=== PATIENT | female | born 1970 | race Caucasian/White ===

== ENCOUNTER → 2016-07-27 | Outpatient (CLI) | payer OTHER ==
[2016-07-27 10:32] LABS: BASOPHILS % (AUTO) 0 % (0-10); EOSINOPHILS # (AUTO) 0.3 10^3/uL (0.0-0.3); EOSINOPHILS % (AUTO) 2 % (0-10); LYMPHOCYTES # (AUTO) 2.7 X 10^3 (1.0-4.0); LYMPHOCYTES % (AUTO) 25 % (12-44); MEAN CORPUSCULAR HEMOGLOBIN 24 PG (25-34); MEAN CORPUSCULAR HGB CONC 31 G/DL (32-36); MEAN CORPUSCULAR VOLUME 78 FL (80-99); MEAN PLATELET VOLUME 9.3 FL (7.4-10.4); MONOCYTES # (AUTO) 0.9 X 10^3 (0.0-1.0); MONOCYTES % (AUTO) 8 % (0-12); NEUTROPHILS # (AUTO) 7.2 X 10^3 (1.8-7.8); NEUTROPHILS % (AUTO) 65 % (42-75); PLATELET COUNT 365 10^3/uL (130-400); RED BLOOD COUNT 4.77 10^6/uL (4.35-5.85); RED CELL DISTRIBUTION WIDTH 18.7 % (10.0-14.5); WHITE BLOOD COUNT 11.1 10^3/uL (4.3-11.0)
[2016-07-27 10:49] LABS: ALANINE AMINOTRANSFERASE 13 U/L (0-55); ALBUMIN 3.9 G/DL (3.2-4.5); ANION GAP 9 MMOL/L (5-14); ASPARTATE AMINO TRANSFERASE 12 U/L (5-34); BILIRUBIN,TOTAL 0.2 MG/DL (0.1-1.0); BLOOD UREA NITROGEN 13 MG/DL (7-18); BUN/CREATININE RATIO 16; CALCIUM 9.1 MG/DL (8.5-10.1); CARBON DIOXIDE 24 MMOL/L (21-32); CHLORIDE 102 MMOL/L (98-107); CREATININE SERUM 0.79 MG/DL (0.60-1.30); GFR ESTIMATED > 60; GLUCOSE 70 MG/DL (70-105); POTASSIUM 4.4 MMOL/L (3.6-5.0); SODIUM 135 MMOL/L (135-145); TOTAL PROTEIN 7.6 G/DL (6.4-8.2)
[2016-07-27 10:53] LABS: ERYTHROCYTE SEDIMENTATION RATE 55 MM/HR (0-20)
--- NOTE | 2016-07-27 11:05 | Diagnostic Imaging Report ---
PA and lateral views of the chest Indication: Solitary pulmonary nodule Findings: The lungs are clear. The heart size is borderline enlarged. There is no effusion or pneumothorax The mediastinum and shemar appear unremarkable. Impression: Borderline cardiomegaly. No definite pulmonary nodule is seen. CT however is the modality of choice for pulmonary nodule evaluation and could be performed with a low dose unenhanced protocol if needed. Dictated by: Dictated on workstation # [id number]
--- NOTE | 2016-07-27 18:05 | Diagnostic Imaging Report ---
Three views of the right foot. INDICATION: Ulcer at the plantar aspect of the right great toe. FINDINGS: There is a well-corticated ossification fragment measuring 8 mm seen projecting at the site of the soft tissue ulcer. This is perhaps related to heterotopic ossification. The medial cortex along the base of the distal phalanx in the great toe demonstrates subtle erosions suggestive of osteomyelitis. The head of the proximal phalanx appears unremarkable. The IP joint appears unremarkable. There is no fracture, dislocation or radiopaque foreign body seen. IMPRESSION: There is a subtle erosion along the medial aspect of the base of the distal phalanx in the great toe suggestive of osteomyelitis. The findings were called to Dr. Gonzalez by Dr. Smith at time of dictation. Dictated by: Dictated on workstation # [id number]
== END ==
LOC: RAD 10:09
PROVIDERS: ATTEND Surgery
DX: E11.621 Type 2 diabetes mellitus with foot ulcer (principal); E11.42 Type 2 diabetes mellitus with diabetic polyneuropathy; L97.514 Non-pressure chronic ulcer of other part of right foot with necrosis of bone; T65.222A Toxic effect of tobacco cigarettes, intentional self-harm, initial encounter; E66.01 Morbid (severe) obesity due to excess calories; R91.1 Solitary pulmonary nodule; M86.271 Subacute osteomyelitis, right ankle and foot
CPT/HCPCS: 36415; 71020; 73630; 80053; 83036; 85025; 85652

== ENCOUNTER → 2016-09-03 | Outpatient (CLI) | payer OTHER | LOC: CARD 09:29 | PROVIDERS: ATTEND Surgery | DX: L97.512 Non-pressure chronic ulcer of other part of right foot with fat layer exposed (principal) | CPT/HCPCS: 93005 ==

== ENCOUNTER 2016-10-09 09:47 | Outpatient (RCR) | payer OTHER ==
--- OUTSIDE RECORDS SUMMARY | 2016-07-27 08:11 | XMS REPORT ---
Author Author SOSA WALLS Organization [employer] Address Unknown Phone Unavailable Care Team Providers Care Greige Goods Examiner Name Role Phone SOSA WALLS CP Unavailable Allergies No Known Allergies Problems Problem Type Condition Code Onset Dates Condition Status Problem Unspecified gastritis and gastroduodenitis without mention of hemorrhage 535.50 Active Problem Nondependent amphetamine or related acting sympathomimetic abuse, unspecified 305.70 Active Problem Cough 786.2 Active Problem Pain in joint, ankle and foot 719.47 Active Problem Leukocytosis, unspecified 288.60 Active Problem Sprain and strain of unspecified site of foot 845.10 Active Problem Urinary tract infection, site not specified 599.0 Active Problem Rash and other nonspecific skin eruption 782.1 Active Problem Hypertension 401.9 Active Problem Unspecified acute renal failure 584.9 Active Problem Dehydration 276.51 Active Problem Chronic airway obstruction, not elsewhere classified 496 Active Problem 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 Problem Dizziness and giddiness 780.4 Active Problem Routine general medical examination at health care facility V70.0 Active Problem Other nonspecific findings on examination of blood, elevated C- reactive protein (CRP) 790.95 Active Problem Unspecified disorder of skin and subcutaneous tissue 709.9 Active Problem Generalized hyperhidrosis 780.8 Active Problem Unspecified hereditary and idiopathic peripheral neuropathy 356.9 Active Problem Polyneuropathy in diabetes 357.2 Active Problem Costochondritis 733.6 Active Problem Need for prophylactic vaccination and inoculation, Influenza V04.81 Active Problem Chest pain, unspecified 786.50 Active Problem Acute upper respiratory infections of unspecified site 465.9 Active Medications No Known Medications Results No Known Results Summary Purpose [employer] Submission
== END 2016-10-25 | disposition still patient (30) ==
LOC: WOUNDCARE 09:47
PROVIDERS: ATTEND Surgery
DX: E11.621 Type 2 diabetes mellitus with foot ulcer (principal); E11.42 Type 2 diabetes mellitus with diabetic polyneuropathy; L97.511 Non-pressure chronic ulcer of other part of right foot limited to breakdown of skin; L97.512 Non-pressure chronic ulcer of other part of right foot with fat layer exposed; T65.222A Toxic effect of tobacco cigarettes, intentional self-harm, initial encounter; M86.171 Other acute osteomyelitis, right ankle and foot; E66.01 Morbid (severe) obesity due to excess calories; Z68.39 Body mass index [BMI] 39.0-39.9, adult
CPT/HCPCS: 11042; 11043; 11044; 15275; 29445; 87070; 87075; 87205; 97597

== ENCOUNTER → 2019-11-11 | Outpatient (CLI) | payer SELFPAY | LOC: WOUNDCARE 12:32 | PROVIDERS: ATTEND Surgery | DX: E11.621 Type 2 diabetes mellitus with foot ulcer (principal); E11.42 Type 2 diabetes mellitus with diabetic polyneuropathy; L97.512 Non-pressure chronic ulcer of other part of right foot with fat layer exposed; I70.235 Atherosclerosis of native arteries of right leg with ulceration of other part of foot; L03.115 Cellulitis of right lower limb; E11.65 Type 2 diabetes mellitus with hyperglycemia; T65.222A Toxic effect of tobacco cigarettes, intentional self-harm, initial encounter; F17.218 Nicotine dependence, cigarettes, with other nicotine-induced disorders | CPT/HCPCS: 11042 ==

== ENCOUNTER → 2019-11-18 | Outpatient (CLI) | payer SELFPAY | LOC: WOUNDCARE 15:15 | PROVIDERS: ATTEND Surgery | DX: E11.621 Type 2 diabetes mellitus with foot ulcer (principal); L97.512 Non-pressure chronic ulcer of other part of right foot with fat layer exposed; I70.235 Atherosclerosis of native arteries of right leg with ulceration of other part of foot | CPT/HCPCS: 11042 ==

== ENCOUNTER → 2019-11-18 | Outpatient (CLI) | payer SELFPAY ==
[2019-11-18 16:48] LABS: BASOPHILS % (AUTO) 0 % (0-10); EOSINOPHILS # (AUTO) 0.1 10^3/uL (0.0-0.3); EOSINOPHILS % (AUTO) 2 % (0-10); HEMATOCRIT 41 % (35-52); HEMOGLOBIN 13.4 G/DL (11.5-16.0); LYMPHOCYTES # (AUTO) 2.8 X 10^3 (1.0-4.0); LYMPHOCYTES % (AUTO) 29 % (12-44); MEAN CORPUSCULAR HEMOGLOBIN 27 PG (25-34); MEAN CORPUSCULAR HGB CONC 33 G/DL (32-36); MEAN CORPUSCULAR VOLUME 83 FL (80-99); MEAN PLATELET VOLUME 9.1 FL (7.4-10.4); MONOCYTES # (AUTO) 0.7 X 10^3 (0.0-1.0); MONOCYTES % (AUTO) 7 % (0-12); NEUTROPHILS # (AUTO) 5.9 X 10^3 (1.8-7.8); NEUTROPHILS % (AUTO) 62 % (42-75); PLATELET COUNT 422 10^3/uL (130-400); WHITE BLOOD COUNT 9.5 10^3/uL (4.3-11.0)
[2019-11-18 16:55] LABS: ALBUMIN 3.5 GM/DL (3.2-4.5); CHLORIDE 97 MMOL/L (98-107); POTASSIUM 4.4 MMOL/L (3.6-5.0); SODIUM 129 MMOL/L (135-145)
[2019-11-18 16:57] LABS: CALCIUM 9.2 MG/DL (8.5-10.1)
[2019-11-18 16:59] LABS: CARBON DIOXIDE 23 MMOL/L (21-32)
[2019-11-18 17:00] LABS: BILIRUBIN,TOTAL 0.2 MG/DL (0.1-1.0)
[2019-11-18 17:01] LABS: ALKALINE PHOSPHATASE 142 U/L (40-136); CREATININE SERUM 0.91 MG/DL (0.60-1.30); GFR ESTIMATED > 60
[2019-11-18 17:02] LABS: BUN/CREATININE RATIO 19
[2019-11-18 17:04] LABS: ALANINE AMINOTRANSFERASE 8 U/L (0-55)
--- NOTE | 2019-11-18 17:09 | Diagnostic Imaging Report ---
EXAMINATION: Right foot at 5:16 p.m. INDICATION: Foot pain. TECHNIQUE: Three views were obtained. FINDINGS: The prior right foot exam of 07/27/2016 noted a subtle erosion along the medial aspect of the base of the distal phalanx of the great toe. This finding was suspicious for osteomyelitis. In the interval since the prior exam, marked distraction of the head and neck of the first metatarsal has developed. There is also bony destruction but to a lesser degree of the medial aspect of the base of the proximal phalanx of the great toe. There is also erosion of the lateral cortex of the mid body of the proximal phalanx of the great toe. There is also generalized soft tissue edema in this area. These findings are most likely related to osteomyelitis with an associated pathologic fracture of the first metatarsal and proximal phalanx. If further imaging is desired, then MRI would be recommended. There is no acute or subacute bony abnormality noted, otherwise. The Lisfranc joint seems well maintained. The large calcaneal spur seen previously is again evident. IMPRESSION: 1. There is destruction of the first metatarsal and proximal phalanx of the great toe, as described above. Most likely, this is due to osteomyelitis. Additional considerations, as above. 2. There is no acute bony abnormality identified, otherwise. 3. These results were called to Dr. Joe Gonzalez. Dictated by: Dictated on workstation # [id number]
[2019-11-18 17:18] LABS: GLUCOSE 536 MG/DL (70-105)
== END ==
LOC: RAD 14:50
PROVIDERS: ATTEND Surgery
DX: E11.621 Type 2 diabetes mellitus with foot ulcer (principal); E11.42 Type 2 diabetes mellitus with diabetic polyneuropathy; L97.512 Non-pressure chronic ulcer of other part of right foot with fat layer exposed; I70.235 Atherosclerosis of native arteries of right leg with ulceration of other part of foot; L03.115 Cellulitis of right lower limb; E11.65 Type 2 diabetes mellitus with hyperglycemia; T65.222A Toxic effect of tobacco cigarettes, intentional self-harm, initial encounter; F17.218 Nicotine dependence, cigarettes, with other nicotine-induced disorders
CPT/HCPCS: 36415; 73630; 80053; 84134; 85025

== ENCOUNTER → 2019-11-24 | Outpatient (CLI) | payer SELFPAY | LOC: WOUNDCARE 12:35 | PROVIDERS: ATTEND Surgery | DX: E11.621 Type 2 diabetes mellitus with foot ulcer (principal); E11.42 Type 2 diabetes mellitus with diabetic polyneuropathy; E11.65 Type 2 diabetes mellitus with hyperglycemia; L97.512 Non-pressure chronic ulcer of other part of right foot with fat layer exposed; L97.412 Non-pressure chronic ulcer of right heel and midfoot with fat layer exposed; L03.115 Cellulitis of right lower limb; I70.235 Atherosclerosis of native arteries of right leg with ulceration of other part of foot; M86.471 Chronic osteomyelitis with draining sinus, right ankle and foot; T65.222A Toxic effect of tobacco cigarettes, intentional self-harm, initial encounter; F17.218 Nicotine dependence, cigarettes, with other nicotine-induced disorders | CPT/HCPCS: 11042 ==

== ENCOUNTER 2021-02-02 22:01 | Inpatient (IN) | payer OTHER ==
[~2021-02-02] VITALS: Ht 172.7 cm; Wt 77.3 kg
[2021-02-02 22:26] LABS: BILIRUBIN,URINE NEGATIVE (NEGATIVE); CLARITY,URINE CLEAR; COLOR,URINE YELLOW; GLUCOSE, URINE (UA) 3+ (NEGATIVE); KETONES,URINE NEGATIVE (NEGATIVE); LEUKOCYTE ESTERASE ,URINE NEGATIVE (NEGATIVE); NITRITE,URINE NEGATIVE (NEGATIVE); PH,URINE 5.5 (5-9); PROTEIN,URINE 1+ (NEGATIVE)
[2021-02-02 22:30] LABS: BASOPHILS # (AUTO) 0.1 10^3/uL (0.0-0.1); BASOPHILS % (AUTO) 0 % (0-10); EOSINOPHILS % (AUTO) 0 % (0-10); HEMATOCRIT 38 % (35-52); HEMOGLOBIN 11.8 g/dL (11.5-16.0); LYMPHOCYTES # (AUTO) 1.5 10^3/uL (1.0-4.0); LYMPHOCYTES % (AUTO) 10 % (12-44); MEAN CORPUSCULAR HEMOGLOBIN 26 pg (25-34); MEAN CORPUSCULAR HGB CONC 31 g/dL (32-36); MEAN CORPUSCULAR VOLUME 84 fL (80-99); MEAN PLATELET VOLUME 9.3 fL (9.0-12.2); MONOCYTES # (AUTO) 1.4 10^3/uL (0.0-1.0); MONOCYTES % (AUTO) 9 % (0-12); NEUTROPHILS # (AUTO) 12.7 10^3/uL (1.8-7.8); NEUTROPHILS % (AUTO) 79 % (42-75); PLATELET COUNT 494 10^3/uL (130-400)
[2021-02-02 22:35] LABS: BACTERIA,URINE TRACE /HPF; RBC,URINE RARE /HPF; WBC,URINE 0-2 /HPF; YEAST,URINE FEW /HPF
[2021-02-02 22:46] LABS: ALBUMIN 2.8 GM/DL (3.2-4.5); INR 1.2 (0.8-1.4); POTASSIUM 3.6 MMOL/L (3.6-5.0); PROTHROMBIN TIME PATIENT 15.1 SEC (12.2-14.7)
[2021-02-02 22:48] LABS: CALCIUM 8.7 MG/DL (8.5-10.1)
[2021-02-02 22:49] LABS: TOTAL PROTEIN 7.6 GM/DL (6.4-8.2)
[2021-02-02 22:51] LABS: BILIRUBIN,TOTAL 0.3 MG/DL (0.1-1.0)
[2021-02-02 22:53] LABS: CREATININE SERUM 0.97 MG/DL (0.60-1.30)
[2021-02-02] MEDS ORDERED: NS IV 1000 ML 1,000 ML IV SCH ×2 (23:00→23:30)
[2021-02-02 23:01] LABS: ANISOCYTOSIS SLIGHT; BAND NEUTROPHILS 0 %; BASOPHILS % (MANUAL) 0 %; EOSINOPHILS % (MANUAL) 0 %; LYMPHOCYTES % (MANUAL) 10 %; MONOCYTES % (MANUAL) 8 %; NEUTROPHILS % (MANUAL) 82 %; POLYCHROMASIA SLIGHT; TOXIC GRANULATION/VACUOLAZATIO 1+
[2021-02-02] MEDS ORDERED: morphine INJ 10 MG/ML 1ML (SYR OR VIAL) IVP STA (23:15)
[2021-02-02] MEDS ORDERED: NS IV 500 ML 500 ML IV ONE (23:30)
[2021-02-02] MEDS ORDERED: inSUlin (REGULAR) HUMAN 1 UNIT/0.01 ML (CHARGE PER UNIT) IV ONE (23:30)
[2021-02-02] MEDS ORDERED: LORazepam INJ 2 MG/ML (ATIVAN) VIAL IVP ONE (23:30)
[2021-02-02] MEDS ORDERED: PIPERACILLIN SODIUM/TAZOBACTAM 4.5 GM in NS (IVPB) 100 ML IV ONE (23:30)
[2021-02-02 23:37] LABS: AMPHETAMINE SCREEN, URINE NEGATIVE (NEGATIVE); BARBITURATE SCREEN URINE NEGATIVE (NEGATIVE); BENZODIAZEPINES SCREEN URINE NEGATIVE (NEGATIVE); CANNABINOID SCREEN, URINE NEGATIVE (NEGATIVE); COCAINE SCREEN URINE NEGATIVE (NEGATIVE); METHADONE STAT NEGATIVE (NEGATIVE); METHAMPHETAMINE SCREEN URINE S NEGATIVE (NEGATIVE); OPIATE SCREEN URINE NEGATIVE (NEGATIVE); OXYCODONE STAT NEGATIVE (NEGATIVE); PROPOXYPHENE STAT NEGATIVE (NEGATIVE); TRICYCLIC ANTIDEPRESSANTS SCRE NEGATIVE (NEGATIVE)
[2021-02-03] MEDS: VANCOMYCIN INJECTION 750 MG in NS (IVPB) 250 ML IV SCH ×2 (00:34→02:56)
--- NOTE | 2021-02-03 01:27 | ED General ---
General Chief Complaint: Skin/Wound Problems Stated Complaint: SEVERE SEPSIS,CELLULITIS & ABSCESS OF RIGHT FOOT Nursing Triage Note: TO ED [facility] TO ROOM 5 WITH C/O RIGHT FOOT ULCER. PT STATES SHE THINKS SHE MAY HAVE GOTTEN GLASS IN IT 4-5 DAYS AGO. Source of Information: Patient, Old Records Exam Limitations: No Limitations History of Present Illness Date Seen by Provider: Feb 02, 2021 Time Seen by Provider: 22:14 Initial Comments This 50-year-old woman presents to the emergency room with complaints of severe infection and pain in the right foot. She has longstanding diabetic ulcer on that foot and had received wound care services at [facility] in the past. She has not been treating her foot or her diabetes in many months. She reports fever up to 104 a day or 2 ago. She is afebrile at present. She states she has "given up" since witnessing her kill himself in 2019. She implies she has had no motivation to care for herself since then. Allergies and Home Medications Allergies Coded Allergies: meperidine (Verified Allergy, Unknown, 02/02/21) varenicline (Verified Allergy, Unknown, 02/02/21) Patient Home Medication List Home Medication List Reviewed: Yes Review of Systems Review of Systems Constitutional: see HPI EENTM: no symptoms reported Respiratory: no symptoms reported Cardiovascular: no symptoms reported Gastrointestinal: no symptoms reported Genitourinary: no symptoms reported Musculoskeletal: see HPI Skin: see HPI Psychiatric/Neurological: See HPI Hematologic/Lymphatic: No Symptoms Reported Immunological/Allergic: no symptoms reported Past Ipltukr-Sqizha-Bgfftj Hx Patient Social History Tobacco Use?: Yes Tobacco type used: Cigarettes Smoking Status: Current Everyday Smoker Substance use?: No Additional substance use comme: DENIES Alcohol Use?: No Pt feels they are or have been: No Immunizations Up To Date COVID19 Vaccine Safety And Health Manager: NO VAX Past Medical History Surgeries: No (None reported) Respiratory: No Cardiac: Yes Hypertension : No Reproductive Disorders: No Genitourinary: No Gastrointestinal: No Musculoskeletal: No Endocrine: Yes Diabetes, Non-Insulin dep (uncontrolled, untreated) HEENT: No Cancer: No Psychosocial: Yes Depression Integumentary: Yes (diabetic foot ulcers) Physical Exam-Suspected Sepsis Physical Exam Vital Signs Vital Signs - First Documented 02/02/21 02/03/21 22:04 01:11 Temp 37.5 Pulse 108 Resp 16 B/P (MAP) 143/84 (103) Pulse Ox 98 O2 Delivery Room Air Capillary Refill : Less Than 3 Seconds Blood Pressure Mean: 103 Height, Weight, BMI Height: '" Weight: lbs. oz. kg; 25.00 BMI Method: General Appearance: WD/WN, Moderate Distress HEENT: PERRL/EOMI, Normal ENT Inspection Neck: Normal Inspection Respiratory: Lungs Clear, Normal Breath Sounds, No Accessory Muscle Use Cardiovascular: No Edema, No Murmur, Tachycardia Gastrointestinal: Normal Bowel Sounds, Non Tender Extremity: Other (Grossly infected right foot with multiple areas of purulent drainage and ulceration. Bolus lesion on the lateral aspect of the foot. Patchy erythema of the skin. Tenderness noted. Capillary refill in the toes less than 5 seconds.) Neurologic/Psychiatric: Alert, Oriented x3, No Motor/Sensory Deficits, hog raiser II- XII Norm as Tested, Other (Anxious, tearful, depressed) Skin: other (See above) Focused Exam Lactate Level 02/02/21 22:25: Lactic Acid Level 3.45*H 02/03/21 00:38: Lactic Acid Level 3.04*H 02/03/21 03:47: Lactic Acid Level 2.79*H Lactic Acid Level Laboratory Tests Test 02/03/21 03:47 Lactic Acid Level 2.79 MMOL/L (0.50-2.00) *H Progress/Results/Core Measures Suspected Sepsis SIRS Temperature: Pulse: 105 Respiratory Rate: 16 Laboratory Tests 02/02/21 22:25: White Blood Count 16.0H 02/03/21 03:47: White Blood Count 18.7H Blood Pressure 125 /81 Mean: 103 02/02/21 22:25: Lactic Acid Level 3.45*H 02/03/21 00:38: Lactic Acid Level 3.04*H 02/03/21 03:47: Lactic Acid Level 2.79*H Laboratory Tests 02/02/21 22:25: Creatinine 0.97, INR Comment 1.2, Platelet Count 494H, Total Bilirubin 0.3 02/03/21 03:47: Creatinine 0.65, Platelet Count 444H Results/Orders Lab Results Laboratory Tests Test 02/02/21 22:20 02/02/21 22:25 02/03/21 00:38 02/03/21 02:10 Range/Units Urine Color YELLOW Urine Clarity CLEAR Urine pH 5.5 5-9 Urine Specific [place] <=1.005 1.016-1.022 Urine Protein 1+ H NEGATIVE Urine Glucose (UA) 3+ H NEGATIVE Urine Ketones NEGATIVE NEGATIVE Urine Nitrite NEGATIVE NEGATIVE Urine Bilirubin NEGATIVE NEGATIVE Urine Urobilinogen 0.2 < = 1.0 MG/DL Urine Leukocyte Esterase NEGATIVE NEGATIVE Urine RBC (Auto) 1+ H NEGATIVE Urine RBC RARE /HPF Urine WBC 0-2 /HPF Urine Squamous Epithelial Cells 2-5 /HPF Urine Crystals NONE /LPF Urine Bacteria TRACE /HPF Urine Casts NONE /LPF Urine Mucus NEGATIVE /LPF Urine Yeast FEW H /HPF Urine Culture Indicated CULTURE PENDING Urine Opiates Screen NEGATIVE NEGATIVE Urine Oxycodone Screen NEGATIVE NEGATIVE Urine Methadone Screen NEGATIVE NEGATIVE Urine Propoxyphene Screen NEGATIVE NEGATIVE Urine Barbiturates Screen NEGATIVE NEGATIVE Ur Tricyclic Antidepressants Screen NEGATIVE NEGATIVE Urine Phencyclidine Screen NEGATIVE NEGATIVE Urine Amphetamines Screen NEGATIVE NEGATIVE Urine Methamphetamines Screen NEGATIVE NEGATIVE Urine Benzodiazepines Screen NEGATIVE NEGATIVE Urine Cocaine Screen NEGATIVE NEGATIVE Urine Cannabinoids Screen NEGATIVE NEGATIVE White Blood Count 16.0 H 4.3-11.0 10^3/uL Red Blood Count 4.53 3.80-5.11 10^6/uL Hemoglobin 11.8 11.5-16.0 g/dL Hematocrit 38 35-52 % Mean Corpuscular Volume 84 80-99 fL Mean Corpuscular Hemoglobin 26 25-34 pg Mean Corpuscular Hemoglobin Concent 31 L 32-36 g/dL Red Cell Distribution Width 15.5 H 10.0-14.5 % Platelet Count 494 H 130-400 10^3/uL Mean Platelet Volume 9.3 9.0-12.2 fL Immature Granulocyte % (Auto) 2 % Neutrophils (%) (Auto) 79 H 42-75 % Lymphocytes (%) (Auto) 10 L 12-44 % Monocytes (%) (Auto) 9 0-12 % Eosinophils (%) (Auto) 0 0-10 % Basophils (%) (Auto) 0 0-10 % Neutrophils # (Auto) 12.7 H 1.8-7.8 10^3/uL Lymphocytes # (Auto) 1.5 1.0-4.0 10^3/uL Monocytes # (Auto) 1.4 H 0.0-1.0 10^3/uL Eosinophils # (Auto) 0.0 0.0-0.3 10^3/uL Basophils # (Auto) 0.1 0.0-0.1 10^3/uL Immature Granulocyte # (Auto) 0.3 H 0.0-0.1 10^3/uL Neutrophils % (Manual) 82 % Lymphocytes % (Manual) 10 % Monocytes % (Manual) 8 % Eosinophils % (Manual) 0 % Basophils % (Manual) 0 % Band Neutrophils 0 % Toxic Granulation 1+ Polychromasia SLIGHT Anisocytosis SLIGHT Prothrombin Time 15.1 H 12.2-14.7 SEC INR Comment 1.2 0.8-1.4 Activated Partial Thromboplast Time 29 24-35 SEC Sodium Level 126 L 135-145 MMOL/L Potassium Level 3.6 3.6-5.0 MMOL/L Chloride Level 87 L 98-107 MMOL/L Carbon Dioxide Level 23 21-32 MMOL/L Anion Gap 16 H 5-14 MMOL/L Blood Urea Nitrogen 7 7-18 MG/DL Creatinine 0.97 0.60-1.30 MG/DL Estimat Glomerular Filtration Rate 61 BUN/Creatinine Ratio 7 Glucose Level 815 *H 70-105 MG/DL Lactic Acid Level 3.45 *H 3.04 *H 0.50-2.00 MMOL/L Calcium Level 8.7 8.5-10.1 MG/DL Corrected Calcium 9.7 8.5-10.1 MG/DL Total Bilirubin 0.3 0.1-1.0 MG/DL Aspartate Amino Transf (AST/SGOT) 11 5-34 U/L Alanine Aminotransferase (ALT/SGPT) 8 0-55 U/L Alkaline Phosphatase 232 H 40-136 U/L Total Protein 7.6 6.4-8.2 GM/DL Albumin 2.8 L 3.2-4.5 GM/DL Glucometer 518 *H 70-110 MG/DL Test 02/03/21 03:47 02/03/21 04:30 Range/Units White Blood Count 18.7 H 4.3-11.0 10^3/uL Red Blood Count 4.05 3.80-5.11 10^6/uL Hemoglobin 10.8 L 11.5-16.0 g/dL Hematocrit 33 L 35-52 % Mean Corpuscular Volume 83 80-99 fL Mean Corpuscular Hemoglobin 27 25-34 pg Mean Corpuscular Hemoglobin Concent 32 32-36 g/dL Red Cell Distribution Width 15.1 H 10.0-14.5 % Platelet Count 444 H 130-400 10^3/uL Mean Platelet Volume 9.1 9.0-12.2 fL Immature Granulocyte % (Auto) 2 % Neutrophils (%) (Auto) 75 42-75 % Lymphocytes (%) (Auto) 14 12-44 % Monocytes (%) (Auto) 7 0-12 % Eosinophils (%) (Auto) 1 0-10 % Basophils (%) (Auto) 0 0-10 % Neutrophils # (Auto) 14.1 H 1.8-7.8 10^3/uL Lymphocytes # (Auto) 2.7 1.0-4.0 10^3/uL Monocytes # (Auto) 1.3 H 0.0-1.0 10^3/uL Eosinophils # (Auto) 0.1 0.0-0.3 10^3/uL Basophils # (Auto) 0.1 0.0-0.1 10^3/uL Immature Granulocyte # (Auto) 0.4 H 0.0-0.1 10^3/uL Sodium Level 132 L 135-145 MMOL/L Potassium Level 3.3 L 3.6-5.0 MMOL/L Chloride Level 98 98-107 MMOL/L Carbon Dioxide Level 22 21-32 MMOL/L Anion Gap 12 5-14 MMOL/L Blood Urea Nitrogen 6 L 7-18 MG/DL Creatinine 0.65 0.60-1.30 MG/DL Estimat Glomerular Filtration Rate 97 BUN/Creatinine Ratio 9 Glucose Level 298 H 70-105 MG/DL Lactic Acid Level 2.79 *H 0.50-2.00 MMOL/L Calcium Level 8.2 L 8.5-10.1 MG/DL C-Reactive Protein High Sensitivity 21.23 H 0.00-0.50 MG/DL Glucometer 220 H 70-110 MG/DL My Orders Orders - LOUIE HERNANDEZ MD Cbc With Automated Diff (02/02/21 22:14) Comprehensive Metabolic Panel (02/02/21 22:14) Blood Culture (02/02/21 22:14) Sputum Culture (02/02/21 22:14) Urinalysis (02/02/21 22:14) Urine Culture (02/02/21 22:14) Protime With Inr (02/02/21 22:14) Partial Thromboplastin Time (02/02/21 22:14) Chest 1 View, Ap/Pa Only (02/02/21 22:14) Ed Iv/Invasive Line Start (02/02/21 22:14) Ed Iv/Invasive Line Start (02/02/21 22:14) Vital Signs Adult Sepsis Patie Q15M (02/02/21 22:14) O2 (02/02/21 22:14) Remove Rings In Anticipation O (02/02/21 22:14) Lactic Acid Analyzer (02/02/21 22:14) Manual Differential (02/02/21 22:25) Ns Iv 1000 Ml (Sodium Chloride 0.9%) (02/02/21 23:00) Morphine Injection (Morphine Injection (02/02/21 23:15) Piperacillin Sodium/Tazobactam (Zosyn Vi (02/02/21 23:30) Foot, Right, 3 View (02/02/21 23:19) Insulin (Regular) Human (Novolin R (Per (02/02/21 23:30) Drug Screen Stat (Urine) (02/02/21 23:20) Lorazepam Injection (Ativan Injection) (02/02/21 23:30) Vancomycin Injection (Vancomycin Injecti (02/02/21 23:30) Ns Iv 500 Ml (Sodium Chloride 0.9%) (02/02/21 23:30) Ns Iv 1000 Ml (Sodium Chloride 0.9%) (02/02/21 23:30) Medications Given in ED Current Medications Medications Dose Ordered Sig/Jil Route Start Time Stop Time Status Last Admin Dose Admin Insulin Human Regular 5 unit ONCE ONCE IV 02/02/21 23:30 02/02/21 23:31 DC 02/02/21 23:35 5 UNIT Piperacillin Sod/ Tazobactam Sod 4.5 gm/Sodium Chloride 100 ml @ 200 mls/hr ONCE ONCE IV 02/02/21 23:30 02/02/21 23:59 DC 02/03/21 00:12 200 MLS/HR Sodium Chloride 500 ml @ 0 mls/hr Q0M ONCE IV 02/02/21 23:30 02/02/21 23:31 DC 02/03/21 02:55 999 MLS/HR Vital Signs/I&O 02/02/21 02/03/21 02/03/21 02/03/21 22:04 01:11 01:36 01:41 Temp 37.5 37.5 38.5 Pulse 108 105 101 107 Resp 16 16 20 B/P (MAP) 143/84 (103) 125/81 (103) 121/93 (102) Pulse Ox 98 97 O2 Delivery Room Air Room Air Room Air 02/03/21 02/03/21 02/03/21 02/03/21 02:00 03:00 04:00 04:27 Temp 36.9 Pulse 102 101 101 Resp 22 9 22 B/P (MAP) 125/76 (92) 122/70 (87) 130/75 (93) Pulse Ox 98 94 97 O2 Delivery Room Air Room Air Room Air 02/03/21 04:59 B/P (MAP) Capillary Refill : Less Than 3 Seconds Blood Pressure Mean: 103 Progress Note : Time: 01:33 Progress Note Septic work-up was pursued. 30 mL/kg IV fluid bolus was initiated in the ER as lactic acid was elevated at 3.5. Patient's blood sugar on blood draw was greater than 800. She was treated with IV fluids and 5 units of insulin IV. Insulin drip is being ordered to continue treatment in ICU. Associated Advate via said were started in the ER. Morphine was given for pain. Patient had some belligerent emotional outburst, lashing out at staff, until pain was treated. I discussed CODE STATUS with the patient and she elects DO NOT RESUSCITATE. Diagnostic Imaging Diagonstic Imaging: Xray Plain Films/CT/US/NM/MRI: chest Comments Chest x-ray viewed by me. Report not yet available. No acute abnormalities were appreciated. Diagonstic Imaging: Xray Plain Films/CT/US/NM/MRI: other (Right foot) Comments Right foot x-ray was reviewed by me and compared with prior. There has been interval improvement in healing of the first metatarsal. There is still bony disfigurement. There is possible bony degradation in the midfoot noted. Report not yet available. Departure Communication (Admissions) Time/Spoke to Admitting Phy: 23:30 Dr. Hood Time/Spoke to Consulting Phy: 23:30 Dr. Reid Impression Primary Impression: Severe sepsis Additional Impressions: Cellulitis and abscess of toe of right foot Hyperglycemia Uncontrolled diabetes mellitus Qualified Codes: E11.65 - Type 2 diabetes mellitus with hyperglycemia Disposition: ADMITTED INPATIENT Condition: Improved Admissions Decision to Admit Reason: Admit from ER (General) Decision to Admit/Date: Feb 03, 2021 Time/Decision to Admit Time: 23:10 Departure-Patient Inst. Referrals: SOSA WALLS (PCP/Family) Primary Care Physician LOUIE HERNANDEZ MD Feb 03, 2021 01:27
[2021-02-03] MEDS ORDERED: EPINEPHrine 1 MG INJECTION 4 MG in NS (IVPB) 248 ML IV SCH (02:00)
[2021-02-03] MEDS: NOREPINEPHRINE 8 MG/250 ML 250 ML IV SCH ×2 (02:29→19:40)
[2021-02-03] MEDS: VASOPRESSIN INJECTION 20 UNIT in NS (IVPB) 100 ML IV SCH ×3 (02:29→19:40)
[2021-02-03] MEDS ORDERED: DEXTROSE 50% 50 ML (IMS) SYR IV PRN ×2 (02:30)
[2021-02-03] MEDS ORDERED: inSUlin (REGULAR) HUMAN 1 UNIT/0.01 ML (CHARGE PER UNIT) IV ONE (02:45)
[2021-02-03] MEDS ORDERED: NS IV 500 ML 500 ML ONE (02:49)
[2021-02-03] MEDS: morphine INJ 10 MG/ML 1ML (SYR OR VIAL) IV PRN ×4 (03:37→19:47)
[2021-02-03 04:02] LABS: BASOPHILS # (AUTO) 0.1 10^3/uL (0.0-0.1); BASOPHILS % (AUTO) 0 % (0-10); EOSINOPHILS # (AUTO) 0.1 10^3/uL (0.0-0.3); EOSINOPHILS % (AUTO) 1 % (0-10); HEMATOCRIT 33 % (35-52); HEMOGLOBIN 10.8 g/dL (11.5-16.0); LYMPHOCYTES # (AUTO) 2.7 10^3/uL (1.0-4.0); LYMPHOCYTES % (AUTO) 14 % (12-44); MEAN CORPUSCULAR HEMOGLOBIN 27 pg (25-34); MEAN CORPUSCULAR HGB CONC 32 g/dL (32-36); MEAN CORPUSCULAR VOLUME 83 fL (80-99); MEAN PLATELET VOLUME 9.1 fL (9.0-12.2); MONOCYTES # (AUTO) 1.3 10^3/uL (0.0-1.0); MONOCYTES % (AUTO) 7 % (0-12); NEUTROPHILS # (AUTO) 14.1 10^3/uL (1.8-7.8); NEUTROPHILS % (AUTO) 75 % (42-75); PLATELET COUNT 444 10^3/uL (130-400); WHITE BLOOD COUNT 18.7 10^3/uL (4.3-11.0)
[2021-02-03 04:08] LABS: POTASSIUM 3.3 MMOL/L (3.6-5.0)
[2021-02-03 04:09] LABS: CALCIUM 8.2 MG/DL (8.5-10.1)
[2021-02-03 04:14] LABS: CREATININE SERUM 0.65 MG/DL (0.60-1.30)
[2021-02-03] MEDS: KCL 20 MEQ TAB (K-DUR) PO SCH (05:35)
[2021-02-03] MEDS: POTASSIUM CL 10MEQ/50ML IVPB 50 ML IV SCH ×5 (05:35→08:25)
[2021-02-03] MEDS: LACTATED RINGERS 1,000 ML IV SCH ×4 (05:44→22:47)
--- NOTE | 2021-02-03 05:44 | Diagnostic Imaging Report ---
INDICATION: Diabetic foot ulcer, pain, sepsis Portable chest 10:31 PM Heart size and pulmonary vascularity are normal. Lungs are clear. There are no effusions or pneumothoraces. IMPRESSION: Negative chest Dictated by: Dictated on workstation # [id number]
[2021-02-03] MEDS: MAGNESIUM 1 GM/100 ML IVPB 100 ML IV SCH ×3 (06:08→08:25)
--- NOTE | 2021-02-03 06:19 | Diagnostic Imaging Report ---
INDICATION: Diabetic foot ulcer. 3 views of the right foot show gas in the soft tissues of the metatarsal pad. There is chronic appearing destructive change of the 1st MTP joint with minimal loss and some hypertrophic bony change. There is no acute fracture, dislocation or osteolysis. IMPRESSION: Gas in the soft tissues of the metatarsal pad consistent with diabetic foot ulcer. No evidence of acute osseous abnormalities. There are changes of old osteomyelitis of the 1st MTP joint. Dictated by: Dictated on workstation # [id number]
[2021-02-03] MEDS: PIPERACILLIN/TAZOBACTAM (BULK) 4.5 GM in NS (IVPB) 100 ML IV SCH ×3 (06:34→21:32)
[2021-02-03] MEDS ORDERED: VANCOMYCIN 1 GM/NS 250 ML IVPB IV SCH ×2 (08:00)
[2021-02-03] MEDS: ONDANSETRON 4 MG/2 ML (SDV) Z0FRAN IV PRN (08:25)
[2021-02-03] MEDS ORDERED: IBUP-2473 PO (10:21)
[2021-02-03] MEDS: NYSTATIN OINTMENT 30 GM TUBE TOP SCH ×2 (10:30→20:38)
[2021-02-03] MEDS: ALPRAZolam 0.5 MG (XANAX) TAB PO SCH ×3 (10:46→23:42)
--- NOTE | 2021-02-03 12:06 | CONSULTATION REPORT ---
DATE OF SERVICE: 02/03/2021 ATTENDING MONITOR CAR OPERATOR: [facility]. ADMITTING PHYSICIAN: Dr. Hood. HISTORY OF PRESENT ILLNESS: The patient is a 50-year-old female who was brought to the Emergency Department with severe infection and pain of the right foot. This has been a longstanding issue and she has a longstanding history of diabetic ulceration of the left foot and has been receiving wound care; however, has been extremely noncompliant. She has a history of hypertension as well as diabetes and does not take any medications. She does have a significant depression after witnessing her committed suicide in 2019 and reports that she has lost hope. She also did have a fever a few days ago. Upon examination, there is necrotic foot wound overlying the first metatarsophalangeal joint and is malodorous. There is also surrounding redness and erythema as well as edema. X-ray was performed, which was consistent with osteomyelitis of the metacarpophalangeal joint. The recommendation was made to proceed with potentially a transmetatarsal amputation versus a [id number]-ejb-[id number] amputation. At this time, she does not want any procedures done and we will talk to family members. PAST MEDICAL HISTORY: Hypertension, diabetes and depression. PAST SURGICAL HISTORY: None known. ALLERGIES: MEPERIDINE, VOVERAN CREAM. MEDICATIONS: None. SOCIAL HISTORY: Positive smoke 40 pack years. Negative alcohol. FAMILY HISTORY: Noncontributory. VITAL SIGNS: Temperature 37.5, blood pressure 95/61, pulse 93, respirations 36, pulse ox 98% on 2 liters nasal cannula. REVIEW OF SYSTEMS: A well-nourished female, currently in no acute distress. She is not experiencing any shortness of breath or difficulty breathing. No chest pain, palpitations, diaphoresis. No nausea, vomiting, no diarrhea or constipation. She does report having fevers a few days ago. She does not report any recent inadvertent weight loss. Large malodorous right foot wound. No recent inadvertent weight loss. PHYSICAL EXAMINATION: CHEST: Distant breath sounds and scattered wheezes bilaterally. HEART: Regular, no murmurs. EXTREMITIES: No lower extremity edema, negative Homans sign. HEENT: No scleral icterus. NECK: No cervical lymphadenopathy. ABDOMEN: Soft, nontender, nondistended. SKIN: Along the plantar and lateral aspect of the right metacarpophalangeal region there is a large open wound with necrotic debris and is also malodorous. She does have palpable posterior tibial pulse. LABORATORY DATA: WBC 18.7, hemoglobin 10.8, hematocrit 33, platelets 444. Blood sugar on admission was 518, BUN 6, creatinine 0.65. ASSESSMENT AND PLAN: A 50-year-old female with a necrotic foot wound as well as osteomyelitis of the right first metatarsophalangeal joint. The recommendation was to proceed with a transmetatarsal amputation versus a [id number] amputation. At this time, she is resistant to proceeding with any type of surgical procedure due to her home status and depression and states that she wants to proceed with medical therapy for now and talk with family members. Job ID: [id number] DocumentID: [id number] Dictated Date: 02/03/2021 11:43:26 Elementary Art Teacher Date: 02/03/2021 12:05:52 Dictated By: [address] MD
[2021-02-03] MEDS: VANCOMYCIN 1 GM/NS 250 ML IVPB IV SCH ×2 (12:21)
--- NOTE | 2021-02-03 13:08 | History & Physical-Hospitalist ---
ROBIN DIANE MED STUDENT 02/03/21 1307: History of Present Illness HPI/Chief Complaint This is a 50 YO female with history of poorly controlled DM and diabetic foot ulcers who came to the ER yesterday for complaints of right foot pain and fever at home. Pt's committed suicide in 2019 and pt has not been caring for herself since. In the ER, lactate was 3.45, blood sugar was 815, and WBC's elevated at 16.0. Pt started on insulin drip, initiated Zosyn and Vanc, and admitted to ICU. When interviewing pt, she is terse and not wanting to answer q uestions. States she is still having pain and wants something to eat/drink. After this interview, pt yelled at nursing staff about NPO status. Source: patient, RN/MD Exam Limitations: other (pt cooperation) Date Seen 02/03/21 Attending Physician Benita Solorzano DO [facility] [place],[facility] Referring Physician Date of Admission Feb 02, 2021 at 23:45 Home Medications & Allergies Home Medications Reviewed patient Home Medication Reconciliation performed by pharmacy medication reconciliations drafting technician and/or nursing. Patients Allergies have been reviewed. Allergies Allergies Coded Allergies meperidine (Verified Allergy, Unknown, 02/02/21) varenicline (Verified Allergy, Unknown, 02/02/21) Past Tsoyhhu-Mgjvcu-Wdmrol Hx Patient Social History Marrital Status: Tobacco Use?: Yes Tobacco type used: Cigarettes Smoking Status: Current Everyday Smoker Substance use?: Yes Substance type: Methamphetamine Additional substance use comme: history Alcohol Use?: No Additional Alcohol Comments: DENIES Pt feels they are or have been: No Immunizations Up To Date Tetanus Booster (TDap): Unknown Current Status status: No Advance Directives: No Communicates: Verbally Primary Language: Zambian Preferred Spoken Language: Zambian Is interpretation needed?: No Past Medical History Hypertension Diabetes, Non-Insulin dep (uncontrolled, untreated) Depression Review of Systems Constitutional: fever EENTM: no symptoms reported Respiratory: no symptoms reported Cardiovascular: no symptoms reported Gastrointestinal: no symptoms reported Genitourinary: no symptoms reported Musculoskeletal: see HPI Skin: see HPI Psychiatric/Neurological: Depressed, Emotional Problems All Other Systems Reviewed Negative Unless Noted: Yes (Negative excepted noted.) Physical Exam Physical Exam Vital Signs Vital Signs - First Documented 02/02/21 02/03/21 02/03/21 22:04 01:11 08:00 Temp 37.5 Pulse 108 Resp 16 B/P (MAP) 143/84 (103) Pulse Ox 98 O2 Delivery Room Air O2 Flow Rate 2.00 Capillary Refill : Less Than 3 Seconds Height, Weight, BMI Height: '" Weight: lbs. oz. kg; 25.91 BMI Method: General Appearance: No Apparent Distress, Other (sleeping in bed, reluctant to answer questions) Eyes: Bilateral Eye Normal Inspection Respiratory: No Accessory Muscle Use, No Respiratory Distress Cardiovascular: Regular Rate, Rhythm, No Edema Gastrointestinal: No Distended Extremity: Other (foul-smelling ulcerations on the bottom of the right foot as well as on the lateral aspect) Neurologic/Psychiatric: Alert, Oriented x3, Other (intermittently agitated) Skin: Normal Color, Warm/Dry Results Results/Procedures Labs Laboratory Tests 02/02/21 22:25 02/03/21 03:47 Patient resulted labs reviewed. Imaging: Reviewed Imaging Report Assessment/Plan Admission Diagnosis DKA, diabetic foot ulcer Assessment and Plan DKA insulin drip monitor sugars diabetic foot ulcer Dr. Reid consulted Pain control sepsis Vanc and Zosyn lactate improved leukocytosis worsening poorly controlled DM depression agitation Xanax BENITA HERNANDEZ DO 02/03/212144: History of Present Illness HPI/Chief Complaint CC: Right foot pain HPI: This is a 50yoWF type 1 diabetic who presented to the ER with complaints of right foot pain. She was found to have significant diabetic ulcers on multiple areas of her foot. It appears that it wont be salvageable but Dr. Reid was consulted and will be monitoring pt closely. She is still on insulin drip and will be monitoring and providing supportince care. Source: patient, RN/MD Exam Limitations: clinical condition Time Seen by a Provider: 11:00 Past Nzhrqjs-Hhpfmt-Qwxvrz Hx Patient Social History Marrital Status: Employed/Student: unemployed Smoking Status: Current Everyday Smoker Review of Systems Constitutional: see HPI Physical Exam Physical Exam General Appearance: No Apparent Distress, Chronically ill Extremity: Other (foul-smelling ulcerations on the bottom of the right foot as well as on the lateral aspect) Assessment/Plan Admission Diagnosis Assessment: Hyperosmolar hyperglycemia nonketotic state Right diabetic ulcers encompassing most of foot Plan: General surgery consultation Insulin drip IV fluids Dr. Reid consult Admission Status: Inpatient Order (span 2 midnights) Reason for Inpatient Admission: Hyperosmolar hyperglycemia nonketotic state Diagnosis/Problems Diagnosis/Problems (1) Cellulitis and abscess of toe of right foot Status: Acute (2) Uncontrolled diabetes mellitus Status: Acute Qualifiers: Diabetes mellitus type: type 2 Glycemic state: with hyperglycemia Qualified Codes: E11.65 - Type 2 diabetes mellitus with hyperglycemia (3) Hyperglycemia Status: Acute Supervisory-Addendum Brief Verification & Attestation Participated in pt care: history, MDM, physical Personally performed: exam, history, MDM, supervision of care Care discussed with: Medical Student Procedures: n/a Results interpretation: Verified all documentation Verification and Attestation of Medical Student E/M Service A medical student performed and documented this service in my presence. I reviewed and verified all information documented by the medical student and made modifications to such information, when appropriate. I personally performed the physical exam and medical decision making. Benita Solorzano, Feb 03, 2021,21:45 ROBIN DIANE MED STUDENT Feb 03, 2021 13:07 BENITA SOLORZANO DO Feb 03, 2021 21:45
[2021-02-03] MEDS ORDERED: QUEtiapine 25 MG (SEROquel) TAB IMMEDIATE RELEASE PO NR (19:00)
[2021-02-04] MEDS: VANCOMYCIN 1 GM/NS 250 ML IVPB IV SCH ×2 (00:27)
[2021-02-04] MEDS: VASOPRESSIN INJECTION 20 UNIT in NS (IVPB) 100 ML IV SCH ×3 (03:44→18:33)
[2021-02-04] MEDS: LACTATED RINGERS 1,000 ML IV SCH ×3 (04:53→18:32)
[2021-02-04] MEDS: KCL 20 MEQ TAB (K-DUR) PO SCH (05:39)
[2021-02-04] MEDS: ALPRAZolam 0.5 MG (XANAX) TAB PO SCH ×4 (05:39→23:34)
[2021-02-04] MEDS: PIPERACILLIN/TAZOBACTAM (BULK) 4.5 GM in NS (IVPB) 100 ML IV SCH ×3 (05:39→21:24)
[2021-02-04] MEDS: POTASSIUM CL 10MEQ/50ML IVPB 50 ML IV SCH (05:39)
[2021-02-04] MEDS: MAGNESIUM 1 GM/100 ML IVPB 100 ML IV SCH (05:39)
--- NOTE | 2021-02-04 06:29 | Progress Note - Hospitalist ---
Subjective HPI/CC On Admission Date Seen by Provider: Feb 04, 2021 Time Seen by Provider: 06:30 CC: Right foot pain HPI: This is a 50yoWF type 1 diabetic who presented to the ER with complaints of right foot pain. She was found to have significant diabetic ulcers on multiple areas of her foot. It appears that it wont be salvageable but Dr. Reid was consulted and will be monitoring pt closely. She is still on insulin drip and will be monitoring and providing supportince care. Subjective/Events-last exam Pt doing pretty well Not as cranky today Eating and drinking IV antibiotics maintained Still considered a suicide risk, she talks about it constantly Pt doesnt want her leg taken off Review of Systems General: Fatigue, Malaise Neurological: Weakness Focused Exam Lactate Level 02/03/21 00:38: Lactic Acid Level 3.04*H 02/03/21 03:47: Lactic Acid Level 2.79*H 02/03/21 05:55: Lactic Acid Level 1.10 Objective Exam Vital Signs Vital Signs Date Time Temp Pulse Resp B/P (MAP) Pulse Ox O2 Delivery O2 Flow Rate FiO2 02/05/21 06:00 87 21 130/84 (99) 95 Room Air 02/05/21 00:00 3.00 02/04/21 23:36 36.5 Capillary Refill : Less Than 3 Seconds General Appearance: No Apparent Distress, WD/WN, Chronically ill Respiratory: Lungs Clear, Normal Breath Sounds Cardiovascular: Regular Rate, Rhythm Neurologic/Psychiatric: Alert, Oriented x3 Results/Procedures Lab Laboratory Tests 02/04/21 10:15 Patient resulted labs reviewed. Imaging: Reviewed Imaging Report Assessment/Plan Assessment and Plan Assess & Plan/Chief Complaint DKA insulin drip monitor sugars diabetic foot ulcer Dr. Reid consulted Pain control sepsis Vanc and Zosyn lactate improved leukocytosis worsening poorly controlled DM depression agitation Xanax PRN 02/04/2021: Still refusing surgery Diagnosis/Problems Diagnosis/Problems (1) Cellulitis and abscess of toe of right foot Status: Acute (2) Uncontrolled diabetes mellitus Status: Acute Qualifiers: Diabetes mellitus type: type 2 Glycemic state: with hyperglycemia Qualified Codes: E11.65 - Type 2 diabetes mellitus with hyperglycemia (3) Hyperglycemia Status: Acute FATIMAH SOLORZANO DO Feb 04, 2021 06:29
[2021-02-04] MEDS: NYSTATIN OINTMENT 30 GM TUBE TOP SCH ×2 (08:14→20:56)
[2021-02-04] MEDS: ACETAMINOPHEN 325 MG TABLET PO PRN (08:42)
[2021-02-04 10:26] LABS: BASOPHILS # (AUTO) 0.1 10^3/uL (0.0-0.1); BASOPHILS % (AUTO) 0 % (0-10); EOSINOPHILS # (AUTO) 0.2 10^3/uL (0.0-0.3); EOSINOPHILS % (AUTO) 1 % (0-10); HEMATOCRIT 30 % (35-52); HEMOGLOBIN 9.5 g/dL (11.5-16.0); LYMPHOCYTES % (AUTO) 13 % (12-44); MEAN CORPUSCULAR HEMOGLOBIN 26 pg (25-34); MEAN CORPUSCULAR HGB CONC 31 g/dL (32-36); MEAN CORPUSCULAR VOLUME 84 fL (80-99); MEAN PLATELET VOLUME 9.1 fL (9.0-12.2); MONOCYTES % (AUTO) 7 % (0-12); NEUTROPHILS # (AUTO) 11.6 10^3/uL (1.8-7.8); NEUTROPHILS % (AUTO) 77 % (42-75); PLATELET COUNT 402 10^3/uL (130-400); WHITE BLOOD COUNT 15.1 10^3/uL (4.3-11.0)
--- NOTE | 2021-02-04 10:38 | Tele-ICU Progress Note ---
Subjective Date Seen by a Provider: Feb 04, 2021 Time Seen by a Provider: 09:30 Subjective/Events-last exam This is a virtual visit which was conducted using real time audio/video. Thank you for asking us to see this patient for ccritical illness. HPC: Recent events: insulin drip to be stopped. PMH: DM with non-compliance.multiple foot ulcers. SH: smoking history neg FH: Non-contributory ROS: limited by patient's clinical condition, but no new complaints PE: resting comfortably. VSS HR 80 nsr BP 96/47 RR 18 97% O2 sat on RA. HEENT: No obvious masses, adenopathy or JVD. Chest: clear to auscultation. CV: RRR S1 S2 No murmur or added sounds. Abd: Non-tender. Bowel sounds . : Unremarkable. LANDSCAPE FOREMAN/psychiatric: Alert and oriented, grossly intact. No obvious focal findings. Extremities: No edema. Capillary refill < 3 seconds. Skin: unremarkable. Results: Elevated glucose and WCC. A/P: DM, cellulitis. Available chart/ vitals / labs / Images reviewed. Video assessment done using teleICU camera, rest of exam as per RN. Monitor glucose off drip and for possible floor transfer. Discussed with Constantine VASQUEZ. Asked RN to reach out to eICU if any questions or concerns later. Time spent with patient/coordination of care with other health professionals (mins): 15 Sepsis Event Evaluation Sepsis Stage: Ruled Out Height, Weight, BMI Height: '" Weight: lbs. oz. kg; 25.91 BMI Method: Focused Exam Sepsis Stage: Ruled Out Lactate Level 02/03/21 00:38: Lactic Acid Level 3.04*H 02/03/21 03:47: Lactic Acid Level 2.79*H 02/03/21 05:55: Lactic Acid Level 1.10 Exam Exam Patient acknowledged, consented, and participated in this virtual visit which was conducted using real time audio/video Vital Signs Date Time Temp Pulse Resp B/P (MAP) Pulse Ox O2 Delivery O2 Flow Rate FiO2 02/04/21 09:12 37.6 02/04/21 09:00 89 26 90/57 (68) 96 Room Air 02/04/21 08:42 38.0 02/04/21 08:00 Room Air 02/04/21 08:00 88 115/68 (84) 93 Room Air 02/04/21 07:58 38.0 02/04/21 07:00 94 02/04/21 07:00 90 18 108/64 (79) 96 Room Air 02/04/21 06:00 90 17 109/71 (84) 93 Room Air 02/04/21 05:00 92 29 114/72 (86) 92 Room Air 02/04/21 04:00 89 23 91/78 (82) 92 Room Air 02/04/21 04:00 Room Air 02/04/21 03:44 36.5 02/04/21 03:00 92 23 103/61 (75) 90 Room Air 02/04/21 02:00 90 17 119/72 (88) 100 Room Air 02/04/21 01:00 86 24 114/69 (84) 98 Room Air 02/04/21 01:00 84 02/04/21 00:00 85 17 113/81 (92) 98 Room Air 02/04/21 00:00 Room Air 02/03/21 23:32 37.0 02/03/21 23:00 78 18 102/65 (77) 90 Room Air 02/03/21 22:00 80 18 103/64 (77) 95 Room Air 02/03/21 21:00 85 20 102/65 (77) 93 Room Air 02/03/21 20:00 95 16 97/58 (71) 97 Room Air 02/03/21 20:00 Room Air 02/03/21 19:39 37.4 02/03/21 19:00 88 22 112/68 (83) 91 Room Air 02/03/21 19:00 Room Air 02/03/21 19:00 87 02/03/21 18:00 88 23 117/56 (76) 96 Nasal Cannula 2.00 02/03/21 17:00 93 21 114/77 (89) 95 Nasal Cannula 2.00 02/03/21 16:00 90 02/03/21 16:00 94 29 115/50 (71) 92 Nasal Cannula 2.00 02/03/21 15:53 36.8 02/03/21 15:00 82 17 99/51 (67) 99 Nasal Cannula 2.00 02/03/21 14:00 84 28 106/71 (86) 97 Nasal Cannula 2.00 02/03/21 13:00 86 23 104/82 (90) 99 Nasal Cannula 2.00 02/03/21 13:00 97 02/03/21 12:56 36.6 02/03/21 12:00 95 Nasal Cannula 2.00 02/03/21 12:00 96 17 94/70 (78) 99 Nasal Cannula 2.00 02/03/21 11:00 93 36 95/61 (72) 98 Nasal Cannula 2.00 I & O 02/04/21 07:00 Intake Total 5430 ml Output Total 1200 ml Balance 4230 ml Height & Weight Height: '" Weight: lbs. oz. kg; 25.91 BMI Method: General Appearance: No Apparent Distress, Chronically ill HEENT: PERRL/EOMI, Normal ENT Inspection Neck: Normal Inspection Respiratory: No Accessory Muscle Use, No Respiratory Distress Cardiovascular: Regular Rate, Rhythm, No Edema Capillary Refill: Less Than 3 Seconds Extremity: Other (foul-smelling ulcerations on the bottom of the right foot as well as on the lateral aspect) Neurologic/Psychiatric: Alert, Oriented x3, Other (intermittently agitated) Skin: Normal Color, Warm/Dry Results Lab Laboratory Tests 02/02/21 22:25 02/03/21 03:47 02/04/21 10:15 Assessment/Plan Assessment/Plan See free text. Critical Care: Critically Ill Patient Time spent on discussion(mins): 0 Diagnosis/Problems Diagnosis/Problems (1) Cellulitis and abscess of foot (2) Severe sepsis (3) Hyperglycemia Status: Acute (4) Uncontrolled diabetes mellitus Status: Acute Qualifiers: Qualified Codes: E11.65 - Type 2 diabetes mellitus with hyperglycemia KILLIAN SORIA MD Feb 04, 2021 10:38
[2021-02-04 10:42] LABS: POTASSIUM 3.8 MMOL/L (3.6-5.0)
[2021-02-04 10:43] LABS: CALCIUM 8.1 MG/DL (8.5-10.1)
[2021-02-04 10:47] LABS: CREATININE SERUM 1.51 MG/DL (0.60-1.30); PHOSPHORUS 3.8 MG/DL (2.3-4.7)
[2021-02-04 10:50] LABS: MAGNESIUM 1.9 MG/DL (1.6-2.4)
[2021-02-04] MEDS ORDERED: TROUGH ORDER-PHARMACY XX NR (11:00)
[2021-02-04] MEDS: NOREPINEPHRINE 8 MG/250 ML 250 ML IV SCH (13:59)
[2021-02-04] MEDS: morphine INJ 10 MG/ML 1ML (SYR OR VIAL) IV PRN ×3 (14:18→23:35)
--- NOTE | 2021-02-04 16:37 | Progress Note - Surgery ---
Subjective Date Seen by a Provider: Feb 04, 2021 Time Seen by a Provider: 16:31 Subjective/Events-last exam Patient states she still having pain in her right foot. Patient states that it is not under control. She does not want any thing done to it. Patient does not want to discuss any further. Patient getting upset and angry with me. She does allow me to do dressing change. Her Sister Vane is at bedside. Patient not discussing any further with myself. She did allow me to change dressing and evaluate the foot. Focused Exam Lactate Level 02/03/21 00:38: Lactic Acid Level 3.04*H 02/03/21 03:47: Lactic Acid Level 2.79*H 02/03/21 05:55: Lactic Acid Level 1.10 Objective Exam Vital Signs Date Time Temp Pulse Resp B/P (MAP) Pulse Ox O2 Delivery O2 Flow Rate FiO2 02/04/21 16:00 77 20 100/55 (70) 95 Room Air 02/04/21 15:00 75 20 112/75 (87) 98 Room Air 02/04/21 14:00 73 34 107/69 (82) 99 Room Air 02/04/21 13:00 69 18 104/62 (76) 97 Room Air 02/04/21 12:37 72 02/04/21 12:00 Room Air 02/04/21 12:00 73 21 94/53 (67) 94 Room Air 02/04/21 11:55 36.3 02/04/21 11:00 75 17 94/58 (70) 97 Room Air 02/04/21 10:00 83 22 90/49 (63) 93 Room Air 02/04/21 09:12 37.6 02/04/21 09:00 89 26 90/57 (68) 96 Room Air 02/04/21 08:42 38.0 02/04/21 08:00 Room Air 02/04/21 08:00 88 115/68 (84) 93 Room Air 02/04/21 07:58 38.0 02/04/21 07:00 94 02/04/21 07:00 90 18 108/64 (79) 96 Room Air 02/04/21 06:00 90 17 109/71 (84) 93 Room Air 02/04/21 05:00 92 29 114/72 (86) 92 Room Air 02/04/21 04:00 89 23 91/78 (82) 92 Room Air 02/04/21 04:00 Room Air 02/04/21 03:44 36.5 02/04/21 03:00 92 23 103/61 (75) 90 Room Air 02/04/21 02:00 90 17 119/72 (88) 100 Room Air 02/04/21 01:00 86 24 114/69 (84) 98 Room Air 02/04/21 01:00 84 02/04/21 00:00 85 17 113/81 (92) 98 Room Air 02/04/21 00:00 Room Air 02/03/21 23:32 37.0 02/03/21 23:00 78 18 102/65 (77) 90 Room Air 02/03/21 22:00 80 18 103/64 (77) 95 Room Air 02/03/21 21:00 85 20 102/65 (77) 93 Room Air 02/03/21 20:00 95 16 97/58 (71) 97 Room Air 02/03/21 20:00 Room Air 02/03/21 19:39 37.4 02/03/21 19:00 88 22 112/68 (83) 91 Room Air 02/03/21 19:00 Room Air 02/03/21 19:00 87 02/03/21 18:00 88 23 117/56 (76) 96 Nasal Cannula 2.00 02/03/21 17:00 93 21 114/77 (89) 95 Nasal Cannula 2.00 I & O 02/04/21 07:00 Intake Total 5430 ml Output Total 1200 ml Balance 4230 ml Capillary Refill : Less Than 3 Seconds General Appearance: No Apparent Distress, WD/WN, Chronically ill HEENT: PERRL/EOMI, Normal ENT Inspection Neck: Normal Inspection, Non Tender Respiratory: Chest Non Tender, No Accessory Muscle Use, No Respiratory Distress Cardiovascular: Regular Rate, Rhythm, No JVD Gastrointestinal: non tender, soft Extremity: Other (foul-smelling ulcerations on the bottom of the right foot as well as on the lateral aspect with erythema extending up to the ankle along with purulent drainage) Neurologic/Psychiatric: Alert, Oriented x3 Skin: Warm/Dry, Erythema (right foot from up to ankle) Lymphatic: No Adenopathy Results Lab Laboratory Tests 02/03/21 18:52: Glucometer 94 02/03/21 20:12: Glucometer 139H 02/03/21 22:30: Glucometer 173H 02/04/21 00:30: Glucometer 113H 02/04/21 02:26: Glucometer 142H 02/04/21 05:43: Glucometer 144H 02/04/21 08:08: Glucometer 138H 02/04/21 10:01: Glucometer 287H 02/04/21 10:15: White Blood Count 15.1H, Red Blood Count 3.61L, Hemoglobin 9.5L, Hematocrit 30L, Mean Corpuscular Volume 84, Mean Corpuscular Hemoglobin 26, Mean Corpuscular Hemoglobin Concent 31L, Red Cell Distribution Width 15.5H, Platelet Count 402H, Mean Platelet Volume 9.1, Immature Granulocyte % (Auto) 2, Neutrophils (%) (Auto) 77H, Lymphocytes (%) (Auto) 13, Monocytes (%) (Auto) 7, Eosinophils (%) (Auto) 1, Basophils (%) (Auto) 0, Neutrophils # (Auto) 11.6H, Lymphocytes # (Auto) 2.0, Monocytes # (Auto) 1.0, Eosinophils # (Auto) 0.2, Basophils # (Auto) 0.1, Immature Granulocyte # (Auto) 0.2H, Sodium Level 133L, Potassium Level 3.8, Chloride Level 102, Carbon Dioxide Level 23, Anion Gap 8, Blood Urea Nitrogen 13, Creatinine 1.51H, Estimat Glomerular Filtration Rate 37, BUN/Creatinine Ratio 9, Glucose Level 174H, Calcium Level 8.1L, Phosphorus Level 3.8, Magnesium Level 1.9, Vancomycin Level Trough 21.8H 02/04/21 12:03: Glucometer 147H Microbiology 02/03/21 MRSA Screen - Final, Complete MRSA not isolated 02/02/21 Blood Culture - Preliminary, Resulted No growth 02/02/21 Urine Culture - Final, Complete Gram Pos Mixed Bacterial Kellen Assessment/Plan Assessment/Plan Assessment/Plan 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 Uncontrolled diabetic I discussed with patient that I would recommend a below-knee amputation due to the severity of her infection as Dr. Reid as well recommended. She is still resistant in doing so. Patient is upset about overall recommendation. Concern is that patient is going to continue to get sicker if continues without surgical intervention. Patient is not willing to do any type of surgical intervention at this time. I did discuss with her sister as well with her at bedside who feels she needs to proceed with surgical intervention as well. She is going to discuss with her further. ELOY SCHULZ DO Feb 04, 2021 16:37
[2021-02-05] MEDS: LACTATED RINGERS 1,000 ML IV SCH ×2 (00:44→07:40)
[2021-02-05] MEDS ORDERED: TROUGH ORDER-PHARMACY XX NR (06:00)
[2021-02-05] MEDS: VASOPRESSIN INJECTION 20 UNIT in NS (IVPB) 100 ML IV SCH (06:01)
[2021-02-05] MEDS: ALPRAZolam 0.5 MG (XANAX) TAB PO SCH ×4 (06:02→23:42)
[2021-02-05] MEDS: NOREPINEPHRINE 8 MG/250 ML 250 ML IV SCH (06:02)
[2021-02-05] MEDS: PIPERACILLIN/TAZOBACTAM (BULK) 4.5 GM in NS (IVPB) 100 ML IV SCH ×3 (06:02→21:52)
--- NOTE | 2021-02-05 06:28 | Progress Note - Surgery ---
Subjective Date Seen by a Provider: Feb 05, 2021 Time Seen by a Provider: 05:30 Subjective/Events-last exam Patient foot still with purulent drainage. cutter tender. Not wanting to go anything. She wants support from her family which she states she doesn't get. She understands that the longer it waits, the prognosis could worsen. She denies any new complaints. Denies n/v fever sweats chills shortness of breath or chest pain. Focused Exam Lactate Level 02/03/21 00:38: Lactic Acid Level 3.04*H 02/03/21 03:47: Lactic Acid Level 2.79*H 02/03/21 05:55: Lactic Acid Level 1.10 Objective Exam Vital Signs Date Time Temp Pulse Resp B/P (MAP) Pulse Ox O2 Delivery O2 Flow Rate FiO2 02/05/21 06:00 87 21 130/84 (99) 95 Room Air 02/05/21 05:00 80 14 144/87 (106) 82 Room Air 02/05/21 04:00 84 30 110/74 (86) 97 Room Air 02/05/21 03:00 81 24 98/56 (70) 94 Room Air 02/05/21 02:00 71 17 98/55 (69) 94 Room Air 02/05/21 01:00 79 19 117/76 (90) 96 Room Air 02/05/21 01:00 83 02/05/21 00:00 Room Air 02/05/21 00:00 81 21 129/80 (96) 96 Room Air 02/05/21 00:00 90 Nasal Cannula 3.00 02/04/21 23:36 36.5 02/04/21 23:00 82 21 114/65 (81) 93 Room Air 02/04/21 22:00 83 33 111/70 (84) 92 Room Air 02/04/21 21:00 85 29 132/75 (94) 98 Room Air 02/04/21 20:56 36.0 02/04/21 20:00 Room Air 02/04/21 20:00 84 36 141/131 (134) 98 Room Air 02/04/21 19:00 87 02/04/21 19:00 87 12 132/84 (100) 96 Room Air 02/04/21 18:00 77 21 110/65 (80) 96 Room Air 02/04/21 17:00 78 19 107/72 (84) 100 Room Air 02/04/21 16:00 36.4 02/04/21 16:00 77 20 100/55 (70) 95 Room Air 02/04/21 16:00 Room Air 02/04/21 15:00 75 20 112/75 (87) 98 Room Air 02/04/21 14:00 73 34 107/69 (82) 99 Room Air 02/04/21 13:00 69 18 104/62 (76) 97 Room Air 02/04/21 12:37 72 02/04/21 12:00 Room Air 02/04/21 12:00 73 21 94/53 (67) 94 Room Air 02/04/21 11:55 36.3 02/04/21 11:00 75 17 94/58 (70) 97 Room Air 02/04/21 10:00 83 22 90/49 (63) 93 Room Air 02/04/21 09:12 37.6 02/04/21 09:00 89 26 90/57 (68) 96 Room Air 02/04/21 08:42 38.0 02/04/21 08:00 Room Air 02/04/21 08:00 88 115/68 (84) 93 Room Air 02/04/21 07:58 38.0 02/04/21 07:00 94 02/04/21 07:00 90 18 108/64 (79) 96 Room Air I & O 02/05/21 07:00 Intake Total 1210 ml Output Total 2200 ml Balance -990 ml Capillary Refill : Less Than 3 Seconds General Appearance: No Apparent Distress, WD/WN, Chronically ill HEENT: PERRL/EOMI, Normal ENT Inspection Neck: Normal Inspection, Non Tender Respiratory: Chest Non Tender, No Accessory Muscle Use, No Respiratory Distress Cardiovascular: Regular Rate, Rhythm, No JVD Gastrointestinal: non tender, soft Extremity: Other (foul-smelling ulcerations on the bottom of the right foot as well as on the lateral aspect with erythema extending up to the ankle along with purulent drainage) Neurologic/Psychiatric: Alert, Oriented x3 Skin: Warm/Dry, Erythema (right foot from up to ankle) Lymphatic: No Adenopathy Results Lab Laboratory Tests 02/04/21 08:08: Glucometer 138H 02/04/21 10:01: Glucometer 287H 02/04/21 10:15: White Blood Count 15.1H, Red Blood Count 3.61L, Hemoglobin 9.5L, Hematocrit 30L, Mean Corpuscular Volume 84, Mean Corpuscular Hemoglobin 26, Mean Corpuscular Hemoglobin Concent 31L, Red Cell Distribution Width 15.5H, Platelet Count 402H, Mean Platelet Volume 9.1, Immature Granulocyte % (Auto) 2, Neutrophils (%) (Auto) 77H, Lymphocytes (%) (Auto) 13, Monocytes (%) (Auto) 7, Eosinophils (%) (Auto) 1, Basophils (%) (Auto) 0, Neutrophils # (Auto) 11.6H, Lymphocytes # (Auto) 2.0, Monocytes # (Auto) 1.0, Eosinophils # (Auto) 0.2, Basophils # (Auto) 0.1, Immature Granulocyte # (Auto) 0.2H, Sodium Level 133L, Potassium Level 3.8, Chloride Level 102, Carbon Dioxide Level 23, Anion Gap 8, Blood Urea Nitrogen 13, Creatinine 1.51H, Estimat Glomerular Filtration Rate 37, BUN/Creatinine Ratio 9, Glucose Level 174H, Calcium Level 8.1L, Phosphorus Level 3.8, Magnesium Level 1.9, Vancomycin Level Trough 21.8H 02/04/21 12:03: Glucometer 147H 02/04/21 16:38: Glucometer 151H 02/04/21 21:32: Glucometer 187H Microbiology 02/03/21 MRSA Screen - Final, Complete MRSA not isolated 02/02/21 Blood Culture - Preliminary, Resulted No growth 02/02/21 Urine Culture - Final, Complete Gram Pos Mixed Bacterial Kellen Assessment/Plan Assessment/Plan Assessment/Plan 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 Uncontrolled diabetic I discussed with patient that I would recommend a below-knee amputation due to the severity of her infection as Dr. Reid as well recommended again. We has a long discussion about outcome. She is still resistant in doing so. Patient is still upset about overall recommendation. We discussed again the concern that patient is going to continue to get sicker if continues without surgical intervention and potentially get sick to where she could pass. Patient is not willing to do any type of surgical intervention at this time still. Informed that if she changes her mind that she needs to inform us. ELOY SCHULZ DO Feb 05, 2021 06:28
[2021-02-05] MEDS: POTASSIUM CL 10MEQ/50ML IVPB 50 ML IV SCH (06:52)
[2021-02-05] MEDS: KCL 20 MEQ TAB (K-DUR) PO SCH (06:53)
[2021-02-05] MEDS: MAGNESIUM 1 GM/100 ML IVPB 100 ML IV SCH ×4 (06:53→11:33)
--- NOTE | 2021-02-05 06:55 | Progress Note - Hospitalist ---
Subjective HPI/CC On Admission Date Seen by Provider: Feb 05, 2021 Time Seen by Provider: 12:00 CC: Right foot pain HPI: This is a 50yoWF type 1 diabetic who presented to the ER with complaints of right foot pain. She was found to have significant diabetic ulcers on multiple areas of her foot. It appears that it wont be salvageable but Dr. Reid was consulted and will be monitoring pt closely. She is still on insulin drip and will be monitoring and providing supportince care. Subjective/Events-last exam Patient doing about the same Refusing amputation IV antibiotics maintain Blood sugars are very [id number] Poor prognosis Review of Systems Musculoskeletal: leg pain Focused Exam Lactate Level 02/03/21 05:55: Lactic Acid Level 1.10 Objective Exam Vital Signs Vital Signs Date Time Temp Pulse Resp B/P (MAP) Pulse Ox O2 Delivery O2 Flow Rate FiO2 02/06/21 04:09 36.8 51 18 133/77 (95) 96 Room Air 02/05/21 00:00 3.00 Capillary Refill : Less Than 3 Seconds General Appearance: No Apparent Distress, WD/WN, Chronically ill Respiratory: Lungs Clear Cardiovascular: Regular Rate, Rhythm Results/Procedures Lab Laboratory Tests 02/05/21 06:45 Patient resulted labs reviewed. Imaging: Reviewed Imaging Report Assessment/Plan Assessment and Plan Assess & Plan/Chief Complaint DKA insulin drip monitor sugars diabetic foot ulcer Dr. Reid consulted Pain control sepsis Vanc and Zosyn lactate improved leukocytosis worsening poorly controlled DM depression agitation Xanax PRN 02/04/2021: Still refusing surgery 02/05/2021: IV antibiotics Supportive care Refusing amputation Critical Care Critically Ill Patient Diagnosis/Problems Diagnosis/Problems (1) Cellulitis and abscess of toe of right foot Status: Acute (2) Uncontrolled diabetes mellitus Status: Acute Qualifiers: Diabetes mellitus type: type 2 Glycemic state: with hyperglycemia Qualified Codes: E11.65 - Type 2 diabetes mellitus with hyperglycemia (3) Hyperglycemia Status: Acute FATIMAH SOLORZANO DO Feb 05, 2021 06:55
[2021-02-05 07:01] LABS: BASOPHILS % (AUTO) 0 % (0-10); EOSINOPHILS # (AUTO) 0.2 10^3/uL (0.0-0.3); EOSINOPHILS % (AUTO) 2 % (0-10); HEMATOCRIT 24 % (35-52); HEMOGLOBIN 7.2 g/dL (11.5-16.0); LYMPHOCYTES # (AUTO) 1.6 10^3/uL (1.0-4.0); LYMPHOCYTES % (AUTO) 16 % (12-44); MEAN CORPUSCULAR HEMOGLOBIN 26 pg (25-34); MEAN CORPUSCULAR HGB CONC 30 g/dL (32-36); MEAN CORPUSCULAR VOLUME 88 fL (80-99); MEAN PLATELET VOLUME 9.3 fL (9.0-12.2); MONOCYTES # (AUTO) 0.8 10^3/uL (0.0-1.0); MONOCYTES % (AUTO) 8 % (0-12); NEUTROPHILS # (AUTO) 7.6 10^3/uL (1.8-7.8); NEUTROPHILS % (AUTO) 73 % (42-75); PLATELET COUNT 326 10^3/uL (130-400); WHITE BLOOD COUNT 10.4 10^3/uL (4.3-11.0)
[2021-02-05 07:13] LABS: ALBUMIN 1.5 GM/DL (3.2-4.5); POTASSIUM 3.9 MMOL/L (3.6-5.0)
[2021-02-05 07:14] LABS: CALCIUM 6.7 MG/DL (8.5-10.1)
[2021-02-05 07:16] LABS: TOTAL PROTEIN 4.4 GM/DL (6.4-8.2)
[2021-02-05 07:17] LABS: BILIRUBIN,TOTAL 0.3 MG/DL (0.1-1.0)
[2021-02-05 07:19] LABS: CREATININE SERUM 0.94 MG/DL (0.60-1.30); PHOSPHORUS 2.8 MG/DL (2.3-4.7)
[2021-02-05 07:22] LABS: MAGNESIUM 1.2 MG/DL (1.6-2.4)
[2021-02-05 07:29] LABS: VANCOMYCIN,TROUGH 7.4 UG/ML (10.0-20.0)
[2021-02-05] MEDS: VANCOMYCIN 750 MG/NS 250 ML IVPB IV SCH ×4 (09:11→20:21)
[2021-02-05] MEDS: NYSTATIN OINTMENT 30 GM TUBE TOP SCH ×2 (09:12→21:09)
[2021-02-05] MEDS: LORazepam INJ 2 MG/ML (ATIVAN) VIAL IV PRN ×2 (09:12→14:30)
--- NOTE | 2021-02-05 09:16 | Tele-ICU Progress Note ---
Progress Note video rounds completed 50 y/o DM with right foot cellulitis and ischemia Surgery on consult, but patient refusing intervention Being tretaed for septic diabetic foot infectionwith vanc and zosyn PE: comfortable in bed eating breakfast Pulse: 85 NSR BP: 109/85 O2 sat: 95% Labs: WBC 10 Hgb 7.2 Plts: 326 Na: 136 K: 3.9 Cl: 103 Co2 17 BUN: 10 Creat: 0.9 Plan: will start DVT px On insulin drip Continue antibiotics for septic footyLaboratory Tests 02/02/21 22:20: Urine Color YELLOW, Urine Clarity CLEAR, Urine pH 5.5, Urine Specific Bryan <=1.005, Urine Protein 1+H, Urine Glucose (UA) 3+H, Urine Ketones NEGATIVE, Urine Nitrite NEGATIVE, Urine Bilirubin NEGATIVE, Urine Urobilinogen 0.2, Urine Leukocyte Esterase NEGATIVE, Urine RBC (Auto) 1+H, Urine RBC RARE, Urine WBC 0- 2, Urine Squamous Epithelial Cells 2-5, Urine Crystals NONE, Urine Bacteria TRACE, Urine Casts NONE, Urine Mucus NEGATIVE, Urine Yeast FEWH, Urine Culture Indicated CULTURE PENDING, Urine Opiates Screen NEGATIVE, Urine Oxycodone Screen NEGATIVE, Urine Methadone Screen NEGATIVE, Urine Propoxyphene Screen NEGATIVE, Urine Barbiturates Screen NEGATIVE, Ur Tricyclic Antidepressants Screen NEGATIVE, Urine Phencyclidine Screen NEGATIVE, Urine Amphetamines Screen NEGATIVE, Urine Methamphetamines Screen NEGATIVE, Urine Benzodiazepines Screen NEGATIVE, Urine Cocaine Screen NEGATIVE, Urine Cannabinoids Screen NEGATIVE 02/02/21 22:25: White Blood Count 16.0H, Red Blood Count 4.53, Hemoglobin 11.8, Hematocrit 38, Mean Corpuscular Volume 84, Mean Corpuscular Hemoglobin 26, Mean Corpuscular Hemoglobin Concent 31L, Red Cell Distribution Width 15.5H, Platelet Count 494H, Mean Platelet Volume 9.3, Immature Granulocyte % (Auto) 2, Neutrophils (%) (Auto) 79H, Lymphocytes (%) (Auto) 10L, Monocytes (%) (Auto) 9, Eosinophils (%) (Auto) 0, Basophils (%) (Auto) 0, Neutrophils # (Auto) 12.7H, Lymphocytes # (Auto) 1.5, Monocytes # (Auto) 1.4H, Eosinophils # (Auto) 0.0, Basophils # (Auto) 0.1, Immature Granulocyte # (Auto) 0.3H, Neutrophils % (Manual) 82, Lymphocytes % (Manual) 10, Monocytes % (Manual) 8, Eosinophils % (Manual) 0, Basophils % (Manual) 0, Band Neutrophils 0, Toxic Granulation 1+, Polychromasia SLIGHT, Anisocytosis SLIGHT, Prothrombin Time 15.1H, INR Comment 1.2, Activated Partial Thromboplast Time 29, Sodium Level 126L, Potassium Level 3.6, Chloride Level 87L, Carbon Dioxide Level 23, Anion Gap 16H, Blood Urea Nitrogen 7, Creatinine 0.97, Estimat Glomerular Filtration Rate 61, BUN/Creatinine Ratio 7, Glucose Level 815*H, Lactic Acid Level 3.45*H, Calcium Level 8.7, Corrected Calcium 9.7, Total Bilirubin 0.3, Aspartate Amino Transf (AST/SGOT) 11, Alanine Aminotransferase (ALT/SGPT) 8, Alkaline Phosphatase 232H, Total Protein 7.6, Albumin 2.8L 02/03/21 00:38: Lactic Acid Level 3.04*H 02/03/21 02:10: Glucometer 518*H 02/03/21 03:47: White Blood Count 18.7H, Red Blood Count 4.05, Hemoglobin 10.8L, Hematocrit 33L, Mean Corpuscular Volume 83, Mean Corpuscular Hemoglobin 27, Mean Corpuscular Hemoglobin Concent 32, Red Cell Distribution Width 15.1H, Platelet Count 444H, Mean Platelet Volume 9.1, Immature Granulocyte % (Auto) 2, Neutrophils (%) (Auto) 75, Lymphocytes (%) (Auto) 14, Monocytes (%) (Auto) 7, Eosinophils (%) (Auto) 1, Basophils (%) (Auto) 0, Neutrophils # (Auto) 14.1H, Lymphocytes # (Auto) 2.7, Monocytes # (Auto) 1.3H, Eosinophils # (Auto) 0.1, Basophils # (Auto) 0.1, Immature Granulocyte # (Auto) 0.4H, Sodium Level 132L, Potassium Level 3.3L, Chloride Level 98, Carbon Dioxide Level 22, Anion Gap 12, Blood Urea Nitrogen 6L, Creatinine 0.65, Estimat Glomerular Filtration Rate 97, BUN/Creatinine Ratio 9, Glucose Level 298H, Lactic Acid Level 2.79*H, Calcium Level 8.2L, Magnesium Level 1.5L, C-Reactive Protein High Sensitivity 21.23H 02/03/21 04:30: Glucometer 220H 02/03/21 05:48: Glucometer 214H 02/03/21 05:55: Lactic Acid Level 1.10 02/03/21 06:40: Glucometer 159H 02/03/21 08:29: Glucometer 90 02/03/21 10:27: Glucometer 130H 02/03/21 12:18: Glucometer 111H 02/03/21 14:35: Glucometer 128H 02/03/21 16:28: Glucometer 101 02/03/21 18:52: Glucometer 94 02/03/21 20:12: Glucometer 139H 02/03/21 22:30: Glucometer 173H 02/04/21 00:30: Glucometer 113H 02/04/21 02:26: Glucometer 142H 02/04/21 05:43: Glucometer 144H 02/04/21 08:08: Glucometer 138H 02/04/21 10:01: Glucometer 287H 02/04/21 10:15: White Blood Count 15.1H, Red Blood Count 3.61L, Hemoglobin 9.5L, Hematocrit 30L, Mean Corpuscular Volume 84, Mean Corpuscular Hemoglobin 26, Mean Corpuscular Hemoglobin Concent 31L, Red Cell Distribution Width 15.5H, Platelet Count 402H, Mean Platelet Volume 9.1, Immature Granulocyte % (Auto) 2, Neutrophils (%) (Auto) 77H, Lymphocytes (%) (Auto) 13, Monocytes (%) (Auto) 7, Eosinophils (%) (Auto) 1, Basophils (%) (Auto) 0, Neutrophils # (Auto) 11.6H, Lymphocytes # (Auto) 2.0, Monocytes # (Auto) 1.0, Eosinophils # (Auto) 0.2, Basophils # (Auto) 0.1, Immature Granulocyte # (Auto) 0.2H, Sodium Level 133L, Potassium Level 3.8, Chloride Level 102, Carbon Dioxide Level 23, Anion Gap 8, Blood Urea Nitrogen 13, Creatinine 1.51H, Estimat Glomerular Filtration Rate 37, BUN/Creatinine Ratio 9, Glucose Level 174H, Calcium Level 8.1L, Phosphorus Level 3.8, Magnesium Level 1.9, Vancomycin Level Trough 21.8H 02/04/21 12:03: Glucometer 147H 02/04/21 16:38: Glucometer 151H 02/04/21 21:32: Glucometer 187H 02/05/21 06:45: White Blood Count 10.4, Red Blood Count 2.78L, Hemoglobin 7.2#L, Hematocrit 24L, Mean Corpuscular Volume 88, Mean Corpuscular Hemoglobin 26, Mean Corpuscular Hemoglobin Concent 30L, Red Cell Distribution Width 15.6H, Platelet Count 326, Mean Platelet Volume 9.3, Immature Granulocyte % (Auto) 2, Neutrophils (%) (Auto) 73, Lymphocytes (%) (Auto) 16, Monocytes (%) (Auto) 8, Eosinophils (%) (Auto) 2, Basophils (%) (Auto) 0, Neutrophils # (Auto) 7.6, Lymphocytes # (Auto) 1.6, Monocytes # (Auto) 0.8, Eosinophils # (Auto) 0.2, Basophils # (Auto) 0.0, Immature Granulocyte # (Auto) 0.2H, Sodium Level 136, Potassium Level 3.9, Chloride Level 103, Carbon Dioxide Level 17L, Anion Gap 16H, Blood Urea Nitrogen 10, Creatinine 0.94, Estimat Glomerular Filtration Rate 63, BUN/Creatinine Ratio 11, Glucose Level 224H, Calcium Level 6.7L, Corrected Calcium 8.7, Phosphorus Level 2.8, Magnesium Level 1.2L, Total Bilirubin 0.3, Aspartate Amino Transf (AST/SGOT) 9, Alanine Aminotransferase (ALT/SGPT) 7, Alkaline Phosphatase 217H, Total Protein 4.4L, Albumin 1.5L, Vancomycin Level Trough 7.4L Microbiology 02/03/21 MRSA Screen - Final, Complete MRSA not isolated 02/02/21 Blood Culture - Preliminary, Resulted No growth 02/02/21 Urine Culture - Final, Complete Gram Pos Mixed Bacterial Kellen Focused Exam Lactate Level 02/03/21 00:38: Lactic Acid Level 3.04*H 02/03/21 03:47: Lactic Acid Level 2.79*H 02/03/21 05:55: Lactic Acid Level 1.10 Height, Weight, BMI Height: '" Weight: lbs. oz. kg; 25.91 BMI Method: KALEB MUNSON MD Feb 05, 2021 09:16
[2021-02-05] MEDS: ENOXAPARIN 40 MG/0.4 ML (LOVENOX) SYR SC SCH (09:27)
[2021-02-05] MEDS ORDERED: inSUlin ASPART (NovoLOG) 1 UNIT/0.01 ML (CHARGE PER UNIT) SC SCH ×2 (16:00→21:00)
[2021-02-05] MEDS ORDERED: inSUlin (REGULAR) HUMAN 1 UNIT/0.01 ML (CHARGE PER UNIT) SC PRN (17:15)
[2021-02-05] MEDS: inSUlin ASPART (NovoLOG) 1 UNIT/0.01 ML (CHARGE PER UNIT) SC SCH ×2 (17:59→21:09)
[2021-02-05] MEDS: HYDROmorphone 2 MG/ML VIAL (DILAUDID) IVP PRN (23:30)
[2021-02-06] MEDS: ALPRAZolam 0.5 MG (XANAX) TAB PO SCH ×2 (06:12→11:45)
[2021-02-06] MEDS: PIPERACILLIN/TAZOBACTAM (BULK) 4.5 GM in NS (IVPB) 100 ML IV SCH ×4 (06:14→22:46)
--- NOTE | 2021-02-06 06:18 | Progress Note - Hospitalist ---
Subjective HPI/CC On Admission Date Seen by Provider: Feb 06, 2021 Time Seen by Provider: 10:00 CC: Right foot pain HPI: This is a 50yoWF type 1 diabetic who presented to the ER with complaints of right foot pain. She was found to have significant diabetic ulcers on multiple areas of her foot. It appears that it wont be salvageable but Dr. Reid was consulted and will be monitoring pt closely. She is still on insulin drip and will be monitoring and providing supportince care. Subjective/Events-last exam Pt about the same Still with catheter in Reluctant but will go ahead and have amputation on the right leg Creatinine 1.78 Bowels still havent moved so initiated regimen Review of Systems General: Fatigue, Malaise Musculoskeletal: leg pain Objective Exam Vital Signs Vital Signs Date Time Temp Pulse Resp B/P (MAP) Pulse Ox O2 Delivery O2 Flow Rate FiO2 02/07/21 00:21 36.8 75 20 151/91 (111) 98 Room Air 02/06/21 15:21 0.00 Capillary Refill : Less Than 3 Seconds General Appearance: No Apparent Distress, WD/WN, Chronically ill Respiratory: Lungs Clear, Normal Breath Sounds Cardiovascular: Regular Rate, Rhythm Neurologic/Psychiatric: Alert, Oriented x3 Results/Procedures Lab Laboratory Tests 02/06/21 06:30 Patient resulted labs reviewed. Imaging: Reviewed Imaging Report Assessment/Plan Assessment and Plan Assess & Plan/Chief Complaint DKA insulin drip monitor sugars diabetic foot ulcer Dr. Reid consulted Pain control sepsis Vanc and Zosyn lactate improved leukocytosis worsening poorly controlled DM depression agitation Xanax PRN 02/04/2021: Still refusing surgery 02/05/2021: IV antibiotics Supportive care Refusing amputation 02/06/2021: Amputation tomorrow Bowel regimen Critical Care Critically Ill Patient Diagnosis/Problems Diagnosis/Problems (1) Cellulitis and abscess of toe of right foot Status: Acute (2) Uncontrolled diabetes mellitus Status: Acute Qualifiers: Diabetes mellitus type: type 2 Glycemic state: with hyperglycemia Qualified Codes: E11.65 - Type 2 diabetes mellitus with hyperglycemia (3) Hyperglycemia Status: Acute FATIMAH SOLORZANO DO Feb 06, 2021 06:18
[2021-02-06 07:05] LABS: BASOPHILS % (AUTO) 0 % (0-10); EOSINOPHILS # (AUTO) 0.2 10^3/uL (0.0-0.3); EOSINOPHILS % (AUTO) 2 % (0-10); HEMATOCRIT 30 % (35-52); HEMOGLOBIN 9.4 g/dL (11.5-16.0); LYMPHOCYTES # (AUTO) 2.1 10^3/uL (1.0-4.0); LYMPHOCYTES % (AUTO) 16 % (12-44); MEAN CORPUSCULAR HEMOGLOBIN 26 pg (25-34); MEAN CORPUSCULAR HGB CONC 31 g/dL (32-36); MEAN CORPUSCULAR VOLUME 84 fL (80-99); MEAN PLATELET VOLUME 9.4 fL (9.0-12.2); MONOCYTES % (AUTO) 8 % (0-12); NEUTROPHILS # (AUTO) 9.3 10^3/uL (1.8-7.8); NEUTROPHILS % (AUTO) 72 % (42-75); PLATELET COUNT 478 10^3/uL (130-400); WHITE BLOOD COUNT 12.8 10^3/uL (4.3-11.0)
[2021-02-06 07:28] LABS: ALBUMIN 2.2 GM/DL (3.2-4.5)
[2021-02-06 07:29] LABS: POTASSIUM 4.4 MMOL/L (3.6-5.0)
[2021-02-06 07:30] LABS: CALCIUM 8.2 MG/DL (8.5-10.1)
[2021-02-06 07:31] LABS: TOTAL PROTEIN 6.3 GM/DL (6.4-8.2)
[2021-02-06 07:33] LABS: BILIRUBIN,TOTAL 0.3 MG/DL (0.1-1.0)
[2021-02-06 07:35] LABS: CREATININE SERUM 1.78 MG/DL (0.60-1.30)
[2021-02-06] MEDS: VANCOMYCIN 750 MG/NS 250 ML IVPB IV SCH ×2 (08:27)
[2021-02-06] MEDS: inSUlin ASPART (NovoLOG) 1 UNIT/0.01 ML (CHARGE PER UNIT) SC SCH ×4 (08:27→20:34)
[2021-02-06] MEDS: HYDROmorphone 2 MG/ML VIAL (DILAUDID) IVP PRN ×3 (08:28→22:55)
[2021-02-06] MEDS: NYSTATIN OINTMENT 30 GM TUBE TOP SCH ×2 (08:28→20:35)
[2021-02-06] MEDS: ENOXAPARIN 40 MG/0.4 ML (LOVENOX) SYR SC SCH (08:28)
[2021-02-06] MEDS ORDERED: LACTULOSE SYRUP 10GM/15ML (ENULOSE) 30ML UDC PO ONE (11:30)
[2021-02-06] MEDS ORDERED: SENNA W/DOCUSATE (SENOKOT S) TABLET PO ONE (11:30)
[2021-02-06] MEDS: ALPRAZolam 0.5 MG (XANAX) TAB PO PRN (16:03)
--- NOTE | 2021-02-06 18:11 | Progress Note ---
Subjective Date Seen by a Provider: Feb 06, 2021 Time Seen by a Provider: 18:00 Subjective/Events-last exam patient now consenting for right BKA. patient wants to continue to smoke. family hx beurgers disease. Objective Exam Vital Signs Date Time Temp Pulse Resp B/P (MAP) Pulse Ox O2 Delivery O2 Flow Rate FiO2 02/06/21 16:00 36.0 74 18 98/54 (69) 98 Room Air 02/06/21 15:21 Room Air 0.00 02/06/21 14:41 36.0 74 18 98/54 (69) 98 Room Air 02/06/21 11:03 35.7 75 18 128/70 (89) 94 Room Air 02/06/21 08:12 36.9 82 18 141/79 (99) 92 Room Air 02/06/21 08:00 Room Air 02/06/21 04:09 36.8 51 18 133/77 (95) 96 Room Air 02/06/21 04:00 Room Air 02/06/21 00:39 36.6 82 22 148/79 (102) 100 Room Air 02/06/21 00:00 Room Air 02/05/21 23:30 36.6 82 22 148/79 (102) 100 Room Air 02/05/21 20:00 Room Air 02/05/21 19:59 36.9 77 18 143/69 (93) 99 Room Air I & O 02/06/21 07:00 Intake Total 1150 ml Output Total 3725 ml Balance -2575 ml Capillary Refill : Less Than 3 Seconds General Appearance: No Apparent Distress HEENT: PERRL/EOMI Neck: Full Range of Motion Respiratory: Decreased Breath Sounds, Wheezing Cardiovascular: Regular Rate, Rhythm Gastrointestinal: normal bowel sounds, non tender, soft Extremity: Other (right medial foot necrosis with bilateral maleolar edema) Neurologic/Psychiatric: Alert, Oriented x3 Skin: Normal Color Lymphatic: No Adenopathy Results Lab Laboratory Tests 02/05/21 20:07: Glucometer 170H 02/06/21 06:30: White Blood Count 12.8H, Red Blood Count 3.61L, Hemoglobin 9.4#L, Hematocrit 30L , Mean Corpuscular Volume 84, Mean Corpuscular Hemoglobin 26, Mean Corpuscular Hemoglobin Concent 31L, Red Cell Distribution Width 15.4H, Platelet Count 478H, Mean Platelet Volume 9.4, Immature Granulocyte % (Auto) 2, Neutrophils (%) (Auto) 72, Lymphocytes (%) (Auto) 16, Monocytes (%) (Auto) 8, Eosinophils (%) (Auto) 2, Basophils (%) (Auto) 0, Neutrophils # (Auto) 9.3H, Lymphocytes # (Auto) 2.1, Monocytes # (Auto) 1.0, Eosinophils # (Auto) 0.2, Basophils # (Auto) 0.0, Immature Granulocyte # (Auto) 0.2H, Sodium Level 136, Potassium Level 4.4, Chloride Level 102, Carbon Dioxide Level 21, Anion Gap 13, Blood Urea Nitrogen 15, Creatinine 1.78H, Estimat Glomerular Filtration Rate 30, BUN/Creatinine Ratio 8, Glucose Level 262H, Calcium Level 8.2L, Corrected Calcium 9.6, Total Bilirubin 0.3, Aspartate Amino Transf (AST/SGOT) 15, Alanine Aminotransferase (ALT/SGPT) 10, Alkaline Phosphatase 344H, Total Protein 6.3L, Albumin 2.2L 02/06/21 11:02: Glucometer 244H 02/06/21 16:06: Glucometer 115H Microbiology 02/03/21 MRSA Screen - Final, Complete MRSA not isolated 02/02/21 Blood Culture - Preliminary, Resulted No growth 02/02/21 Urine Culture - Final, Complete Gram Pos Mixed Bacterial Kellen Assessment/Plan Assessment/Plan Assess & Plan/Chief Complaint right foot diabetic/beurgers foot necrosis and osteomyelitis. plan for right below the knee amputation in [facility](02/07). [address] MD Feb 06, 2021 18:11
[2021-02-06] MEDS ORDERED: TROUGH ORDER-PHARMACY XX NR (19:00)
[2021-02-06] MEDS: SENNA W/DOCUSATE (SENOKOT S) TABLET PO SCH (20:34)
[2021-02-06] MEDS: LACTULOSE SYRUP 10GM/15ML (ENULOSE) 30ML UDC PO SCH (22:45)
[2021-02-06] MEDS: LORazepam INJ 2 MG/ML (ATIVAN) VIAL IV PRN (22:47)
[2021-02-07] VITALS (7 sets, daily range): BP systolic 110–170; BP diastolic 70–93
--- NOTE | 2021-02-07 05:28 | Progress Note - Hospitalist ---
Subjective HPI/CC On Admission Date Seen by Provider: Feb 07, 2021 Time Seen by Provider: 10:00 CC: Right foot pain HPI: This is a 50yoWF type 1 diabetic who presented to the ER with complaints of right foot pain. She was found to have significant diabetic ulcers on multiple areas of her foot. It appears that it wont be salvageable but Dr. Reid was consulted and will be monitoring pt closely. She is still on insulin drip and will be monitoring and providing supportince care. Subjective/Events-last exam Pt ready for amputation of the right leg No pain is reported Antibiotics maintained Overall doing very well Review of Systems General: Fatigue, Malaise Objective Exam Vital Signs Vital Signs Date Time Temp Pulse Resp B/P (MAP) Pulse Ox O2 Delivery O2 Flow Rate FiO2 02/07/21 19:36 36.0 84 18 148/80 (102) 96 Room Air 02/07/21 18:48 3.00 Capillary Refill : Less Than 3 Seconds General Appearance: No Apparent Distress, WD/WN, Chronically ill Respiratory: Lungs Clear, Normal Breath Sounds Cardiovascular: Regular Rate, Rhythm Neurologic/Psychiatric: Alert, Oriented x3 Results/Procedures Lab Laboratory Tests 02/07/21 07:09 Patient resulted labs reviewed. Imaging: Reviewed Imaging Report Assessment/Plan Assessment and Plan Assess & Plan/Chief Complaint DKA insulin drip monitor sugars diabetic foot ulcer Dr. Reid consulted Pain control sepsis Vanc and Zosyn lactate improved leukocytosis worsening poorly controlled DM depression agitation Xanax PRN 02/04/2021: Still refusing surgery 02/05/2021: IV antibiotics Supportive care Refusing amputation 02/06/2021: Amputation tomorrow Bowel regimen 02/07/2021: Monitor blood sugar Amputation today Critical Care Critically Ill Patient Diagnosis/Problems Diagnosis/Problems (1) Cellulitis and abscess of toe of right foot Status: Acute (2) Uncontrolled diabetes mellitus Status: Acute Qualifiers: Diabetes mellitus type: type 2 Glycemic state: with hyperglycemia Qualified Codes: E11.65 - Type 2 diabetes mellitus with hyperglycemia (3) Hyperglycemia Status: Acute FATIMAH SOLORZANO DO Feb 07, 2021 05:28
[2021-02-07] MEDS: PIPERACILLIN/TAZOBACTAM (BULK) 4.5 GM in NS (IVPB) 100 ML IV SCH ×3 (06:37→21:57)
[2021-02-07] MEDS: inSUlin ASPART (NovoLOG) 1 UNIT/0.01 ML (CHARGE PER UNIT) SC SCH ×4 (06:37→21:57)
[2021-02-07] MEDS ORDERED: TROUGH ORDER-PHARMACY XX NR (07:00)
[2021-02-07] MEDS: HYDROmorphone 2 MG/ML VIAL (DILAUDID) IVP PRN ×3 (07:02→22:53)
[2021-02-07 07:19] LABS: BASOPHILS # (AUTO) 0.1 10^3/uL (0.0-0.1); BASOPHILS % (AUTO) 0 % (0-10); EOSINOPHILS # (AUTO) 0.2 10^3/uL (0.0-0.3); EOSINOPHILS % (AUTO) 1 % (0-10); HEMATOCRIT 31 % (35-52); HEMOGLOBIN 9.5 g/dL (11.5-16.0); LYMPHOCYTES # (AUTO) 1.9 10^3/uL (1.0-4.0); LYMPHOCYTES % (AUTO) 16 % (12-44); MEAN CORPUSCULAR HEMOGLOBIN 26 pg (25-34); MEAN CORPUSCULAR HGB CONC 30 g/dL (32-36); MEAN CORPUSCULAR VOLUME 86 fL (80-99); MEAN PLATELET VOLUME 8.9 fL (9.0-12.2); MONOCYTES # (AUTO) 1.1 10^3/uL (0.0-1.0); MONOCYTES % (AUTO) 9 % (0-12); NEUTROPHILS # (AUTO) 8.5 10^3/uL (1.8-7.8); NEUTROPHILS % (AUTO) 72 % (42-75); PLATELET COUNT 529 10^3/uL (130-400); WHITE BLOOD COUNT 11.8 10^3/uL (4.3-11.0)
[2021-02-07 07:38] LABS: ALBUMIN 2.2 GM/DL (3.2-4.5); BILIRUBIN,TOTAL 0.3 MG/DL (0.1-1.0); CALCIUM 8.4 MG/DL (8.5-10.1); CREATININE SERUM 1.82 MG/DL (0.60-1.30); POTASSIUM 4.2 MMOL/L (3.6-5.0); TOTAL PROTEIN 6.7 GM/DL (6.4-8.2)
[2021-02-07 07:44] LABS: VANCOMYCIN,TROUGH 16.2 UG/ML (10.0-20.0)
[2021-02-07] MEDS: LACTULOSE SYRUP 10GM/15ML (ENULOSE) 30ML UDC PO SCH ×2 (09:20→21:55)
[2021-02-07] MEDS: SENNA W/DOCUSATE (SENOKOT S) TABLET PO SCH ×2 (09:21→21:55)
[2021-02-07] MEDS: NYSTATIN OINTMENT 30 GM TUBE TOP SCH ×2 (09:22→21:56)
[2021-02-07] MEDS: VANCOMYCIN 750 MG/NS 250 ML IVPB IV SCH ×4 (09:23→22:53)
[2021-02-07] MEDS: ENOXAPARIN 40 MG/0.4 ML (LOVENOX) SYR SC SCH (09:23)
--- NOTE | 2021-02-07 11:55 | Progress Note-Pre Operative ---
Pre-Operative Progress Note H&P Reviewed The H&P was reviewed, patient examined and no changes noted. Date Seen by Provider: Feb 07, 2021 Time Seen by Provider: 11:00 Date H&P Reviewed: Feb 07, 2021 Time H&P Reviewed: 11:00 Pre-Operative Diagnosis: right foot gangrene and osteomyelitis [address]ERR[address] MD Feb 07, 2021 11:55
[2021-02-07] MEDS ORDERED: LIDOCAINE/EPI 1%-1:200,000 (XYLOCAINE) 30 ML VIAL ONE (12:42)
[2021-02-07] MEDS: LACTATED RINGERS 1,000 ML IV PRN ×2 (13:55→16:43)
[2021-02-07] MEDS ORDERED: MIDAZOLAM 2 MG/2 ML (VERSED) VIAL ONE ×2 (13:56→16:56)
[2021-02-07] MEDS ORDERED: fentaNYL INJ 100 MCG/2 ML AMP ONE ×2 (14:00→16:50)
[2021-02-07] MEDS ORDERED: ONDANSETRON 4 MG/2 ML (SDV) Z0FRAN IVP PRN (15:15)
[2021-02-07] MEDS ORDERED: fentaNYL INJ 100 MCG/2 ML AMP IVP ONE (15:15)
[2021-02-07] MEDS ORDERED: HYDROmorphone 2 MG/ML VIAL (DILAUDID) IV ONE (15:15)
[2021-02-07] MEDS ORDERED: morphine INJ 10 MG/ML 1ML (SYR OR VIAL) IVP ONE (15:15)
[2021-02-07] MEDS ORDERED: SEVOFLURANE (ULTANE) 15 ML INHAL SOLN ONE ×2 (15:58→16:26)
[2021-02-07] MEDS ORDERED: proPOfol 200 MG/20 ML (DIPRIVAN) VIAL IV ONE (15:58)
[2021-02-07] MEDS ORDERED: LIDOCAINE PF 2% 5 ML (XYLOCAINE) VIAL ONE (15:58)
[2021-02-07] MEDS ORDERED: ONDANSETRON 4 MG/2 ML (SDV) Z0FRAN ONE ×3 (15:58→16:51)
--- NOTE | 2021-02-07 16:01 | Progress Note-Post Operative ---
Post-Operative Progess Note Surgeon (s)/Candle Molder Hand (s) Surgeon MONSERRAT STRE[address] MD Candle Molder Hand: none Pre-Operative Diagnosis right foot gangrene and osteomyelitis Post-Operative Diagnosis same Procedure & Operative Findings Date of Procedure 02/07/21 Procedure Performed/Findings right below the knee amputation. Anesthesia Type get Estimated Blood Loss Estimated blood loss (mL): 750ml Specimens/Packing Specimens Removed right below the knee amputation. MONSERRAT ST[address] MD Feb 07, 2021 16:01
[2021-02-07] MEDS ORDERED: HYDROmorphone 2 MG/ML VIAL (DILAUDID) ONE (16:25)
[2021-02-07] MEDS ORDERED: PROMETHAZINE INJ 25 MG/ML (PHENERGAN) AMP ONE (17:08)
[2021-02-07] MEDS: ACETAMINOPHEN 325 MG TABLET PO PRN (20:25)
--- NOTE | 2021-02-07 20:47 | OPERATIVE REPORT ---
DATE OF SERVICE: 02/07/2021 ATTENDING CHAUFFEUR MOTORBUS: [facility]. ADMITTING PHYSICIAN: Dr. Hood. PREOPERATIVE DIAGNOSIS: Buerger's disease and diabetic right foot necrosis and osteomyelitis. POSTOPERATIVE DIAGNOSES: Buerger's disease and diabetic right foot necrosis and osteomyelitis. PROCEDURE: Right rwuds-yow-mgld amputation. SURGEON: Monserrat Street MD ANESTHESIA: General endotracheal. ESTIMATED BLOOD LOSS: 750 mL. FINDINGS: Necrotic right foot. DISPOSITION: The patient tolerated the procedure well. INDICATIONS: The patient is a 50-year-old female who was brought in by EMS for severe infection and pain along the right foot. She has a longstanding history of diabetic ulceration of the left foot and also has a longstanding history of noncompliance. She came in with a severely elevated blood glucose. She has a history of hypertension as well as diabetes and does not take any medications even though she is supposed to. She reports a significant depression after was witnessing her committed suicide in 2019 and has lost hope for the most part. There was a necrotic large wound along the medial aspect of the right foot and radiographic evidence of metatarsophalangeal osteomyelitis. The recommendation was to proceed with a below-knee amputation; however, the patient was resistant to any type of procedure. The patient is also a heavy smoker and it appears that she does have Buerger's disease. She has other relatives that have had amputation at a young age with a heavy smoking history. Eventually, she did consent to a [id number] amputation. DESCRIPTION OF PROCEDURE: The patient was brought to the operating room, laid supine on the table. After adequate IV pain and sedative medications and general endotracheal intubation, the right lower extremity was prepped and draped in standard surgical fashion. The posterior flap was then measured out and the resection site was approximately 2 fingerbreadths below the anterior tibial tuberosity. A flap was then anesthetized using 0.5% Marcaine with epinephrine and we proceeded with our anterior incision using a 10 blade and proceeded with dissection of the subcutaneous tissue as well as the anterior tibialis and the medial aspect of the gastrocnemius and soleus muscle. The anterior tibial neurovascular bundle was identified and clamped with Yolanda clamps and tied with 0 silk sutures. This was then cut with Metzenbaum scissors. The posterior tibial neurovascular bundle was identified, dissected out, tied with 0 silk sutures and cut with Metzenbaum scissors with visualization of good hemostasis. We then proceeded with continuation of the flap laterally as well as posteriorly, preserving a layer of gastrocnemius muscle. Good hemostasis was observed. We then proceeded with bone resection using a bone saw of the tibia and fibula. The edges were then smoothed then using a bone rasp and bone wax was placed along the marrow. Good hemostasis was observed. We then proceeded with posterior flap reconstruction and reapproximating the fascia using 2-0 Vicryl suture. The subcutaneous tissue was then reapproximated using 2-0 Vicryl interrupted sutures and then skin leann were used to approximate the skin. Wound was then cleaned and covered with Adaptic followed by 4 x 4 gauze followed by Kerlix wrap, followed by a soft gauze and then ortho glass placed along the posterior aspect of the limb to prevent contractures. Dry Farzad wrap was placed to hold the Orthoglass and placed. The patient tolerated the procedure well. We will start IV normal pain medication as well as a clear liquid diet and advance as tolerated. We will continue with antibiotics and remove the dressing on postoperative day #3. Job ID: [id number] DocumentID: [id number] Dictated Date: 02/07/2021 16:13:55 Salesperson Flowers Date: 02/07/2021 20:47:02 Dictated By: MONSERRAT STREET MD
[2021-02-07] MEDS: ALPRAZolam 0.5 MG (XANAX) TAB PO PRN (21:55)
[2021-02-08] MEDS: HYDROmorphone 2 MG/ML VIAL (DILAUDID) IVP PRN ×5 (03:10→20:26)
--- NOTE | 2021-02-08 05:17 | Progress Note - Hospitalist ---
Subjective HPI/CC On Admission Date Seen by Provider: Feb 08, 2021 Time Seen by Provider: 10:00 CC: Right foot pain HPI: This is a 50yoWF type 1 diabetic who presented to the ER with complaints of right foot pain. She was found to have significant diabetic ulcers on multiple areas of her foot. It appears that it wont be salvageable but Dr. Reid was consulted and will be monitoring pt closely. She is still on insulin drip and will be monitoring and providing supportince care. Subjective/Events-last exam Pt doing pretty well Pain is pretty well controlled Checked meds and labs PT and OT will be ordered but she doesnt seem to be really motivated for that Checked meds and labs Review of Systems General: Fatigue Musculoskeletal: leg pain Objective Exam Vital Signs Vital Signs Date Time Temp Pulse Resp B/P (MAP) Pulse Ox O2 Delivery O2 Flow Rate FiO2 02/08/21 21:11 Room Air 02/08/21 19:18 36.1 77 18 150/78 (102) 95 02/07/21 21:55 3.00 Capillary Refill : Less Than 3 SecondsLess Than 3 Seconds General Appearance: No Apparent Distress, WD/WN, Chronically ill Respiratory: Lungs Clear, Normal Breath Sounds Cardiovascular: Regular Rate, Rhythm Extremity: Other (Right below the knee amputation dressing intact) Neurologic/Psychiatric: Alert, Oriented x3, Depressed Affect Results/Procedures Lab Laboratory Tests 02/08/21 06:10 Patient resulted labs reviewed. Imaging: Reviewed Imaging Report Assessment/Plan Assessment and Plan Assess & Plan/Chief Complaint DKA insulin drip monitor sugars diabetic foot ulcer Dr. Reid consulted Pain control sepsis Vanc and Zosyn lactate improved leukocytosis worsening poorly controlled DM depression agitation Xanax PRN 02/04/2021: Still refusing surgery 02/05/2021: IV antibiotics Supportive care Refusing amputation 02/06/2021: Amputation tomorrow Bowel regimen 02/07/2021: Monitor blood sugar Amputation today 02/08/2021: Manage amputation wound Pain control PT OT Critical Care Critically Ill Patient Diagnosis/Problems Diagnosis/Problems (1) Cellulitis and abscess of toe of right foot Status: Acute (2) Uncontrolled diabetes mellitus Status: Acute Qualifiers: Diabetes mellitus type: type 2 Glycemic state: with hyperglycemia Qualified Codes: E11.65 - Type 2 diabetes mellitus with hyperglycemia (3) Hyperglycemia Status: Acute FATIMAH SOLORZANO DO Feb 08, 2021 05:17
[2021-02-08 06:21] LABS: BASOPHILS % (AUTO) 0 % (0-10); EOSINOPHILS # (AUTO) 0.1 10^3/uL (0.0-0.3); EOSINOPHILS % (AUTO) 1 % (0-10); HEMATOCRIT 27 % (35-52); HEMOGLOBIN 8.1 g/dL (11.5-16.0); LYMPHOCYTES % (AUTO) 16 % (12-44); MEAN CORPUSCULAR HEMOGLOBIN 26 pg (25-34); MEAN CORPUSCULAR HGB CONC 31 g/dL (32-36); MEAN CORPUSCULAR VOLUME 86 fL (80-99); MEAN PLATELET VOLUME 8.8 fL (9.0-12.2); MONOCYTES # (AUTO) 1.1 10^3/uL (0.0-1.0); MONOCYTES % (AUTO) 9 % (0-12); NEUTROPHILS # (AUTO) 9.4 10^3/uL (1.8-7.8); NEUTROPHILS % (AUTO) 73 % (42-75); PLATELET COUNT 493 10^3/uL (130-400); WHITE BLOOD COUNT 12.9 10^3/uL (4.3-11.0)
[2021-02-08 06:30] LABS: ALBUMIN 2.3 GM/DL (3.2-4.5); POTASSIUM 4.6 MMOL/L (3.6-5.0)
[2021-02-08 06:31] LABS: CALCIUM 7.9 MG/DL (8.5-10.1)
[2021-02-08 06:33] LABS: TOTAL PROTEIN 6.4 GM/DL (6.4-8.2)
[2021-02-08 06:34] LABS: BILIRUBIN,TOTAL 0.3 MG/DL (0.1-1.0)
[2021-02-08 06:36] LABS: CREATININE SERUM 1.71 MG/DL (0.60-1.30)
[2021-02-08] MEDS: inSUlin ASPART (NovoLOG) 1 UNIT/0.01 ML (CHARGE PER UNIT) SC SCH ×4 (06:55→20:19)
[2021-02-08] MEDS: LACTULOSE SYRUP 10GM/15ML (ENULOSE) 30ML UDC PO SCH ×2 (09:07→20:25)
[2021-02-08] MEDS: SENNA W/DOCUSATE (SENOKOT S) TABLET PO SCH ×2 (09:07→20:25)
[2021-02-08] MEDS: ENOXAPARIN 40 MG/0.4 ML (LOVENOX) SYR SC SCH (09:07)
[2021-02-08] MEDS: NYSTATIN OINTMENT 30 GM TUBE TOP SCH ×2 (09:15→20:25)
[2021-02-08] MEDS: ACETAMINOPHEN 325 MG TABLET PO PRN ×3 (09:17→23:02)
--- NOTE | 2021-02-08 09:36 | Anesthesia-General Post-Op ---
General Patient Condition Mental Status/LOC: Same as Preop Cardiovascular: Satisfactory Nausea/Vomiting: Absent Respiratory: Satisfactory Pain: Controlled Complications: Absent Post Op Complications Complications None Follow Up Care/Instructions Patient Instructions None needed. Anesthesia/Patient Condition Patient Condition Patient is doing well, no complaints, stable vital signs, no apparent adverse anesthesia problems. No complications reported per nursing. RONNY QUIÑONES CRNA Feb 08, 2021 09:36
--- NOTE | 2021-02-08 11:47 | Physical Therapy Progress Note ---
Therapy Progress Note Patient in bed yelling in pain. PT attempted to assess patient, however, patient adamantly declined stating, "I don't feel like it and I hurt too much." PT attempted to educate patient on importance of increasing mobility to help decrease right LE pain and to increase strength and patient yelled, "Just Fuck off. I don't need you." Physician notified. PT will attempt in a.m. 1 ref ([id number]) SYLVESTER FERRO PT Feb 08, 2021 11:47
--- NOTE | 2021-02-08 14:08 | Physical Therapy Progress Note ---
Therapy Progress Note Patient refused physical therapy evaluation again this afternoon. Patient begged and pleaded with therapist to not make her do therapy (she actually said "i'm begging you to come back in the morning"). Patient states she will be ready and willing to participate in the morning. We will be back tomorrow. MYKEL SERRANO PT Feb 08, 2021 14:08
--- NOTE | 2021-02-08 14:17 | Occ Therapy Progress Note ---
Therapy Progress Note OT orders received and chart reviewed. Pt laying in bed, refused OT evaluation. OT educated pt on purpose and benefit of OT, she still refused, begging this therapist to come back in the morning, and asking "can we just do it tomorrow". Pt states she will be in a better mood tomorrow and willing to participate. OT will attempt evaluation again tomorrow. 1, refusal [id number] RENAN RODRIGUEZ OT Feb 08, 2021 14:17
--- NOTE | 2021-02-08 15:59 | Progress Note ---
Subjective Date Seen by a Provider: Feb 08, 2021 Time Seen by a Provider: 15:00 Subjective/Events-last exam doing ok. pain controlled. no fever/chills. Objective Exam Vital Signs Date Time Temp Pulse Resp B/P (MAP) Pulse Ox O2 Delivery O2 Flow Rate FiO2 02/08/21 15:07 36.6 79 18 138/85 (102) 95 Room Air 02/08/21 12:00 35.3 81 20 138/77 (97) 93 Room Air 02/08/21 09:00 Room Air 02/08/21 08:23 36.5 88 21 141/65 (90) 93 Room Air 02/08/21 03:21 36.2 80 20 152/80 (104) 95 Room Air 02/07/21 23:30 36.0 72 18 176/83 (114) 94 Room Air 02/07/21 21:55 Nasal Cannula 3.00 02/07/21 19:36 36.0 84 18 148/80 (102) 96 Room Air 02/07/21 18:48 95 Nasal Cannula 3.00 02/07/21 17:30 Nasal Cannula 3 02/07/21 17:30 36.7 20 170/93 (118) 96 Nasal Cannula 3 02/07/21 17:20 20 170/93 (118) 96 Nasal Cannula 3 02/07/21 17:15 Nasal Cannula 3 02/07/21 17:10 20 168/93 (118) 98 Nasal Cannula 3 02/07/21 17:00 OxyMask 4 02/07/21 17:00 20 139/92 (108) 100 OxyMask 4 02/07/21 16:50 18 140/88 (105) 100 OxyMask 6 02/07/21 16:45 OxyMask 6 02/07/21 16:40 16 118/74 (89) 100 OxyMask 6 02/07/21 16:37 37.0 16 110/70 (83) 100 OxyMask 6 02/07/21 16:37 OxyMask 6 I & O 02/08/21 06:59 Intake Total 2230 ml Output Total 1200 ml Balance 1030 ml Capillary Refill : Less Than 3 SecondsLess Than 3 Seconds General Appearance: No Apparent Distress HEENT: PERRL/EOMI Neck: Full Range of Motion Respiratory: Chest Non Tender, Wheezing Cardiovascular: Regular Rate, Rhythm Gastrointestinal: normal bowel sounds, non tender, soft Extremity: Other (right stump dressed/dry) Neurologic/Psychiatric: Alert, Oriented x3 Skin: Normal Color Lymphatic: No Adenopathy Results Lab Laboratory Tests 02/07/21 16:43: Glucometer 173H 02/07/21 20:37: Glucometer 183H 02/08/21 05:17: Glucometer 234H 02/08/21 06:10: White Blood Count 12.9H, Red Blood Count 3.09L, Hemoglobin 8.1L, Hematocrit 27L, Mean Corpuscular Volume 86, Mean Corpuscular Hemoglobin 26, Mean Corpuscular Hemoglobin Concent 31L, Red Cell Distribution Width 15.7H, Platelet Count 493H, Mean Platelet Volume 8.8L, Immature Granulocyte % (Auto) 2, Neutrophils (%) (Auto) 73, Lymphocytes (%) (Auto) 16, Monocytes (%) (Auto) 9, Eosinophils (%) (Auto) 1, Basophils (%) (Auto) 0, Neutrophils # (Auto) 9.4H, Lymphocytes # (Auto) 2.0, Monocytes # (Auto) 1.1H, Eosinophils # (Auto) 0.1, Basophils # (Auto) 0.0, Immature Granulocyte # (Auto) 0.2H, Sodium Level 137, Potassium Level 4.6, Chloride Level 102, Carbon Dioxide Level 24, Anion Gap 11, Blood Urea Nitrogen 15, Creatinine 1.71H, Estimat Glomerular Filtration Rate 32, BUN/Creatinine Ratio 9, Glucose Level 252H, Calcium Level 7.9L, Corrected Calcium 9.3, Total Bilirubin 0.3, Aspartate Amino Transf (AST/SGOT) 26, Alanine Aminotransferase (ALT/SGPT) 13, Alkaline Phosphatase 290H, Total Protein 6.4, Albumin 2.3L 02/08/21 11:13: Glucometer 232H 02/08/21 15:14: Glucometer 169H Microbiology 02/03/21 MRSA Screen - Final, Complete MRSA not isolated 02/02/21 Blood Culture - Final, Complete No growth 02/02/21 Urine Culture - Final, Complete Gram Pos Mixed Bacterial Kellen Assessment/Plan Assessment/Plan Assess & Plan/Chief Complaint 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 cont IV abx. SS to delineate needs. consult PT/OT. will change dressing saturday. MONSERRAT STREET MD Feb 08, 2021 15:59
[2021-02-08] MEDS: ALPRAZolam 0.5 MG (XANAX) TAB PO PRN (23:02)
[2021-02-09] MEDS: HYDROmorphone 2 MG/ML VIAL (DILAUDID) IVP PRN ×3 (00:19→09:20)
[2021-02-09 05:22] LABS: BASOPHILS % (AUTO) 0 % (0-10); EOSINOPHILS # (AUTO) 0.1 10^3/uL (0.0-0.3); EOSINOPHILS % (AUTO) 1 % (0-10); HEMATOCRIT 27 % (35-52); HEMOGLOBIN 8.1 g/dL (11.5-16.0); LYMPHOCYTES # (AUTO) 2.1 10^3/uL (1.0-4.0); LYMPHOCYTES % (AUTO) 18 % (12-44); MEAN CORPUSCULAR HEMOGLOBIN 26 pg (25-34); MEAN CORPUSCULAR HGB CONC 30 g/dL (32-36); MEAN CORPUSCULAR VOLUME 86 fL (80-99); MEAN PLATELET VOLUME 8.6 fL (9.0-12.2); MONOCYTES # (AUTO) 1.1 10^3/uL (0.0-1.0); MONOCYTES % (AUTO) 9 % (0-12); NEUTROPHILS # (AUTO) 8.4 10^3/uL (1.8-7.8); NEUTROPHILS % (AUTO) 71 % (42-75); PLATELET COUNT 520 10^3/uL (130-400); WHITE BLOOD COUNT 11.9 10^3/uL (4.3-11.0)
--- NOTE | 2021-02-09 05:29 | Progress Note - Hospitalist ---
Subjective HPI/CC On Admission Date Seen by Provider: Feb 09, 2021 Time Seen by Provider: 11:00 CC: Right foot pain HPI: This is a 50yoWF type 1 diabetic who presented to the ER with complaints of right foot pain. She was found to have significant diabetic ulcers on multiple areas of her foot. It appears that it wont be salvageable but Dr. Reid was consulted and will be monitoring pt closely. She is still on insulin drip and will be monitoring and providing supportince care. Subjective/Events-last exam Pt doing a little better Having some pain but pain medication helps No other issues No concerns Review of Systems General: Fatigue, Malaise Musculoskeletal: leg pain, foot pain Objective Exam Vital Signs Vital Signs Date Time Temp Pulse Resp B/P (MAP) Pulse Ox O2 Delivery O2 Flow Rate FiO2 02/09/21 19:59 35.5 84 18 157/81 (106) 98 Room Air 02/07/21 21:55 3.00 Capillary Refill : Less Than 3 SecondsLess Than 3 Seconds General Appearance: No Apparent Distress, WD/WN, Chronically ill Respiratory: Lungs Clear, Normal Breath Sounds Cardiovascular: Regular Rate, Rhythm Neurologic/Psychiatric: Alert, Oriented x3, Depressed Affect Results/Procedures Lab Laboratory Tests 02/09/21 05:09 Patient resulted labs reviewed. Imaging: Reviewed Imaging Report Assessment/Plan Assessment and Plan Assess & Plan/Chief Complaint DKA insulin drip monitor sugars diabetic foot ulcer Dr. Reid consulted Pain control sepsis Vanc and Zosyn lactate improved leukocytosis worsening poorly controlled DM depression agitation Xanax PRN 02/04/2021: Still refusing surgery 02/05/2021: IV antibiotics Supportive care Refusing amputation 02/06/2021: Amputation tomorrow Bowel regimen 02/07/2021: Monitor blood sugar Amputation today 02/08/2021: Manage amputation wound Pain control PT OT 02/09/2021: Amputation wound care Critical Care Critically Ill Patient Diagnosis/Problems Diagnosis/Problems (1) Cellulitis and abscess of toe of right foot Status: Acute (2) Uncontrolled diabetes mellitus Status: Acute Qualifiers: Diabetes mellitus type: type 2 Glycemic state: with hyperglycemia Qualified Codes: E11.65 - Type 2 diabetes mellitus with hyperglycemia (3) Hyperglycemia Status: Acute FATIMAH SOLORZANO DO Feb 09, 2021 05:29
[2021-02-09 05:32] LABS: ALBUMIN 2.4 GM/DL (3.2-4.5)
[2021-02-09 05:33] LABS: POTASSIUM 4.1 MMOL/L (3.6-5.0)
[2021-02-09 05:34] LABS: CALCIUM 8.1 MG/DL (8.5-10.1)
[2021-02-09 05:35] LABS: TOTAL PROTEIN 6.7 GM/DL (6.4-8.2)
[2021-02-09 05:37] LABS: BILIRUBIN,TOTAL 0.2 MG/DL (0.1-1.0)
[2021-02-09 05:39] LABS: CREATININE SERUM 2.05 MG/DL (0.60-1.30)
[2021-02-09] MEDS: inSUlin ASPART (NovoLOG) 1 UNIT/0.01 ML (CHARGE PER UNIT) SC SCH ×4 (06:28→20:17)
[2021-02-09] MEDS: LACTULOSE SYRUP 10GM/15ML (ENULOSE) 30ML UDC PO SCH ×2 (07:57→20:17)
[2021-02-09] MEDS: HYDROcodone/APAP 7.5 MG/325 MG (LORTAB, LORCET PLUS) TABLET PO PRN ×3 (07:57→20:17)
[2021-02-09] MEDS: SENNA W/DOCUSATE (SENOKOT S) TABLET PO SCH ×2 (07:57→20:17)
[2021-02-09] MEDS: ENOXAPARIN 40 MG/0.4 ML (LOVENOX) SYR SC SCH (07:57)
[2021-02-09] MEDS: NYSTATIN OINTMENT 30 GM TUBE TOP SCH ×2 (07:58→20:47)
--- NOTE | 2021-02-09 10:10 | Physical Therapy Evaluation ---
PT Evaluation-General Medical Diagnosis Admission Date Feb 02, 2021 at 23:45 Medical Diagnosis: right BKA/sepsis Onset Date: Feb 02, 2021 Therapy Diagnosis Therapy Diagnosis: generalized weakness/debility Precautions Precautions/Isolations: Fall Prevention, Standard Precautions Referral Physician: Erwin Reason for Referral: Evaluation/Treatment Medical History Pertinent Medical History: DM, HTN, Smoking Current History ER secondary to long standing diabetic foot ulcer Reviewed History: Yes Social History Home: Single Level Current Living Status: Alone Entry Into Home: Stairs With Railing PT Steps Into Home: 4 Prior Prior Level of Function SCALE: Activities may be completed with or without assistive devices. 5-Niafevwahj-edvbrue completes the activity by him/herself with no assistance from a helper. 5-Set-up or Clean-up Assistance-helper sets up or cleans up; patient completes activity. [place] assists only prior to or following the activity. 4-Supervision or Touching Assistance-helper provides verbal cues and/or touching/steadying and/or contact guard assistance as patient completes activity. Assistance may be provided throughout the activity or intermittently. 3-Partial/Moderate Assistance-helper does LESS THAN HALF the effort. [place] lifts, holds or supports trunk or limbs, but provides less than half the effort. 2-Substantial/Maximal Assistance-helper does MORE THAN HALF the effort. [place] lifts or holds trunk or limbs and provides more than half the effort. 2-Utmgvbbbf-utywac does ALL the effort. Patient does none of the effort to complete the activity. Or, the assistance of 2 or more helpers is required for the patient to complete the activity. If activity was not attempted, code reason: 7-Patient Refused. 9-Not Applicable-not attempted and the patient did not perform the activity before the current illness, exacerbation or injury. 10-Not Attempted due to Environmental Limitations-(lack of equipment, weather restraints, etc.). 88-Not Attempted due to Medical Conditions or Safety Concerns. Bed Mobility: 6 Transfers (B,C,W/C): 6 Gait: 6 Stairs: 6 Indoor Mobility (Ambulation): Independent Stairs: Independent PT Evaluation-Current Subjective Patient agrees to PT. Apologizes about her outburst yesterday. Pain Numeric Pain Scale: 10-Worst Possible Pain Location: Right Location Body Site: Knee Pain Description: Acute Comment: meds issued Objective Patient Orientation: Normal For Age ROM/Strength ROM Lower Extremities right LE NT/soft splint; left LE WFL Strength Lower Extremities right LE NT/left LE 3/5 grossly Integumentary/Posture Integumentary refer to nursing notes Bowel Incontinence: No Bladder Incontinence: No Posture WFL Neuromuscular (Tone, Coordination, Reflexes) grossly intact Sensory Vision: Functional Hearing: Functional Transfers Lying to Sitting/Side of Bed(Q: 4 Sit to Stand (QC): 2 Chair/Uwa-xn-Tston Xfer(QC): 2 Toilet Transfer (QC): 2 SPT with PT assist due to patient reporting fear. Gait Does the Patient Walk?: No and Walking Goal IS indicated Mode of Locomotion: Both Anticipated Mode of Locomotion: Both Balance Sitting Static: Normal Sitting Dynamic: Normal Standing Static: Fair Standing Dynamic: Fair Assessment/Needs Patient requires max assist with sit to stand and SPT due to patient's weakness and report of fear of falling. Patient lives alone. Would benefit from skilled PT to address functional strength and mobility to ensure safe return to home as maximum LOF. Discussed ARU and [facility] facility. Rehab Potential: Fair Post Rehab Potential-Barriers: compliance PT [employer] Player Goals [employer] Player Goals PT Snf Goals Time Frame: Feb 25, 2021 Roll Left & Right (QC): 5 Sit to Lying (QC): 5 Lying-Sitting on Side/Bed(QC): 5 Sit to Stand (QC): 5 Chair/Lrl-uu-Ophup Xfer(QC): 5 Toilet Transfer (QC): 5 Car Transfer (QC): 5 Does the Patient Walk: No and Walking Goal IS indicated Walk 10 feet (QC): 4 1 Step (curb) (QC): 4 Does the Pt use WC or Scooter?: Yes Wheel 50 feet with 2 turns (QC: 5 Type: Manual Wheel 150 feet: 5 Type: Manual PT Plan Problem List Problem List: Activity Tolerance, Functional Strength, Safety, Balance, Gait, Transfer, Bed Mobility Treatment/Plan Treatment Plan: Continue Plan of Care Treatment Plan: Bed Mobility, Education, Functional Activity Lin, Functional Strength, Gait, Safety, Therapeutic Exercise, Transfers Treatment Duration: Feb 25, 2021 Frequency: 11 times per week Estimated Hrs Per Day: .5 hour per day Patient and/or Family Agrees t: Yes Time/GCodes Time In: 900 Time Out: 925 Total Billed Treatment Time: 25 Total Billed Treatment 1 visit EVModC 10 min FA 15 min SYLVESTER FERRO PT Feb 09, 2021 10:10
--- NOTE | 2021-02-09 13:01 | Occupational Therapy Eval ---
OT Evaluation-General/PLF Medical Diagnosis Admission Date Feb 02, 2021 at 23:45 Medical Diagnosis: right BKA/sepsis Onset Date: Feb 02, 2021 Therapy Diagnosis Therapy Diagnosis: decreased ADL status Precautions Precautions/Isolations: Fall Prevention, Standard Precautions Referral Physician: Erwin Sanches Reason: Evaluation/Treatment Medical History Pertinent Medical History: DM, HTN, Smoking Additional Medical History depression Current History ED due to R foot pain and fever. 02/07/21 s/p R BKA Social History Home: Single Level Current Living Status: Alone Entry Into Home: Stairs With Railing Steps Into Home: 4 ADL-Prior Level of Function SCALE: Activities may be completed with or without assistive devices. 1-Zxtaxggigd-tcqhqxj completes the activity by him/herself with no assistance from a helper. 5-Set-up or Clean-up Assistance-helper sets up or cleans up; patient completes activity. [place] assists only prior to or following the activity. 4-Supervision or Touching Assistance-helper provides verbal cues and/or touching/steadying and/or contact guard assistance as patient completes acti vity. Assistance may be provided throughout the activity or intermittently. 3-Partial/Moderate Assistance-helper does LESS THAN HALF the effort. [place] lifts, holds or supports trunk or limbs, but provides less than half the effort. 2-Substantial/Maximal Assistance-helper does MORE THAN HALF the effort. [place] lifts or holds trunk or limbs and provides more than half the effort. 8-Pjulpuafq-kkqnzj does ALL the effort. Patient does none of the effort to complete the activity. Or, the assistance of 2 or more helpers is required for the patient to complete the activity. If activity was not attempted, code reason: 7-Patient Refused. 9-Not Applicable-not attempted and the patient did not perform the activity before the current illness, exacerbation or injury. 10-Not Attempted due to Environmental Limitations-(lack of equipment, weather restraints, etc.). 88-Not Attempted due to Medical Conditions or Safety Concerns. ADL PLOF Comments Pt reports IND with ADLs and functional mobility at OF, no AD/AE Self Care: Independent Functional Cognition: Independent DME/Equipment: Tub/Shower OT Current Status Subjective Pt upright in recliner, agreeable to OT evaluation/tx. Pt tearful throughout session, states she does not have a good support system and she was in the process of breaking up with her boyfriend. Mental Status/Objective Patient Orientation: Person, Place, Time, Situation Current Glasses/Contacts: Yes Dentures/Partials: Yes Hand Dominance: Right Upper Extremity ROM WFL, BUE shoulder flexion to approx 150 degrees Upper Extremity Coordination WFL Upper Extremity Sensation WFL Upper Extremity Strength grossly 3+/5 ADL-Treatment Eating (QC): 6 (Pt IND with lunch) Oral Hygiene (QC): 5 (based on clincial judgement) Shower/Bathe Self (QC): 7 Lower Body Dressing (QC): 7 On/Off Footwear (QC): 7 Other Treatments pt seated in recliner. OT educated pt on purpose and benefit of OT, she verbalized understanding. Pt provided information about PLOF and home set up and participated in UE screen. Pt eating lunch throughout visit independently. Pt tearful during session, stating she is in the process of breaking up with her boyfriend and she doesn't have good support. OT provided empathetic listening. Pt declined ADLs at this time, as she was still eating lunch and would like to finish. OT attempted to assist pt with brushing her hair due to tangles in the back, but pt declined stating she would do it herself later. OT educated pt on UE exercises in order to increase BUE strength and activity tolerance, pt completed x10 reps each BUE shoulder flexion, elbow flexion/extension, and finger flexion/extension. Post tx, pt seated upright in recliner, call light in reach and all needs met. Per PT evaluation, max A sit to stand and SPT. Education OT Patient Education: Correct positioning, Energy conservation, Exercise program, Modified ADL techniques, Progress toward Goal/Update tx plan, Purpose of tx/functional activities, Rehab process, Safety issues Teaching Recipient: Patient Teaching Methods: Discussion Response to Teaching: Verbalize Understanding OT [facility]ci Goals Fci Goals Time Frame: Feb 24, 2021 Eating (QC): 6 Oral Hygiene (QC): 6 Toileting Hygiene (QC): 4 Shower/Bathe Self (QC): 4 Upper Body Dressing (QC): 5 Lower Body Dressing (QC): 4 On/Off Footwear (QC): 4 Additional Goals: 1-Demonstrate ADL Tasks, 2-Verbalize Understanding, 3- ImproveStrength/Lin 1=Demonstrate adherence to instructed precautions during ADL tasks. 2=Patient will verbalize/demonstrate understanding of assistive devices/modifications for ADL. 3=Patient will improve strength/tolerance for activity to enable patient to perform ADL's. OT Education/Plan Problem List/Assessment Assessment: Decreased Activ Tolerance, Decreased UE Strength, Impaired Funct Balance, Impaired I ADL's, Impaired Self-Care Skills Discharge Recommendations Plan/Recommendations: Continue POC Therapy Discharge Recommendati: Post Acute OT Equpiment Recommendations-D/C: Extended Bath Bench Treatment Plan/Plan of Care Patient would benefit from OT for education, treatment and training to promote independence in ADL's, mobility, safety and/or upper extremity function for ADL's. Plan of Care: ADL Retraining, Functional Mobility, UE Funct Exercise/Act Treatment Duration: Feb 24, 2021 Frequency: 5 times per week Estimated Hrs Per Day: .25 hour per day Rehab Potential: Fair Time/GCodes Start Time: 11:45 Stop Time: 12:00 Total Time Billed (hr/min): 15 Billed Treatment Time 1, RENAN BABCOCK OT Feb 09, 2021 13:01
--- NOTE | 2021-02-09 13:46 | Physical Therapy Progress Note ---
Therapy Progress Note Patient declined due to fatigue. Patient agrees to resume in a.m. 1 ref ([id number]) SYLVESTER FERRO PT Feb 09, 2021 13:46
--- NOTE | 2021-02-09 15:05 | Progress Note ---
Subjective Date Seen by a Provider: Feb 09, 2021 Time Seen by a Provider: 13:00 Subjective/Events-last exam doing well. has very erratic affect. stump dressed/dry. Objective Exam Vital Signs Date Time Temp Pulse Resp B/P (MAP) Pulse Ox O2 Delivery O2 Flow Rate FiO2 02/09/21 12:13 35.6 78 20 163/87 (112) 94 Room Air 02/09/21 09:27 Room Air 02/09/21 08:08 35.8 89 20 168/91 (116) 97 Room Air 02/09/21 03:25 37.0 88 16 150/72 (98) 95 Room Air 02/09/21 00:50 36.6 84 16 143/73 (96) 95 Room Air 02/08/21 21:11 Room Air 02/08/21 19:18 36.1 77 18 150/78 (102) 95 Room Air 02/08/21 15:07 36.6 79 18 138/85 (102) 95 Room Air I & O 02/09/21 07:00 Intake Total 1940 ml Output Total 1250 ml Balance 690 ml Capillary Refill : Less Than 3 SecondsLess Than 3 Seconds General Appearance: No Apparent Distress HEENT: PERRL/EOMI Neck: Full Range of Motion Respiratory: Chest Non Tender, Lungs Clear Cardiovascular: Regular Rate, Rhythm Gastrointestinal: normal bowel sounds, non tender, soft Extremity: Other (right stump dressed/dry) Neurologic/Psychiatric: Alert, Oriented x3 Skin: Normal Color Lymphatic: No Adenopathy Results Lab Laboratory Tests 02/08/21 15:14: Glucometer 169H 02/08/21 20:14: Glucometer 172H 02/09/21 05:09: White Blood Count 11.9H, Red Blood Count 3.14L, Hemoglobin 8.1L, Hematocrit 27L, Mean Corpuscular Volume 86, Mean Corpuscular Hemoglobin 26, Mean Corpuscular Hemoglobin Concent 30L, Red Cell Distribution Width 15.7H, Platelet Count 520H, Mean Platelet Volume 8.6L, Immature Granulocyte % (Auto) 1, Neutrophils (%) (Auto) 71, Lymphocytes (%) (Auto) 18, Monocytes (%) (Auto) 9, Eosinophils (%) (Auto) 1, Basophils (%) (Auto) 0, Neutrophils # (Auto) 8.4H, Lymphocytes # (Auto) 2.1, Monocytes # (Auto) 1.1H, Eosinophils # (Auto) 0.1, Basophils # (Auto) 0.0, Immature Granulocyte # (Auto) 0.2H, Sodium Level 139, Potassium Level 4.1, Chloride Level 101, Carbon Dioxide Level 25, Anion Gap 13, Blood Urea Nitrogen 15, Creatinine 2.05H, Estimat Glomerular Filtration Rate 26, BUN/Creatinine Ratio 7, Glucose Level 214H, Calcium Level 8.1L, Corrected Calcium 9.4, Total Bilirubin 0.2, Aspartate Amino Transf (AST/SGOT) 23, Alanine Aminotransferase (ALT/SGPT) 15, Alkaline Phosphatase 287H, Total Protein 6.7, Albumin 2.4L 02/09/21 10:57: Glucometer 199H Microbiology 02/03/21 MRSA Screen - Final, Complete MRSA not isolated 02/02/21 Blood Culture - Final, Complete No growth 02/02/21 Urine Culture - Final, Complete Gram Pos Mixed Bacterial Kellen Assessment/Plan Assessment/Plan Assess & Plan/Chief Complaint 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 cont IV abx. SS to delineate needs. consult PT/OT. will change dressing saturday. MONSERRAT STREET MD Feb 09, 2021 15:05
[2021-02-10] MEDS: HYDROcodone/APAP 7.5 MG/325 MG (LORTAB, LORCET PLUS) TABLET PO PRN ×6 (00:16→21:28)
[2021-02-10 05:21] LABS: BASOPHILS % (AUTO) 0 % (0-10); EOSINOPHILS # (AUTO) 0.2 10^3/uL (0.0-0.3); EOSINOPHILS % (AUTO) 2 % (0-10); HEMATOCRIT 24 % (35-52); HEMOGLOBIN 7.4 g/dL (11.5-16.0); LYMPHOCYTES # (AUTO) 2.3 10^3/uL (1.0-4.0); LYMPHOCYTES % (AUTO) 22 % (12-44); MEAN CORPUSCULAR HEMOGLOBIN 26 pg (25-34); MEAN CORPUSCULAR HGB CONC 31 g/dL (32-36); MEAN CORPUSCULAR VOLUME 85 fL (80-99); MEAN PLATELET VOLUME 8.8 fL (9.0-12.2); MONOCYTES # (AUTO) 1.1 10^3/uL (0.0-1.0); MONOCYTES % (AUTO) 10 % (0-12); NEUTROPHILS # (AUTO) 7.1 10^3/uL (1.8-7.8); NEUTROPHILS % (AUTO) 65 % (42-75); PLATELET COUNT 452 10^3/uL (130-400); WHITE BLOOD COUNT 10.9 10^3/uL (4.3-11.0)
[2021-02-10 05:32] LABS: ALBUMIN 2.3 GM/DL (3.2-4.5)
[2021-02-10 05:33] LABS: POTASSIUM 4.1 MMOL/L (3.6-5.0)
[2021-02-10 05:34] LABS: CALCIUM 8.4 MG/DL (8.5-10.1)
[2021-02-10 05:35] LABS: TOTAL PROTEIN 6.4 GM/DL (6.4-8.2)
[2021-02-10 05:37] LABS: BILIRUBIN,TOTAL 0.2 MG/DL (0.1-1.0)
[2021-02-10 05:38] LABS: CREATININE SERUM 1.79 MG/DL (0.60-1.30)
[2021-02-10] MEDS: inSUlin ASPART (NovoLOG) 1 UNIT/0.01 ML (CHARGE PER UNIT) SC SCH ×6 (05:43→20:35)
[2021-02-10] MEDS: LACTULOSE SYRUP 10GM/15ML (ENULOSE) 30ML UDC PO SCH ×2 (08:22→20:31)
[2021-02-10] MEDS: SENNA W/DOCUSATE (SENOKOT S) TABLET PO SCH ×2 (08:22→20:31)
[2021-02-10] MEDS: ENOXAPARIN 40 MG/0.4 ML (LOVENOX) SYR SC SCH (08:23)
[2021-02-10] MEDS: NYSTATIN OINTMENT 30 GM TUBE TOP SCH ×2 (08:23→20:31)
--- NOTE | 2021-02-10 09:58 | Physical Therapy Daily Note ---
PT Daily Note-Current Subjective Patient agrees to PT. Mental Status Patient Orientation: Normal For Age Transfers SCALE: Activities may be completed with or without assistive devices. 9-Rzfgtwdhwz-nvhayle completes the activity by him/herself with no assistance from a helper. 5-Set-up or Clean-up Assistance-helper sets up or cleans up; patient completes activity. [place] assists only prior to or following the activity. 4-Supervision or Touching Assistance-helper provides verbal cues and/or touching/steadying and/or contact guard assistance as patient completes activity. Assistance may be provided throughout the activity or intermittently. 3-Partial/Moderate Assistance-helper does LESS THAN HALF the effort. [place] lifts, holds or supports trunk or limbs, but provides less than half the effort. 2-Substantial/Maximal Assistance-helper does MORE THAN HALF the effort. [place] lifts or holds trunk or limbs and provides more than half the effort. 0-Hdmfupjiq-vckksh does ALL the effort. Patient does none of the effort to complete the activity. Or, the assistance of 2 or more helpers is required for the patient to complete the activity. If activity was not attempted, code reason: 7-Patient Refused. 9-Not Applicable-not attempted and the patient did not perform the activity befo re the current illness, exacerbation or injury. 10-Not Attempted due to Environmental Limitations-(lack of equipment, weather re straints, etc.). 88-Not Attempted due to Medical Conditions or Safety Concerns. Sit to Lying (QC): 6 Lying to Sitting/Side of Bed(Q: 6 Sit to Stand (QC): 3 Toilet Transfer (QC): 3 Gait Training Distance: 10' x 3 Walk 10 feet (QC): 3 Gait Assistive Device: FWW PT assist for balance/patient able to hop with use of FWW Assessment Patient requires recovery periods due to fatigue/weakness. Increase activity as tolerated by patient. PT Campaign Advisor Goals Campaign Advisor Goals PT Campaign Advisor Goals Time Frame: Feb 25, 2021 Roll Left & Right (QC): 5 Sit to Lying (QC): 5 Lying-Sitting on Side/Bed(QC): 5 Sit to Stand (QC): 5 Chair/Xue-hg-Lryma Xfer(QC): 5 Toilet Transfer (QC): 5 Car Transfer (QC): 5 Does the Patient Walk: No and Walking Goal IS indicated Walk 10 feet (QC): 4 1 Step (curb) (QC): 4 Does the Pt use WC or Scooter?: Yes Wheel 50 feet with 2 turns (QC: 5 Type: Manual Wheel 150 feet: 5 Type: Manual PT Plan Treatment/Plan Treatment Plan: Continue Plan of Care Treatment Plan: Bed Mobility, Education, Functional Activity Lin, Functional Strength, Gait, Safety, Therapeutic Exercise, Transfers Treatment Duration: Feb 25, 2021 Frequency: 11 times per week Estimated Hrs Per Day: .5 hour per day Patient and/or Family Agrees t: Yes Time/GCodes Time In: 846 Time Out: 909 Total Billed Treatment Time: 23 Total Billed Treatment 1 visit FA x 2 23 min SYLVESTER FERRO PT Feb 10, 2021 09:57
--- NOTE | 2021-02-10 11:38 | Occ Therapy Progress Note ---
Therapy Progress Note OT tx attempted. Pt laying in bed, refusing therapy as she is too tired and in too much pain right now. OT educated pt on purpose and benefit of OT, she verbalized understanding, but still refused. OT will attempt again next available time. [id number] RENAN RODRIGUEZ OT Feb 10, 2021 11:38
--- NOTE | 2021-02-10 12:15 | Progress Note - Hospitalist ---
Subjective HPI/CC On Admission Date Seen by Provider: Feb 10, 2021 Time Seen by Provider: 09:45 CC: Right foot pain HPI: This is a 50yoWF type 1 diabetic who presented to the ER with complaints of right foot pain. She was found to have significant diabetic ulcers on multiple areas of her foot. It appears that it wont be salvageable but Dr. Reid was consulted and will be monitoring pt closely. She is still on insulin drip and will be monitoring and providing supportince care. Subjective/Events-last exam She is feeling a little bit better. She is having some pain. She denies fevers. She denies trouble breathing. Objective Exam Vital Signs Vital Signs Date Time Temp Pulse Resp B/P (MAP) Pulse Ox O2 Delivery O2 Flow Rate FiO2 02/10/21 11:50 35.9 83 20 149/80 (103) 96 Room Air 02/07/21 21:55 3.00 Capillary Refill : Less Than 3 SecondsLess Than 3 Seconds General Appearance: No Apparent Distress, WD/WN Respiratory: Lungs Clear, Normal Breath Sounds, No Respiratory Distress Cardiovascular: Regular Rate, Rhythm, No Edema, No Murmur Gastrointestinal: Normal Bowel Sounds, Non Tender, Soft Extremity: No Pedal Edema, Other (Right below the knee amputation with bandages in place) Neurologic/Psychiatric: Alert, Depressed Affect Skin: Normal Color, Warm/Dry Results/Procedures Lab Laboratory Tests 02/10/21 05:07 Patient resulted labs reviewed. Imaging: Reviewed Imaging Report Assessment/Plan Assessment and Plan Assess & Plan/Chief Complaint Type 2 diabetes mellitus with diabetic foot ulcer s/p BKA BKA performed 02/07 Surgery followingFranklin, vandana assistance Continue Levemir Add mealtime insulin Sliding scale insulin Depression Anxiety Social work consult Xanax as needed DVT prophylaxis: Lovenox Sepsis, resolved DKA, resolved Diagnosis/Problems Diagnosis/Problems (1) T2DM (type 2 diabetes mellitus) Status: Acute Qualifiers: Diabetes mellitus senior living insulin use: without senior living use Diabetes mellitus complication status: with skin complications Diabetes mellitus complication detail: with foot ulcer Qualified Codes: E11.621 - Type 2 diabetes mellitus with foot ulcer; L97.509 - Non-pressure chronic ulcer of other part of unspecified foot with unspecified severity (2) S/P BKA (below knee amputation) Status: Acute Qualifiers: Laterality: right Qualified Codes: Z89.511 - Acquired absence of right leg below knee (3) Severe sepsis Status: Resolved Resolution Date/Time: 02/10/21 @ 12:23 (4) DKA (diabetic ketoacidosis) Status: Resolved Resolution Date/Time: 02/10/21 @ 12:23 SAEED BLACK MD Feb 10, 2021 12:15
[2021-02-10] MEDS: ONDANSETRON 4 MG/2 ML (SDV) Z0FRAN IV PRN (12:39)
[2021-02-10] MEDS: LACTATED RINGERS 1,000 ML IV SCH ×2 (12:39→21:29)
[2021-02-10] MEDS: HYDROmorphone 2 MG/ML VIAL (DILAUDID) IVP PRN (13:50)
--- NOTE | 2021-02-10 14:04 | Occupational Ther Daily Note ---
OT Current Status-Daily Note Subjective Pt alert, lying in bed. Pt requires encouragement to participate with therapy. C/o nausea and fatigue. As PT/BUI were leaving pt demanded where we were going, pt then agrees to therapy. Mental Status/Objective Patient Orientation: Person, Place, Time, Situation Attachments: IV ADL-Treatment Supine to EOB SBA. Sit to stand, min A. Pt using FWW to hop and turn to BSC. PT stabilizing pt as pt manipulated briefs and completed hygiene for toileting. Pt then hop/ambulated with PT using FWW to sink and washes hands. Pt requested to walk into hallway. Pt using FWW to hop/ambulate with PT. After therapy, pt lying in bed with call light/phone in reach. All needs met in room. Therapy Code Descriptions/Definitions Functional [place] Measure: 0=Not Assessed/NA 4=Minimal Assistance 1=Total Assistance 5=Supervision or Setup 2=Maximal Assistance 6=Modified [place] 3=Moderate Assistance 7=Complete IndependenceSCALE: Activities may be completed with or without assistive devices. 1-Phvljvxtxl-hsnfoqu completes the activity by him/herself with no assistance from a helper. 5-Set-up or Clean-up Assistance-helper sets up or cleans up; patient completes activity. [place] assists only prior to or following the activity. 4-Supervision or Touching Assistance-helper provides verbal cues and/or touching/steadying and/or contact guard assistance as patient completes activity. Assistance may be provided throughout the activity or intermittently. 3-Partial/Moderate Assistance-helper does LESS THAN HALF the effort. [place] lifts, holds or supports trunk or limbs, but provides less than half the effort. 2-Substantial/Maximal Assistance-helper does MORE THAN HALF the effort. [place] lifts or holds trunk or limbs and provides more than half the effort. 5-Snelwomts-minhkh does ALL the effort. Patient does none of the effort to complete the activity. Or, the assistance of 2 or more helpers is required for the patient to complete the activity. If activity was not attempted, code reason: 7-Patient Refused. 9-Not Applicable-not attempted and the patient did not perform the activity before the current illness, exacerbation or injury. 10-Not Attempted due to Environmental Limitations-(lack of equipment, weather restraints, etc.). 88-Not Attempted due to Medical Conditions or Safety Concerns. Toileting Hygiene (QC): 4 Toilet Transfer (QC): 3 OT Mcfp Goals Mcfp Goals Time Frame: Feb 24, 2021 Eating (QC): 6 Oral Hygiene (QC): 6 Toileting Hygiene (QC): 4 Shower/Bathe Self (QC): 4 Upper Body Dressing (QC): 5 Lower Body Dressing (QC): 4 On/Off Footwear (QC): 4 Additional Goals: 1-Demonstrate ADL Tasks, 2-Verbalize Understanding, 3-Impro veStrength/Lin 1=Demonstrate adherence to instructed precautions during ADL tasks. 2=Patient will verbalize/demonstrate understanding of assistive devices/modifications for ADL. 3=Patient will improve strength/tolerance for activity to enable patient to perform ADL's. OT Education/Plan Problem List/Assessment Assessment: Decreased Activ Tolerance, Impaired Self-Care Skills Discharge Recommendations Plan/Recommendations: Continue POC Treatment Plan/Plan of Care Patient would benefit from OT for education, treatment and training to promote independence in ADL's, mobility, safety and/or upper extremity function for ADL's. Plan of Care: ADL Retraining, Functional Mobility, UE Funct Exercise/Act Treatment Duration: Feb 24, 2021 Frequency: 5 times per week Estimated Hrs Per Day: .25 hour per day Rehab Potential: Fair Time/GCodes Start Time: 13:05 Stop Time: 13:28 Total Time Billed (hr/min): 23 Billed Treatment Time 1 visit-FA 1 (13 min) ADL 1 (10 min) PAULA KEEN Feb 10, 2021 14:04
--- NOTE | 2021-02-10 14:10 | Progress Note ---
Subjective Date Seen by a Provider: Feb 10, 2021 Time Seen by a Provider: 14:00 Subjective/Events-last exam doing much better. dressing changed and healing well. pain controlled. working well with PT Objective Exam Vital Signs Date Time Temp Pulse Resp B/P (MAP) Pulse Ox O2 Delivery O2 Flow Rate FiO2 02/10/21 11:50 35.9 83 20 149/80 (103) 96 Room Air 02/10/21 08:05 36.4 80 18 143/68 (93) 95 Room Air 02/10/21 04:00 37.0 89 20 152/80 (104) 96 Room Air 02/09/21 23:45 37.1 87 20 138/70 (92) 97 Room Air 02/09/21 21:40 Room Air 02/09/21 19:59 35.5 84 18 157/81 (106) 98 Room Air I & O 02/10/21 07:00 Intake Total 1940 ml Output Total 1150 ml Balance 790 ml Capillary Refill : Less Than 3 SecondsLess Than 3 Seconds General Appearance: No Apparent Distress HEENT: PERRL/EOMI Neck: Full Range of Motion Respiratory: Chest Non Tender, Lungs Clear Cardiovascular: Regular Rate, Rhythm Gastrointestinal: normal bowel sounds, non tender, soft Extremity: Normal Capillary Refill, Other (stump clean/dry, no redness/erythema) Neurologic/Psychiatric: Alert, Oriented x3 Skin: Normal Color Lymphatic: No Adenopathy Results Lab Laboratory Tests 02/09/21 15:57: Glucometer 118H 02/09/21 20:09: Glucometer 203H 02/10/21 05:07: White Blood Count 10.9, Red Blood Count 2.85L, Hemoglobin 7.4L, Hematocrit 24L, Mean Corpuscular Volume 85, Mean Corpuscular Hemoglobin 26, Mean Corpuscular Hemoglobin Concent 31L, Red Cell Distribution Width 15.7H, Platelet Count 452H, Mean Platelet Volume 8.8L, Immature Granulocyte % (Auto) 2, Neutrophils (%) (Auto) 65, Lymphocytes (%) (Auto) 22, Monocytes (%) (Auto) 10, Eosinophils (%) (Auto) 2, Basophils (%) (Auto) 0, Neutrophils # (Auto) 7.1, Lymphocytes # (Auto) 2.3, Monocytes # (Auto) 1.1H, Eosinophils # (Auto) 0.2, Basophils # (Auto) 0.0, Immature Granulocyte # (Auto) 0.2H, Sodium Level 136, Potassium Level 4.1, Chloride Level 101, Carbon Dioxide Level 25, Anion Gap 10, Blood Urea Nitrogen 17, Creatinine 1.79H, Estimat Glomerular Filtration Rate 30, BUN/Creatinine Ratio 9, Glucose Level 213H, Calcium Level 8.4L, Corrected Calcium 9.8, Total Bilirubin 0.2, Aspartate Amino Transf (AST/SGOT) 17, Alanine Aminotransferase (ALT/SGPT) 10, Alkaline Phosphatase 267H, Total Protein 6.4, Albumin 2.3L 02/10/21 11:06: Glucometer 237H 02/10/21 13:24: Glucometer 237H Microbiology 02/03/21 MRSA Screen - Final, Complete MRSA not isolated 02/02/21 Blood Culture - Final, Complete No growth 02/02/21 Urine Culture - Final, Complete Gram Pos Mixed Bacterial Kellen Assessment/Plan Assessment/Plan Assess & Plan/Chief Complaint 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 cont IV abx. SS to delineate needs. consult PT/OT. dressing change daily. [address] MD Feb 10, 2021 14:10
--- NOTE | 2021-02-10 14:42 | Physical Therapy Daily Note ---
PT Daily Note-Current Subjective Patient initially refused therapy, however, after encouragement, patient agrees. Mental Status Patient Orientation: Normal For Age Transfers SCALE: Activities may be completed with or without assistive devices. 8-Hzqdvnazxr-mmvdifr completes the activity by him/herself with no assistance from a helper. 5-Set-up or Clean-up Assistance-helper sets up or cleans up; patient completes activity. [place] assists only prior to or following the activity. 4-Supervision or Touching Assistance-helper provides verbal cues and/or touching/steadying and/or contact guard assistance as patient completes activity. Assistance may be provided throughout the activity or intermittently. 3-Partial/Moderate Assistance-helper does LESS THAN HALF the effort. [place] lifts, holds or supports trunk or limbs, but provides less than half the effort. 2-Substantial/Maximal Assistance-helper does MORE THAN HALF the effort. [place] lifts or holds trunk or limbs and provides more than half the effort. 5-Hfmwgdqyw-bmxawt does ALL the effort. Patient does none of the effort to complete the activity. Or, the assistance of 2 or more helpers is required for the patient to complete the activity. If activity was not attempted, code reason: 7-Patient Refused. 9-Not Applicable-not attempted and the patient did not perform the activity before the current illness, exacerbation or injury. 10-Not Attempted due to Environmental Limitations-(lack of equipment, weather restraints, etc.). 88-Not Attempted due to Medical Conditions or Safety Concerns. Sit to Lying (QC): 5 Lying to Sitting/Side of Bed(Q: 5 Sit to Stand (QC): 3 Toilet Transfer (QC): 3 sit to stand x 3 sets to FWW minimal to CGA assist with balance training Gait Training Does the Patient Walk?: Yes Distance: 75' Walk 10 feet (QC): 3 Walk 50 ft with 2 Turns(QC): 3 Walk 150 ft (QC): 88 Gait Assistive Device: FWW Assessment Patient tolerated treatment well. Plan transfer to ARU next week. Education with patient on importance of continuing to participate with therapy to improve LOF. Patient voices understanding. PT Detention Goals Button Breaker Goals PT Button Breaker Goals Time Frame: Feb 25, 2021 Roll Left & Right (QC): 5 Sit to Lying (QC): 5 Lying-Sitting on Side/Bed(QC): 5 Sit to Stand (QC): 5 Chair/Cet-gp-Autpj Xfer(QC): 5 Toilet Transfer (QC): 5 Car Transfer (QC): 5 Does the Patient Walk: No and Walking Goal IS indicated Walk 10 feet (QC): 4 1 Step (curb) (QC): 4 Does the Pt use WC or Scooter?: Yes Wheel 50 feet with 2 turns (QC: 5 Type: Manual Wheel 150 feet: 5 Type: Manual PT Plan Treatment/Plan Treatment Plan: Continue Plan of Care Treatment Plan: Bed Mobility, Education, Functional Activity Lin, Functional Strength, Gait, Safety, Therapeutic Exercise, Transfers Treatment Duration: Feb 25, 2021 Frequency: 11 times per week Estimated Hrs Per Day: .5 hour per day Patient and/or Family Agrees t: Yes Time/GCodes Time In: 1305 Time Out: 1328 Total Billed Treatment Time: 23 Total Billed Treatment 1 visit FA 23 min SYLVESTER FERRO PT Feb 10, 2021 14:42
[2021-02-11] MEDS: HYDROcodone/APAP 7.5 MG/325 MG (LORTAB, LORCET PLUS) TABLET PO PRN ×5 (05:13→20:01)
[2021-02-11] MEDS: inSUlin ASPART (NovoLOG) 1 UNIT/0.01 ML (CHARGE PER UNIT) SC SCH ×4 (05:16→17:14)
[2021-02-11] MEDS ORDERED: inSUlin ASPART (NovoLOG) 1 UNIT/0.01 ML (CHARGE PER UNIT) SC SCH (06:45)
[2021-02-11 08:15] LABS: BASOPHILS # (AUTO) 0.1 10^3/uL (0.0-0.1); BASOPHILS % (AUTO) 0 % (0-10); EOSINOPHILS # (AUTO) 0.3 10^3/uL (0.0-0.3); EOSINOPHILS % (AUTO) 3 % (0-10); HEMATOCRIT 27 % (35-52); HEMOGLOBIN 7.8 g/dL (11.5-16.0); LYMPHOCYTES # (AUTO) 2.3 10^3/uL (1.0-4.0); LYMPHOCYTES % (AUTO) 20 % (12-44); MEAN CORPUSCULAR HEMOGLOBIN 26 pg (25-34); MEAN CORPUSCULAR HGB CONC 29 g/dL (32-36); MEAN CORPUSCULAR VOLUME 88 fL (80-99); MEAN PLATELET VOLUME 9.2 fL (9.0-12.2); MONOCYTES # (AUTO) 1.2 10^3/uL (0.0-1.0); MONOCYTES % (AUTO) 10 % (0-12); NEUTROPHILS # (AUTO) 7.7 10^3/uL (1.8-7.8); NEUTROPHILS % (AUTO) 66 % (42-75); PLATELET COUNT 544 10^3/uL (130-400); WHITE BLOOD COUNT 11.7 10^3/uL (4.3-11.0)
[2021-02-11] MEDS: LACTATED RINGERS 1,000 ML IV SCH ×2 (08:36→18:20)
[2021-02-11] MEDS: NYSTATIN OINTMENT 30 GM TUBE TOP SCH ×3 (08:37→20:06)
[2021-02-11] MEDS: LACTULOSE SYRUP 10GM/15ML (ENULOSE) 30ML UDC PO SCH ×2 (08:37→20:01)
[2021-02-11] MEDS: SENNA W/DOCUSATE (SENOKOT S) TABLET PO SCH ×2 (08:37→20:01)
[2021-02-11 08:40] LABS: CALCIUM 8.6 MG/DL (8.5-10.1); CREATININE SERUM 1.63 MG/DL (0.60-1.30); POTASSIUM 4.1 MMOL/L (3.6-5.0)
--- NOTE | 2021-02-11 09:05 | Physical Therapy Daily Note ---
PT Daily Note-Current Subjective Patient is very agreeable to participate with therapy. Pain Numeric Pain Scale: 5-Moderate Pain Location: Right Location Body Site: Knee Pain Description: Acute Mental Status Patient Orientation: Normal For Age Transfers SCALE: Activities may be completed with or without assistive devices. 0-Qdqkwrjzcr-dtpeiye completes the activity by him/herself with no assistance from a helper. 5-Set-up or Clean-up Assistance-helper sets up or cleans up; patient completes activity. [place] assists only prior to or following the activity. 4-Supervision or Touching Assistance-helper provides verbal cues and/or touching/steadying and/or contact guard assistance as patient completes activity. Assistance may be provided throughout the activity or intermittently. 3-Partial/Moderate Assistance-helper does LESS THAN HALF the effort. [place] lifts, holds or supports trunk or limbs, but provides less than half the effort. 2-Substantial/Maximal Assistance-helper does MORE THAN HALF the effort. [place] lifts or holds trunk or limbs and provides more than half the effort. 0-Hcjqmqipk-roxlih does ALL the effort. Patient does none of the effort to comp lete the activity. Or, the assistance of 2 or more helpers is required for the patient to complete the activity. If activity was not attempted, code reason: 7-Patient Refused. 9-Not Applicable-not attempted and the patient did not perform the activity before the current illness, exacerbation or injury. 10-Not Attempted due to Environmental Limitations-(lack of equipment, weather restraints, etc.). 88-Not Attempted due to Medical Conditions or Safety Concerns. Lying to Sitting/Side of Bed(Q: 6 Sit to Stand (QC): 3 Chair/Eal-na-Qixbh Xfer(QC): 3 Gait Training Does the Patient Walk?: Yes Distance: 125' Walk 10 feet (QC): 3 Walk 50 ft with 2 Turns(QC): 3 Gait Assistive Device: FWW minimal assist for balance deficit Exercises Supine Ex: Quad Set Seated Therapy Exercises: Long arc quads Assessment Patient up in recliner with needs met. Increase activity. instruction on right knee flexion/extension exercises. PT [facility] Goals [facility] Goals PT [facility] Goals Time Frame: Feb 25, 2021 Roll Left & Right (QC): 5 Sit to Lying (QC): 5 Lying-Sitting on Side/Bed(QC): 5 Sit to Stand (QC): 5 Chair/Hrx-ns-Vqgeu Xfer(QC): 5 Toilet Transfer (QC): 5 Car Transfer (QC): 5 Does the Patient Walk: No and Walking Goal IS indicated Walk 10 feet (QC): 4 1 Step (curb) (QC): 4 Does the Pt use WC or Scooter?: Yes Wheel 50 feet with 2 turns (QC: 5 Type: Manual Wheel 150 feet: 5 Type: Manual PT Plan Treatment/Plan Treatment Plan: Continue Plan of Care Treatment Plan: Bed Mobility, Education, Functional Activity Lin, Functional Strength, Gait, Safety, Therapeutic Exercise, Transfers Treatment Duration: Feb 25, 2021 Frequency: 11 times per week Estimated Hrs Per Day: .5 hour per day Patient and/or Family Agrees t: Yes Time/GCodes Time In: 750 Time Out: 807 Total Billed Treatment Time: 17 Total Billed Treatment 1 visit GT 17 min SYLVESTER FERRO PT Feb 11, 2021 09:04
[2021-02-11] MEDS: ENOXAPARIN 40 MG/0.4 ML (LOVENOX) SYR SC SCH (10:31)
[2021-02-11] MEDS: HYDROmorphone 2 MG/ML VIAL (DILAUDID) IVP PRN (10:42)
--- NOTE | 2021-02-11 12:34 | Progress Note - Hospitalist ---
Subjective HPI/CC On Admission Date Seen by Provider: Feb 11, 2021 Time Seen by Provider: 08:40 CC: Right foot pain HPI: This is a 50yoWF type 1 diabetic who presented to the ER with complaints of right foot pain. She was found to have significant diabetic ulcers on multiple areas of her foot. It appears that it wont be salvageable but Dr. Reid was consulted and will be monitoring pt closely. She is still on insulin drip and will be monitoring and providing supportince care. Subjective/Events-last exam She is a bit grumpy this morning. She just worked with physical therapy and is trying to sleep now. She wants to go to rehab to improve her strength. She has no other concerns. Objective Exam Vital Signs Vital Signs Date Time Temp Pulse Resp B/P (MAP) Pulse Ox O2 Delivery O2 Flow Rate FiO2 02/11/21 11:25 36.8 79 22 171/84 (113) 96 Room Air 02/11/21 09:24 0.00 Capillary Refill : Less Than 3 SecondsLess Than 3 Seconds General Appearance: No Apparent Distress, Chronically ill Respiratory: Lungs Clear, Normal Breath Sounds, No Respiratory Distress Cardiovascular: Regular Rate, Rhythm, No Edema, No Murmur Gastrointestinal: Normal Bowel Sounds, Non Tender, Soft Extremity: Other (right BKA with bandages in place) Neurologic/Psychiatric: Alert, Oriented x3, No Motor/Sensory Deficits, Normal Mood/Affect Skin: Normal Color, Warm/Dry Results/Procedures Lab Laboratory Tests 02/11/21 07:29 Patient resulted labs reviewed. Imaging: Reviewed Imaging Report Assessment/Plan Assessment and Plan Assess & Plan/Chief Complaint Type 2 diabetes mellitus with diabetic foot ulcer s/p BKA BKA performed 02/07 Surgery following[place] appreciate assistance Increase Levemir Continue mealtime insulin Increase sliding scale insulin IRU accepted, likely transfer Saturday Depression Anxiety Social work consult Xanax as needed DVT prophylaxis: Lovenox Sepsis, resolved DKA, resolved Diagnosis/Problems Diagnosis/Problems (1) T2DM (type 2 diabetes mellitus) Status: Acute Qualifiers: Diabetes mellitus superintendent container terminal insulin use: without usp use Diabetes oskar litus complication status: with skin complications Diabetes mellitus complica tion detail: with foot ulcer Qualified Codes: E11.621 - Type 2 diabetes mellitus with foot ulcer; L97.509 - Non-pressure chronic ulcer of other part of unspecified foot with unspecified severity (2) S/P BKA (below knee amputation) Status: Acute Qualifiers: Laterality: right Qualified Codes: Z89.511 - Acquired absence of right leg below knee (3) Severe sepsis Status: Resolved Resolution Date/Time: 02/10/21 @ 12:23 (4) DKA (diabetic ketoacidosis) Status: Resolved Resolution Date/Time: 02/10/21 @ 12:23 SAEED BLACK MD Feb 11, 2021 12:34
[2021-02-11] MEDS: ACETAMINOPHEN 325 MG TABLET PO PRN (17:14)
[2021-02-12] MEDS: HYDROcodone/APAP 7.5 MG/325 MG (LORTAB, LORCET PLUS) TABLET PO PRN ×4 (00:10→22:53)
[2021-02-12] MEDS: LACTATED RINGERS 1,000 ML IV SCH ×3 (03:14→22:52)
[2021-02-12] MEDS: ONDANSETRON 4 MG/2 ML (SDV) Z0FRAN IV PRN (05:43)
[2021-02-12] MEDS: HYDROmorphone 2 MG/ML VIAL (DILAUDID) IVP PRN ×2 (05:44→13:37)
[2021-02-12] MEDS: inSUlin ASPART (NovoLOG) 1 UNIT/0.01 ML (CHARGE PER UNIT) SC SCH ×6 (06:10→20:57)
[2021-02-12] MEDS: LACTULOSE SYRUP 10GM/15ML (ENULOSE) 30ML UDC PO SCH ×3 (08:23→20:15)
[2021-02-12] MEDS: SENNA W/DOCUSATE (SENOKOT S) TABLET PO SCH ×2 (08:23→20:13)
[2021-02-12] MEDS: ENOXAPARIN 40 MG/0.4 ML (LOVENOX) SYR SC SCH (08:23)
[2021-02-12] MEDS: NYSTATIN OINTMENT 30 GM TUBE TOP SCH ×2 (08:35→20:14)
[2021-02-12] MEDS: LORazepam INJ 2 MG/ML (ATIVAN) VIAL IV PRN ×2 (14:22→20:13)
--- NOTE | 2021-02-12 14:50 | Progress Note - Hospitalist ---
Subjective HPI/CC On Admission Date Seen by Provider: Feb 12, 2021 Time Seen by Provider: 10:55 CC: Right foot pain HPI: This is a 50yoWF type 1 diabetic who presented to the ER with complaints of right foot pain. She was found to have significant diabetic ulcers on multiple areas of her foot. It appears that it wont be salvageable but Dr. Reid was consulted and will be monitoring pt closely. She is still on insulin drip and will be monitoring and providing supportince care. Subjective/Events-last exam She is feeling about the same today. She says she is feeling lazy today. She wants to go to rehab tomorrow. Objective Exam Vital Signs Vital Signs Date Time Temp Pulse Resp B/P (MAP) Pulse Ox O2 Delivery O2 Flow Rate FiO2 02/12/21 12:00 36.4 79 18 159/72 (101) 95 Room Air 02/11/21 09:24 0.00 Capillary Refill : Less Than 3 SecondsLess Than 3 Seconds General Appearance: No Apparent Distress, Chronically ill Respiratory: Lungs Clear, Normal Breath Sounds, No Respiratory Distress Cardiovascular: Regular Rate, Rhythm, No Edema, No Murmur Gastrointestinal: Normal Bowel Sounds, Non Tender, Soft Extremity: No Pedal Edema, Other (Right BKA) Neurologic/Psychiatric: Alert, Oriented x3, No Motor/Sensory Deficits, Normal M ood/Affect Skin: Normal Color, Warm/Dry Results/Procedures Lab Patient resulted labs reviewed. Imaging: Reviewed Imaging Report Assessment/Plan Assessment and Plan Assess & Plan/Chief Complaint Type 2 diabetes mellitus with diabetic foot ulcer s/p BKA BKA performed 02/07 Surgery following[place] appreciate assistance Increase Levemir Increase mealtime insulin Continue sliding scale insulin IRU accepted, likely transfer Saturday Depression Anxiety Social work consult Xanax as needed DVT prophylaxis: Lovenox Sepsis, resolved DKA, resolved Diagnosis/Problems Diagnosis/Problems (1) T2DM (type 2 diabetes mellitus) Status: Acute Qualifiers: Diabetes mellitus mcfp insulin use: without termite exterminator helper use Diabetes mellitus complication status: with skin complications Diabetes mellitus complication detail: with foot ulcer Qualified Codes: E11.621 - Type 2 diabetes mellitus with foot ulcer; L97.509 - Non-pressure chronic ulcer of other part of unspecified foot with unspecified severity (2) S/P BKA (below knee amputation) Status: Acute Qualifiers: Laterality: right Qualified Codes: Z89.511 - Acquired absence of right leg below knee (3) Severe sepsis Status: Resolved Resolution Date/Time: 02/10/21 @ 12:23 (4) DKA (diabetic ketoacidosis) Status: Resolved Resolution Date/Time: 02/10/21 @ 12:23 SAEED BLACK MD Feb 12, 2021 14:50
[2021-02-13] MEDS: HYDROcodone/APAP 7.5 MG/325 MG (LORTAB, LORCET PLUS) TABLET PO PRN ×2 (04:39→08:07)
[2021-02-13 06:40] LABS: BASOPHILS % (AUTO) 0 % (0-10); EOSINOPHILS # (AUTO) 0.2 10^3/uL (0.0-0.3); EOSINOPHILS % (AUTO) 2 % (0-10); HEMATOCRIT 23 % (35-52); HEMOGLOBIN 7.1 g/dL (11.5-16.0); LYMPHOCYTES # (AUTO) 2.1 10^3/uL (1.0-4.0); LYMPHOCYTES % (AUTO) 22 % (12-44); MEAN CORPUSCULAR HEMOGLOBIN 27 pg (25-34); MEAN CORPUSCULAR HGB CONC 31 g/dL (32-36); MEAN CORPUSCULAR VOLUME 87 fL (80-99); MEAN PLATELET VOLUME 9.3 fL (9.0-12.2); MONOCYTES % (AUTO) 11 % (0-12); NEUTROPHILS # (AUTO) 6.1 10^3/uL (1.8-7.8); NEUTROPHILS % (AUTO) 64 % (42-75); PLATELET COUNT 404 10^3/uL (130-400); WHITE BLOOD COUNT 9.6 10^3/uL (4.3-11.0)
[2021-02-13] MEDS: inSUlin ASPART (NovoLOG) 1 UNIT/0.01 ML (CHARGE PER UNIT) SC SCH ×2 (06:47→06:50)
[2021-02-13 07:04] LABS: ALBUMIN 2.6 GM/DL (3.2-4.5); POTASSIUM 4.5 MMOL/L (3.6-5.0)
[2021-02-13 07:05] LABS: CALCIUM 8.8 MG/DL (8.5-10.1)
[2021-02-13 07:06] LABS: TOTAL PROTEIN 6.7 GM/DL (6.4-8.2)
[2021-02-13 07:08] LABS: BILIRUBIN,TOTAL 0.2 MG/DL (0.1-1.0)
[2021-02-13 07:10] LABS: CREATININE SERUM 1.98 MG/DL (0.60-1.30)
[2021-02-13] MEDS: LACTULOSE SYRUP 10GM/15ML (ENULOSE) 30ML UDC PO SCH (08:08)
[2021-02-13] MEDS: SENNA W/DOCUSATE (SENOKOT S) TABLET PO SCH (08:08)
[2021-02-13] MEDS: NYSTATIN OINTMENT 30 GM TUBE TOP SCH (08:10)
--- NOTE | 2021-02-13 10:12 | Discharge Summary ---
Diagnosis/Chief Complaint Date of Admission Feb 02, 2021 at 23:45 Date of Discharge 02/13/21 Admission Diagnosis Admission Diagnosis Severe Sepsis Right foot ulcer Right DKA Acute on Chronic Renal failure Normocytic anemia Discharge Diagnosis See Above Discharge Summary-Simple/Stand Consultations Dr Reid: BKA Right extremity Discharge Physical Examination Allergies: Coded Allergies: meperidine (Verified Allergy, Unknown, 02/02/21) varenicline (Verified Allergy, Unknown, 02/02/21) Vitals & I&Os Vital Sign - Last 12Hours Date Time Temp Pulse Resp B/P (MAP) Pulse Ox O2 Delivery O2 Flow Rate FiO2 02/13/21 09:00 Room Air 02/13/21 08:03 35.4 77 22 162/77 (105) 98 02/11/21 09:24 0.00 Intake and Output 02/13/21 00:00 Intake Total 1460 ml Output Total 750 ml Balance 710 ml General Appearance: Alert, Oriented X3, No Acute Distress Respiratory: Normal Air Movement, Other (basilar wheezing, normal work of breathing) Cardiovascular: Regular Rate, No Murmurs Abdominal: Normal Bowel Sounds, Soft, No Tenderness, No Masses Extremities: Other (Right BKA (this admission)) Neuro: Normal Speech Psych/Mental Status: Mood NL Hospital Course Was the Problem List Reviewed?: Yes See final discharge diagnosis. Discussion & Recommendations 50 yo F with poorly controlled IDDM and right foot wound for about 1 year that presented with DKA and Cellulitis. Patient has a h/o substance abuse and poorly controlled DM. States that she does not take her insulin on a regular basis. She was previously seeing [facility] but has not seen anyone for over 6 months. Right BKA done during this admission by [place]. Surgical wound C/D/I. Will d/c patient to acute Rehab. Discharge Condition at discharge Stable to Rehab Instructions to patient/family Please see electronic discharge instructions given to patient. Discharge Medications Reviewed and agree with Discharge Medication list on patient's Discharge Instruction sheet Copy Copies To 1: CHOCO Londono MD Feb 13, 2021 10:12
[2021-02-13] MEDS ORDERED: SENN1TAB76 PO (10:15)
[2021-02-13] MEDS ORDERED: INSU100V5 SQ (10:15)
[2021-02-13] MEDS ORDERED: LACT20SO2 PO (10:15)
[2021-02-13] MEDS ORDERED: HYDR-34 PO (10:15)
[2021-02-13] MEDS ORDERED: INSU100V16 SC (10:15)
--- NOTE | 2021-02-13 10:15 | Discharge Summary ---
Discharge [facility] Reconcile Patient Problems Problems Reviewed?: Yes Discharge Medications New Medications: Hydrocodone Bit/Acetaminophen (HYDROcodone/APAP 7.5/325 TAB) 1 Ea Tablet 1 EA PO Q6H PRN for PAIN-MODERATE (5-7) for 7 Days, #30 TAB Insulin Aspart (Novolog) 100 Unit/1 Ml Susp 6 UNIT SC AC for 30 Days, ML Insulin Determir (Levemir) 1,000 Units/10 Ml Soln 20 UNIT SQ BID for 30 Days, EA Lactulose (Lactulose) 20 Gm/30 Ml Solution 10 GM PO BID for 7 Days, EA Sennosides/Docusate Sodium (Stool Softener-Laxative Tablet) 1 Each Tablet 1 EA PO BID for 7 Days, TAB Discontinued Medications: Ibuprofen (Ibuprofen) 200 Mg Tablet 600-800 MG PO Q8H PRN for PAIN-MILD (1-4), TAB TAKES 3 TO 4 (200MG) TABS Patient Instructions Goal/Follow Up Appt: Patient will need f.u with Mark Anthony Shah after d/c from Acute IRF Activity & Diet Discharge Diet: ADA Diet Activity as Tolerated: Yes CHOCO COLIN MD Feb 13, 2021 10:15
[2021-02-13] MEDS: HYDROmorphone 2 MG/ML VIAL (DILAUDID) IVP PRN (10:18)
[2021-02-13] MEDS: ENOXAPARIN 40 MG/0.4 ML (LOVENOX) SYR SC SCH (10:19)
[2021-02-13 10:43] VITALS: BP 162/77
== END 2021-02-13 10:32 | DRG 853 ==
LOC: EDUNIT# 22:01 → ER 22:04 → ICU 23:45 → 4TH 02-05 15:17
PROVIDERS: ADMIT Internal Medicine; ATTEND Internal Medicine
PROC: 0Y6H0Z1 Detachment at Right Lower Leg, High, Open Approach (ICD-10-PCS; principal; 2021-02-07 14:10)
DX: A41.9 Sepsis, unspecified organism (principal); E11.10 Type 2 diabetes mellitus with ketoacidosis without coma; L02.611 Cutaneous abscess of right foot; M86.9 Osteomyelitis, unspecified; E11.52 Type 2 diabetes mellitus with diabetic peripheral angiopathy with gangrene; R45.851 Suicidal ideations; N17.9 Acute kidney failure, unspecified; Z66 Do not resuscitate; Z20.822 Contact with and (suspected) exposure to COVID-19; R65.20 Severe sepsis without septic shock; E11.621 Type 2 diabetes mellitus with foot ulcer; L97.519 Non-pressure chronic ulcer of other part of right foot with unspecified severity; F32.9 Major depressive disorder, single episode, unspecified; F17.210 Nicotine dependence, cigarettes, uncomplicated; E11.69 Type 2 diabetes mellitus with other specified complication; R45.1 Restlessness and agitation; I73.1 Thromboangiitis obliterans [Buerger's disease]; I12.9 Hypertensive chronic kidney disease with stage 1 through stage 4 chronic kidney disease, or unspecified chronic kidney disease; E11.22 Type 2 diabetes mellitus with diabetic chronic kidney disease; N18.9 Chronic kidney disease, unspecified; D64.9 Anemia, unspecified; Z91.19 Patient's noncompliance with other medical treatment and regimen; Z79.4 Long term (current) use of insulin; Z88.6 Allergy status to analgesic agent; Z88.8 Allergy status to other drugs, medicaments and biological substances; Z82.49 Family history of ischemic heart disease and other diseases of the circulatory system
CPT/HCPCS: 36415; 71045; 73630; 80048; 80053; 80202; 80306; 81000; 82947; 83605; 83735; 84100; 84703; 85007; 85025; 85027; 85610; 85730; 86141; 86850; 86900; 86901; 87040; 87081; 87088; 87636; 88307; 94760; 96361; 96365; 96367; 96375

== ENCOUNTER 2021-02-13 10:12 | Inpatient (IN) | payer OTHER ==
[~2021-02-13] VITALS: Ht 172.7 cm; Wt 79.6 kg
[~2021-02-13 10:12] MED LIST: IBUP-2473 PO
[2021-02-13] MEDS ORDERED: INSU100V5 SQ (10:15)
[2021-02-13] MEDS ORDERED: HYDR-34 PO (10:15)
[2021-02-13] MEDS ORDERED: INSU100V16 SC (10:15)
[2021-02-13] MEDS ORDERED: LACT20SO2 PO (10:15)
[2021-02-13] MEDS ORDERED: SENN1TAB76 PO (10:15)
[2021-02-13 10:20] VITALS: BP 183/90
[2021-02-13] MEDS ORDERED: diphenhydrAMINE 25 MG TAB (BENADRYL) PO PRN (11:00)
[2021-02-13] MEDS ORDERED: guaiFENesin/CODEINE (ROBITUSSIN AC) 10ML UDC PO PRN (11:00)
[2021-02-13] MEDS ORDERED: LACTULOSE SYRUP 10GM/15ML (ENULOSE) 30ML UDC PO PRN (11:00)
[2021-02-13] MEDS ORDERED: ONDANSETRON 4 MG (ZOFRAN) ORAL DISSOLVE TAB PO PRN (11:00)
[2021-02-13] MEDS ORDERED: CALCIUM CARBONATE 500 MG (TUMS) TAB.CHEW PO PRN (11:00)
[2021-02-13] MEDS ORDERED: NALOXONE 0.4 MG/ML 1 ML (NARCAN) VIAL IV PRN (11:00)
[2021-02-13] MEDS ORDERED: FLEET ENEMA ADULT 1 EA BTL PR PRN (11:00)
[2021-02-13] MEDS ORDERED: LOPERAMIDE 2 MG (IMODIUM) TABLET PO PRN (11:00)
[2021-02-13] MEDS ORDERED: BISACODYL 10 MG SUPP (DULCOLAX) PR PRN (11:00)
[2021-02-13] MEDS ORDERED: DOCUSATE SODIUM 100 MG (COLACE) CAP PO PRN (11:00)
[2021-02-13] MEDS ORDERED: MELATONIN 3 MG TABLET PO PRN (11:00)
[2021-02-13] MEDS ORDERED: ALPRAZolam 0.25 MG (XANAX) TAB ONE (11:03)
[2021-02-13] MEDS: ALPRAZolam 0.25 MG (XANAX) TAB PO PRN (11:08)
--- NOTE | 2021-02-13 11:40 | Occ Therapy Progress Note ---
Therapy Progress Note OT knocked on pt's door and entered room, pt states "what now?". OT introduced self to pt. Pt states "does it have to be right fucking now?". OT educated pt on purpose and benefit of OT and rehab unit. Pt again stated "does it have to be right fucking now?", indicates she has phone calls to make and there are only so many hours a day. OT informed pt she would check back after lunch. Pt's boyfriend present throughout interaction. 1120 1, refusal RENAN RODRIGUEZ OT Feb 13, 2021 11:39
--- NOTE | 2021-02-13 11:58 | Physical Therapy Evaluation ---
PT Evaluation-General Medical Diagnosis Admission Date Feb 13, 2021 at 10:40 Medical Diagnosis: right BKA Onset Date: Feb 07, 2021 Therapy Diagnosis Therapy Diagnosis: generalized weakness/debility Precautions Precautions/Isolations: Standard Precautions Referral Physician: Erwin Reason for Referral: Evaluation/Treatment Medical History Pertinent Medical History: DM, HTN, Smoking Additional Medical History polysubstance abuse Current History Transfer to ARU for continue strengthening due to recent right BKA Reviewed History: Yes Social History Home: Single Level Current Living Status: Significant Other Entry Into Home: Stairs With Railing PT Steps Into Home: 4 Prior Prior Level of Function SCALE: Activities may be completed with or without assistive devices. 5-Kbnrjvdfri-kzjgwxy completes the activity by him/herself with no assistance from a helper. 5-Set-up or Clean-up Assistance-helper sets up or cleans up; patient completes activity. [place] assists only prior to or following the activity. 4-Supervision or Touching Assistance-helper provides verbal cues and/or touching/steadying and/or contact guard assistance as patient completes activity. Assistance may be provided throughout the activity or intermittently. 3-Partial/Moderate Assistance-helper does LESS THAN HALF the effort. [place] lifts, holds or supports trunk or limbs, but provides less than half the effort. 2-Substantial/Maximal Assistance-helper does MORE THAN HALF the effort. [place] lifts or holds trunk or limbs and provides more than half the effort. 6-Zvgptyldo-alpcou does ALL the effort. Patient does none of the effort to complete the activity. Or, the assistance of 2 or more helpers is required for the patient to complete the activity. If activity was not attempted, code reason: 7-Patient Refused. 9-Not Applicable-not attempted and the patient did not perform the activity before the current illness, exacerbation or injury. 10-Not Attempted due to Environmental Limitations-(lack of equipment, weather restraints, etc.). 88-Not Attempted due to Medical Conditions or Safety Concerns. Bed Mobility: 6 Transfers (B,C,W/C): 6 Gait: 6 Stairs: 6 Indoor Mobility (Ambulation): Independent Stairs: Independent Prior Devices Use: None PT Evaluation-Current Subjective Patient agrees to PT. Objective Patient Orientation: Normal For Age ROM/Strength ROM Lower Extremities left LE WFL/right knee flexion 70 degrees; extension 10 degrees Strength Lower Extremities left LE 3+/5 grossly/right LE NT Integumentary/Posture Integumentary refer to nursing notes Bowel Incontinence: No Bladder Incontinence: No Posture WFL Neuromuscular (Tone, Coordination, Reflexes) grossly intact Sensory Vision: Functional Hearing: Functional Sensation Right Lower Extremit: Impaired Sensation Left Lower Extremity: Impaired Transfers Roll Left & Right (QC): 6 Sit to Lying (QC): 6 Lying to Sitting/Side of Bed(Q: 6 Sit to Stand (QC): 3 Chair/Efl-vm-Oskos Xfer(QC): 3 Toilet Transfer (QC): 3 Car Transfer (QC): 4 Gait Does the Patient Walk?: Yes Mode of Locomotion: Both Anticipated Mode of Locomotion: Both Walk 10 feet (QC): 3 Walk 50 ft with 2 Turns(QC): 3 Walk 150 ft (QC): 3 Walking 10ft/uneven surface-QC: 3 Distance: 150' x 1; 50' x 3 Gait Assistive Device: FWW Comments/Gait Description able to hop left LE Wheelchair Training Does the Pt Use a Wheelchair?: Yes Distance: 150' Wheel 50 ft with 2 turns (QC): 2 Wheel 150 ft (QC): 2 Type of Wheelchair: Manual Stairs #of Steps: 1 1 Step (curb) (QC): 3 4 Steps (QC): 88 12 Steps (QC): 9 Walking Assistive Device: Walker Balance Sitting Static: Normal Sitting Dynamic: Normal Standing Static: Fair Standing Dynamic: Fair Picking up an Object (QC): 88 Treatment Gait train with patient donning left shoe, use of FWW and minimal assist 150' x 1; 50' x 3. Standing balance activity in FWW CGA. Assessment/Needs 50 y.o. female, will benefit from skilled PT to address functional strength and mobility to improve current LOF to safely return to home at maximum LOF. Rehab Potential: Fair Post Rehab Potential-Barriers: compliance/participation PT Senior Living Goals Senior Living Goals PT Greige Mender Goals Time Frame: Mar 04, 2021 Roll Left & Right (QC): 6 Sit to Lying (QC): 6 Lying-Sitting on Side/Bed(QC): 6 Sit to Stand (QC): 5 Chair/Var-rh-Xjdsv Xfer(QC): 5 Toilet Transfer (QC): 5 Car Transfer (QC): 5 Does the Patient Walk: Yes Walk 10 feet (QC): 5 Walk 50ft with 2 Turns (QC): 5 Walk 150 ft (QC): 5 Walking 10ft on Uneven Surface: 5 1 Step (curb) (QC): 4 4 Steps (QC): 4 12 Steps (QC): 9 Picking up an Object (QC): 6 Does the Pt use WC or Scooter?: Yes Wheel 50 feet with 2 turns (QC: 5 Type: Manual Wheel 150 feet: 5 Type: Manual PT Plan Problem List Problem List: Activity Tolerance, Functional Strength, Safety, Balance, Gait, Transfer, Bed Mobility, ROM Treatment/Plan Treatment Plan: Continue Plan of Care Treatment Plan: Bed Mobility, Concurrent Therapy, Education, Functional Activity Lin, Functional Strength, Group Therapy, Gait, Safety, Therapeutic Exercise, Transfers Treatment Duration: Mar 04, 2021 Frequency: At least 5 of 7 days/Wk (IRF) Estimated Hrs Per Day: 1.5 hours per day Patient and/or Family Agrees t: Yes Discharge Recommendations Therapy Discharge Recommendati: Home & Family Time/GCodes Time In: 1020 Time Out: 1120 Total Billed Treatment Time: 60 Total Billed Treatment 1 visit EVModC 20 min GT 20 min FA 20 min SYLVESTER FERRO PT Feb 13, 2021 11:57
--- NOTE | 2021-02-13 12:27 | Progress Note ---
RHONDA AHUMADA 02/13/21 1227: Progress Note CC: Debility following Amputated Right Leg HPI: Dipti Mack is a 50 F presents with her boyfriend to inpatient rehab for her amputated right leg below the knee cap 6 days ago. This was secondary to her diabetic ulcer getting infected after stepping on a piece of glass. She reports that she notice the ulcer, but she let it get to this point because she states that she was trying to prove a point that she was tough. After amputation, she has been hospitalize and reports that she hasn't felt the need to smoke even though she has had a 40 year smoking history. She has been having anxiety recently which may have contributed to her higher blood pressure. Otherwise her pain is well controlled and has had bowel movements despite the use of pain medication. PMH: Diabetic ulcer after she stepped on glass and it got infected, no other reported history PSH: Amputation 5 days ago (02/07/21) Allergies: Demerol (Oral Hives), Chantix (Mental) Med: Dilaudid, Hydrocodone (7.5?), Xanax (1 white pill) SH: Eating fine, Drinking less water (taste), Smoker (40 years) but stopped after hospitalization and doesn't feel like it, No alcohol, Been drinking tea FH: Mental illness (all); Diabetes (Both Parents); Heart Problems (Both parents); Recent suicide in her family ROS 1. Gen: NAD, cooperative, older than stated age 2. HEENT: Eyes were blurry 2 days ago attributed to anxiety, no nasal drainage, no ear discharge 3. CVS: Blood pressure was high attributed to anxiety, denied chest pain, No edema/swelling 4. Neck: Denies Neck Pain,full range of motion, 5. Pulm: Denies Cough, sputum, congestion 6. GI/: Bowel movement (Last one yesterday), no urinary incontinence, no pain on urination 7. Neuro: Reports phantom leg, denies tingling in L leg, sensation present in R thigh and L lower extremity 8. MSK: R Leg feels heavy, 9. Integumentary: Callouses of L big toe/foot, Pale, No lesions/lacerations Exam: Vital Signs 02/13/21 02/13/21 10:20 11:26 Temp 35.8 Pulse 80 Resp 18 B/P (MAP) 183/90 (121) Pulse Ox 95 O2 Delivery Room Air Callous on L Foot, no ulcers Sensations intact bilaterally on the lower extremities No edema on L ankle and R thigh 0+ L Tibial Pulse 2+ L Dorsalis Pedis Pulse Laboratory Tests 02/13/21 15:17: Glucometer 176H 02/13/21 20:15: Glucometer 209H Anemic with 7.1 HgB UA Cultures pending Assessment/Plan: BKA secondary to Type 2 DM R foot ulcer, resolved -DM Type 2, noncompliant with medication -IRU accepted -Pain well controlled with Dilaudid and Hydrocodone 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 I reviewed and verified all information documented by the medical student and made modifications to such information, when appropriate. I personally performed the physical exam and medical decision making. Benita Solorzano, Feb 14, 2021,06:10 RHONDA AHUMADA Feb 13, 2021 12:27 BENITA SOLORZANO DO Feb 14, 2021 06:10
[2021-02-13] MEDS ORDERED: HYDROmorphone 2 MG/ML VIAL (DILAUDID) IVP PRN (13:15)
[2021-02-13] MEDS ORDERED: ACETAMINOPHEN 325 MG TABLET PO PRN (13:15)
[2021-02-13] MEDS ORDERED: ONDANSETRON 4 MG/2 ML (SDV) Z0FRAN IVP PRN (13:15)
[2021-02-13] MEDS ORDERED: LORazepam INJ 2 MG/ML (ATIVAN) VIAL IV PRN (13:15)
--- NOTE | 2021-02-13 13:16 | PM&R Post Admission Assessment ---
PM&R Date of Visit: Feb 13, 2021 Time of Visit: 14:00 History of Present Illness CC: Debility following right below the knee amputation HPI: This is a 50yoWF clinic pt of [facility] who presents to inpatient rehab to recover from right below the knee amputation. She does have DM out of control and previously was admitted for DKA and severe right sided osteomyelitis with multiple non-healing diabetic ulcers. She underwent a right BKA by Dr. Reid and is currently stable. She does have a lot of emotional problems, she is having a hard time adjusting but she is doing very well otherwise. Her labs show creatinine of 1.7, Hgb 7.1 so will monitor that closely. Past Duqblpr-Pzolud-Fawjsa Hx Past Med/Social Hx: Reviewed Nursing Past Med/Soc Hx, Reviewed and Corrections made Patient Social History Marrital Status: cohabiting Employed/Student: unemployed Alcohol Use: Denies Use Smoking Status: Current Everyday Smoker Past Medical History Surgeries: Orthopedic Respiratory: COPD Currently Using CPAP: No Currently Using BIPAP: No Cardiac: Hypertension Reproductive: No Endocrine: Diabetes, Non-Insulin dep Psychosocial: Depression Prior Level of Function Bed Mobility: 6 Transfers: 6 Gait: 6 Stairs: 6 Indoor Mobility (Ambulation): Independent Stairs: Independent Prior Devices Use: None Current Level of Fuctioning Roll Left to Right: 6 Sit to Lyin Lying to Sitting/Side of Bed: 6 Sit to Stand: 3 Chair/Ybo-tc-Xbefx Xfer: 3 Car Transfer: 4 Does the Patient Walk: Yes Mode of Locomotion: Both Anticipated Mode of Locomotion: Both Walk 10 feet: 3 Walk 50 ft with 2 Turns: 3 Walk 150 ft: 3 Walking 10ft on uneven surface: 3 Gait Assistive Device: FWW Does the Pt Use a Wheelchair: Yes Wheelchair Distance: 150' Wheel 50 ft with 2 turns: 2 Wheel 150 ft: 2 Type of Wheelchair: Manual #of Steps: 1 1 Step (curb): 3 4 Steps: 88 Walking Assistive Device: Walker 12 Steps: 9 Picking up an Object: 88 PM&R Allergy/Meds/Data Review Allergies Coded Allergies: meperidine (Verified Allergy, Unknown, 02/02/21) varenicline (Verified Allergy, Unknown, 02/02/21) Home Medications Scheduled Insulin Aspart (Novolog), 6 UNIT SC AC Insulin Determir (Levemir), 20 UNIT SQ BID Lactulose (Lactulose), 10 GM PO BID Sennosides/Docusate Sodium (Stool Softener-Laxative Tablet), 1 EA PO BID Scheduled PRN Hydrocodone Bit/Acetaminophen (HYDROcodone/APAP 7.5/325 TAB), 1 EA PO Q6H PRN for PAIN-MODERATE (5-7) Discontinued Medications Ibuprofen (Ibuprofen), 600-800 MG PO Q8H PRN for PAIN-MILD (1-4), (Reported) Current Medications Current Medications Reviewed Review of Systems Constitutional: see HPI, malaise, weakness EENTM: no symptoms reported Respiratory: no symptoms reported Cardiovascular: no symptoms reported Gastrointestinal: no symptoms reported Genitourinary: no symptoms reported Musculoskeletal: joint pain Skin: no symptoms reported Psychiatric/Neurological: No Symptoms Reported All Other Systems Reviewed Negative Unless Noted: Yes Physical Exam Physical Exam Vital Signs Vital Signs - First Documented 02/13/21 10:20 Temp 35.8 Pulse 80 Resp 18 B/P (MAP) 183/90 (121) Pulse Ox 95 O2 Delivery Room Air Capillary Refill : Height, Weight, BMI Height: '" Weight: lbs. oz. kg; 27.12 BMI Method: General Appearance: No Apparent Distress, WD/WN, Chronically ill Eyes: Bilateral Eye Normal Inspection, Bilateral Eye PERRL HEENT: PERRL/EOMI, Normal ENT Inspection, Pharynx Normal Neck: Full Range of Motion, Normal Inspection, Non Tender, Supple, Carotid Bruit Respiratory: Chest Non Tender, Lungs Clear, Normal Breath Sounds, No Accessory Muscle Use, No Respiratory Distress Cardiovascular: Regular Rate, Rhythm, No Edema, No Gallop, No JVD, No Murmur, Normal Peripheral Pulses Gastrointestinal: Normal Bowel Sounds, No Organomegaly, No Pulsatile Mass, Non Tender, Soft Back: Normal Inspection, No CVA Tenderness, No Vertebral Tenderness Extremity: Normal Capillary Refill, Normal Inspection, Normal Range of Motion, Non Tender, No Calf Tenderness, No Pedal Edema, Other (Right BKA dressing intact) Neurologic/Psychiatric: Alert, Oriented x3, No Motor/Sensory Deficits, Normal Mood/Affect, Motor Weakness (Generalized and lower extremities) Skin: Normal Color, Warm/Dry Lymphatic: No Adenopathy PM&R Medical Assessment & Plan REHAB/MEDICAL ASSESSMENT AND PLAN: REHAB IMPAIRMENT GROUP: Right BKA ETIOLOGIC DIAGNOSIS: Right BKA The comorbidities that impact the patients function and/or functional outcome by: Noncompliance with diabetes, smoker, chronic renal failure, poor social si tuation, emotional problems REHAB PLAN: The patient is being admitted to our comprehensive inpatient rehabilitation facility and can tolerate the intensity of service consisting of at least: 180 minutes of therapy a day, 5 out of 7 days a week Rehab treatment will consist of: PT and OT will focus on regaining function due to right BKA with the use of assistive devices and increase independent ADLs in order to return to independent living The patient/family has a good understanding of our discharge process and will benefit from an interdisciplinary inpatient rehabilitation program. The patient has potential to make improvement and is in need of at least two of the following multidisciplinary therapies including but not limited to physical, occupational, speech, and prosthetics and orthotics. Additionally the patient will need services from respiratory, nutritional services, wound care, psychology, etc. (Customize this to each patient). Given the patients complex condition and risk of further medical complications, rehabilitation services cannot be safely or effectively provided at a lower level of care such as a residential facility. BARRIERS TO DISCHARGE: Poor social situation ESTIMATED LOS: 14 days DISPOSITION: Home RELEVANT CHANGES SINCE PREADMISSION SCREENING: I have compared the patients medical and functional status at the time of the preadmission screening and there are: No changes PROGNOSIS: Fair REHABILITATION GOALS: 1. PT and OT will focus on regaining function due to right BKA with the use of assistive devices and increase independent ADLs in order to return to independent living All the above goals were reviewed with the patient and he/she is in agreement. By signing this document, I acknowledge that I have personally performed a full physical examination on this patient within 24 hours of admission to this inpatient rehabilitation facility and have determined the patient to be able to tolerate the above course of treatment at an intensive level for a reasonable period of time. I will be completing a detailed individualized Plan of Care for this patient by day #4 of the patients stay based upon the Preadmission Screen, the Post-Admission Evaluation, and the therapy evaluations. Admission Dx/Comorbidities: (1) S/P BKA (below knee amputation) Status: Acute ICD Codes: Z89.519 - Acquired absence of unspecified leg below knee (2) Smoker ICD Codes: F17.200 - Nicotine dependence, unspecified, uncomplicated (3) Chronic kidney disease, stage III (moderate) ICD Codes: N18.30 - Chronic kidney disease, stage 3 unspecified (4) Chronic mental illness ICD Codes: F99 - Mental disorder, not otherwise specified (5) DKA (diabetic ketoacidosis) Status: Resolved ICD Codes: E11.10 - Type 2 diabetes mellitus with ketoacidosis without coma (6) T2DM (type 2 diabetes mellitus) Status: Acute ICD Codes: E11.9 - Type 2 diabetes mellitus without complications Assessment/Plan Assessment and Plan Assess & Plan/Chief Complaint Assessment: Status post right below the knee amputation Diabetes mellitus [id number] noncompliant with treatment Current smoker Chronic kidney disease stage III Poor social situation Mental illness Labile moods Plan: Supportive care Therapy Manage mental illness FATIMAH SOLORZANO DO Feb 13, 2021 13:16
[2021-02-13] MEDS: HYDROcodone/APAP 7.5 MG/325 MG (LORTAB, LORCET PLUS) TABLET PO PRN ×2 (14:01→19:01)
[2021-02-13] MEDS: ENOXAPARIN 40 MG/0.4 ML (LOVENOX) SYR SC SCH (14:01)
--- NOTE | 2021-02-13 14:02 | Physical Therapy Progress Note ---
Therapy Progress Note Attempted physical therapy this afternoon. Patient was already working with OT. Patient becomes belligerent with therapists when instructed what to do. Patient ambulates from the restroom to the recliner and states "we are not going to get along". Patient states "I have had it with you fucking people". Told patient that she cannot be hateful and aggressive to staff and she says "I will treat you however I want to". Then, "fuck this". Patient in recliner post tx with nurse call, phone, tray, all needs met. MYKEL SERRANO PT Feb 13, 2021 14:02
--- NOTE | 2021-02-13 14:13 | Occupational Therapy Eval ---
OT Evaluation-General/PLF Medical Diagnosis Admission Date Feb 13, 2021 at 10:40 Medical Diagnosis: right BKA Onset Date: Feb 07, 2021 Therapy Diagnosis Therapy Diagnosis: weakness, decreased ADL status Precautions Precautions/Isolations: Fall Prevention, Standard Precautions Referral Physician: Erwin Sanches Reason: Evaluation/Treatment Medical History Pertinent Medical History: DM, HTN, Smoking Additional Medical History polysubstance abuse Current History transfer to [facility] s/p recent R BKA Social History Home: Single Level Current Living Status: Significant Other Entry Into Home: Stairs With Railing Steps Into Home: 4 ADL-Prior Level of Function SCALE: Activities may be completed with or without assistive devices. 2-Tumttzgelf-aoecigz completes the activity by him/herself with no assistance from a helper. 5-Set-up or Clean-up Assistance-helper sets up or cleans up; patient completes activity. [place] assists only prior to or following the activity. 4-Supervision or Touching Assistance-helper provides verbal cues and/or touching/steadying and/or contact guard assistance as patient completes activity. Assistance may be provided throughout the activity or intermittently. 3-Partial/Moderate Assistance-helper does LESS THAN HALF the effort. [place] lifts, holds or supports trunk or limbs, but provides less than half the effort. 2-Substantial/Maximal Assistance-helper does MORE THAN HALF the effort. [place] lifts or holds trunk or limbs and provides more than half the effort. 1-Cjzfcqzah-xerkca does ALL the effort. Patient does none of the effort to complete the activity. Or, the assistance of 2 or more helpers is required for the patient to complete the activity. If activity was not attempted, code reason: 7-Patient Refused. 9-Not Applicable-not attempted and the patient did not perform the activity before the current illness, exacerbation or injury. 10-Not Attempted due to Environmental Limitations-(lack of equipment, weather restraints, etc.). 88-Not Attempted due to Medical Conditions or Safety Concerns. ADL PLOF Comments Pt indicates IND with ADLs and functional mobility at PLOF, no AD/AE Self Care: Independent Functional Cognition: Independent DME/Equipment: Tub/Shower OT Current Status Subjective Pt laying in bed with boyfriend upon OT arrival, asks if therapy can happen later as her boyfriend was only going to be here another 30 mins. OT informed pt it cannot be postponed, pt agreeable. Towards end of tx, PT arrived to attempt cotreat. Pt became belligerant when therapists informed pt what to do. She used FWW to return to recliner states "we are not going to get along", "I have had it with you fucking people". Therapists informed pt she cannot speak to staff this way, she says "I will treat you however I want", "fuck this". Mental Status/Objective Patient Orientation: Person, Place, Time, Situation Current Glasses/Contacts: Yes Dentures/Partials: Yes Hand Dominance: Right Upper Extremity ROM BUE shoulder flexion to approx 150 Upper Extremity Coordination WFL Upper Extremity Sensation WFL Upper Extremity Strength grossly 3+/5 BUEs ADL-Treatment Eating (QC): 6 (IND with lunch) Oral Hygiene (QC): 6 (IND seated at sink) Shower/Bathe Self (QC): 4 (SBA seated on SC) Upper Body Dressing (QC): 5 (set up assist) Lower Body Dressing (QC): 3 (Min A with pant hike) On/Off Footwear (QC): 3 (Assist to tie tennis shoe) Toileting Hygiene (QC): 3 (Min A with pant hike.) Other Treatments Pt laying in bed with her boyfriend, agreeable to OT tx after encouragement. Pt transferred to EOB, then used FWW to perform functional mobility into bathroom and onto toilet, CGA. Pt completed toileting, sit to stand from toilet min A, then transferred to SC. Pt doffed clothes, then completed shower, SBA. Pt able to lean side to side in order to wash buttocks and perform pericare. Pt transferred to chair with arm rests to don clothes, CGA sit to stand and standing balance, min A with pant hike. She then sat at sink to brush teeth and hair independently. Pt donned tennis shoe. (PT arrived to attempt cotreat). Pt requests to return to bed, OT and PT encouraged pt to rest where she is so tx could continue. Pt states she does not want to sit in the bathroom and wants to return to bed, and informs therapists they cannot tell her what to do. Pt used FWW to return to recliner, states "we are not going to get along", "I have had it with you fucking people". Therapists informed pt she cannot speak to staff this way, she says "I will treat you however I want", "fuck this". Pt refused remainder of tx. Post tx, pt seated in recliner, call light in reach and all needs met. Education OT Patient Education: Correct positioning, Modified ADL techniques, Progress toward Goal/Update tx plan, Purpose of tx/functional activities, Rehab process Teaching Recipient: Patient Teaching Methods: Discussion Response to Teaching: Verbalize Understanding, Reinforcement Needed OT Short Term Goals Short Term Goals Time Frame: Feb 22, 2021 Toileting hygiene: 4 Lower body dressin OT Retirement Goals Retirement Goals Time Frame: Mar 03, 2021 Eating (QC): 6 Oral Hygiene (QC): 6 Toileting Hygiene (QC): 6 Shower/Bathe Self (QC): 5 Upper Body Dressing (QC): 6 Lower Body Dressing (QC): 6 On/Off Footwear (QC): 6 Additional Goals: 1-Demonstrate ADL Tasks, 2-Verbalize Understanding, 3- ImproveStrength/Lin 1=Demonstrate adherence to instructed precautions during ADL tasks. 2=Patient will verbalize/demonstrate understanding of assistive devices/modifications for ADL. 3=Patient will improve strength/tolerance for activity to enable patient to perform ADL's. OT Education/Plan Problem List/Assessment Assessment: Decreased Activ Tolerance, Decreased UE Strength, Impaired Funct Balance, Impaired I ADL's, Impaired Self-Care Skills Discharge Recommendations Plan/Recommendations: Continue POC Equpiment Recommendations-D/C: Extended Bath Bench Treatment Plan/Plan of Care Patient would benefit from OT for education, treatment and training to promote independence in ADL's, mobility, safety and/or upper extremity function for ADL's. Plan of Care: ADL Retraining, Functional Mobility, Group Exercise/Act as Ind, UE Funct Exercise/Act Treatment Duration: Mar 03, 2021 Frequency: At least 5 of 7 days/Wk (IRF) Estimated Hrs Per Day: 1.5 hours per day Rehab Potential: Guarded Time/GCodes Start Time: 13:00 Stop Time: 14:00 Total Time Billed (hr/min): 60 Billed Treatment Time 1, EVM (10'), ADL 3 (50') RENAN RODRGIUEZ OT Feb 13, 2021 14:13
--- NOTE | 2021-02-13 14:53 | Physical Therapy Daily Note ---
PT Daily Note-Current Subjective Patient continues to have behavioral issues resulting in patient yelling at staff. Patient agreed to talk and work with this PT after she calmed herself. Mental Status Patient Orientation: Normal For Age Transfers SCALE: Activities may be completed with or without assistive devices. 8-Ikebntkhvm-onfgdqm completes the activity by him/herself with no assistance from a helper. 5-Set-up or Clean-up Assistance-helper sets up or cleans up; patient completes activity. [place] assists only prior to or following the activity. 4-Supervision or Touching Assistance-helper provides verbal cues and/or touching/steadying and/or contact guard assistance as patient completes activity. Assistance may be provided throughout the activity or intermittently. 3-Partial/Moderate Assistance-helper does LESS THAN HALF the effort. [place] lifts, holds or supports trunk or limbs, but provides less than half the effort. 2-Substantial/Maximal Assistance-helper does MORE THAN HALF the effort. [place] lifts or holds trunk or limbs and provides more than half the effort. 3-Asqkgrkkq-agubrh does ALL the effort. Patient does none of the effort to compl ete the activity. Or, the assistance of 2 or more helpers is required for the patient to complete the activity. If activity was not attempted, code reason: 7-Patient Refused. 9-Not Applicable-not attempted and the patient did not perform the activity before the current illness, exacerbation or injury. 10-Not Attempted due to Environmental Limitations-(lack of equipment, weather restraints, etc.). 88-Not Attempted due to Medical Conditions or Safety Concerns. Sit to Lying (QC): 6 Sit to Stand (QC): 3 Chair/Vgk-xv-Kslfs Xfer(QC): 3 Gait Training Does the Patient Walk?: Yes Distance: 30' x 2 Walk 10 feet (QC): 3 Gait Assistive Device: FWW Exercises Supine Ex: Quad Set (with hamstring stretching), Heel Slides, Straight leg raise Supine Reps: 15 (x 3 sets) Seated Therapy Exercises: Long arc quads Seated Reps: 15 (2 sets) Assessment Patient requires time to complete exercises due to right knee pain (BKA). PT and patient discussed treatment plan and patient's behavior. Patient agrees, at this time, to comply with therapy schedule. PT Skilled Nursing Goals Skilled Nursing Goals PT Sewing Machine Adjuster Goals Time Frame: Mar 04, 2021 Roll Left & Right (QC): 6 Sit to Lying (QC): 6 Lying-Sitting on Side/Bed(QC): 6 Sit to Stand (QC): 5 Chair/Qsd-ib-Rlhpl Xfer(QC): 5 Toilet Transfer (QC): 5 Car Transfer (QC): 5 Does the Patient Walk: Yes Walk 10 feet (QC): 5 Walk 50ft with 2 Turns (QC): 5 Walk 150 ft (QC): 5 Walking 10ft on Uneven Surface: 5 1 Step (curb) (QC): 4 4 Steps (QC): 4 12 Steps (QC): 9 Picking up an Object (QC): 6 Does the Pt use WC or Scooter?: Yes Wheel 50 feet with 2 turns (QC: 5 Type: Manual Wheel 150 feet: 5 Type: Manual PT Plan Treatment/Plan Treatment Plan: Continue Plan of Care Treatment Plan: Bed Mobility, Concurrent Therapy, Education, Functional Activity Lin, Functional Strength, Group Therapy, Gait, Safety, Therapeutic Exercise, Transfers Treatment Duration: Mar 04, 2021 Frequency: At least 5 of 7 days/Wk (IRF) Estimated Hrs Per Day: 1.5 hours per day Patient and/or Family Agrees t: Yes Time/GCodes Time In: 1410 Time Out: 1445 Total Billed Treatment Time: 35 Total Billed Treatment 1 visit GT 13 min EX 22 min SYLVESTER FERRO PT Feb 13, 2021 14:53
[2021-02-13] MEDS: inSUlin ASPART (NovoLOG) 1 UNIT/0.01 ML (CHARGE PER UNIT) SC SCH ×2 (17:15→21:22)
[2021-02-13] MEDS: SENNA W/DOCUSATE (SENOKOT S) TABLET PO SCH ×2 (19:48)
[2021-02-13] MEDS: polyethylene glycoL POWDER 17 GM (MIRALAX) PACK PO SCH (19:48)
[2021-02-13] MEDS: DOCUSATE SODIUM 100 MG (COLACE) CAP PO SCH (19:48)
[2021-02-13 20:00] VITALS: BP 153/68
[2021-02-13] MEDS: LACTULOSE SYRUP 10GM/15ML (ENULOSE) 30ML UDC PO SCH (21:23)
[2021-02-14] MEDS: HYDROcodone/APAP 7.5 MG/325 MG (LORTAB, LORCET PLUS) TABLET PO PRN ×4 (00:32→14:45)
[2021-02-14] MEDS: ALPRAZolam 0.5 MG (XANAX) TAB PO PRN (00:33)
[2021-02-14] MEDS: inSUlin ASPART (NovoLOG) 1 UNIT/0.01 ML (CHARGE PER UNIT) SC SCH ×4 (05:41→21:15)
[2021-02-14 05:59] LABS: BASOPHILS % (AUTO) 0 % (0-10); EOSINOPHILS # (AUTO) 0.2 10^3/uL (0.0-0.3); EOSINOPHILS % (AUTO) 2 % (0-10); HEMATOCRIT 24 % (35-52); HEMOGLOBIN 7.2 g/dL (11.5-16.0); LYMPHOCYTES # (AUTO) 2.1 10^3/uL (1.0-4.0); LYMPHOCYTES % (AUTO) 24 % (12-44); MEAN CORPUSCULAR HEMOGLOBIN 26 pg (25-34); MEAN CORPUSCULAR HGB CONC 30 g/dL (32-36); MEAN CORPUSCULAR VOLUME 87 fL (80-99); MEAN PLATELET VOLUME 9.1 fL (9.0-12.2); MONOCYTES # (AUTO) 0.8 10^3/uL (0.0-1.0); MONOCYTES % (AUTO) 9 % (0-12); NEUTROPHILS # (AUTO) 5.4 10^3/uL (1.8-7.8); NEUTROPHILS % (AUTO) 63 % (42-75); PLATELET COUNT 409 10^3/uL (130-400); WHITE BLOOD COUNT 8.6 10^3/uL (4.3-11.0)
[2021-02-14 06:10] LABS: ALBUMIN 2.7 GM/DL (3.2-4.5); POTASSIUM 4.2 MMOL/L (3.6-5.0)
[2021-02-14 06:11] LABS: CALCIUM 9.1 MG/DL (8.5-10.1)
[2021-02-14 06:14] LABS: BILIRUBIN,TOTAL 0.2 MG/DL (0.1-1.0)
--- NOTE | 2021-02-14 06:15 | Individualized Plan of Care ---
Individualized Plan of Care Rehab Nursing IPOC Order Admission Date Feb 13, 2021 at 10:40 Current Orders Orders Admission Arrival Bed Request (02/13/21 10:37) Admission Order(Inpt,Obs,Sdc) (02/13/21 10:50) Vital Signs: Per Unit Policy ( 08,16,00 (02/13/21 10:50) Morales Uriarte (02/13/21 10:50) Sequential Compression Device .admit (02/13/21 10:50) Lithographed Plate Inspector-Inpt Rehab Con (02/13/21 10:50) Rehab Nursing Orders-Ipoc (02/13/21 10:50) Physical Therapy Rehab Orders (02/13/21 10:50) Occupational Therapy Rehab Ord (02/13/21 10:50) Speech Therapy Rehab Orders (02/13/21 10:50) Cbc With Automated Diff (02/14/21 06:00) Comprehensive Metabolic Panel (02/14/21 06:00) Precautions (Aru) (02/13/21 10:50) Rehab-Intensity Of Therapy (02/13/21 10:50) Initiate Admission Nursing Pro .admission (02/13/21 10:50) Alprazolam Tablet (Xanax Tablet) (02/13/21 11:00) Calcium Carbonate Chew Tablet (Antacid C (02/13/21 11:00) Diphenhydramine Tablet (Benadryl Tablet) (02/13/21 11:00) Docusate Sodium Capsule (Colace Capsule) (02/13/21 21:00) Docusate Sodium Capsule (Colace Capsule) (02/13/21 11:00) Bisacodyl Suppository (Dulcolax Supposit (02/13/21 11:00) Lactulose Oral Solution (Enulose Oral So (02/13/21 11:00) Na Phos/Na Biphos Enema (Fleet Enema Delgado (02/13/21 11:00) Guaifenesin/Codeine Syrup (Robitussin Ac (02/13/21 11:00) Loperamide Tablet (Imodium Tablet) (02/13/21 11:00) Melatonin Tablet (Melatonin Tablet) (02/13/21 11:00) Polyethylene Glycol Powder Pkt (Miralax (02/13/21 21:00) Ondansetron Oral Dissolve Tab (Zofran (02/13/21 11:00) Senna S Tablet (Senokot S Tablet) (02/13/21 21:00) Therapeutic Activity Goals: (02/13/21 10:50) Nursing Communication (Order) (02/13/21 ) Naloxone Injection (Narcan Injection) (02/13/21 11:00) Alprazolam Tablet (Xanax Tablet) (02/13/21 11:03) Stump Skoog Patching Machine Operator (02/13/21 11:22) Code/Resuscitation (02/13/21 13:14) Dressing Order (Intervention) DAILY (02/13/21 13:14) Cho 60g/M 1snack (16-2000 Dom) (02/13/21 Lunch) Alprazolam Tablet (Xanax Tablet) (02/13/21 13:15) Acetaminophen Tablet/Caplet (Tylenol T (02/13/21 13:15) Enoxaparin Injection (Lovenox Injection) (02/13/21 14:00) Hydrocodone/Apap 7.5/325 Tab (Lortab 7. (02/13/21 13:15) Hydromorphone Injection (Dilaudid Inject (02/13/21 13:15) Lorazepam Injection (Ativan Injection) (02/13/21 13:15) Lactulose Oral Solution (Enulose Oral So (02/13/21 21:00) Senna S Tablet (Senokot S Tablet) (02/13/21 21:00) Ondansetron Injection (Zofran Injectio (02/13/21 13:15) Insulin Aspart (Novolog) (Novolog (Charg (02/13/21 16:00) Insulin Determir (Per Unit) (Levemir (Pe (02/13/21 21:00) Consult General Surgery (02/13/21 13:14) Patient Visit (02/13/21 ) Pt Eval Moderate Complexity (02/13/21 ) Gait Training, Ea 15 Min (02/13/21 ) Functional Activities, Ea 15 (02/13/21 ) Exercise Therap, Ea 15 Min (02/13/21 ) Amlodipine Tablet (Norvasc Tablet) (02/14/21 10:45) Amlodipine Tablet (Norvasc Tablet) (02/15/21 09:00) Patient Visit (02/14/21 ) Speech Sound Lang Comp (02/14/21 ) Treat. Speech/Lang/Voice (02/14/21 ) Patient Visit (02/14/21 ) Exercise Therap, Ea 15 Min (02/14/21 ) Gait Training, Ea 15 Min (02/14/21 ) Functional Activities, Ea 15 (02/14/21 ) Diabetes Education (02/14/21 15:58) Rehab Nursing Orders: Ongoing Assess. of Cognitive Status, Ongoing Assess. of Function Status, Bladder Management, Bladder Scan, Bladder Training, Bowel Management, Bowel Training, Disease Management & Educaiton, DVT Prophylaxis, Fall Prevention, Fluid/Electrolyte/Nutrition Mgmt, Infection Prevention, Medication Management & Education, Management of Risks & Complications, Nutrition Management, Pain Management, Patient/Family Support, Safety Management Intensity of Therapy to be met Patient to be seen: Min.3h per day/5 of 7d PT IPOC Problem List: Activity Tolerance, Functional Strength, Safety, Balance, Gait, Transfer, Bed Mobility, ROM Treatment Plan: Continue Plan of Care Bed Mobility, Concurrent Therapy, Education, Functional Activity Lin, Functional Strength, Group Therapy, Gait, Safety, Therapeutic Exercise, Transfers Treatment Duration: Mar 04, 2021 Frequency: At least 5 of 7 days/Wk (IRF) Estimated Hrs Per Day: 1.5 hours per day OT IPOC Problems: Decreased Activ Tolerance, Decreased UE Strength, Impaired Funct Balance, Impaired I ADL's, Impaired Self-Care Skills OT Treatment, Training and Edu: Yes Plan of Care: ADL Retraining, Functional Mobility, Group Exercise/Act as Ind, UE Funct Exercise/Act Treatment Duration: Mar 03, 2021 Frequency: At least 5 of 7 days/Wk (IRF) Estimated Hrs Per Day: 1.[address] IPOC Speech Therapy Treatment Plan: Discontinue ST Treatment Duration: Feb 14, 2021 Frequency: Modified Program (IRF) Estimated Hrs Per Day: Other Lithographed Plate Inspector/Case Mgmt Lithographed Plate Inspector/Case Managemen: Discharge Planning Dietitian/Movie Operator Dietitian/Movie Operator to monitor nutritional status and make changes and/or recommendations as needed and work with speech pathology on dietary upgrades as the occur. Physician IPOC Medical Issues being managed closely and that require the 24 hour availability of a physician: Recent right BKA with wup-ug-xxqpzzi sugars with history of DKA and emotional problems will require close monitoring to prevent recurrence of septic shock and decompensation Medical Issues: Bowel/Bladder Function, DVT Prophylaxis, Falls Precautions, Fluid/Electrolyte/Nutrition Balance, Infection Protection, Pain Management, Wound Care Brief Synthesis of Preadmission Screen, Post-Admission Evaluation, and Therapy Evaluations: PT and OT will focus on the use of assistive devices in order to return to independent living and prevent falls Medical Prognosis: Fair Anticipated Length of Stay: 14 days FATIMAH SOLORZANO DO Feb 14, 2021 06:15
--- NOTE | 2021-02-14 06:15 | PM&R Progress Note ---
Subjective HPI/CC On Admission Date Seen by Provider: Feb 14, 2021 Time Seen by Provider: 10:00 Subjective/Events-last exam 02/14/2021: Pt in a better mood Creatinine 1.9 Hgb 7.2 Bowels moved yesterday Miralax given Review of Systems General: Fatigue Musculoskeletal: leg pain Objective Exam Vital Signs Vital Signs Date Time Temp Pulse Resp B/P (MAP) Pulse Ox O2 Delivery O2 Flow Rate FiO2 02/15/21 01:46 36.3 02/14/21 21:00 95 Room Air 02/14/21 20:00 78 16 147/70 (95) Capillary Refill : General Appearance: No Apparent Distress, WD/WN, Chronically ill HEENT: PERRL/EOMI, Normal ENT Inspection, Pharynx Normal Neck: Full Range of Motion, Normal Inspection, Non Tender, Supple, Carotid Bruit Respiratory: Chest Non Tender, Lungs Clear, Normal Breath Sounds, No Accessory Muscle Use, No Respiratory Distress Cardiovascular: Regular Rate, Rhythm, No Edema, No Gallop, No JVD, No Murmur, Normal Peripheral Pulses Gastrointestinal: Normal Bowel Sounds, No Organomegaly, No Pulsatile Mass, Non Tender, Soft Back: Normal Inspection, No CVA Tenderness, No Vertebral Tenderness Extremity: Normal Capillary Refill, Normal Inspection, Normal Range of Motion, Non Tender, No Calf Tenderness, No Pedal Edema, Other (Right BKA dressing intact) Neurologic/Psychiatric: Alert, Oriented x3, No Motor/Sensory Deficits, Normal Mood/Affect, Motor Weakness (Generalized and lower extremities) Skin: Normal Color, Warm/Dry Lymphatic: No Adenopathy Results/Procedures Lab Laboratory Tests 02/14/21 05:47 Patient resulted labs reviewed. FIM Transfers Therapy Code Descriptions/Definitions Functional [place] Measure: 0=Not Assessed/NA 4=Minimal Assistance 1=Total Assistance 5=Supervision or Setup 2=Maximal Assistance 6=Modified [place] 3=Moderate Assistance 7=Complete IndependenceSCALE: Activities may be completed with or without assistive devices. 4-Ezxmvnhujn-ugknibv completes the activity by him/herself with no assistance from a helper. 5-Set-up or Clean-up Assistance-helper sets up or cleans up; patient completes activity. [place] assists only prior to or following the activity. 4-Supervision or Touching Assistance-helper provides verbal cues and/or touching/steadying and/or contact guard assistance as patient completes activity. Assistance may be provided throughout the activity or intermittently. 3-Partial/Moderate Assistance-helper does LESS THAN HALF the effort. [place] lifts, holds or supports trunk or limbs, but provides less than half the effort. 2-Substantial/Maximal Assistance-helper does MORE THAN HALF the effort. [place] lifts or holds trunk or limbs and provides more than half the effort. 0-Okcbjsuoi-kdkjqc does ALL the effort. Patient does none of the effort to complete the activity. Or, the assistance of 2 or more helpers is required for the patient to complete the activity. If activity was not attempted, code reason: 7-Patient Refused. 9-Not Applicable-not attempted and the patient did not perform the activity before the current illness, exacerbation or injury. 10-Not Attempted due to Environmental Limitations-(lack of equipment, weather restraints, etc.). 88-Not Attempted due to Medical Conditions or Safety Concerns. Roll Left to Right (QC): 6 Sit to Lying (QC): 6 Sit to Stand (QC): 3 Chair/Jcv-ei-Pkxqw Xfer(QC): 3 Car Transfer (QC): 4 Gait Training Does the Patient Walk?: Yes Distance: 30' x 2 Walk 10 feet (QC): 3 Walk 50 ft with 2 Turns(QC): 3 Walk 150 ft (QC): 3 Walking 10ft/uneven surface-QC: 3 Gait Assistive Device: FWW Wheelchair Training Does the Pt Use a Wheelchair?: Yes Distance: 150' Wheel 50 ft with 2 turns (QC): 2 Wheel 150 ft (QC): 2 Type of Wheelchair: Manual Stair Training #of Steps: 1 1 Step (curb) (QC): 3 4 Steps (QC): 88 12 Steps (QC): 9 Balance Picking up an Object (QC): 88 ADL-Treatment Eating (QC): 6 (IND with lunch) Oral Hygiene (QC): 6 (IND seated at sink) Shower/Bathe Self (QC): 4 (SBA seated on SC) Upper Body Dressing (QC): 5 (set up assist) Lower Body Dressing (QC): 3 (Min A with pant hike) On/Off Footwear (QC): 3 (Assist to tie tennis shoe) Toileting Hygiene (QC): 3 (Min A with pant hike.) Assessment/Plan Assessment and Plan Assess & Plan/Chief Complaint Assessment: Status post right below the knee amputation Diabetes mellitus [id number] noncompliant with treatment Current smoker Chronic kidney disease stage III Poor social situation Mental illness Labile moods Plan: Supportive care Therapy Manage mental illness 02/14/2021: Much improved Wants to go home soon Management of blood sugar Pain control (1) S/P BKA (below knee amputation) Status: Acute (2) Smoker (3) Chronic kidney disease, stage III (moderate) (4) Chronic mental illness (5) DKA (diabetic ketoacidosis) Status: Resolved Resolution Date/Time: 02/10/21 @ 12:23 (6) T2DM (type 2 diabetes mellitus) Status: Acute FATIMAH SOLORZANO DO Feb 14, 2021 06:15
[2021-02-14 06:16] LABS: CREATININE SERUM 1.9 MG/DL (0.60-1.30)
[2021-02-14 07:29] VITALS: BP 161/86
[2021-02-14] MEDS: DOCUSATE SODIUM 100 MG (COLACE) CAP PO SCH ×2 (08:17→21:16)
[2021-02-14] MEDS: SENNA W/DOCUSATE (SENOKOT S) TABLET PO SCH ×4 (08:17→21:16)
[2021-02-14] MEDS: polyethylene glycoL POWDER 17 GM (MIRALAX) PACK PO SCH ×2 (08:17→20:19)
[2021-02-14] MEDS: LACTULOSE SYRUP 10GM/15ML (ENULOSE) 30ML UDC PO SCH ×2 (08:18→21:16)
--- NOTE | 2021-02-14 10:26 | Occupational Ther Daily Note ---
OT Current Status-Daily Note Subjective Pt laying in bed, agreeable to OT tx. Pt tearful during tx, expressing concern that she has not heard from her boyfriend since he got off work early AM. Mental Status/Objective Patient Orientation: Person, Place, Time, Situation ADL-Treatment Therapy Code Descriptions/Definitions Functional [place] Measure: 0=Not Assessed/NA 4=Minimal Assistance 1=Total Assistance 5=Supervision or Setup 2=Maximal Assistance 6=Modified [place] 3=Moderate Assistance 7=Complete IndependenceSCALE: Activities may be completed with or without assistive devices. 6-Pptgmcnrzg-raubzoc completes the activity by him/herself with no assistance from a helper. 5-Set-up or Clean-up Assistance-helper sets up or cleans up; patient completes activity. [place] assists only prior to or following the activity. 4-Supervision or Touching Assistance-helper provides verbal cues and/or touching/steadying and/or contact guard assistance as patient completes activity. Assistance may be provided throughout the activity or intermittently. 3-Partial/Moderate Assistance-helper does LESS THAN HALF the effort. [place] lifts, holds or supports trunk or limbs, but provides less than half the effort. 2-Substantial/Maximal Assistance-helper does MORE THAN HALF the effort. [place] lifts or holds trunk or limbs and provides more than half the effort. 6-Kxikmqflf-dwfnsh does ALL the effort. Patient does none of the effort to complete the activity. Or, the assistance of 2 or more helpers is required for the patient to complete the activity. If activity was not attempted, code reason: 7-Patient Refused. 9-Not Applicable-not attempted and the patient did not perform the activity before the current illness, exacerbation or injury. 10-Not Attempted due to Environmental Limitations-(lack of equipment, weather restraints, etc.). 88-Not Attempted due to Medical Conditions or Safety Concerns. On/Off Footwear: 3 (Pt able to don tennis shoe, min A to tie shoestring) Toileting Hygiene (QC): 4 (CGA, pt able to perform hygiene and clothing management) Other Treatment Pt laying in bed, transferred supine to sit EOB SBA. Pt donned tennis shoe, then used FWW to perform functional mobility into bathroom with CGA. Pt completed toileting, then used FWW to perform functional mobility to therapy gym, CGA, 2 seated rest breaks. OT tx focused on increasing BUE strength and activity tolerance in order to improve functional mobility. Pt completed x15 reps each of the following with 2lb weights: front punch, overhead press, and bicep curl. Pt completed graded clothespin task, placing/removing graded clothespins (1-5lb) x2 sets BUEs. Post tx, pt seated in therapy gym, all needs met. PT present to continue tx. Education OT Patient Education: Correct positioning, Energy conservation, Exercise program, Modified ADL techniques, Progress toward Goal/Update tx plan, Purpose of tx/functional activities, Rehab process, Transfer techniques Teaching Recipient: Patient Teaching Methods: Discussion Response to Teaching: Verbalize Understanding OT Short Term Goals Short Term Goals Time Frame: Feb 22, 2021 Toileting hygiene: 4 Lower body dressin OT Paper Products Machine Operator Goals Paper Products Machine Operator Goals Time Frame: Mar 03, 2021 Eating (QC): 6 Oral Hygiene (QC): 6 Toileting Hygiene (QC): 6 Shower/Bathe Self (QC): 5 Upper Body Dressing (QC): 6 Lower Body Dressing (QC): 6 On/Off Footwear (QC): 6 Additional Goals: 1-Demonstrate ADL Tasks, 2-Verbalize Understanding, 3- ImproveStrength/Lin 1=Demonstrate adherence to instructed precautions during ADL tasks. 2=Patient will verbalize/demonstrate understanding of assistive devices/modifications for ADL. 3=Patient will improve strength/tolerance for activity to enable patient to perform ADL's. OT Education/Plan Problem List/Assessment Assessment: Decreased Activ Tolerance, Decreased UE Strength, Impaired Funct Balance, Impaired I ADL's, Impaired Self-Care Skills Discharge Recommendations Plan/Recommendations: Continue POC Treatment Plan/Plan of Care Patient would benefit from OT for education, treatment and training to promote independence in ADL's, mobility, safety and/or upper extremity function for ADL's. Plan of Care: ADL Retraining, Functional Mobility, Group Exercise/Act as Ind, UE Funct Exercise/Act Treatment Duration: Mar 03, 2021 Frequency: At least 5 of 7 days/Wk (IRF) Estimated Hrs Per Day: 1.5 hours per day Rehab Potential: Guarded Time/GCodes Start Time: 09:15 Stop Time: 10:15 Total Time Billed (hr/min): 60 Billed Treatment Time 1, ADL (15'), EX (15'), FA 2 (30') RENAN RODRIGUEZ OT Feb 14, 2021 10:26
[2021-02-14] MEDS ORDERED: amLODIPine 5 MG (NORVASC) TAB PO ONE (10:45)
--- NOTE | 2021-02-14 11:16 | ST Cognitive Linguistic Eval ---
Speech Evaluation-General Medical Diagnosis right BKA Onset Date: Feb 07, 2021 Therapy Diagnosis Therapy Diagnosis: Cognitive-communication Precautions Precautions/Isolations: Fall Prevention, Standard Precautions Referral Referring Physician: Dr. Hood Medical History Pertinent Medical History: DM, HTN, Smoking Reviewed History: Yes Social History Current Living Status: Significant Other Speech PLF-Current Status Prior Level of Function Patient lived in her home with her SO who assists her with her daily needs. Subjective Patient was very upset and crying, stated her SO had left her in the middle of all this and she couldn't do it alone. Patient was cooperative with the cognitive assessment. Language Eval: Auditory Comprehends Simple Yes/No Ques: Functional Indent/Objects [place]: Functional Ident/Pics in [place]: Functional Follows 1-Step Commands: Functional Follows Complex Directions: Functional Follows General Conversations: Functional Language Eval: Verbal Language Completes Spontaneous Greeting: Functional Produces Auto, Serial Info: Functional Imitates Simple Words/Phrases: Functional Word Finding: Functional Requests Basic Needs: Functional States Basic Personal Info: Functional Expresses Complex Ideas: Functional Objective Cognitive Domain Attention: WNL Memory: WNL Problem Solving: Functional Executive Functions: WNL Visuospatial Skills: WNL Composite Severity Rating: WNL Clock Drawing Severity Rating: WNL Objective Formal/Standardized Tests [facility] Mental Status ([facility]) Results 28/30, within normal range of function Oral Motor/Speech Production Within Normal Limits Impression Patient is a 50 y/o female who was admitted to the hospital for a BKA. She was admitted to the ARU on 02/13 for therapy post BKA surgery. The patient was given the [facility] with a score of 28/30 obtained. This score is within normal range of function and does not indicate a further need for services. Speech Patient Assess Expression of Ideas/Wants: Expression (4) Understanding Verbal Content: Understands (4) Brief Interview-Mental Status: Yes Repetition of Three Words: Three (3) Temporal Orientation: Year: Correct (3) Temporal Orientation: Month: Accurate within 5 days(2) Temporal Orientation: Day: Correct (1) Recall : Wear to say "Sock": Yes, no cue required (2) Recall : Color: Yes, no cue required (2) Recall : Bed: Yes, no cue required (2) Memory/Recall Ability: Current season, Location of own room, Staff names and faces, That he or she is in a hsp/hsp unit Speech-Plan Patient/Family Goals Patient/Family Goals: Patient plans on discharging to her home. She previously lived with her SO, however he apparently has left her in the course of her current situation. Treatment Plan Speech Therapy Treatment Plan: Discontinue ST Treatment Duration: Feb 14, 2021 Frequency: 1 time per week Estimated Hrs Per Day: .5 hour per day Rehab Potential: Guarded Barriers to Learning: Patient's severe medical status with amputation, depression Pt/Family Agrees to Plan: Yes Safety Risks/Education Teaching Recipient: Patient Teaching Methods: Discussion Response to Teaching: Verbalize Understanding Education Topics Provided: Safety within her room, communication of wants/needs Time Speech Therapy Time In: 11:30 Speech Therapy Time Out: 12:00 Total Billed Time: 30 Billed Treatment Time 1, ANGELITO VU [address] Feb 14, 2021 11:16
--- NOTE | 2021-02-14 11:17 | Physical Therapy Daily Note ---
PT Daily Note-Current Subjective Patient is in a very good mood to day and cooperative. Pain Numeric Pain Scale: 9 Location: Right Location Body Site: Knee Pain Description: Acute Comment: with meds issued Mental Status Patient Orientation: Normal For Age Transfers SCALE: Activities may be completed with or without assistive devices. 8-Annkxcofsz-kjzyfxz completes the activity by him/herself with no assistance from a helper. 5-Set-up or Clean-up Assistance-helper sets up or cleans up; patient completes activity. [place] assists only prior to or following the activity. 4-Supervision or Touching Assistance-helper provides verbal cues and/or touching/steadying and/or contact guard assistance as patient completes activity. Assistance may be provided throughout the activity or intermittently. 3-Partial/Moderate Assistance-helper does LESS THAN HALF the effort. [place] lifts, holds or supports trunk or limbs, but provides less than half the effort. 2-Substantial/Maximal Assistance-helper does MORE THAN HALF the effort. [place] lifts or holds trunk or limbs and provides more than half the effort. 2-Adwyrhloq-vcrphl does ALL the effort. Patient does none of the effort to complete the activity. Or, the assistance of 2 or more helpers is required for the patient to complete the activity. If activity was not attempted, code reason: 7-Patient Refused. 9-Not Applicable-not attempted and the patient did not perform the activity before the current illness, exacerbation or injury. 10-Not Attempted due to Environmental Limitations-(lack of equipment, weather restraints, etc.). 88-Not Attempted due to Medical Conditions or Safety Concerns. Roll Left & Right (QC): 6 Sit to Lying (QC): 6 Lying to Sitting/Side of Bed(Q: 6 Sit to Stand (QC): 4 (SBA) Chair/Vns-zg-Shqdr Xfer(QC): 4 (SBA) Gait Training Does the Patient Walk?: Yes Distance: 50' x 4 Walk 10 feet (QC): 4 (SBA) Walk 50 ft with 2 Turns(QC): 4 (SBA) Gait Assistive Device: FWW Exercises Supine Ex: LE Protocol, Quad Set, Glut sets, Heel Slides, Straight leg raise, Hip abd/add Supine Reps: 15 (3 sets bilaterally with prolong right hamstring stretching) Seated Therapy Exercises: Long arc quads Seated Reps: 15 (x 2) Assessment Patient tolerated treatment well and returned to room with needs met. Patient improving with treatment plan and voices desire to return to home this week. Patient told the team will discuss in meeting tomorrow. PT Associate Partner Goals Senior Care Goals PT Senior Care Goals Time Frame: Mar 04, 2021 Roll Left & Right (QC): 6 Sit to Lying (QC): 6 Lying-Sitting on Side/Bed(QC): 6 Sit to Stand (QC): 5 Chair/Ihz-bx-Kjflf Xfer(QC): 5 Toilet Transfer (QC): 5 Car Transfer (QC): 5 Does the Patient Walk: Yes Walk 10 feet (QC): 5 Walk 50ft with 2 Turns (QC): 5 Walk 150 ft (QC): 5 Walking 10ft on Uneven Surface: 5 1 Step (curb) (QC): 4 4 Steps (QC): 4 12 Steps (QC): 9 Picking up an Object (QC): 6 Does the Pt use WC or Scooter?: Yes Wheel 50 feet with 2 turns (QC: 5 Type: Manual Wheel 150 feet: 5 Type: Manual PT Plan Treatment/Plan Treatment Plan: Continue Plan of Care Treatment Plan: Bed Mobility, Concurrent Therapy, Education, Functional Activity Lin, Functional Strength, Group Therapy, Gait, Safety, Therapeutic Exercise, Transfers Treatment Duration: Mar 04, 2021 Frequency: At least 5 of 7 days/Wk (IRF) Estimated Hrs Per Day: 1.5 hours per day Patient and/or Family Agrees t: Yes Time/GCodes Time In: 1015 Time Out: 1115 Total Billed Treatment Time: 60 Total Billed Treatment 1 visit EX x 3 43 min GT 17 min SYLVESTER FERRO PT Feb 14, 2021 11:17
--- NOTE | 2021-02-14 13:42 | Physical Therapy Daily Note ---
PT Daily Note-Current Subjective Patient agrees to PT. No c/o at this time. Mental Status Patient Orientation: Normal For Age Transfers SCALE: Activities may be completed with or without assistive devices. 4-Socrfkdxme-udqweql completes the activity by him/herself with no assistance from a helper. 5-Set-up or Clean-up Assistance-helper sets up or cleans up; patient completes activity. [place] assists only prior to or following the activity. 4-Supervision or Touching Assistance-helper provides verbal cues and/or touching/steadying and/or contact guard assistance as patient completes activity. Assistance may be provided throughout the activity or intermittently. 3-Partial/Moderate Assistance-helper does LESS THAN HALF the effort. [place] lifts, holds or supports trunk or limbs, but provides less than half the effort. 2-Substantial/Maximal Assistance-helper does MORE THAN HALF the effort. [place] lifts or holds trunk or limbs and provides more than half the effort. 6-Ykqtrauus-wxhfqk does ALL the effort. Patient does none of the effort to complete the activity. Or, the assistance of 2 or more helpers is required for the patient to complete the activity. If activity was not attempted, code reason: 7-Patient Refused. 9-Not Applicable-not attempted and the patient did not perform the activity before the current illness, exacerbation or injury. 10-Not Attempted due to Environmental Limitations-(lack of equipment, weather restraints, etc.). 88-Not Attempted due to Medical Conditions or Safety Concerns. Roll Left & Right (QC): 6 Sit to Lying (QC): 6 Lying to Sitting/Side of Bed(Q: 6 Sit to Stand (QC): 4 (SBA) Toilet Transfer (QC): 4 (SBA) Gait Training Does the Patient Walk?: Yes Distance: 20' x 2 Walk 10 feet (QC): 4 (SBA) Gait Assistive Device: FWW Exercises Supine Ex: Quad Set, Glut sets, Heel Slides, Straight leg raise, Hip abd/add Supine Reps: 15 (2 sets bilaterally) Assessment Improving and compliant with exercise program. Continues to need work on right knee extension/flexion. PT Family And Marriage Counsellor Goals Nursing Home Goals PT Family And Marriage Counsellor Goals Time Frame: Mar 04, 2021 Roll Left & Right (QC): 6 Sit to Lying (QC): 6 Lying-Sitting on Side/Bed(QC): 6 Sit to Stand (QC): 5 Chair/Zgy-nv-Tydhb Xfer(QC): 5 Toilet Transfer (QC): 5 Car Transfer (QC): 5 Does the Patient Walk: Yes Walk 10 feet (QC): 5 Walk 50ft with 2 Turns (QC): 5 Walk 150 ft (QC): 5 Walking 10ft on Uneven Surface: 5 1 Step (curb) (QC): 4 4 Steps (QC): 4 12 Steps (QC): 9 Picking up an Object (QC): 6 Does the Pt use WC or Scooter?: Yes Wheel 50 feet with 2 turns (QC: 5 Type: Manual Wheel 150 feet: 5 Type: Manual PT Plan Treatment/Plan Treatment Plan: Continue Plan of Care Treatment Plan: Bed Mobility, Concurrent Therapy, Education, Functional Activity Lin, Functional Strength, Group Therapy, Gait, Safety, Therapeutic Exercise, Transfers Treatment Duration: Mar 04, 2021 Frequency: At least 5 of 7 days/Wk (IRF) Estimated Hrs Per Day: 1.5 hours per day Patient and/or Family Agrees t: Yes Time/GCodes Time In: 1300 Time Out: 1330 Total Billed Treatment Time: 30 Total Billed Treatment 1 visit EX 20 min FA 10 min SYLVESTER FERRO PT Feb 14, 2021 13:42
[2021-02-14] MEDS: ENOXAPARIN 40 MG/0.4 ML (LOVENOX) SYR SC SCH (13:44)
--- NOTE | 2021-02-14 14:22 | Occupational Ther Daily Note ---
OT Current Status-Daily Note Subjective Pt at EOB following PT tx, agreeable to OT Tx at this time. Pt states she would like some wordsearch puzzles to do, OT printed off various puzzles for pt to complete. Mental Status/Objective Patient Orientation: Normal For Age ADL-Treatment Therapy Code Descriptions/Definitions Functional [place] Measure: 0=Not Assessed/NA 4=Minimal Assistance 1=Total Assistance 5=Supervision or Setup 2=Maximal Assistance 6=Modified [place] 3=Moderate Assistance 7=Complete IndependenceSCALE: Activities may be completed with or without assistive devices. 8-Hanfudvbep-tfludts completes the activity by him/herself with no assistance from a helper. 5-Set-up or Clean-up Assistance-helper sets up or cleans up; patient completes activity. [place] assists only prior to or following the activity. 4-Supervision or Touching Assistance-helper provides verbal cues and/or touching/steadying and/or contact guard assistance as patient completes activity. Assistance may be provided throughout the activity or intermittently. 3-Partial/Moderate Assistance-helper does LESS THAN HALF the effort. [place] lifts, holds or supports trunk or limbs, but provides less than half the effort. 2-Substantial/Maximal Assistance-helper does MORE THAN HALF the effort. [place] lifts or holds trunk or limbs and provides more than half the effort. 7-Iqygaremn-bjfpon does ALL the effort. Patient does none of the effort to complete the activity. Or, the assistance of 2 or more helpers is required for the patient to complete the activity. If activity was not attempted, code reason: 7-Patient Refused. 9-Not Applicable-not attempted and the patient did not perform the activity before the current illness, exacerbation or injury. 10-Not Attempted due to Environmental Limitations-(lack of equipment, weather restraints, etc.). 88-Not Attempted due to Medical Conditions or Safety Concerns. Other Treatment Pt seated EOB post PT tx. In order to increase BUE strength and activity tolerance, OT educated pt on UE exercises using theraband. Pt performed the following BUE exercises with moderate resistance theraband, x10 reps each: shoulder flexion, elbow flexion, elbow extension, horizontal abduction, and external rotation. Pt took rest breaks as needed. Post tx, pt laying in bed, call light in reach and all needs met. Education OT Patient Education: Correct positioning, Energy conservation, Exercise program, Home exercise program, Modified ADL techniques, Progress toward Goal/Update tx plan, Purpose of tx/functional activities, Rehab process Teaching Recipient: Patient Teaching Methods: Discussion Response to Teaching: Verbalize Understanding OT Short Term Goals Short Term Goals Time Frame: Feb 22, 2021 Toileting hygiene: 4 Lower body dressin OT Chcf Goals Chcf Goals Time Frame: Mar 03, 2021 Eating (QC): 6 Oral Hygiene (QC): 6 Toileting Hygiene (QC): 6 Shower/Bathe Self (QC): 5 Upper Body Dressing (QC): 6 Lower Body Dressing (QC): 6 On/Off Footwear (QC): 6 Additional Goals: 1-Demonstrate ADL Tasks, 2-Verbalize Understanding, 3-Improve Strength/Lin 1=Demonstrate adherence to instructed precautions during ADL tasks. 2=Patient will verbalize/demonstrate understanding of assistive devices/modifications for ADL. 3=Patient will improve strength/tolerance for activity to enable patient to pe rform ADL's. OT Education/Plan Problem List/Assessment Assessment: Decreased Activ Tolerance, Decreased UE Strength, Impaired Funct Balance, Impaired I ADL's, Impaired Self-Care Skills Discharge Recommendations Plan/Recommendations: Continue POC Treatment Plan/Plan of Care Patient would benefit from OT for education, treatment and training to promote independence in ADL's, mobility, safety and/or upper extremity function for ADL's. Plan of Care: ADL Retraining, Functional Mobility, Group Exercise/Act as Ind, UE Funct Exercise/Act Treatment Duration: Mar 03, 2021 Frequency: At least 5 of 7 days/Wk (IRF) Estimated Hrs Per Day: 1.5 hours per day Rehab Potential: Guarded Time/GCodes Start Time: 13:30 Stop Time: 14:00 Total Time Billed (hr/min): 30 Billed Treatment Time 1, EX 2 RENAN RODRIGUEZ OT Feb 14, 2021 14:22
[2021-02-14 20:00] VITALS: BP 147/70
--- NOTE | 2021-02-14 20:12 | CONSULTATION REPORT ---
DATE OF SERVICE: HISTORY OF PRESENT ILLNESS: The patient is a 50-year-old female who was brought to the Emergency Department with severe infection and pain along the right foot. She has a longstanding history with issues of diabetic foot ulceration and has been receiving wound care; however, has been extremely noncompliant. She also has a history of hypertension and diabetes and does not take any medications. She has a significant history of depression after witnessing her committed suicide in 2019 and also continues to have issues with illicit drug abuse. Upon examination, she was found to have a necrotic foot wound overlying the first metatarsophalangeal joint, which was malodorous. There was also a significant amount of surrounding redness and erythema, more proximal. 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 The recommendation was to proceed with a dejxt-rta-dilh amputation. However, she did not want any procedures done in the initial phases. After talking with the patient in depth, eventually she did consent to a right agtbm-epd-jqaa amputation, which was performed on 02/07/2021. She did well postoperatively with stable vital signs and laboratory work. On postoperative day #3, the dressing was taken down and the wound was intact with no surrounding redness or erythema as well as no drainage. She was then transferred to inpatient rehabilitation on 02/13/2021. At this time, she is continuing with physical and occupational therapy. Orthoprosthesis was also consulted for placement of a stump hotel or motel cleaning supervisor. PAST MEDICAL HISTORY: Hypertension, diabetes, depression, diabetic foot necrosis, Buerger's disease. PAST SURGICAL HISTORY: None known. ALLERGIES: MEPERIDINE, VOVERAN CREAM. MEDICATIONS: Aspartate insulin 6 units a.c., detemir insulin 20 units b.i.d., lactulose 10 mg b.i.d., senna 1 tab b.i.d., hydrocodone p.r.n. SOCIAL HISTORY: Positive smoke 40 pack years, positive for methamphetamine. Negative alcohol. FAMILY HISTORY: Noncontributory. VITAL SIGNS: Temperature is 36.6, blood pressure 161/86, pulse 65, respirations 18, pulse ox 95% on room air. REVIEW OF SYSTEMS: Well-nourished female currently in no acute distress. She is not experiencing any shortness of breath or difficulty breathing. No chest pain, palpitations, diaphoresis. No nausea, vomiting, with a history of constipation, no red blood per rectum, no dark tarry stools. No fever, chills, no recent inadvertent weight loss. All other review of systems negative. PHYSICAL EXAMINATION: CHEST: Distant breath sounds and scattered wheezes bilaterally. HEART: Regular, no murmurs. EXTREMITIES: No lower extremity edema, negative Homans sign. HEENT: No scleral icterus. NECK: No cervical lymphadenopathy. ABDOMEN: Soft, nontender, nondistended. SKIN. The right reivr-tgy-foom amputation stump is clean, dry and intact with no surrounding redness or erythema as well as no drainage. LABORATORY DATA: WBC 8.6, hemoglobin 7.2, hematocrit 24, platelets . BUN 31, creatinine 1.90, glucose 167. ASSESSMENT AND PLAN: A 50-year-old female with right foot diabetic necrosis, Buerger's disease, significant history of smoking as well as methamphetamine use. She is status post right below-knee amputation. She will continue with physical and occupational therapy as well as wound care with gauze dressing followed by Kerlix, followed by 4-inch Farzad wrap as well as 6-inch Farzad wrap to the high thigh. She will also have a stump hotel or motel cleaning supervisor applied and eventually be fitted for prosthesis. We will continue to monitor her progress. Job ID: [id number] DocumentID: [id number] Dictated Date: 02/14/2021 19:46:38 Library Cataloging Technician Date: 02/14/2021 20:12:08 Dictated By: [address] MD
[2021-02-15] MEDS: HYDROcodone/APAP 7.5 MG/325 MG (LORTAB, LORCET PLUS) TABLET PO PRN ×3 (01:16→14:03)
[2021-02-15] MEDS: inSUlin ASPART (NovoLOG) 1 UNIT/0.01 ML (CHARGE PER UNIT) SC SCH ×4 (05:17→20:53)
[2021-02-15 07:15] VITALS: BP 167/86
[2021-02-15] MEDS: DOCUSATE SODIUM 100 MG (COLACE) CAP PO SCH ×2 (08:15→21:32)
[2021-02-15] MEDS: amLODIPine 5 MG (NORVASC) TAB PO SCH (08:15)
[2021-02-15] MEDS: polyethylene glycoL POWDER 17 GM (MIRALAX) PACK PO SCH ×2 (08:16→22:34)
[2021-02-15] MEDS: LACTULOSE SYRUP 10GM/15ML (ENULOSE) 30ML UDC PO SCH ×2 (08:16→21:32)
[2021-02-15] MEDS: SENNA W/DOCUSATE (SENOKOT S) TABLET PO SCH ×4 (08:16→21:34)
--- NOTE | 2021-02-15 09:32 | Physical Therapy Daily Note ---
PT Daily Note-Current Subjective Pt agreeable to treatment. Pain level 5/10 upon arrival and 7-8/10 during ther ex. Pt initially in good spirits and fully participating. Pt became "anxious, cold and nauseaus" after toileting. Pt stated "I just need to lay down." Pt emotional last 15min of treatment stating "I need to go home. I just need to ge t home." Mental Status Patient Orientation: Person, Place, Situation Transfers SCALE: Activities may be completed with or without assistive devices. 3-Svxxrzuxin-nuhrwbn completes the activity by him/herself with no assistance from a helper. 5-Set-up or Clean-up Assistance-helper sets up or cleans up; patient completes activity. [place] assists only prior to or following the activity. 4-Supervision or Touching Assistance-helper provides verbal cues and/or touching/steadying and/or contact guard assistance as patient completes activity. Assistance may be provided throughout the activity or intermittently. 3-Partial/Moderate Assistance-helper does LESS THAN HALF the effort. [place] lifts, holds or supports trunk or limbs, but provides less than half the effort. 2-Substantial/Maximal Assistance-helper does MORE THAN HALF the effort. [place] lifts or holds trunk or limbs and provides more than half the effort. 5-Ekvhrrakt-uvvxbk does ALL the effort. Patient does none of the effort to complete the activity. Or, the assistance of 2 or more helpers is required for the patient to complete the activity. If activity was not attempted, code reason: 7-Patient Refused. 9-Not Applicable-not attempted and the patient did not perform the activity before the current illness, exacerbation or injury. 10-Not Attempted due to Environmental Limitations-(lack of equipment, weather restraints, etc.). 88-Not Attempted due to Medical Conditions or Safety Concerns. Transfers all levels mod (I) Gait Training Gait Assistive Device: FWW Pt hopped with CGA 2 x 20ft Exercises Supine Ex: Quad Set, Heel Slides, Short Arc Quads, Straight leg raise, Hip abd/add Supine Reps: 30 Seated Therapy Exercises: Long arc quads Seated Reps: 30 Treatments Pt toileted, doffed, donned pants with SBA. Pt BP monitored after pt c/o cold and nausea (last 15min of treatment) 192/88 with HR 75bpm. Pt BP taken after 2 min rest 175/83 with HR 70bpm. Assessment Current Status: Fair Progress Pt amb training somewhat limited by nausea and anxiousness. Pt did well with ther ex and transfers. Pt resting in recliner with call light and all needs met. PT Configuration Consultant Goals Usp Goals PT Usp Goals Time Frame: Mar 04, 2021 Roll Left & Right (QC): 6 Sit to Lying (QC): 6 Lying-Sitting on Side/Bed(QC): 6 Sit to Stand (QC): 5 Chair/Nnb-qr-Rxetf Xfer(QC): 5 Toilet Transfer (QC): 5 Car Transfer (QC): 5 Does the Patient Walk: Yes Walk 10 feet (QC): 5 Walk 50ft with 2 Turns (QC): 5 Walk 150 ft (QC): 5 Walking 10ft on Uneven Surface: 5 1 Step (curb) (QC): 4 4 Steps (QC): 4 12 Steps (QC): 9 Picking up an Object (QC): 6 Does the Pt use WC or Scooter?: Yes Wheel 50 feet with 2 turns (QC: 5 Type: Manual Wheel 150 feet: 5 Type: Manual PT Plan Treatment/Plan Treatment Plan: Continue Plan of Care Treatment Plan: Bed Mobility, Concurrent Therapy, Education, Functional Act ivity Lin, Functional Strength, Group Therapy, Gait, Safety, Therapeutic Exercise, Transfers Treatment Duration: Mar 04, 2021 Frequency: At least 5 of 7 days/Wk (IRF) Estimated Hrs Per Day: 1.5 hours per day Patient and/or Family Agrees t: Yes Time/GCodes Time In: 60 Time Out: 815 Total Billed Treatment Time: 915 Total Billed Treatment 1, ther ex 30', gait 15', FA 15' VIRGIE WESTFALL CPTA Feb 15, 2021 09:32
--- NOTE | 2021-02-15 11:19 | Occupational Ther Daily Note ---
OT Current Status-Daily Note Subjective Pt laying in bed, agreeable to OT tx in AM, but indicates she doesn't feel good. Her stomach is upset and she had a high BP earlier. Pt's BP at start of tx 158/72 with blood glucose 199. Agreeable to PM tx following PT Mental Status/Objective Patient Orientation: Person, Place, Time, Situation ADL-Treatment Therapy Code Descriptions/Definitions Functional [place] Measure: 0=Not Assessed/NA 4=Minimal Assistance 1=Total Assistance 5=Supervision or Setup 2=Maximal Assistance 6=Modified [place] 3=Moderate Assistance 7=Complete IndependenceSCALE: Activities may be completed with or without assistive devices. 6-Dnisxeioyk-jjtxkyw completes the activity by him/herself with no assistance from a helper. 5-Set-up or Clean-up Assistance-helper sets up or cleans up; patient completes activity. [place] assists only prior to or following the activity. 4-Supervision or Touching Assistance-helper provides verbal cues and/or touching/steadying and/or contact guard assistance as patient completes activity. Assistance may be provided throughout the activity or intermittently. 3-Partial/Moderate Assistance-helper does LESS THAN HALF the effort. [place] lifts, holds or supports trunk or limbs, but provides less than half the effort. 2-Substantial/Maximal Assistance-helper does MORE THAN HALF the effort. [place] lifts or holds trunk or limbs and provides more than half the effort. 5-Lcuszqhsq-oamcki does ALL the effort. Patient does none of the effort to complete the activity. Or, the assistance of 2 or more helpers is required for the patient to complete the activity. If activity was not attempted, code reason: 7-Patient Refused. 9-Not Applicable-not attempted and the patient did not perform the activity before the current illness, exacerbation or injury. 10-Not Attempted due to Environmental Limitations-(lack of equipment, weather restraints, etc.). 88-Not Attempted due to Medical Conditions or Safety Concerns. Eating (QC): 6 Oral Hygiene (QC): 6 (IND seated at sink) Shower/Bathe Self (QC): 5 (set up, pt able to wash/dry all parts seated. Leaned side to side in order to wash periarea and buttocks.) Upper Body Dressing (QC): 5 (set up) Lower Body Dressing (QC): 4 (supervision in stand for pant hike) On/Off Footwear: 5 (set up, pt able to doff/don gripper sock IND) Toileting Hygiene (QC): 4 (supervision in stand for pant hike, pt able to manage hygiene) Toilet Transfer (QC): 4 (supervision on/off toilet) Other Treatment [id number] Pt laying in bed, BP taken and blood sugar due to pt stating she doesn't feel well. Pt requests sponge bath on this date instead of shower. Pt transferred supine to sit EOIB independently, then completed shower at EOB with set up assistance. Pt able to wash/dry all parts seated utilizing side leans to wash periarea and buttocks. Pt donned shirt and gripper sock, then states need to toilet. Pt used FWW to perform functional mobility into bathroom and onto toilet with supervision. Pt completed toileting, then donned LE clothing. Pt used FWW to transfer to sink and sat to complete oral care. Pt used FWW to return to bed. Post tx, pt laying in bed, call light in reach and all needs met. [id number] Pt seated EOB following PT tx. In order to increase BUE Strength and activity tolerance, pt completed 5/5 UE exercises using moderate resistance theraband. Pt required minimal skilled cues for correct technique and following written HEP (pt states she needs new glasses). Pt requests to use bathroom, performed functional mobility using FWW into bathroom and onto toilet with supervision, completed toileting, then returned to EOB supervision. Pt transferred supine. Post tx, pt laying in bed, call light in reach and all needs met. Education OT Patient Education: Correct positioning, Modified ADL techniques, Progress toward Goal/Update tx plan, Purpose of tx/functional activities, Rehab process Teaching Recipient: Patient Teaching Methods: Discussion Response to Teaching: Verbalize Understanding OT Short Term Goals Short Term Goals Time Frame: Feb 22, 2021 Toileting hygiene: 4 Lower body dressin OT Brazing Machine Operator Helper Goals Brazing Machine Operator Helper Goals Time Frame: Mar 03, 2021 Eating (QC): 6 Oral Hygiene (QC): 6 Toileting Hygiene (QC): 6 Shower/Bathe Self (QC): 5 Upper Body Dressing (QC): 6 Lower Body Dressing (QC): 6 On/Off Footwear (QC): 6 Additional Goals: 1-Demonstrate ADL Tasks, 2-Verbalize Understanding, 3- ImproveStrength/Lin 1=Demonstrate adherence to instructed precautions during ADL tasks. 2=Patient will verbalize/demonstrate understanding of assistive memo gomez/modifications for ADL. 3=Patient will improve strength/tolerance for activity to enable patient to perform ADL's. OT Education/Plan Problem List/Assessment Assessment: Decreased Activ Tolerance, Decreased UE Strength, Impaired Funct Balance, Impaired I ADL's, Impaired Self-Care Skills Discharge Recommendations Plan/Recommendations: Continue POC Treatment Plan/Plan of Care Patient would benefit from OT for education, treatment and training to promote independence in ADL's, mobility, safety and/or upper extremity function for ADL' s. Plan of Care: ADL Retraining, Functional Mobility, Group Exercise/Act as Ind, UE Funct Exercise/Act Treatment Duration: Mar 03, 2021 Frequency: At least 5 of 7 days/Wk (IRF) Estimated Hrs Per Day: 1.5 hours per day Rehab Potential: Guarded Time/GCodes Start Time: 10:00 ([id number]) Stop Time: 13:30 ([id number]) Total Time Billed (hr/min): 90 Billed Treatment Time [id number]: 1, ADL 4 [id number]: 1, EX (20'), ADL (10') RENAN RODRIGUEZ OT Feb 15, 2021 11:19
[2021-02-15] MEDS: ENOXAPARIN 40 MG/0.4 ML (LOVENOX) SYR SC SCH (14:03)
--- NOTE | 2021-02-15 15:17 | Physical Therapy Daily Note ---
PT Daily Note-Current Subjective Agreeable to PT. Questions when she will get to go home. Transfers SCALE: Activities may be completed with or without assistive devices. 0-Qqisqcjpgm-eehxejl completes the activity by him/herself with no assistance from a helper. 5-Set-up or Clean-up Assistance-helper sets up or cleans up; patient completes activity. [place] assists only prior to or following the activity. 4-Supervision or Touching Assistance-helper provides verbal cues and/or touching/steadying and/or contact guard assistance as patient completes activity. Assistance may be provided throughout the activity or intermittently. 3-Partial/Moderate Assistance-helper does LESS THAN HALF the effort. [place] lifts, holds or supports trunk or limbs, but provides less than half the effort. 2-Substantial/Maximal Assistance-helper does MORE THAN HALF the effort. [place] lifts or holds trunk or limbs and provides more than half the effort. 2-Twphnxevx-fffydm does ALL the effort. Patient does none of the effort to complete the activity. Or, the assistance of 2 or more helpers is required for the patient to complete the activity. If activity was not attempted, code reason: 7-Patient Refused. 9-Not Applicable-not attempted and the patient did not perform the activity before the current illness, exacerbation or injury. 10-Not Attempted due to Environmental Limitations-(lack of equipment, weather restraints, etc.). 88-Not Attempted due to Medical Conditions or Safety Concerns. Roll Left & Right (QC): 6 Sit to Lying (QC): 6 Lying to Sitting/Side of Bed(Q: 6 Worked on functional bed mobility and positioning in bed. Reviewed positioning for optimal skin care as well as for hip flexion stretching for adequate hip extension. Reviewed safety with all funcitonal mobility. Assessment Current Status: Good Progress Understands training and education well. PT Wearing Apparel Folder Goals Mcc Goals PT Wearing Apparel Folder Goals Time Frame: Mar 04, 2021 Roll Left & Right (QC): 6 Sit to Lying (QC): 6 Lying-Sitting on Side/Bed(QC): 6 Sit to Stand (QC): 5 Chair/Tys-jw-Uwjyx Xfer(QC): 5 Toilet Transfer (QC): 5 Car Transfer (QC): 5 Does the Patient Walk: Yes Walk 10 feet (QC): 5 Walk 50ft with 2 Turns (QC): 5 Walk 150 ft (QC): 5 Walking 10ft on Uneven Surface: 5 1 Step (curb) (QC): 4 4 Steps (QC): 4 12 Steps (QC): 9 Picking up an Object (QC): 6 Does the Pt use WC or Scooter?: Yes Wheel 50 feet with 2 turns (QC: 5 Type: Manual Wheel 150 feet: 5 Type: Manual PT Plan Problem List Problem List: Activity Tolerance, Functional Strength, Safety Treatment/Plan Treatment Plan: Continue Plan of Care Treatment Plan: Bed Mobility, Concurrent Therapy, Education, Functional Activ ity Lin, Functional Strength, Group Therapy, Gait, Safety, Therapeutic Exercise, Transfers Treatment Duration: Mar 04, 2021 Frequency: At least 5 of 7 days/Wk (IRF) Estimated Hrs Per Day: 1.5 hours per day Patient and/or Family Agrees t: Yes Safety Risks/Education Patient Education: Reviewed Precautions Teaching Recipient: Patient Teaching Methods: Demonstration, Discussion Response to Teaching: Return Demonstration Time/GCodes Time In: 1230 Time Out: 1300 Total Billed Treatment Time: 30 Total Billed Treatment visit FA 30 PAULA GARCIA PT Feb 15, 2021 15:17
[2021-02-15 20:05] VITALS: BP 144/75
--- NOTE | 2021-02-15 20:52 | PM&R Progress Note ---
Subjective HPI/CC On Admission Date Seen by Provider: Feb 15, 2021 Time Seen by Provider: 10:30 Subjective/Events-last exam 02/15/21: Pt doesnt feel too great Having some nausea Wound looks good BP stable Blood sugar is 200 02/14/2021: Pt in a better mood Creatinine 1.9 Hgb 7.2 Bowels moved yesterday Miralax given Review of Systems General: Fatigue, Malaise Objective Exam Vital Signs Vital Signs Date Time Temp Pulse Resp B/P (MAP) Pulse Ox O2 Delivery O2 Flow Rate FiO2 02/15/21 20:05 36.4 69 16 144/75 (98) 95 Room Air Capillary Refill : General Appearance: No Apparent Distress, WD/WN, Chronically ill HEENT: PERRL/EOMI, Normal ENT Inspection, Pharynx Normal Neck: Full Range of Motion, Normal Inspection, Non Tender, Supple, Carotid Bruit Respiratory: Chest Non Tender, Lungs Clear, Normal Breath Sounds, No Accessory Muscle Use, No Respiratory Distress Cardiovascular: Regular Rate, Rhythm, No Edema, No Gallop, No JVD, No Murmur, Normal Peripheral Pulses Gastrointestinal: Normal Bowel Sounds, No Organomegaly, No Pulsatile Mass, Non Tender, Soft Back: Normal Inspection, No CVA Tenderness, No Vertebral Tenderness Extremity: Normal Capillary Refill, Normal Inspection, Normal Range of Motion, Non Tender, No Calf Tenderness, No Pedal Edema, Other (Right BKA dressing intact) Neurologic/Psychiatric: Alert, Oriented x3, No Motor/Sensory Deficits, Normal Mood/Affect, Motor Weakness (Generalized and lower extremities) Skin: Normal Color, Warm/Dry Lymphatic: No Adenopathy Results/Procedures Lab Patient resulted labs reviewed. FIM Transfers Therapy Code Descriptions/Definitions Functional [place] Measure: 0=Not Assessed/NA 4=Minimal Assistance 1=Total Assistance 5=Supervision or Setup 2=Maximal Assistance 6=Modified [place] 3=Moderate Assistance 7=Complete IndependenceSCALE: Activities may be completed with or without assistive devices. 2-Goheihplrp-zherfav completes the activity by him/herself with no assistance from a helper. 5-Set-up or Clean-up Assistance-helper sets up or cleans up; patient completes activity. [place] assists only prior to or following the activity. 4-Supervision or Touching Assistance-helper provides verbal cues and/or touching/steadying and/or contact guard assistance as patient completes activity. Assistance may be provided throughout the activity or intermittently. 3-Partial/Moderate Assistance-helper does LESS THAN HALF the effort. [place] lifts, holds or supports trunk or limbs, but provides less than half the effort. 2-Substantial/Maximal Assistance-helper does MORE THAN HALF the effort. [place] lifts or holds trunk or limbs and provides more than half the effort. 9-Ikttrkdxd-kylvzv does ALL the effort. Patient does none of the effort to complete the activity. Or, the assistance of 2 or more helpers is required for the patient to complete the activity. If activity was not attempted, code reason: 7-Patient Refused. 9-Not Applicable-not attempted and the patient did not perform the activity before the current illness, exacerbation or injury. 10-Not Attempted due to Environmental Limitations-(lack of equipment, weather restraints, etc.). 88-Not Attempted due to Medical Conditions or Safety Concerns. Roll Left to Right (QC): 6 Sit to Lying (QC): 6 Sit to Stand (QC): 4 (SBA) Chair/Shl-tg-Yavti Xfer(QC): 4 (SBA) Car Transfer (QC): 4 Gait Training Does the Patient Walk?: Yes Distance: 20' x 2 Walk 10 feet (QC): 4 (SBA) Walk 50 ft with 2 Turns(QC): 4 (SBA) Walk 150 ft (QC): 3 Walking 10ft/uneven surface-QC: 3 Gait Assistive Device: FWW Wheelchair Training Does the Pt Use a Wheelchair?: Yes Distance: 150' Wheel 50 ft with 2 turns (QC): 2 Wheel 150 ft (QC): 2 Type of Wheelchair: Manual Stair Training #of Steps: 1 1 Step (curb) (QC): 3 4 Steps (QC): 88 12 Steps (QC): 9 Balance Picking up an Object (QC): 88 ADL-Treatment Eating (QC): 6 Oral Hygiene (QC): 6 (IND seated at sink) Shower/Bathe Self (QC): 5 (set up, pt able to wash/dry all parts seated. Leaned side to side in order to wash periarea and buttocks.) Upper Body Dressing (QC): 5 (set up) Lower Body Dressing (QC): 4 (supervision in stand for pant hike) On/Off Footwear (QC): 5 (set up, pt able to doff/don gripper sock IND) Toileting Hygiene (QC): 4 (supervision in stand for pant hike, pt able to manage hygiene) Toilet Transfer (QC): 4 (supervision on/off toilet) Assessment/Plan Assessment and Plan Assess & Plan/Chief Complaint Assessment: Status post right below the knee amputation Diabetes mellitus sdj-rx-dpaotic noncompliant with treatment Current smoker Chronic kidney disease stage III Poor social situation Mental illness Labile moods Plan: Supportive care Therapy Manage mental illness 02/14/2021: Much improved Wants to go home soon Management of blood sugar Pain control 02/15/2021: Supportive care Blood sugar and blood pressure management (1) S/P BKA (below knee amputation) Status: Acute (2) Smoker (3) Chronic kidney disease, stage III (moderate) (4) Chronic mental illness (5) DKA (diabetic ketoacidosis) Status: Resolved Resolution Date/Time: 02/10/21 @ 12:23 (6) T2DM (type 2 diabetes mellitus) Status: Acute FATIMAH SOLORZANO DO Feb 15, 2021 20:52
[2021-02-15] MEDS: ALPRAZolam 0.5 MG (XANAX) TAB PO PRN (21:32)
[2021-02-16] MEDS: HYDROcodone/APAP 7.5 MG/325 MG (LORTAB, LORCET PLUS) TABLET PO PRN ×6 (00:14→21:27)
--- NOTE | 2021-02-16 05:23 | PM&R Progress Note ---
Subjective HPI/CC On Admission Date Seen by Provider: Feb 16, 2021 Time Seen by Provider: 13:00 Subjective/Events-last exam 02/16/2021: I could not go into the room because she was screaming at her boyfriend on the phone so loudly Will need glucometer at discharge Very labile emotions 02/15/21: Pt doesnt feel too great Having some nausea Wound looks good BP stable Blood sugar is 200 02/14/2021: Pt in a better mood Creatinine 1.9 Hgb 7.2 Bowels moved yesterday Miralax given Review of Systems Musculoskeletal: leg pain Objective Exam Vital Signs Vital Signs Date Time Temp Pulse Resp B/P (MAP) Pulse Ox O2 Delivery O2 Flow Rate FiO2 02/16/21 21:00 96 Room Air 02/16/21 20:00 36.6 63 16 125/72 (89) Capillary Refill : General Appearance: No Apparent Distress, WD/WN, Chronically ill HEENT: PERRL/EOMI, Normal ENT Inspection, Pharynx Normal Neck: Full Range of Motion, Normal Inspection, Non Tender, Supple, Carotid Bruit Respiratory: Chest Non Tender, Lungs Clear, Normal Breath Sounds, No Accessory Muscle Use, No Respiratory Distress Cardiovascular: Regular Rate, Rhythm, No Edema, No Gallop, No JVD, No Murmur, Normal Peripheral Pulses Gastrointestinal: Normal Bowel Sounds, No Organomegaly, No Pulsatile Mass, Non Tender, Soft Back: Normal Inspection, No CVA Tenderness, No Vertebral Tenderness Extremity: Normal Capillary Refill, Normal Inspection, Normal Range of Motion, Non Tender, No Calf Tenderness, No Pedal Edema, Other (Right BKA dressing intact) Neurologic/Psychiatric: Alert, Oriented x3, No Motor/Sensory Deficits, Normal Mood/Affect, Motor Weakness (Generalized and lower extremities) Skin: Normal Color, Warm/Dry Lymphatic: No Adenopathy Results/Procedures Lab Patient resulted labs reviewed. FIM Transfers Therapy Code Descriptions/Definitions Functional [place] Measure: 0=Not Assessed/NA 4=Minimal Assistance 1=Total Assistance 5=Supervision or Setup 2=Maximal Assistance 6=Modified [place] 3=Moderate Assistance 7=Complete IndependenceSCALE: Activities may be completed with or without assistive devices. 5-Jzwoptrimm-bcrgrjv completes the activity by him/herself with no assistance from a helper. 5-Set-up or Clean-up Assistance-helper sets up or cleans up; patient completes activity. [place] assists only prior to or following the activity. 4-Supervision or Touching Assistance-helper provides verbal cues and/or touching/steadying and/or contact guard assistance as patient completes activity. Assistance may be provided throughout the activity or intermittently. 3-Partial/Moderate Assistance-helper does LESS THAN HALF the effort. [place] lifts, holds or supports trunk or limbs, but provides less than half the effort. 2-Substantial/Maximal Assistance-helper does MORE THAN HALF the effort. [place] lifts or holds trunk or limbs and provides more than half the effort. 7-Rsqrmzhls-uovtwj does ALL the effort. Patient does none of the effort to complete the activity. Or, the assistance of 2 or more helpers is required for the patient to complete the activity. If activity was not attempted, code reason: 7-Patient Refused. 9-Not Applicable-not attempted and the patient did not perform the activity before the current illness, exacerbation or injury. 10-Not Attempted due to Environmental Limitations-(lack of equipment, weather restraints, etc.). 88-Not Attempted due to Medical Conditions or Safety Concerns. Roll Left to Right (QC): 6 Sit to Lying (QC): 6 Sit to Stand (QC): 4 (SBA) Chair/Cbg-qg-Dwpcm Xfer(QC): 4 (SBA) Car Transfer (QC): 4 Gait Training Does the Patient Walk?: Yes Distance: 20' x 2 Walk 10 feet (QC): 4 (SBA) Walk 50 ft with 2 Turns(QC): 4 (SBA) Walk 150 ft (QC): 3 Walking 10ft/uneven surface-QC: 3 Gait Assistive Device: FWW Wheelchair Training Does the Pt Use a Wheelchair?: Yes Distance: 150' Wheel 50 ft with 2 turns (QC): 2 Wheel 150 ft (QC): 2 Type of Wheelchair: Manual Stair Training #of Steps: 1 1 Step (curb) (QC): 3 4 Steps (QC): 88 12 Steps (QC): 9 Balance Picking up an Object (QC): 88 ADL-Treatment Eating (QC): 6 Oral Hygiene (QC): 6 (IND seated at sink) Shower/Bathe Self (QC): 5 (set up, pt able to wash/dry all parts seated. Leaned side to side in order to wash periarea and buttocks.) Upper Body Dressing (QC): 5 (set up) Lower Body Dressing (QC): 4 (supervision in stand for pant hike) On/Off Footwear (QC): 5 (set up, pt able to doff/don gripper sock IND) Toileting Hygiene (QC): 4 (supervision in stand for pant hike, pt able to manage hygiene) Toilet Transfer (QC): 4 (supervision on/off toilet) Assessment/Plan Assessment and Plan Assess & Plan/Chief Complaint Assessment: Status post right below the knee amputation Diabetes mellitus aff-ld-rjwzlbd noncompliant with treatment Current smoker Chronic kidney disease stage III Poor social situation Mental illness Labile moods Plan: Supportive care Therapy Manage mental illness 02/14/2021: Much improved Wants to go home soon Management of blood sugar Pain control 02/15/2021: Supportive care Blood sugar and blood pressure management 02/16/2021: Insulin at discharge Glucometer at discharge (1) S/P BKA (below knee amputation) Status: Acute (2) Smoker (3) Chronic kidney disease, stage III (moderate) (4) Chronic mental illness (5) DKA (diabetic ketoacidosis) Status: Resolved Resolution Date/Time: 02/10/21 @ 12:23 (6) T2DM (type 2 diabetes mellitus) Status: Acute FATIMAH SOLORZANO DO Feb 16, 2021 05:23
[2021-02-16] MEDS: inSUlin ASPART (NovoLOG) 1 UNIT/0.01 ML (CHARGE PER UNIT) SC SCH ×4 (05:34→21:00)
[2021-02-16] MEDS: amLODIPine 5 MG (NORVASC) TAB PO SCH (07:22)
[2021-02-16] MEDS: SENNA W/DOCUSATE (SENOKOT S) TABLET PO SCH ×4 (07:24→21:03)
[2021-02-16] MEDS: LACTULOSE SYRUP 10GM/15ML (ENULOSE) 30ML UDC PO SCH ×2 (07:24→20:59)
[2021-02-16 07:25] VITALS: BP 165/77
[2021-02-16] MEDS: DOCUSATE SODIUM 100 MG (COLACE) CAP PO SCH ×2 (07:25→20:56)
[2021-02-16] MEDS: polyethylene glycoL POWDER 17 GM (MIRALAX) PACK PO SCH ×2 (08:03→21:03)
--- NOTE | 2021-02-16 09:22 | Occupational Ther Daily Note ---
OT Current Status-Daily Note Subjective Pt agreeable to OT Tx wtih focus on showering. After shower, pt requests to lay down and yells at therapist about her parking lot attendant. After pt was given a couple minutes to calm down, pt agreeable to continued tx. Pain Numeric Pain Scale: 3 Location: Right (R residual limb) Mental Status/Objective Patient Orientation: Person, Place, Time, Situation, Normal For Age ADL-Treatment Therapy Code Descriptions/Definitions Functional [place] Measure: 0=Not Assessed/NA 4=Minimal Assistance 1=Total Assistance 5=Supervision or Setup 2=Maximal Assistance 6=Modified [place] 3=Moderate Assistance 7=Complete IndependenceSCALE: Activities may be completed with or without assistive devices. 1-Hpmakjmeyt-xkxdict completes the activity by him/herself with no assistance from a helper. 5-Set-up or Clean-up Assistance-helper sets up or cleans up; patient completes a ctivity. [place] assists only prior to or following the activity. 4-Supervision or Touching Assistance-helper provides verbal cues and/or touching/steadying and/or contact guard assistance as patient completes activity. Assistance may be provided throughout the activity or intermittently. 3-Partial/Moderate Assistance-helper does LESS THAN HALF the effort. [place] lifts, holds or supports trunk or limbs, but provides less than half the effort. 2-Substantial/Maximal Assistance-helper does MORE THAN HALF the effort. [place] lifts or holds trunk or limbs and provides more than half the effort. 4-Glldeayxy-kmshus does ALL the effort. Patient does none of the effort to complete the activity. Or, the assistance of 2 or more helpers is required for the patient to complete the activity. If activity was not attempted, code reason: 7-Patient Refused. 9-Not Applicable-not attempted and the patient did not perform the activity before the current illness, exacerbation or injury. 10-Not Attempted due to Environmental Limitations-(lack of equipment, weather restraints, etc.). 88-Not Attempted due to Medical Conditions or Safety Concerns. Eating (QC): 6 (IND with eating.) Oral Hygiene (QC): 6 (IND seated at sink.) Shower/Bathe Self (QC): 5 (set up, pt able to wash/dry all parts seated on SC) Upper Body Dressing (QC): 5 (set up) Lower Body Dressing (QC): 4 (Supervision, pt able to don/doff pants.) On/Off Footwear: 3 (Mod A with stump parking lot attendant) Toileting Hygiene (QC): 4 (supervision) Toilet Transfer (QC): 4 (supervision) Other Treatment Pt laying in bed, used FWW to perform functional mobility into bathroom and onto the toilet. Pt completed toileting, showering and oral care as outlined above. P t states she is fatigued and would like to rest. Pt used FWW to transfer to recliner, attempted to don stump parking lot attendant. Pt donned slightly incorrect, requiring removal. Pt began yelling at this therapist to leave it alone, OT attempted to calm pt down and educate her on how parking lot attendant needs to be properly donned. Pt reluctantly agreed to removal of parking lot attendant. OT then let pt calm down f or a couple of minutes, then pt agreeable to attempt to don parking lot attendant again. OT threaded parking lot attendant onto donning tube for pt, she was then able to don correctly. OT educated pt on how to locate the inside vs outside of parking lot attendant (making sure seams are on outside, silicone band against sink, tag on inside). OT also provided pt with adaptive bag and education on donning bag prior to showering in order to keep dressing dry, pt verbalized understanding. In order to increase fine motor strength and coordination, pt removed beads from moderate resistance theraputty, able to locate all beads without cues. Post tx, pt laying in bed, call light in reach and all needs met. Education OT Patient Education: Correct positioning, Energy conservation, Exercise program, Modified ADL techniques, Progress toward Goal/Update tx plan, Purpose of tx/functional activities, Rehab process Teaching Recipient: Patient Teaching Methods: Discussion Response to Teaching: Verbalize Understanding OT Short Term Goals Short Term Goals Time Frame: Feb 22, 2021 Toileting hygiene: 4 Lower body dressin OT Skilled Nursing Goals Skilled Nursing Goals Time Frame: Mar 03, 2021 Eating (QC): 6 Oral Hygiene (QC): 6 Toileting Hygiene (QC): 6 Shower/Bathe Self (QC): 5 Upper Body Dressing (QC): 6 Lower Body Dressing (QC): 6 On/Off Footwear (QC): 6 Additional Goals: 1-Demonstrate ADL Tasks, 2-Verbalize Understanding, 3- ImproveStrength/Lin 1=Demonstrate adherence to instructed precautions during ADL tasks. 2=Patient will verbalize/demonstrate understanding of assistive devices/modifications for ADL. 3=Patient will improve strength/tolerance for activity to enable patient to perform ADL's. OT Education/Plan Problem List/Assessment Assessment: Decreased Activ Tolerance, Decreased UE Strength, Impaired Funct Balance, Impaired I ADL's, Impaired Self-Care Skills Discharge Recommendations Plan/Recommendations: Continue POC Treatment Plan/Plan of Care Patient would benefit from OT for education, treatment and training to promote independence in ADL's, mobility, safety and/or upper extremity function for ADL's. Plan of Care: ADL Retraining, Functional Mobility, Group Exercise/Act as Ind, UE Funct Exercise/Act Treatment Duration: Mar 03, 2021 Frequency: At least 5 of 7 days/Wk (IRF) Estimated Hrs Per Day: 1.5 hours per day Rehab Potential: Guarded Time/GCodes Start Time: 08:00 Stop Time: 09:30 Total Time Billed (hr/min): 90 Billed Treatment Time 1, ADL 5 (75'), FA (15') RENAN RODRIGUEZ OT Feb 16, 2021 09:22
[2021-02-16] MEDS ORDERED: ZINC OXIDE 16% OINT (BUTT PASTE) 57 GM TUBE TOP PRN (09:45)
--- NOTE | 2021-02-16 10:56 | Progress Note ---
Subjective Date Seen by a Provider: Feb 16, 2021 Time Seen by a Provider: 11:00 Subjective/Events-last exam doing well. tolerating stump certified juvenile probation officer. tolerating PT/OT. pain controlled. Objective Exam Vital Signs Date Time Temp Pulse Resp B/P (MAP) Pulse Ox O2 Delivery O2 Flow Rate FiO2 02/16/21 09:00 Room Air 02/16/21 07:25 36.6 60 16 165/77 (106) 96 Room Air 02/16/21 00:44 36.4 02/15/21 21:00 95 Room Air 02/15/21 20:05 36.4 69 16 144/75 (98) 95 Room Air Capillary Refill : General Appearance: No Apparent Distress HEENT: PERRL/EOMI Neck: Full Range of Motion Respiratory: Chest Non Tender Cardiovascular: Regular Rate, Rhythm Gastrointestinal: normal bowel sounds, non tender, soft Extremity: Normal Capillary Refill Neurologic/Psychiatric: Alert, Oriented x3 Skin: Normal Color Lymphatic: No Adenopathy Results Lab Laboratory Tests 02/15/21 11:38: Glucometer 165H 02/15/21 15:27: Glucometer 193H 02/15/21 20:49: Glucometer 151H 02/16/21 05:32: Glucometer 174H Assessment/Plan Assessment/Plan Assess & Plan/Chief Complaint s/p right BKA. cont PT/OT. cont ambulation. home saturday. [address] MD Feb 16, 2021 10:56
--- NOTE | 2021-02-16 11:16 | Physical Therapy Daily Note ---
PT Daily Note-Current Subjective Patient in bed pre tx, agrees to PT, has 6/10 pain post tx Appearance Patient in bed post tx with nurse call, phone, tray, all needs met. Mental Status Patient Orientation: Person, Place, Situation Transfers SCALE: Activities may be completed with or without assistive devices. 7-Cerenwpfih-qkjlaxs completes the activity by him/herself with no assistance from a helper. 5-Set-up or Clean-up Assistance-helper sets up or cleans up; patient completes activity. [place] assists only prior to or following the activity. 4-Supervision or Touching Assistance-helper provides verbal cues and/or touching/steadying and/or contact guard assistance as patient completes activity. Assistance may be provided throughout the activity or intermittently. 3-Partial/Moderate Assistance-helper does LESS THAN HALF the effort. [place] lifts, holds or supports trunk or limbs, but provides less than half the effort. 2-Substantial/Maximal Assistance-helper does MORE THAN HALF the effort. [place] lifts or holds trunk or limbs and provides more than half the effort. 2-Lpbhfuwaf-qawrrc does ALL the effort. Patient does none of the effort to complete the activity. Or, the assistance of 2 or more helpers is required for the patient to complete the activity. If activity was not attempted, code reason: 7-Patient Refused. 9-Not Applicable-not attempted and the patient did not perform the activity before the current illness, exacerbation or injury. 10-Not Attempted due to Environmental Limitations-(lack of equipment, weather restraints, etc.). 88-Not Attempted due to Medical Conditions or Safety Concerns. Roll Left & Right (QC): 6 Sit to Lying (QC): 6 Lying to Sitting/Side of Bed(Q: 6 Sit to Stand (QC): 4 Chair/Spb-wy-Cuxnp Xfer(QC): 4 Gait Training Distance: 50'x 6 Walk 10 feet (QC): 4 Walk 50 ft with 2 Turns(QC): 4 Gait Assistive Device: FWW a couple of moments of unsteadiness with turning but no lorenzo LOB Exercises right knee and hip extension stretch 5 min each, supine right SAQ and hip abd and flex x20 Treatments bed mobility and transfer training, ambulation, RLE stretching and strengthening Assessment Current Status: Fair Progress improving strength and ambulation PT Usp Goals Fan Engine Engineer Goals PT Fan Engine Engineer Goals Time Frame: Mar 04, 2021 Roll Left & Right (QC): 6 Sit to Lying (QC): 6 Lying-Sitting on Side/Bed(QC): 6 Sit to Stand (QC): 5 Chair/Ghc-sa-Oyhcu Xfer(QC): 5 Toilet Transfer (QC): 5 Car Transfer (QC): 5 Does the Patient Walk: Yes Walk 10 feet (QC): 5 Walk 50ft with 2 Turns (QC): 5 Walk 150 ft (QC): 5 Walking 10ft on Uneven Surface: 5 1 Step (curb) (QC): 4 4 Steps (QC): 4 12 Steps (QC): 9 Picking up an Object (QC): 6 Does the Pt use WC or Scooter?: Yes Wheel 50 feet with 2 turns (QC: 5 Type: Manual Wheel 150 feet: 5 Type: Manual PT Plan Problem List Problem List: Activity Tolerance, Functional Strength, Safety, Balance, Gait, Transfer, Bed Mobility, ROM Treatment/Plan Treatment Plan: Continue Plan of Care Treatment Plan: Bed Mobility, Concurrent Therapy, Education, Functional Activity Lin, Functional Strength, Group Therapy, Gait, Safety, Therapeutic Exercise, Transfers Treatment Duration: Mar 04, 2021 Frequency: At least 5 of 7 days/Wk (IRF) Estimated Hrs Per Day: 1.5 hours per day Patient and/or Family Agrees t: Yes Safety Risks/Education Patient Education: Gait Training, Transfer Techniques, Correct Positioning, Safety Issues Teaching Recipient: Patient Teaching Methods: Demonstration, Discussion Response to Teaching: Reinforcement Needed Time/GCodes Time In: 1015 Time Out: 1115 Total Billed Treatment Time: 60 Total Billed Treatment 1 visit EX 30' GT 30' MYKEL SERRANO PT Feb 16, 2021 11:16
[2021-02-16] MEDS: ALPRAZolam 0.25 MG (XANAX) TAB PO PRN (12:48)
[2021-02-16] MEDS: ENOXAPARIN 40 MG/0.4 ML (LOVENOX) SYR SC SCH (13:36)
--- NOTE | 2021-02-16 14:21 | Physical Therapy Daily Note ---
PT Daily Note-Current Subjective Patient in bed pre tx, agrees to PT, voices no complaints of pain Appearance Patient in bed post tx with nurse call, phone, tray, all needs met. Mental Status Patient Orientation: Person, Place, Situation Transfers SCALE: Activities may be completed with or without assistive devices. 3-Qiyqqvhpmb-puqtzzc completes the activity by him/herself with no assistance from a helper. 5-Set-up or Clean-up Assistance-helper sets up or cleans up; patient completes activity. [place] assists only prior to or following the activity. 4-Supervision or Touching Assistance-helper provides verbal cues and/or touching/steadying and/or contact guard assistance as patient completes activity. Assistance may be provided throughout the activity or intermittently. 3-Partial/Moderate Assistance-helper does LESS THAN HALF the effort. [place] lifts, holds or supports trunk or limbs, but provides less than half the effort. 2-Substantial/Maximal Assistance-helper does MORE THAN HALF the effort. [place] lifts or holds trunk or limbs and provides more than half the effort. 3-Qzlmnyivy-ylhfwv does ALL the effort. Patient does none of the effort to complete the activity. Or, the assistance of 2 or more helpers is required for the patient to complete the activity. If activity was not attempted, code reason: 7-Patient Refused. 9-Not Applicable-not attempted and the patient did not perform the activity before the current illness, exacerbation or injury. 10-Not Attempted due to Environmental Limitations-(lack of equipment, weather restraints, etc.). 88-Not Attempted due to Medical Conditions or Safety Concerns. Roll Left & Right (QC): 6 Sit to Lying (QC): 6 Lying to Sitting/Side of Bed(Q: 6 Sit to Stand (QC): 4 Chair/Zxo-ow-Jrfre Xfer(QC): 4 Patient CGA for transfers. Wheelchair Training Does the Pt Use a Wheelchair?: Yes Wheel 50 ft with 2 turns (QC): 4 Wheel 150 ft (QC): 4 Type of Wheelchair: Manual 150'x2, patient worked on WC mobility to promote UE strength and endurance Exercises NuStep Minutes: 15 NuStep Workload: 5 (only left leg used) Treatments transfers, WC mobility, LE strengthening Assessment Current Status: Fair Progress improving transfers PT Residential Goals Residential Goals PT Pbx Mechanic Goals Time Frame: Mar 04, 2021 Roll Left & Right (QC): 6 Sit to Lying (QC): 6 Lying-Sitting on Side/Bed(QC): 6 Sit to Stand (QC): 5 Chair/Ncd-lb-Kkkmu Xfer(QC): 5 Toilet Transfer (QC): 5 Car Transfer (QC): 5 Does the Patient Walk: Yes Walk 10 feet (QC): 5 Walk 50ft with 2 Turns (QC): 5 Walk 150 ft (QC): 5 Walking 10ft on Uneven Surface: 5 1 Step (curb) (QC): 4 4 Steps (QC): 4 12 Steps (QC): 9 Picking up an Object (QC): 6 Does the Pt use WC or Scooter?: Yes Wheel 50 feet with 2 turns (QC: 5 Type: Manual Wheel 150 feet: 5 Type: Manual PT Plan Problem List Problem List: Activity Tolerance, Functional Strength, Safety, Balance, Gait, Transfer, Bed Mobility, ROM Treatment/Plan Treatment Plan: Continue Plan of Care Treatment Plan: Bed Mobility, Concurrent Therapy, Education, Functional Activity Lin, Functional Strength, Group Therapy, Gait, Safety, Therapeutic Exercise, Transfers Treatment Duration: Mar 04, 2021 Frequency: At least 5 of 7 days/Wk (IRF) Estimated Hrs Per Day: 1.5 hours per day Patient and/or Family Agrees t: Yes Safety Risks/Education Patient Education: Transfer Techniques, Correct Positioning, W/C Management, Safety Issues Teaching Recipient: Patient Teaching Methods: Demonstration, Discussion Response to Teaching: Reinforcement Needed Time/GCodes Time In: 1340 Time Out: 1410 Total Billed Treatment Time: 30 Total Billed Treatment 1 visit FA 15' EX 15' MYKEL SERRANO PT Feb 16, 2021 14:21
[2021-02-16 20:00] VITALS: BP 125/72
[2021-02-16] MEDS: MICONAZOLE 2% POWDER (DESENEX AF) 90 GM TOP SCH (21:02)
[2021-02-16] MEDS: MICONAZOLE NITRATE 2% CRM 30 GM TP SCH (21:03)
[2021-02-16] MEDS: ALPRAZolam 0.5 MG (XANAX) TAB PO PRN (22:44)
[2021-02-17] MEDS: inSUlin ASPART (NovoLOG) 1 UNIT/0.01 ML (CHARGE PER UNIT) SC SCH ×3 (05:27→17:05)
[2021-02-17] MEDS: HYDROcodone/APAP 7.5 MG/325 MG (LORTAB, LORCET PLUS) TABLET PO PRN ×3 (05:27→16:30)
--- NOTE | 2021-02-17 07:19 | PM&R Progress Note ---
Subjective HPI/CC On Admission Date Seen by Provider: Feb 17, 2021 Time Seen by Provider: 14:00 Subjective/Events-last exam 02/17/2021: Patient tearful today Ready for discharge Sent in insulin pens with pen needles 02/16/2021: I could not go into the room because she was screaming at her boyfriend on the phone so loudly Will need glucometer at discharge Very labile emotions 02/15/21: Pt doesnt feel too great Having some nausea Wound looks good BP stable Blood sugar is 200 02/14/2021: Pt in a better mood Creatinine 1.9 Hgb 7.2 Bowels moved yesterday Miralax given Review of Systems General: Fatigue, Malaise Objective Exam Vital Signs Vital Signs Date Time Temp Pulse Resp B/P (MAP) Pulse Ox O2 Delivery O2 Flow Rate FiO2 02/17/21 09:00 Room Air 02/17/21 07:25 36.4 68 16 165/75 (105) 94 Capillary Refill : General Appearance: No Apparent Distress, WD/WN, Chronically ill HEENT: PERRL/EOMI, Normal ENT Inspection, Pharynx Normal Neck: Full Range of Motion, Normal Inspection, Non Tender, Supple, Carotid Bruit Respiratory: Chest Non Tender, Lungs Clear, Normal Breath Sounds, No Accessory Muscle Use, No Respiratory Distress Cardiovascular: Regular Rate, Rhythm, No Edema, No Gallop, No JVD, No Murmur, Normal Peripheral Pulses Gastrointestinal: Normal Bowel Sounds, No Organomegaly, No Pulsatile Mass, Non Tender, Soft Back: Normal Inspection, No CVA Tenderness, No Vertebral Tenderness Extremity: Normal Capillary Refill, Normal Inspection, Normal Range of Motion, Non Tender, No Calf Tenderness, No Pedal Edema, Other (Right BKA dressing intact) Neurologic/Psychiatric: Alert, Oriented x3, No Motor/Sensory Deficits, Normal Mood/Affect, Motor Weakness (Generalized and lower extremities) Skin: Normal Color, Warm/Dry Lymphatic: No Adenopathy Results/Procedures Lab Patient resulted labs reviewed. FIM Transfers Therapy Code Descriptions/Definitions Functional [place] Measure: 0=Not Assessed/NA 4=Minimal Assistance 1=Total Assistance 5=Supervision or Setup 2=Maximal Assistance 6=Modified [place] 3=Moderate Assistance 7=Complete IndependenceSCALE: Activities may be completed with or without assistive devices. 8-Uyohnlqbls-bqzukqj completes the activity by him/herself with no assistance from a helper. 5-Set-up or Clean-up Assistance-helper sets up or cleans up; patient completes activity. [place] assists only prior to or following the activity. 4-Supervision or Touching Assistance-helper provides verbal cues and/or touching/steadying and/or contact guard assistance as patient completes activity. Assistance may be provided throughout the activity or intermittently. 3-Partial/Moderate Assistance-helper does LESS THAN HALF the effort. [place] lifts, holds or supports trunk or limbs, but provides less than half the effort. 2-Substantial/Maximal Assistance-helper does MORE THAN HALF the effort. [place] lifts or holds trunk or limbs and provides more than half the effort. 6-Pktlgfzcc-pkwvfa does ALL the effort. Patient does none of the effort to complete the activity. Or, the assistance of 2 or more helpers is required for the patient to complete the activity. If activity was not attempted, code reason: 7-Patient Refused. 9-Not Applicable-not attempted and the patient did not perform the activity before the current illness, exacerbation or injury. 10-Not Attempted due to Environmental Limitations-(lack of equipment, weather restraints, etc.). 88-Not Attempted due to Medical Conditions or Safety Concerns. Roll Left to Right (QC): 6 Sit to Lying (QC): 6 Sit to Stand (QC): 4 Chair/Ped-np-Sjyuh Xfer(QC): 4 Car Transfer (QC): 4 Gait Training Does the Patient Walk?: Yes Distance: 50'x 6 Walk 10 feet (QC): 4 Walk 50 ft with 2 Turns(QC): 4 Walk 150 ft (QC): 3 Walking 10ft/uneven surface-QC: 3 Gait Assistive Device: FWW Wheelchair Training Does the Pt Use a Wheelchair?: Yes Distance: 150' Wheel 50 ft with 2 turns (QC): 4 Wheel 150 ft (QC): 4 Type of Wheelchair: Manual Stair Training #of Steps: 1 1 Step (curb) (QC): 3 4 Steps (QC): 88 12 Steps (QC): 9 Balance Picking up an Object (QC): 88 ADL-Treatment Eating (QC): 6 (IND with eating.) Oral Hygiene (QC): 6 (IND seated at sink.) Shower/Bathe Self (QC): 5 (set up, pt able to wash/dry all parts seated on SC) Upper Body Dressing (QC): 5 (set up) Lower Body Dressing (QC): 4 (Supervision, pt able to don/doff pants.) On/Off Footwear (QC): 3 (Mod A with stump vegetable washing machine operator) Toileting Hygiene (QC): 4 (supervision) Toilet Transfer (QC): 4 (supervision) Assessment/Plan Assessment and Plan Assess & Plan/Chief Complaint Assessment: Status post right below the knee amputation Diabetes mellitus pwi-bv-wkqcpcb noncompliant with treatment Current smoker Chronic kidney disease stage III Poor social situation Mental illness Labile moods Plan: Supportive care Therapy Manage mental illness 02/14/2021: Much improved Wants to go home soon Management of blood sugar Pain control 02/15/2021: Supportive care Blood sugar and blood pressure management 02/16/2021: Insulin at discharge Glucometer at discharge 02/17/2021: Blood sugar management Sent scripts to pharmacy (1) S/P BKA (below knee amputation) Status: Acute Qualifiers: Laterality: right Qualified Codes: Z89.511 - Acquired absence of right leg below knee (2) Smoker (3) Chronic kidney disease, stage III (moderate) (4) Chronic mental illness (5) DKA (diabetic ketoacidosis) Status: Resolved Resolution Date/Time: 02/10/21 @ 12:23 (6) T2DM (type 2 diabetes mellitus) Status: Acute FATIMAH SOLORZANO DO Feb 17, 2021 07:19
[2021-02-17 07:25] VITALS: BP 165/75
[2021-02-17] MEDS: MICONAZOLE 2% POWDER (DESENEX AF) 90 GM TOP SCH (07:35)
[2021-02-17] MEDS: amLODIPine 5 MG (NORVASC) TAB PO SCH (07:35)
[2021-02-17] MEDS: MICONAZOLE NITRATE 2% CRM 30 GM TP SCH (07:35)
[2021-02-17] MEDS: SENNA W/DOCUSATE (SENOKOT S) TABLET PO SCH ×2 (08:07→08:08)
[2021-02-17] MEDS: polyethylene glycoL POWDER 17 GM (MIRALAX) PACK PO SCH (08:07)
[2021-02-17] MEDS: LACTULOSE SYRUP 10GM/15ML (ENULOSE) 30ML UDC PO SCH (08:07)
[2021-02-17] MEDS: DOCUSATE SODIUM 100 MG (COLACE) CAP PO SCH (08:07)
[2021-02-17] MEDS: ALPRAZolam 0.25 MG (XANAX) TAB PO PRN (08:10)
--- NOTE | 2021-02-17 09:52 | Occupational Ther Daily Note ---
OT Current Status-Daily Note Subjective Pt in bed, states her stomach is slightly upset this morning. She does not want any stool softeners, OT relayed the message to pt's nurse. Mental Status/Objective Patient Orientation: Person, Place, Time, Situation ADL-Treatment Therapy Code Descriptions/Definitions Functional Christian Measure: 0=Not Assessed/NA 4=Minimal Assistance 1=Total Assistance 5=Supervision or Setup 2=Maximal Assistance 6=Modified Christian 3=Moderate Assistance 7=Complete IndependenceSCALE: Activities may be completed with or without assistive devices. 6-Qmsjbqtmyr-aembcaw completes the activity by him/herself with no assistance from a helper. 5-Set-up or Clean-up Assistance-helper sets up or cleans up; patient completes activity. [place] assists only prior to or following the activity. 4-Supervision or Touching Assistance-helper provides verbal cues and/or touching/steadying and/or contact guard assistance as patient completes acti vity. Assistance may be provided throughout the activity or intermittently. 3-Partial/Moderate Assistance-helper does LESS THAN HALF the effort. [place] lifts, holds or supports trunk or limbs, but provides less than half the effort. 2-Substantial/Maximal Assistance-helper does MORE THAN HALF the effort. [place] lifts or holds trunk or limbs and provides more than half the effort. 8-Cjmchrxip-txjkeh does ALL the effort. Patient does none of the effort to complete the activity. Or, the assistance of 2 or more helpers is required for the patient to complete the activity. If activity was not attempted, code reason: 7-Patient Refused. 9-Not Applicable-not attempted and the patient did not perform the activity before the current illness, exacerbation or injury. 10-Not Attempted due to Environmental Limitations-(lack of equipment, weather restraints, etc.). 88-Not Attempted due to Medical Conditions or Safety Concerns. Eating (QC): 6 Oral Hygiene (QC): 6 Lower Body Dressing (QC): 5 (set up assist) Toileting Hygiene (QC): 6 (IND with clothing management and hygiene) Toilet Transfer (QC): 6 (IND on/off toilet) Other Treatment Pt laying in bed, used FWW to perform functional mobility to bathroom. Pt completed toileting then transferred to chair at sink where she completed grooming tasks independently. Pt used FWW to return to bed where she donned LE clothing. Pt transferred to w/c. In order to increase BUE strength, activity tolerance, and functional mobility, pt propelled self around room gathering items, sorting into bags and overall tidying up her room. Pt propelled w/c around [facility]U common area/2nd floor to increase BUE strength and activity tolerance, taking rest breaks as needed. In gym, pt completed puzzle, with 1lb wrist weights BUEs. Post tx, pt up in w/c, all needs met, PT present for tx. Education OT Patient Education: Correct positioning, Energy conservation, Exercise program, Modified ADL techniques, Progress toward Goal/Update tx plan, Purpose of tx/functional activities, Rehab process Teaching Recipient: Patient Teaching Methods: Discussion Response to Teaching: Verbalize Understanding OT Short Term Goals Short Term Goals Time Frame: Feb 22, 2021 Toileting hygiene: 4 Lower body dressin OT Senior Care Goals Residential Treatment Specialist Goals Time Frame: Mar 03, 2021 Eating (QC): 6 Oral Hygiene (QC): 6 Toileting Hygiene (QC): 6 Shower/Bathe Self (QC): 5 Upper Body Dressing (QC): 6 Lower Body Dressing (QC): 6 On/Off Footwear (QC): 6 Additional Goals: 1-Demonstrate ADL Tasks, 2-Verbalize Understanding, 3- ImproveStrength/Lin 1=Demonstrate adherence to instructed precautions during ADL tasks. 2=Patient will verbalize/demonstrate understanding of assistive devices/modifications for ADL. 3=Patient will improve strength/tolerance for activity to enable patient to perform ADL's. OT Education/Plan Problem List/Assessment Assessment: Decreased Activ Tolerance, Decreased UE Strength, Impaired Funct Balance, Impaired I ADL's, Impaired Self-Care Skills Discharge Recommendations Plan/Recommendations: Continue POC Treatment Plan/Plan of Care Patient would benefit from OT for education, treatment and training to promote independence in ADL's, mobility, safety and/or upper extremity function for ADL's. Plan of Care: ADL Retraining, Functional Mobility, Group Exercise/Act as Ind, UE Funct Exercise/Act Treatment Duration: Mar 03, 2021 Frequency: At least 5 of 7 days/Wk (IRF) Estimated Hrs Per Day: 1.5 hours per day Rehab Potential: Guarded Time/GCodes Start Time: 08:00 Stop Time: 09:30 Total Time Billed (hr/min): 90 Billed Treatment Time 1, ADL 2 (30'), FA 4 (60') RENAN RODRIGUEZ OT Feb 17, 2021 09:52
--- NOTE | 2021-02-17 10:43 | Physical Therapy Daily Note ---
PT Daily Note-Current Subjective Patient in therapy gym pre tx, agrees to PT, has no complaints of pain at rest. Appearance Patient in bed post tx with nurse call, phone, tray, all needs met. Mental Status Patient Orientation: Person, Place, Situation Transfers SCALE: Activities may be completed with or without assistive devices. 5-Jkcumshwyo-fxvyhtc completes the activity by him/herself with no assistance from a helper. 5-Set-up or Clean-up Assistance-helper sets up or cleans up; patient completes activity. [place] assists only prior to or following the activity. 4-Supervision or Touching Assistance-helper provides verbal cues and/or touching/steadying and/or contact guard assistance as patient completes activity. Assistance may be provided throughout the activity or intermittently. 3-Partial/Moderate Assistance-helper does LESS THAN HALF the effort. [place] lifts, holds or supports trunk or limbs, but provides less than half the effort. 2-Substantial/Maximal Assistance-helper does MORE THAN HALF the effort. Superior lifts or holds trunk or limbs and provides more than half the effort. 2-Mqezlripi-xwnjxr does ALL the effort. Patient does none of the effort to complete the activity. Or, the assistance of 2 or more helpers is required for the patient to complete the activity. If activity was not attempted, code reason: 7-Patient Refused. 9-Not Applicable-not attempted and the patient did not perform the activity before the current illness, exacerbation or injury. 10-Not Attempted due to Environmental Limitations-(lack of equipment, weather restraints, etc.). 88-Not Attempted due to Medical Conditions or Safety Concerns. Roll Left & Right (QC): 6 Sit to Lying (QC): 6 Lying to Sitting/Side of Bed(Q: 6 Sit to Stand (QC): 4 Chair/Nqt-nl-Ffozs Xfer(QC): 4 Toilet Transfer (QC): 4 Car Transfer (QC): 4 Patient performs bed mobility and supine <-> sit with independence, sit <-> stand and transfers with SBA, car transfer SBA. Occasional cues for positioning or hand placement, has a tendency to plop when sitting. Gait Training Distance: 50' Walk 10 feet (QC): 4 Walk 50 ft with 2 Turns(QC): 4 Walk 150 ft (QC): 88 Walking 10ft/uneven surface-QC: 4 Gait Assistive Device: FWW Patient can ambulate 50' with a rolling walker with SBA (including 50' with at least 2 turns of 90 degrees and 10' over an uneven surface). Patient has occasional slight unsteadiness but is able to correct without assist. Wheelchair Training Does the Pt Use a Wheelchair?: Yes Wheel 50 ft with 2 turns (QC): 6 Wheel 150 ft (QC): 6 Type of Wheelchair: Manual Patient practiced in hallways, sidewalks, up and down ramps Stair Training Stair Training: Handrails/: uses walker #of Steps: 1 1 Step (curb) (QC): 4 4 Steps (QC): 88 12 Steps (QC): 88 Stairs: Pattern: Hops Patient can go up and down 1 step using a rolling walker with cues for safety Balance Picking up an Object (QC): 6 Special Test Comments with counter intelligence agent Treatments bed mobility and transfers, ambulation, WC mobility Assessment Current Status: Fair Progress progressing functional mobility PT Alf Goals Alf Goals PT Compressor House Operator Goals Time Frame: Mar 04, 2021 Roll Left & Right (QC): 6 Sit to Lying (QC): 6 Lying-Sitting on Side/Bed(QC): 6 Sit to Stand (QC): 5 Chair/Vhs-iz-Qfelr Xfer(QC): 5 Toilet Transfer (QC): 5 Car Transfer (QC): 5 Does the Patient Walk: Yes Walk 10 feet (QC): 5 Walk 50ft with 2 Turns (QC): 5 Walk 150 ft (QC): 5 Walking 10ft on Uneven Surface: 5 1 Step (curb) (QC): 4 4 Steps (QC): 4 12 Steps (QC): 9 Picking up an Object (QC): 6 Does the Pt use WC or Scooter?: Yes Wheel 50 feet with 2 turns (QC: 5 Type: Manual Wheel 150 feet: 5 Type: Manual PT Plan Problem List Problem List: Activity Tolerance, Functional Strength, Safety, Balance, Gait, Transfer, ROM Treatment/Plan Treatment Plan: Continue Plan of Care Treatment Plan: Bed Mobility, Concurrent Therapy, Education, Functional Activity Lin, Functional Strength, Group Therapy, Gait, Safety, Therapeutic Exercise, Transfers Treatment Duration: Mar 04, 2021 Frequency: At least 5 of 7 days/Wk (IRF) Estimated Hrs Per Day: 1.5 hours per day Patient and/or Family Agrees t: Yes Safety Risks/Education Patient Education: Gait Training, Transfer Techniques, Steps, Correct Positioning, W/C Management, Safety Issues Teaching Recipient: Patient Teaching Methods: Demonstration, Discussion Response to Teaching: Reinforcement Needed Time/GCodes Time In: 929 Time Out: 1030 Total Billed Treatment Time: 60 Total Billed Treatment 1 visit FA 60' MYKEL SERRANO PT Feb 17, 2021 10:43
[2021-02-17] MEDS: ALPRAZolam 0.5 MG (XANAX) TAB PO PRN (12:44)
[2021-02-17] MEDS ORDERED: INSU100I29 SQ (14:08)
[2021-02-17] MEDS ORDERED: AMLO-250 PO (14:08)
[2021-02-17] MEDS ORDERED: INSU100I14 SQ (14:08)
[2021-02-17] MEDS ORDERED: HYDR-34 PO (14:08)
--- NOTE | 2021-02-17 14:11 | D/C HH Face to Face Order ---
D/C Face to Face Orders Reconcile Patient Problems Problems Reviewed?: Yes Instructions for Patient Via [facility], Patient Instructions/FollowUp: PCP 1 week Physician to follow Patient: PCP Discharge Diet for Home: ADA Diet Patient Problems: right BKA Patient Data-Allergies,Ht & Wt Patient Allergies: Coded Allergies: meperidine (Verified Allergy, Unknown, 02/02/21) varenicline (Verified Allergy, Unknown, 02/02/21) Home Health Need/Face to Face Date of Face to Face: Feb 17, 2021 Clinical Findings: Generalized weakness and fatigue, Instability, Muscle weakness, Non or partial weight bearing, Unsteady gait I have seen Pt zprg-pr-lsdj: Yes Discharged To: Home Diagnosis/Conditions: bka Patient is Homebound due to: Vicki fall risk due to instabilty, Muscle weakness Homebound Status Due to the above stated illness, injury or surgical procedure (medical co ndition or diagnosis) and associated clinical findings, the patient is homebound because of his/her inability to leave home except with aid of a supportive device and/or person AND leaving the home requires a considerable and taxing effort or is medically contraindicated. Pt req the following assistanc: Walker, Wheelchair Home Health Nursing Orders Home Health Services Order: Nursing Services, Top Closer-Evaluate & Treat, Physical Therapy-Evaluate & Treat, Wound Care-Eval/Treat Certify Stmt I certify that this patient is under my care and that I, a nurse practitioner or a physician; a conservation assistant working with me, had a face to face encounter that - meets the physician face to face encounter requirements with this patient as dated. FATIMAH SOLORZANO DO Feb 17, 2021 14:11
[2021-02-17] MEDS: ENOXAPARIN 40 MG/0.4 ML (LOVENOX) SYR SC SCH (14:30)
--- NOTE | 2021-02-17 14:55 | Physical Therapy Daily Note ---
PT Daily Note-Current Subjective Patient is emotional this p.m. Transfers SCALE: Activities may be completed with or without assistive devices. 7-Azqnnyrtnb-zybitmk completes the activity by him/herself with no assistance from a helper. 5-Set-up or Clean-up Assistance-helper sets up or cleans up; patient completes a ctivity. [place] assists only prior to or following the activity. 4-Supervision or Touching Assistance-helper provides verbal cues and/or touching/steadying and/or contact guard assistance as patient completes activity. Assistance may be provided throughout the activity or intermittently. 3-Partial/Moderate Assistance-helper does LESS THAN HALF the effort. [place] lifts, holds or supports trunk or limbs, but provides less than half the effort. 2-Substantial/Maximal Assistance-helper does MORE THAN HALF the effort. [place] lifts or holds trunk or limbs and provides more than half the effort. 5-Xucpwnyxf-ilhsyp does ALL the effort. Patient does none of the effort to complete the activity. Or, the assistance of 2 or more helpers is required for the patient to complete the activity. If activity was not attempted, code reason: 7-Patient Refused. 9-Not Applicable-not attempted and the patient did not perform the activity before the current illness, exacerbation or injury. 10-Not Attempted due to Environmental Limitations-(lack of equipment, weather restraints, etc.). 88-Not Attempted due to Medical Conditions or Safety Concerns. Roll Left & Right (QC): 6 Sit to Lying (QC): 6 Lying to Sitting/Side of Bed(Q: 6 Sit to Stand (QC): 6 fit new FWW for home use Exercises Supine Ex: Quad Set, Heel Slides, Straight leg raise, Hip abd/add Supine Reps: 15 (3 sets) Assessment Current Status: Excellent Progress PT Residential Goals Residential Goals PT Residential Goals Time Frame: Mar 04, 2021 Roll Left & Right (QC): 6 Sit to Lying (QC): 6 Lying-Sitting on Side/Bed(QC): 6 Sit to Stand (QC): 5 Chair/Qxp-tt-Mgvyz Xfer(QC): 5 Toilet Transfer (QC): 5 Car Transfer (QC): 5 Does the Patient Walk: Yes Walk 10 feet (QC): 5 Walk 50ft with 2 Turns (QC): 5 Walk 150 ft (QC): 5 Walking 10ft on Uneven Surface: 5 1 Step (curb) (QC): 4 4 Steps (QC): 4 12 Steps (QC): 9 Picking up an Object (QC): 6 Does the Pt use WC or Scooter?: Yes Wheel 50 feet with 2 turns (QC: 5 Type: Manual Wheel 150 feet: 5 Type: Manual PT Plan Treatment/Plan Treatment Plan: Continue Plan of Care Treatment Plan: Bed Mobility, Concurrent Therapy, Education, Functional Activity Lin, Functional Strength, Group Therapy, Gait, Safety, Therapeutic Exercise, Transfers Treatment Duration: Mar 04, 2021 Frequency: At least 5 of 7 days/Wk (IRF) Estimated Hrs Per Day: 1.5 hours per day Patient and/or Family Agrees t: Yes Time/GCodes Time In: 1345 Time Out: 1415 Total Billed Treatment Time: 30 Total Billed Treatment 1 visit EX x 2 30 min SYLVESTER FERRO PT Feb 17, 2021 14:55
--- NOTE | 2021-02-19 06:24 | Discharge Summary ---
Diagnosis/Chief Complaint Date of Admission Feb 13, 2021 at 10:40 Date of Discharge Feb 17, 2021 at 21:19 Discharge Date: Feb 18, 2021 Discharge Diagnosis Assessment: Status post right below the knee amputation Diabetes mellitus [id number] noncompliant with treatment Current smoker Chronic kidney disease stage III Poor social situation Mental illness Labile moods Plan: Supportive care Therapy Manage mental illness 02/14/2021: Much improved Wants to go home soon Management of blood sugar Pain control 02/15/2021: Supportive care Blood sugar and blood pressure management 02/16/2021: Insulin at discharge Glucometer at discharge 02/17/2021: Blood sugar management Sent scripts to pharmacy (1) S/P BKA (below knee amputation) Status: Acute Qualifiers: Laterality: right Qualified Codes: Z89.511 - Acquired absence of right leg below knee (2) Smoker (3) Chronic kidney disease, stage III (moderate) (4) Chronic mental illness (5) DKA (diabetic ketoacidosis) Status: Resolved Resolution Date/Time: 02/10/21 @ 12:23 (6) T2DM (type 2 diabetes mellitus) Status: Acute Discharge Summary Discharge Physical Examination Allergies: Coded Allergies: meperidine (Verified Allergy, Unknown, 02/02/21) varenicline (Verified Allergy, Unknown, 02/02/21) Vitals & I&Os Vital Signs Date Time Temp Pulse Resp B/P (MAP) Pulse Ox O2 Delivery O2 Flow Rate FiO2 02/17/21 09:00 Room Air 02/17/21 07:25 36.4 68 16 165/75 (105) 94 General Appearance: Alert, Oriented X3, Cooperative Respiratory: Clear to Auscultation Cardiovascular: Regular Rate Hospital Course Was the Problem List Reviewed?: Yes Short course in IRF. Admitted after right BKA from DM ulcerations and osteo. Patient had no events throughout the stay. Emotional issues precluded lengthy stay and wanted to go home titus. Patient was deemed stable for DC and DME provided w/c and walker. Labs (last 24 hrs) Laboratory Tests 02/13/21 15:17: Glucometer 176H 02/13/21 20:15: Glucometer 209H 02/14/21 05:34: Glucometer 144H 02/14/21 05:47: White Blood Count 8.6, Red Blood Count 2.78L, Hemoglobin 7.2L, Hematocrit 24L, Mean Corpuscular Volume 87, Mean Corpuscular Hemoglobin 26, Mean Corpuscular Hemoglobin Concent 30L, Red Cell Distribution Width 16.4H, Platelet Count 409H, Mean Platelet Volume 9.1, Immature Granulocyte % (Auto) 1, Neutrophils (%) (Auto) 63, Lymphocytes (%) (Auto) 24, Monocytes (%) (Auto) 9, Eosinophils (%) (Auto) 2, Basophils (%) (Auto) 0, Neutrophils # (Auto) 5.4, Lymphocytes # (Auto) 2.1, Monocytes # (Auto) 0.8, Eosinophils # (Auto) 0.2, Basophils # (Auto) 0.0, Immature Granulocyte # (Auto) 0.1, Sodium Level 139, Potassium Level 4.2, Chloride Level 100, Carbon Dioxide Level 28, Anion Gap 11, Blood Urea Nitrogen 31H, Creatinine 1.90H, Estimat Glomerular Filtration Rate 28, BUN/Creatinine Ratio 16, Glucose Level 108H, Calcium Level 9.1, Corrected Calcium 10.1, Total Bilirubin 0.2, Aspartate Amino Transf (AST/SGOT) 14, Alanine Aminotransferase (ALT/SGPT) 11, Alkaline Phosphatase 260H, Total Protein 7.0, Albumin 2.7L 02/14/21 11:03: Glucometer 133H 02/14/21 15:26: Glucometer 167H 02/14/21 20:07: Glucometer 208H 02/15/21 05:15: Glucometer 147H 02/15/21 10:19: Glucometer 199H 02/15/21 11:38: Glucometer 165H 02/15/21 15:27: Glucometer 193H 02/15/21 20:49: Glucometer 151H 02/16/21 05:32: Glucometer 174H 02/16/21 11:01: Glucometer 120H 02/16/21 15:23: Glucometer 184H 02/16/21 20:08: Glucometer 236H 02/17/21 05:19: Glucometer 140H 02/17/21 10:40: Glucometer 183H 02/17/21 17:01: Glucometer 163H Pending Labs Laboratory Tests 02/13/21 15:17: Glucometer 176 02/13/21 20:15: Glucometer 209 02/14/21 05:34: Glucometer 144 02/14/21 05:47: White Blood Count 8.6, Red Blood Count 2.78, Hemoglobin 7.2, Hematocrit 24, Mean Corpuscular Volume 87, Mean Corpuscular Hemoglobin 26, Mean Corpuscular Hemoglobin Concent 30, Red Cell Distribution Width 16.4, Platelet Count 409, Mean Platelet Volume 9.1, Immature Granulocyte % (Auto) 1, Neutrophils (%) (Auto) 63, Lymphocytes (%) (Auto) 24, Monocytes (%) (Auto) 9, Eosinophils (%) (Auto) 2, Basophils (%) (Auto) 0, Neutrophils # (Auto) 5.4, Lymphocytes # (Auto) 2.1, Monocytes # (Auto) 0.8, Eosinophils # (Auto) 0.2, Basophils # (Auto) 0.0, Immature Granulocyte # (Auto) 0.1, Sodium Level 139, Potassium Level 4.2, Chloride Level 100, Carbon Dioxide Level 28, Anion Gap 11, Blood Urea Nitrogen 31, Creatinine 1.90, Estimat Glomerular Filtration Rate 28, BUN/Creatinine Ratio 16, Glucose Level 108, Calcium Level 9.1, Corrected Calcium 10.1, Total Bilirubin 0.2, Aspartate Amino Transf (AST/SGOT) 14, Alanine Aminotransferase (ALT/SGPT) 11, Alkaline Phosphatase 260, Total Protein 7.0, Albumin 2.7 02/14/21 11:03: Glucometer 133 02/14/21 15:26: Glucometer 167 02/14/21 20:07: Glucometer 208 02/15/21 05:15: Glucometer 147 02/15/21 10:19: Glucometer 199 02/15/21 11:38: Glucometer 165 02/15/21 15:27: Glucometer 193 02/15/21 20:49: Glucometer 151 02/16/21 05:32: Glucometer 174 02/16/21 11:01: Glucometer 120 02/16/21 15:23: Glucometer 184 02/16/21 20:08: Glucometer 236 02/17/21 05:19: Glucometer 140 02/17/21 10:40: Glucometer 183 02/17/21 17:01: Glucometer 163 Discharge Home Medications: Active Scripts Active Levemir Flextouch (Insulin Detemir) 100 Unit/1 Ml Insuln.pen 20 Unit SQ BID Novolog Flexpen (Insulin Aspart) 300 Units/3 Ml Solution 6 Units SQ AC Amlodipine Besylate 5 Mg Tablet 5 Mg PO DAILY HYDROcodone/APAP 7.5/325 TAB (Acetaminophen/Hydrocodone Bitart) 1 Ea Tablet 1 Ea PO Q6H PRN Stool Softener-Laxative Tablet (Sennosides/Docusate Sodium) 1 Each Tablet 1 Ea PO BID 7 Days Lactulose 20 Gm/30 Ml Solution 10 Gm PO BID 7 Days Instructions to patient/family Please see electronic discharge instructions given to patient. Diagnosis/Problems Diagnosis/Problems (1) S/P BKA (below knee amputation) Status: Acute Qualifiers: Qualified Codes: Z89.511 - Acquired absence of right leg below knee (2) Smoker (3) Chronic kidney disease, stage III (moderate) (4) Chronic mental illness (5) DKA (diabetic ketoacidosis) Status: Resolved Resolution Date/Time: 02/10/21 @ 12:23 (6) T2DM (type 2 diabetes mellitus) Status: Acute FATIMAH SOLORZANO DO Feb 19, 2021 06:24
--- NOTE | 2021-02-20 10:18 | Therapy Team Discharge Summary ---
Therapy Discharge Summary Discharge Recommendations Date of Discharge Feb 17, 2021 at 21:19 Occupational Therapy Pt admitted to [facility] s/p R BKA. At OF, pt was independent with ADLs and functi onal mobility without AD/AE. Upon initial evaluation, pt was independent with eating and oral care, required SBA showering, set up assist upper body dressing, min A lower body dressing, min A footwear and min A toileting. OT tx focused on increasing BUE strength and activity tolerance, and increasing independence with ADLs and functional mobility. At discharge, pt was independent with eating, oral care and toileting, required set up assistance with showering and upper/lower body dressing, and mod A with footwear (assist with stump boiling house oiler). Pt made functional progress towards goals, but only attained LTGs for eating, oral care and toileting. Pt discharged from facility, d/c from OT. Decreased Activ Tolerance, Decreased UE Strength, Impaired Funct Balance, I mpaired I ADL's, Impaired Self-Care Skills PT Banquet Houseperson Goals Fpc Goals PT Fpc Goals Time Frame: Mar 04, 2021 Roll Left to Right (QC): 6 Sit to Lying (QC): 6 Lying-Sitting on Side/Bed(QC): 6 Sit to Stand (QC): 5 Chair/Afn-ak-Lrjrp Xfer(QC): 5 Car Transfer (QC): 5 Does the Patient Walk: Yes Walk 10 feet (QC): 5 Walk 10ft-Uneven Surface(QC): 5 Walk 50ft with 2 Turns (QC): 5 Walk 150 ft (QC): 5 Does the Pt use WC or Scooter?: Yes Wheel 50 feet with 2 turns (QC: 5 1 Step (curb) (QC): 4 4 Steps (QC): 4 12 Steps (QC): 9 Picking up an Object (QC): 6 OT Fpc Goals Banquet Houseperson Goals Time Frame: Mar 03, 2021 Eating (QC): 6 (met) Oral Hygiene (QC): 6 (met) Shower/Bathe Self (QC): 5 (met) Upper Body Dressing (QC): 6 (not met) Lower Body Dressing (QC): 6 (not met) On/Off Footwear (QC): 6 (not mt) Toileting Hygiene (QC): 6 (met) Toilet/Commode Transfer (QC): 5 Additional Goals: 1-Demonstrate ADL Tasks, 2-Verbalize Understanding, 3- ImproveStrength/Lin 1=Demonstrate adherence to instructed precautions during ADL tasks. 2=Patient will verbalize/demonstrate understanding of assistive devices/modifications for ADL. 3=Patient will improve strength/tolerance for activity to enable patient to perform ADL's. RENAN RODRIGUEZ OT Feb 20, 2021 10:18
--- NOTE | 2021-02-20 11:08 | Therapy Team Discharge Summary ---
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 Upon evaluation patient performed bed mobility and supine <-> sit with independence, sit <-> stand and transfers with min assist, car transfer CGA, ambulated 150' with a rolling walker with min assist (including 50' with at least 2 turns of 90 degrees and 10' over an uneven surface), propelled a manual WC 150' with max assist, and went up and down 1 step using a rolling walker with min assist. Patient has been performing bed mobility and transfer training, balance and endurance training, functional strengthening, stair training, gait training, and education. Patient has made some progress but has only met her long-term goals for bed mobility, supine <-> sit, and WC mobility. Now, patient performs bed mobility and supine <-> sit with independence, sit <-> stand and transfers with SBA, car transfer SBA, ambulates 50' with a rolling walker with SBA (including 50' with at least 2 turns of 90 degrees and 10' over an uneven surface), propels a manual WC 150' with independence, can go up and down 1 step using a rolling walker, and can orange picker machine operator an object from the floor using a outreach educator with independence. Patient has been discharged from this facility and will be discharged from PT at this time. Occupational Therapy Decreased Activ Tolerance, Decreased UE Strength, Impaired Funct Balance, Impaired I ADL's, Impaired Self-Care Skills PT Snf Goals Snf Goals PT Clothing Busheler Goals Time Frame: Mar 04, 2021 Roll Left to Right (QC): 6 Sit to Lying (QC): 6 Lying-Sitting on Side/Bed(QC): 6 Sit to Stand (QC): 5 Chair/Yuo-bv-Glnmc Xfer(QC): 5 Car Transfer (QC): 5 Does the Patient Walk: Yes Walk 10 feet (QC): 5 Walk 10ft-Uneven Surface(QC): 5 Walk 50ft with 2 Turns (QC): 5 Walk 150 ft (QC): 5 Does the Pt use WC or Scooter?: Yes Wheel 50 feet with 2 turns (QC: 5 1 Step (curb) (QC): 4 4 Steps (QC): 4 12 Steps (QC): 9 Picking up an Object (QC): 6 OT Clothing Busheler Goals Clothing Busheler Goals Time Frame: Mar 03, 2021 Eating (QC): 6 (met) Oral Hygiene (QC): 6 (met) Shower/Bathe Self (QC): 5 (met) Upper Body Dressing (QC): 6 (not met) Lower Body Dressing (QC): 6 (not met) On/Off Footwear (QC): 6 (not mt) Toileting Hygiene (QC): 6 (met) Toilet/Commode Transfer (QC): 5 Additional Goals: 1-Demonstrate ADL Tasks, 2-Verbalize Understanding, 3- ImproveStrength/Lin 1=Demonstrate adherence to instructed precautions during ADL tasks. 2=Patient will verbalize/demonstrate understanding of assistive devices/modifications for ADL. 3=Patient will improve strength/tolerance for activity to enable patient to perform ADL's. MYKEL SERRANO PT Feb 20, 2021 11:08
== END 2021-02-17 21:19 | disposition home health service (06) | DRG 561 ==
PROVIDERS: ADMIT Internal Medicine; ATTEND Internal Medicine
DX: Z47.81 Encounter for orthopedic aftercare following surgical amputation (principal); E11.65 Type 2 diabetes mellitus with hyperglycemia; I73.1 Thromboangiitis obliterans [Buerger's disease]; F15.90 Other stimulant use, unspecified, uncomplicated; F41.9 Anxiety disorder, unspecified; F43.21 Adjustment disorder with depressed mood; J44.9 Chronic obstructive pulmonary disease, unspecified; F17.200 Nicotine dependence, unspecified, uncomplicated; I12.9 Hypertensive chronic kidney disease with stage 1 through stage 4 chronic kidney disease, or unspecified chronic kidney disease; E11.22 Type 2 diabetes mellitus with diabetic chronic kidney disease; N18.30 Chronic kidney disease, stage 3 unspecified; F99 Mental disorder, not otherwise specified; Z79.4 Long term (current) use of insulin; Z79.891 Long term (current) use of opiate analgesic; Z79.899 Other long term (current) drug therapy; Z83.3 Family history of diabetes mellitus
CPT/HCPCS: 36415; 80053; 82947; 85025

== ENCOUNTER 2021-03-04 19:00 | Emergency (ER) | payer OTHER ==
[~2021-03-04] VITALS: Ht 175.3 cm; Wt 68.5 kg
[~2021-03-04 19:00] MED LIST changes: +AMLO-250 PO; +HYDR-34 PO; +INSU100I14 SQ; +INSU100I29 SQ; +INSU100V16 SC; +INSU100V5 SQ; +LACT20SO2 PO; +SENN1TAB76 PO
[2021-03-04] MEDS ORDERED: HYDROcodone/APAP 5 MG/325 MG (LORTAB) TAB PO ONE (20:15)
[2021-03-04] MEDS ORDERED: ACHD5005 PO ×2 (20:24→21:41)
[2021-03-04] MEDS ORDERED: DOXY100T2 PO ×2 (20:24→21:41)
--- NOTE | 2021-03-04 20:24 | ED Lower Extremity ---
General Chief Complaint: Lower Extremity Stated Complaint: DRAINAGE FROM AMPUTATION R LEG &PAIN Source: patient Exam Limitations: no limitations History of Present Illness Date Seen by Provider: Mar 04, 2021 Time Seen by Provider: 20:20 Initial Comments Complains of some drainage from the right lower extremity stump. Had amputation 2 weeks ago secondary to Buerger's disease with osteomyelitis. Missed her appointment with Dr. Reid yesterday to have mariano removed and is also out of her pain medication. No fevers or chills. Onset: last week Severity: moderate Pain/Injury Location: right leg Method of Injury: unknown Modifying Factors: Worse With Movement Allergies and Home Medications Allergies Coded Allergies: meperidine (Verified Allergy, Unknown, 02/02/21) varenicline (Verified Allergy, Unknown, 02/02/21) Home Medications Amlodipine Besylate 5 Mg Tablet, 5 MG PO DAILY Prescribed by: FATIMAH SOLORZANO on 02/17/211407 Doxycycline Hyclate 100 Mg Tablet, 100 MG PO BID Prescribed by: IQRA HAMLIN on 03/04/212023 Hydrocodone Bit/Acetaminophen 1 Ea Tablet, 1 EA PO Q6H PRN for PAIN-MODERATE (5- 7) Prescribed by: FATIMAH SOLORZANO on 02/17/21 140 Hydrocodone/Acetaminophen 1 Each Tablet, 1 TAB PO Q4H PRN for PAIN-MODERATE (5- 7) Prescribed by: IQRA HAMLIN on 03/04/212023 Insulin Aspart 300 Units/3 Ml Solution, 6 UNITS SQ AC Prescribed by: FATIMAH SOLORZANO on 02/17/21 140 Insulin Detemir 100 Unit/1 Ml Insuln.pen, 20 UNIT SQ BID Prescribed by: FATIMAH SOLORZANO on 02/17/21 1408 Lactulose 20 Gm/30 Ml Solution, 10 GM PO BID Prescribed by: CHOCO COLIN on 02/13/21 1015 Sennosides/Docusate Sodium 1 Each Tablet, 1 EA PO BID Prescribed by: CHOCO COLIN on 02/13/21 1015 Patient Home Medication List Home Medication List Reviewed: Yes Review of Systems Constitutional: see HPI EENTM: see HPI Respiratory: no symptoms reported Cardiovascular: no symptoms reported Genitourinary: no symptoms reported Musculoskeletal: see HPI Skin: no symptoms reported Psychiatric/Neurological: No Symptoms Reported Past Ehewerf-Pxpdha-Rfxgjw Hx Past Medical History Surgeries: No (None reported) Orthopedic Respiratory: No Currently Using CPAP: No Currently Using BIPAP: No Cardiac: Yes Hypertension Reproductive Disorders: No Genitourinary: No Gastrointestinal: No Musculoskeletal: No Endocrine: Yes Diabetes, Non-Insulin dep HEENT: No Cancer: No Psychosocial: Yes Depression Integumentary: Yes (diabetic foot ulcers) Physical Exam Vital Signs Capillary Refill : Height, Weight, BMI Height: '" Weight: lbs. oz. kg; 27.12 BMI Method: General Appearance: WD/WN, no apparent distress HEENT: PERRL/EOMI, normal ENT inspection Neck: non-tender, full range of motion Respiratory: no respiratory distress, no accessory muscle use Hips: bilateral hip non-tender, bilateral hip normal inspection, bilateral hip normal range of motion Legs: bilateral leg non-tender, bilateral leg normal inspection; right leg other (Mariano are still intact to the distal stump. I will remove these. A minimal amount of erythema with some purulent drainage at one of the mariano. Culture collected and sent to lab. Minimal cellulitis.) Knees: bilateral knee non-tender, bilateral knee normal inspection, bilateral knee normal range of motion Ankles: bilateral ankle non-tender, bilateral ankle normal inspection, bilateral ankle normal range of motion Feet: bilateral foot non-tender, bilateral foot normal inspection, bilateral foot normal range of motion Neurologic/Psychiatric: alert, normal mood/affect, oriented x 3 Skin: normal color, warm/dry Progress/Results/Core Measures Results/Orders Lab Results Laboratory Tests Test 03/04/21 20:10 Range/Units White Blood Count 9.5 4.3-11.0 10^3/uL Red Blood Count 4.38 3.80-5.11 10^6/uL Hemoglobin 11.5 11.5-16.0 g/dL Hematocrit 38 35-52 % Mean Corpuscular Volume 87 80-99 fL Mean Corpuscular Hemoglobin 26 25-34 pg Mean Corpuscular Hemoglobin Concent 30 L 32-36 g/dL Red Cell Distribution Width 15.1 H 10.0-14.5 % Platelet Count 322 130-400 10^3/uL Mean Platelet Volume 9.9 9.0-12.2 fL Immature Granulocyte % (Auto) 0 % Neutrophils (%) (Auto) 54 42-75 % Lymphocytes (%) (Auto) 31 12-44 % Monocytes (%) (Auto) 9 0-12 % Eosinophils (%) (Auto) 5 0-10 % Basophils (%) (Auto) 0 0-10 % Neutrophils # (Auto) 5.1 1.8-7.8 10^3/uL Lymphocytes # (Auto) 3.0 1.0-4.0 10^3/uL Monocytes # (Auto) 0.9 0.0-1.0 10^3/uL Eosinophils # (Auto) 0.5 H 0.0-0.3 10^3/uL Basophils # (Auto) 0.0 0.0-0.1 10^3/uL Immature Granulocyte # (Auto) 0.0 0.0-0.1 10^3/uL Sodium Level 136 135-145 MMOL/L Potassium Level 4.2 3.6-5.0 MMOL/L Chloride Level 103 98-107 MMOL/L Carbon Dioxide Level 23 21-32 MMOL/L Anion Gap 10 5-14 MMOL/L Blood Urea Nitrogen 28 H 7-18 MG/DL Creatinine 1.01 0.60-1.30 MG/DL Estimat Glomerular Filtration Rate 58 BUN/Creatinine Ratio 28 Glucose Level 180 H 70-105 MG/DL Calcium Level 9.6 8.5-10.1 MG/DL Corrected Calcium 9.8 8.5-10.1 MG/DL Total Bilirubin 0.2 0.1-1.0 MG/DL Aspartate Amino Transf (AST/SGOT) 14 5-34 U/L Alanine Aminotransferase (ALT/SGPT) 14 0-55 U/L Alkaline Phosphatase 123 40-136 U/L Total Protein 8.2 6.4-8.2 GM/DL Albumin 3.7 3.2-4.5 GM/DL My Orders Orders - IQRA HAMLIN HIGH PRESSURE OPERATOR Cbc With Automated Diff (03/04/21 19:53) Comprehensive Metabolic Panel (03/04/21 19:53) Ed Iv/Invasive Line Start (03/04/21 19:53) Wound Culture (03/04/21 19:53) Hydrocodone/Apap 5/325 Tablet (Lortab 5 (03/04/21 20:15) Doxycycline Hyclate Tablet (Vibramycin T (03/04/21 20:30) Medications Given in ED Current Medications Medications Dose Ordered Sig/Jil Route Start Time Stop Time Status Last Admin Dose Admin Acetaminophen/ Hydrocodone Bitart 2 ea ONCE ONCE PO 03/04/21 20:15 03/04/21 20:16 DC 03/04/21 20:52 2 EA Departure Communication (Admissions) Mariano removed by me Impression Primary Impression: Cellulitis of stump Disposition: HOME, SELF-CARE Condition: Stable Departure-Patient Inst. Decision time for Depature: 20:22 Referrals: [facility] (PCP/Family) Primary Care Physician Patient Instructions: Cellulitis (Skin Infection), Adult (DC) Add. Discharge Instructions: 1. Return to ER for any concerns 2. Follow-up with your doctor next week 3. Antibiotics and pain medication as directed. All discharge instructions reviewed with patient and/or family. Voiced understanding. Scripts Fluconazole (Diflucan) 150 Mg Tablet 150 MG PO DAILY, #3 TAB Prov: IQRA HAMLIN APRN 03/04/21 Hydrocodone/Acetaminophen (Hydrocodone-Acetamin 5-325 mg) 1 Each Tablet 1 TAB PO Q4H PRN for PAIN-MODERATE (5-7), #10 TAB Prov: IQRA HAMLIN APRN 03/04/21 Doxycycline Hyclate (Doxycycline Hyclate) 100 Mg Tablet 100 MG PO BID, #20 TAB 0 Refills Prov: IQRA HAMLIN APRN 03/04/21 IQRA HAMLIN APRN Mar 04, 2021 20:24
[2021-03-04] MEDS ORDERED: DOXYCYCLINE 100 MG (VIBRAMYCIN) TABLET PO SCH (20:30)
[2021-03-04 21:05] LABS: BASOPHILS % (AUTO) 0 % (0-10); EOSINOPHILS # (AUTO) 0.5 10^3/uL (0.0-0.3); EOSINOPHILS % (AUTO) 5 % (0-10); HEMATOCRIT 38 % (35-52); HEMOGLOBIN 11.5 g/dL (11.5-16.0); LYMPHOCYTES % (AUTO) 31 % (12-44); MEAN CORPUSCULAR HEMOGLOBIN 26 pg (25-34); MEAN CORPUSCULAR HGB CONC 30 g/dL (32-36); MEAN CORPUSCULAR VOLUME 87 fL (80-99); MEAN PLATELET VOLUME 9.9 fL (9.0-12.2); MONOCYTES # (AUTO) 0.9 10^3/uL (0.0-1.0); MONOCYTES % (AUTO) 9 % (0-12); NEUTROPHILS # (AUTO) 5.1 10^3/uL (1.8-7.8); NEUTROPHILS % (AUTO) 54 % (42-75); PLATELET COUNT 322 10^3/uL (130-400); WHITE BLOOD COUNT 9.5 10^3/uL (4.3-11.0)
[2021-03-04 21:08] LABS: ALBUMIN 3.7 GM/DL (3.2-4.5); POTASSIUM 4.2 MMOL/L (3.6-5.0)
[2021-03-04 21:10] LABS: CALCIUM 9.6 MG/DL (8.5-10.1)
[2021-03-04 21:11] LABS: TOTAL PROTEIN 8.2 GM/DL (6.4-8.2)
[2021-03-04 21:13] LABS: BILIRUBIN,TOTAL 0.2 MG/DL (0.1-1.0)
[2021-03-04 21:15] LABS: CREATININE SERUM 1.01 MG/DL (0.60-1.30)
[2021-03-04] MEDS ORDERED: FLUC150T PO ×2 (21:19→21:41)
[2021-03-04 21:30] VITALS: BP 137/86
== END 2021-03-04 21:30 | disposition home or self-care (01) ==
LOC: EDUNIT# 19:00 → ER 19:04
DX: L03.115 Cellulitis of right lower limb (principal); I10 Essential (primary) hypertension; E11.9 Type 2 diabetes mellitus without complications; Z89.511 Acquired absence of right leg below knee
CPT/HCPCS: 36415; 80053; 85025; 87070; 87077; 87186; 87205

== ENCOUNTER 2021-03-31 07:38 | Inpatient (IN) | payer OTHER ==
[~2021-03-31] VITALS: Ht 172 cm; Wt 71.2 kg
[~2021-03-31 07:38] MED LIST changes: +ACHD5005 PO; +DOXY100T2 PO; +FLUC150T PO
--- NOTE | 2021-03-31 08:08 | ED Integumentary General ---
General Chief Complaint: Skin/Wound Problems Stated Complaint: INCISION INFECTION Source: patient Exam Limitations: no limitations History of Present Illness Date Seen by Provider: Mar 31, 2021 Time Seen by Provider: 07:54 Initial Comments Patient is a 51-year-old female who presents to the emergency department today with a chief complaint of right BKA stump infection. Patient states within the last couple of months she has had amputation secondary to osteomyelitis of the right lower extremity below the knee. Patient states that due to scheduling conflicts she missed her follow-up appointments early on with Dr. Reid who did her amputation. She is a diabetic, hypertensive, smoker, former methamphetamine abuser. Seen in the clinic a couple of days ago and prescribed Bactrim, was unable to fill it secondary to the referral over to the apothecary has not cleared yet. Patient reportedly was started on Bactrim. Denies fevers. Is nauseated. Is not lightheaded or dizzy when standing. Denies abdominal pain. States that she is not urinating much. Slightly decreased appetite. Noted with in the last few weeks increasing amounts of discharge from the stump. She states at some points it "shoots out". Has pain. Taking ibuprofen and Tylenol. Tells me that Dr. Reid's practitioner did culture the wound a couple of days ago. Noticed in the last 24 to 48 hours increasing warmth and erythema over the distal aspect of the stump. All other review of systems reviewed and negative except as stated. Timing/Duration: week, getting worse Severity: moderate Location: extremities (Right lower extremity) Possible Cause: other Associated Symptoms: edema, other (Redness and warmth) Allergies and Home Medications Allergies Coded Allergies: meperidine (Verified Allergy, Unknown, 02/02/21) varenicline (Verified Allergy, Unknown, 02/02/21) Patient Home Medication List Home Medication List Reviewed: Yes Acetaminophen (Tylenol Extra Strength) 500 Mg Tablet, 1,000 MG PO Q8H PRN for PAIN-MILD (1-4), (Reported) Entered as Reported by: JEOY ANGELA on 03/31/21 279 Last Action: Reviewed Amlodipine Besylate (Amlodipine Besylate) 5 Mg Tablet, 5 MG PO HS, (Reported) Entered as Reported by: JOEY ANGELA on 03/31/21 3623 Last Action: Held Ibuprofen (Ibuprofen) 200 Mg Capsule, 400-600 MG PO Q8H PRN for PAIN-MILD (1-4), (Reported) Entered as Reported by: JOEY ANGELA on 03/31/211524 Last Action: Held Insulin Aspart (Novolog Flexpen) 300 Units/3 Ml Solution, 6 UNITS SQ AC, (Reported) Entered as Reported by: JOEY ANGELA on 03/31/211524 Last Action: Converted Insulin Detemir (Levemir Flextouch) 100 Unit/1 Ml Insuln.pen, 20 UNIT SQ BID, (Reported) Entered as Reported by: JOEY ANGELA on 03/31/211524 Last Action: Converted Multivitamin (Multivitamin) 1 Each Tablet, 1 EACH PO DAILY, (Reported) Entered as Reported by: JOEY ANGELA on 03/31/211524 Last Action: Held Discontinued Medications Amlodipine Besylate (Amlodipine Besylate) 5 Mg Tablet, 5 MG PO DAILY Discontinued Reason: No Longer Taking Prescribed by: FATIMAH SOLORZANO on 02/17/211407 Last Action: Discontinued Doxycycline Hyclate (Doxycycline Hyclate) 100 Mg Tablet, 100 MG PO BID Discontinued Reason: No Longer Taking Prescribed by: IQRA HAMLIN on 03/04/212140 Last Action: Discontinued Fluconazole (Diflucan) 150 Mg Tablet, 150 MG PO DAILY Discontinued Reason: No Longer Taking Prescribed by: IQRA HAMLIN on 03/04/212140 Last Action: Discontinued Hydrocodone Bit/Acetaminophen (HYDROcodone/APAP 7.5/325 TAB) 1 Ea Tablet, 1 EA PO Q6H PRN for PAIN-MODERATE (5-7) Discontinued Reason: No Longer Taking Prescribed by: FATIMAH SOLORZANO on 02/17/211408 Last Action: Discontinued Hydrocodone/Acetaminophen (Hydrocodone-Acetamin 5-325 mg) 1 Each Tablet, 1 TAB PO Q4H PRN for PAIN-MODERATE (5-7) Discontinued Reason: No Longer Taking Prescribed by: IQRA HAMLIN on 03/04/212141 Last Action: Discontinued Insulin Aspart (Novolog Flexpen) 300 Units/3 Ml Solution, 6 UNITS SQ AC Discontinued Reason: No Longer Taking Prescribed by: FATIMAH SOLORZANO on 02/17/211407 Last Action: Discontinued Insulin Detemir (Levemir Flextouch) 100 Unit/1 Ml Insuln.pen, 20 UNIT SQ BID Discontinued Reason: No Longer Taking Prescribed by: FATIMAH SOLORZANO on 02/17/21 1408 Last Action: Discontinued Lactulose (Lactulose) 20 Gm/30 Ml Solution, 10 GM PO BID Discontinued Reason: No Longer Taking Prescribed by: CHOCO COLIN on 02/13/21 1015 Last Action: Discontinued Sennosides/Docusate Sodium (Stool Softener-Laxative Tablet) 1 Each Tablet, 1 EA PO BID Discontinued Reason: No Longer Taking Prescribed by: CHOCO COLIN on 02/13/21 1015 Last Action: Discontinued Review of Systems Review of Systems Constitutional: see HPI, malaise EENTM: no symptoms reported Respiratory: no symptoms reported Cardiovascular: no symptoms reported Gastrointestinal: nausea Genitourinary: decreased output : No Musculoskeletal: joint pain (Right knee) Skin: change in color, other (Redness and warmth with drainage) Psychiatric/Neurological: Anxiety All Other Systems Reviewed Negative Unless Noted: Yes Past Thwsbsg-Sytbhu-Zfvqmf Hx Past Medical History Surgeries: No (None reported) Orthopedic Respiratory: No Currently Using CPAP: No Currently Using BIPAP: No Cardiac: Yes Hypertension Reproductive Disorders: No Genitourinary: No Gastrointestinal: No Musculoskeletal: No Endocrine: Yes Diabetes, Non-Insulin dep HEENT: No Cancer: No Psychosocial: Yes Depression Integumentary: Yes (diabetic foot ulcers) Physical Exam Vital Signs Vital Signs - First Documented 03/31/21 07:40 Temp 36.2 Pulse 98 Resp 18 B/P (MAP) 135/87 (103) Pulse Ox 99 Capillary Refill : General Appearance: WD/WN, mild distress HEENT: PERRL/EOMI Cardiovascular: regular rate, rhythm, tachycardia (115) Respiratory: lungs clear, normal breath sounds, no respiratory distress, no accessory muscle use Gastrointestinal: normal bowel sounds, non tender, soft Extremities: normal range of motion, other (Right BKA "stump" with diffuse erythema, copious amounts of purulent drainage noted from a pinhole leak in the medial aspect of the surgical incision site. Tender to palpation, fluctuant) Neurologic/Psychiatric: road cleaner II-XII nml as tested, no motor/sensory deficits, alert, normal mood/affect, oriented x 3 Skin: normal color, warm/dry Skin Problem Location: lower extremities (Right BKA) Skin Problem Character: warm Progress/Results/Core Measures Results/Orders Lab Results Laboratory Tests Test 03/31/21 07:55 Range/Units White Blood Count 19.6 H 4.3-11.0 10^3/uL Red Blood Count 4.19 3.80-5.11 10^6/uL Hemoglobin 11.0 L 11.5-16.0 g/dL Hematocrit 35 35-52 % Mean Corpuscular Volume 83 80-99 fL Mean Corpuscular Hemoglobin 26 25-34 pg Mean Corpuscular Hemoglobin Concent 32 32-36 g/dL Red Cell Distribution Width 14.4 10.0-14.5 % Platelet Count 468 H 130-400 10^3/uL Mean Platelet Volume 9.1 9.0-12.2 fL Immature Granulocyte % (Auto) 1 % Neutrophils (%) (Auto) 76 H 42-75 % Lymphocytes (%) (Auto) 16 12-44 % Monocytes (%) (Auto) 6 0-12 % Eosinophils (%) (Auto) 1 0-10 % Basophils (%) (Auto) 0 0-10 % Neutrophils # (Auto) 14.9 H 1.8-7.8 10^3/uL Lymphocytes # (Auto) 3.1 1.0-4.0 10^3/uL Monocytes # (Auto) 1.2 H 0.0-1.0 10^3/uL Eosinophils # (Auto) 0.3 0.0-0.3 10^3/uL Basophils # (Auto) 0.1 0.0-0.1 10^3/uL Immature Granulocyte # (Auto) 0.1 0.0-0.1 10^3/uL Neutrophils % (Manual) 75 % Lymphocytes % (Manual) 15 % Monocytes % (Manual) 4 % Eosinophils % (Manual) 0 % Basophils % (Manual) 1 % Metamyelocytes % % Myelocytes % % Band Neutrophils 5 % Blood Morphology Comment NORMAL Prothrombin Time 14.3 12.2-14.7 SEC INR Comment 1.1 0.8-1.4 Activated Partial Thromboplast Time 28 24-35 SEC Sodium Level 130 L 135-145 MMOL/L Potassium Level 4.1 3.6-5.0 MMOL/L Chloride Level 98 98-107 MMOL/L Carbon Dioxide Level 21 21-32 MMOL/L Anion Gap 11 5-14 MMOL/L Blood Urea Nitrogen 19 H 7-18 MG/DL Creatinine 0.77 0.60-1.30 MG/DL Estimat Glomerular Filtration Rate 79 BUN/Creatinine Ratio 25 Glucose Level 246 H 70-105 MG/DL Lactic Acid Level 1.34 0.50-2.00 MMOL/L Calcium Level 9.8 8.5-10.1 MG/DL Corrected Calcium 10.2 H 8.5-10.1 MG/DL Total Bilirubin 0.3 0.1-1.0 MG/DL Aspartate Amino Transf (AST/SGOT) 15 5-34 U/L Alanine Aminotransferase (ALT/SGPT) 21 0-55 U/L Alkaline Phosphatase 222 H 40-136 U/L Total Protein 8.6 H 6.4-8.2 GM/DL Albumin 3.5 3.2-4.5 GM/DL My Orders Orders - JP PIERRE MD Cbc With Automated Diff (03/31/21 08:02) Comprehensive Metabolic Panel (03/31/21 08:02) Blood Culture (03/31/21 08:02) Urinalysis (03/31/21 08:02) Urine Culture (03/31/21 08:02) Protime With Inr (03/31/21 08:02) Partial Thromboplastin Time (03/31/21 08:02) Chest 1 View, Ap/Pa Only (03/31/21 08:02) Ed Iv/Invasive Line Start (03/31/21 08:02) Ed Iv/Invasive Line Start (03/31/21 08:02) Vital Signs Adult Sepsis Patie Q15M (03/31/21 08:02) O2 (03/31/21 08:02) Remove Rings In Anticipation O (03/31/21 08:02) Lactic Acid Analyzer (03/31/21 08:02) Ns Iv 1000 Ml (Sodium Chloride 0.9%) (03/31/21 08:15) Vancomycin Injection (Vancomycin Injecti (03/31/21 08:15) Manual Differential (03/31/21 07:55) Knee, Right, 3 Views (03/31/21 08:02) Cho 60g/M 1snack (16-2000 Dom) (03/31/21 Breakfast) Vital Signs/I&O 03/31/21 07:40 Temp 36.2 Pulse 98 Resp 18 B/P (MAP) 135/87 (103) Pulse Ox 99 Diagnostic Imaging Diagonstic Imaging: Xray Comments [facility] [place], [place] NAME: CAMILLE BERRY [facility] REC#: [id number] PT STATUS: REG ER : 1970 PHYSICIAN: JP PIERRE MD ADMIT DATE: 03/31/21/ER Draft Date of Exam:03/31/21 KNEE, RIGHT, 3 VIEWS INDICATION: Right knee abscess. TIME OF EXAM: 8:42 AM 3 views of the right knee were obtained. There is a below-knee amputation present. There is some dystrophic calcifications at the amputation site of the proximal tibia and fibula. There appears to be some soft tissue gas present at the stump, concerning for soft tissue abscess. No definite bony destructive changes are seen to suggest osteomyelitis. IMPRESSION: Soft tissue gas at the stump concerning for soft tissue infection and potentially abscess. Dictated on workstation # [id number] Dict: 03/31/21909 Trans: 03/31/2114 MOISES [id number] Interpreted by: BAYRON MUNIZ MD Electronically signed by: [facility] [place] NAME: CAMILLE BERRY [facility] REC#: [id number] PT STATUS: REG ER : 1970 PHYSICIAN: JP PIERRE MD ADMIT DATE: 03/31/21/ER Draft Date of Exam:03/31/21 CHEST 1 VIEW, AP/PA ONLY INDICATION: Sepsis. TIME OF EXAM: 8:38 AM Correlation is made with prior chest from 02/02/2021. The heart size is normal. The pulmonary vascularity is unremarkable. The lungs are clear. No infiltrate, effusion or pneumothorax is detected. IMPRESSION: No acute cardiopulmonary process is detected. Dictated on workstation # [id number] Dict: 03/31/21909 Trans: 03/31/21910 MOISES [id number] Interpreted by: BAYRON MUNIZ MD Electronically signed by: Departure Communication (Admissions) Time/Spoke to Admitting Phy: 09:[address] Malave Time/Spoke to Consulting Phy: 09:[address] Reid Impression Primary Impression: Abscess of right lower leg Additional Impressions: Cellulitis of right lower extremity Diabetes Qualified Codes: E11.628 - Type 2 diabetes mellitus with other skin complications Disposition: 09 ADMITTED INPATIENT Condition: Stable Admissions Decision to Admit Reason: Admit from ER (General) Decision to Admit/Date: Mar 31, 2021 Time/Decision to Admit Time: 09:58 Departure-Patient Inst. Referrals: [facility] [place] (PCP/Family) Primary Care Physician JP PIERRE MD Mar 31, 2021 08:08
[2021-03-31 08:11] LABS: BASOPHILS # (AUTO) 0.1 10^3/uL (0.0-0.1); BASOPHILS % (AUTO) 0 % (0-10); EOSINOPHILS # (AUTO) 0.3 10^3/uL (0.0-0.3); EOSINOPHILS % (AUTO) 1 % (0-10); HEMATOCRIT 35 % (35-52); LYMPHOCYTES # (AUTO) 3.1 10^3/uL (1.0-4.0); LYMPHOCYTES % (AUTO) 16 % (12-44); MEAN CORPUSCULAR HEMOGLOBIN 26 pg (25-34); MEAN CORPUSCULAR HGB CONC 32 g/dL (32-36); MEAN CORPUSCULAR VOLUME 83 fL (80-99); MEAN PLATELET VOLUME 9.1 fL (9.0-12.2); MONOCYTES # (AUTO) 1.2 10^3/uL (0.0-1.0); MONOCYTES % (AUTO) 6 % (0-12); NEUTROPHILS # (AUTO) 14.9 10^3/uL (1.8-7.8); NEUTROPHILS % (AUTO) 76 % (42-75); PLATELET COUNT 468 10^3/uL (130-400); WHITE BLOOD COUNT 19.6 10^3/uL (4.3-11.0)
[2021-03-31 08:12] LABS: ALBUMIN 3.5 GM/DL (3.2-4.5); POTASSIUM 4.1 MMOL/L (3.6-5.0)
[2021-03-31 08:14] LABS: CALCIUM 9.8 MG/DL (8.5-10.1)
[2021-03-31 08:15] LABS: TOTAL PROTEIN 8.6 GM/DL (6.4-8.2)
[2021-03-31] MEDS ORDERED: VANCOMYCIN INJECTION 1,000 MG in NS (IVPB) 250 ML IV ONE (08:15)
[2021-03-31] MEDS ORDERED: NS IV 1000 ML 1,000 ML IV SCH (08:15)
[2021-03-31 08:17] LABS: BILIRUBIN,TOTAL 0.3 MG/DL (0.1-1.0)
[2021-03-31 08:18] LABS: CREATININE SERUM 0.77 MG/DL (0.60-1.30)
[2021-03-31 08:23] LABS: INR 1.1 (0.8-1.4); PROTHROMBIN TIME PATIENT 14.3 SEC (12.2-14.7)
[2021-03-31 08:58] LABS: BAND NEUTROPHILS 5 %; LYMPHOCYTES % (MANUAL) 15 %; NEUTROPHILS % (MANUAL) 75 %; RBC MORPH NORMAL
[2021-03-31 08:59] LABS: BASOPHILS % (MANUAL) 1 %; EOSINOPHILS % (MANUAL) 0 %; MONOCYTES % (MANUAL) 4 %
--- NOTE | 2021-03-31 09:12 | Diagnostic Imaging Report ---
INDICATION: Sepsis. TIME OF EXAM: 8:38 AM Correlation is made with prior chest from 02/02/2021. The heart size is normal. The pulmonary vascularity is unremarkable. The lungs are clear. No infiltrate, effusion or pneumothorax is detected. IMPRESSION: No acute cardiopulmonary process is detected. Dictated by: Dictated on workstation # [id number]
--- NOTE | 2021-03-31 09:14 | Diagnostic Imaging Report ---
INDICATION: Right knee abscess. TIME OF EXAM: 8:42 AM 3 views of the right knee were obtained. There is a below-knee amputation present. There is some dystrophic calcifications at the amputation site of the proximal tibia and fibula. There appears to be some soft tissue gas present at the stump, concerning for soft tissue abscess. No definite bony destructive changes are seen to suggest osteomyelitis. IMPRESSION: Soft tissue gas at the stump concerning for soft tissue infection and potentially abscess. Dictated by: Dictated on workstation # [id number]
[2021-03-31 12:00] VITALS: BP 136/70
[2021-03-31] MEDS ORDERED: VANCOMYCIN 500 MG/NS 100 ML IV NR ×2 (12:00)
[2021-03-31] MEDS ORDERED: ONDANSETRON 4 MG/2 ML (SDV) Z0FRAN IV PRN (12:15)
[2021-03-31] MEDS: HYDROcodone/APAP 5 MG/325 MG (LORTAB) TAB PO PRN ×2 (12:26→19:45)
[2021-03-31] MEDS: NS IV 1000 ML 1,000 ML IV SCH ×2 (12:26→21:38)
[2021-03-31] MEDS ORDERED: DOCUSATE SODIUM 100 MG (COLACE) CAP PO PRN (13:00)
[2021-03-31] MEDS ORDERED: ACETAMINOPHEN 325 MG TABLET PO PRN (13:00)
[2021-03-31 13:03] VITALS: BP 135/87
[2021-03-31] MEDS ORDERED: RT-ALBUTEROL/IPRATROPIUM 3 ML (DUONEB) VIAL INH PRN (13:30)
[2021-03-31] MEDS ORDERED: IBUP-2185 PO (15:25)
[2021-03-31] MEDS ORDERED: ACET-2267 PO (15:25)
[2021-03-31] MEDS ORDERED: INSU100I14 SQ (15:25)
[2021-03-31] MEDS ORDERED: INSU100I29 SQ (15:25)
[2021-03-31] MEDS ORDERED: AMLO-250 PO (15:25)
[2021-03-31] MEDS ORDERED: MULT-1136 PO (15:25)
[2021-03-31 16:00] VITALS: BP 116/70
[2021-03-31 20:00] VITALS: BP 106/68
--- NOTE | 2021-03-31 20:06 | History & Physical ---
HPI History of Present Illness: 51 yo female had BKA for severe non-healing diabetic wounds earlier this summer, states right after she went home, she fell right on the stump, but it seemed okay. She came in now because she has redness and drainage from the end of her stump. She does state a few days ago Tomer with Dr. Reid prescribed Bactrim but she wasn't able to get it filled because she wanted to fill at [facility] and was needing the script written by a [facility] provider and reports she was waiting on that. Source: patient Date seen by provider: Mar 31, 2021 Time Seen by Provider: 14:30 Attending Physician Gianni Becerra MD [facility] [place] Consult Date of Admission Mar 31, 2021 at 09:53 Home Medications Home Medications Reviewed patient Home Medication Reconciliation performed by pharmacy medication reconciliations carpet technician and/or nursing. Patients Allergies have been reviewed. Allergies Coded Allergies: meperidine (Verified Allergy, Unknown, 02/02/21) varenicline (Verified Allergy, Unknown, 02/02/21) [id number] Hx Patient Social History Smoking Status: Current Everyday Smoker Alcohol Use?: No Substance type: Methamphetamine Tobacco type used: Cigarettes Have you traveled recently?: No Past Medical History PMHx: DMII Anxiety COPD Neuropathy Depression Substance use CKD SurgHx: D&C Right BKA Review of Systems ([facility]) Constitutional: No fever Respiratory: cough (chronic) Cardiovascular: No chest pain Gastrointestinal: No constipation, No diarrhea, No nausea, No vomiting Skin: see HPI Reviewed Test Results Reviewed Test Results Lab Laboratory Tests Test 03/31/21 07:55 03/31/21 19:44 Range/Units White Blood Count 19.6 H 4.3-11.0 10^3/uL Red Blood Count 4.19 3.80-5.11 10^6/uL Hemoglobin 11.0 L 11.5-16.0 g/dL Hematocrit 35 35-52 % Mean Corpuscular Volume 83 80-99 fL Mean Corpuscular Hemoglobin 26 25-34 pg Mean Corpuscular Hemoglobin Concent 32 32-36 g/dL Red Cell Distribution Width 14.4 10.0-14.5 % Platelet Count 468 H 130-400 10^3/uL Mean Platelet Volume 9.1 9.0-12.2 fL Immature Granulocyte % (Auto) 1 % Neutrophils (%) (Auto) 76 H 42-75 % Lymphocytes (%) (Auto) 16 12-44 % Monocytes (%) (Auto) 6 0-12 % Eosinophils (%) (Auto) 1 0-10 % Basophils (%) (Auto) 0 0-10 % Neutrophils # (Auto) 14.9 H 1.8-7.8 10^3/uL Lymphocytes # (Auto) 3.1 1.0-4.0 10^3/uL Monocytes # (Auto) 1.2 H 0.0-1.0 10^3/uL Eosinophils # (Auto) 0.3 0.0-0.3 10^3/uL Basophils # (Auto) 0.1 0.0-0.1 10^3/uL Immature Granulocyte # (Auto) 0.1 0.0-0.1 10^3/uL Neutrophils % (Manual) 75 % Lymphocytes % (Manual) 15 % Monocytes % (Manual) 4 % Eosinophils % (Manual) 0 % Basophils % (Manual) 1 % Metamyelocytes % % Myelocytes % % Band Neutrophils 5 % Blood Morphology Comment NORMAL Prothrombin Time 14.3 12.2-14.7 SEC INR Comment 1.1 0.8-1.4 Activated Partial Thromboplast Time 28 24-35 SEC Sodium Level 130 L 135-145 MMOL/L Potassium Level 4.1 3.6-5.0 MMOL/L Chloride Level 98 98-107 MMOL/L Carbon Dioxide Level 21 21-32 MMOL/L Anion Gap 11 5-14 MMOL/L Blood Urea Nitrogen 19 H 7-18 MG/DL Creatinine 0.77 0.60-1.30 MG/DL Estimat Glomerular Filtration Rate 79 BUN/Creatinine Ratio 25 Glucose Level 246 H 70-105 MG/DL Lactic Acid Level 1.34 0.50-2.00 MMOL/L Calcium Level 9.8 8.5-10.1 MG/DL Corrected Calcium 10.2 H 8.5-10.1 MG/DL Total Bilirubin 0.3 0.1-1.0 MG/DL Aspartate Amino Transf (AST/SGOT) 15 5-34 U/L Alanine Aminotransferase (ALT/SGPT) 21 0-55 U/L Alkaline Phosphatase 222 H 40-136 U/L Total Protein 8.6 H 6.4-8.2 GM/DL Albumin 3.5 3.2-4.5 GM/DL Glucometer 380 H 70-110 MG/DL Radiology Right knee x-ray: IMPRESSION: Soft tissue gas at the stump concerning for soft tissue infection and potentially abscess. Physical Exam-([facility]) Physical Exam Vital Signs VS - Last 72 Hours, by Label 03/31/21 03/31/21 03/31/21 03/31/21 07:40 11:03 11:46 12:00 Temp 36.2 36.9 Pulse 98 97 71 Resp 18 18 20 B/P (MAP) 135/87 (103) 144/97 136/70 (92) Pulse Ox 99 99 100 O2 Delivery Room Air Nasal Cannula O2 Flow Rate 2.00 03/31/21 03/31/21 03/31/21 03/31/21 13:03 13:26 16:00 20:00 Temp 36.2 36.6 36.2 Pulse 98 87 88 Resp 22 20 B/P (MAP) 116/70 (85) 106/68 (81) Pulse Ox 99 99 96 99 O2 Delivery Room Air Room Air Room Air FiO2 21 03/31/21 20:05 Pulse Ox 96 O2 Delivery Room Air Capillary Refill : Less Than 3 Seconds General Appearance: no apparent distress Respiratory: lungs clear, normal breath sounds Cardiovascular: regular rate, rhythm, no murmur Gastrointestinal: normal bowel sounds, non tender, soft Extremities: other (Right BKA, erythema and swelling of stump, small opening along lateral edge of incision line with drainage) Neurologic/Psychiatric: alert, normal mood/affect Assessment/Plan Assessment/Plan Admission Status: Observation (1) Cellulitis of right lower extremity Status: Acute Assessment & Plan: Vancomycin started. (2) Abscess of right lower leg Status: Acute Assessment & Plan: Wound care and Surgery consult. (3) T2DM (type 2 diabetes mellitus) Status: Chronic Assessment & Plan: Diabetic diet, insulin Qualifiers: Qualified Codes: E11.42 - Type 2 diabetes mellitus with diabetic polyneuropathy; Z79.4 - exterminator helper (current) use of insulin (4) S/P BKA (below knee amputation) Status: Acute Qualifiers: Qualified Codes: Z89.511 - Acquired absence of right leg below knee (5) Chronic kidney disease, stage III (moderate) JOSHUA WOODS MD Mar 31, 2021 20:06
[2021-03-31] MEDS ORDERED: inSUlin ASPART (NovoLOG) 1 UNIT/0.01 ML (CHARGE PER UNIT) SC ONE (21:45)
--- NOTE | 2021-03-31 22:25 | CONSULTATION REPORT ---
DATE OF SERVICE: 03/31/2021 ATTENDING SENIOR PATROL AGENT: [facility]. HISTORY OF PRESENT ILLNESS: The patient is a 51-year-old female known to us. We were consulted on her on 02/03/2021. She was brought into the Emergency Department with severe infection and pain along the right foot. She has a longstanding history of diabetic ulcerations and was undergoing a left foot wound care for significant amount of time. This patient has also been extremely noncompliant and has a history of hypertension, diabetes and does not take her medications. She states that she does have significant depression and after witnessing her committed suicide in 2019, she became more severely depressed and had lost hope. Upon examination, she was found to have a necrotic foot wound overlying the first metacarpophalangeal joint, which was malodorous. 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 The patient also does have a history of smoking cigarettes as well as methamphetamine use. On 02/07/2021, she underwent a right below-knee amputation. She did well postoperatively and did gain strength and was able to transfer and ambulate with assistance. She did have postoperative visits. However, again, was noncompliant with this. She was seen approximately 3 days ago for redness and erythema along the right stump. She states that she fell and hit the end of it causing pain. There was some erythema and redness at the time and she was prescribed Bactrim as well as to proceed with cessation of smoking. She did not fill her prescription for what she states as a financial reasons. She presented to the Emergency Department with worsening redness and swelling and pain. A CT scan was performed, which did show signs of cellulitis as well as an abscess. Earlier today, the patient's boyfriend and also caregiver reports that a sinus opening did develop and there was a significant amount of purulent drainage allowing for spontaneous drainage of the abscess. At this time, there is continued redness and swelling. There is no fluctuance. The previous suture line is intact. There is no crepitance palpable. PAST MEDICAL HISTORY: Hypertension, diabetes, depression, illicit drug abuse. PAST SURGICAL HISTORY: Right [id number] amputation. ALLERGIES: MEPERIDINE, AND VOLTAREN CREAM MEDICATIONS: Amlodipine 5 mg daily, doxycycline 100 mg b.i.d., fluconazole 150 mg daily, hydrocodone p.r.n., aspartate insulin 6 units q.a.c., Levemir insulin 20 units b.i.d., lactulose 10 grams b.i.d., Colace b.i.d. SOCIAL HISTORY: She states that she did resume smoking cigarettes; however, has not started methamphetamine use. She states that she does not drink alcohol. FAMILY HISTORY: She does have a family history of Buerger's disease. VITAL SIGNS: Temperature 36.6, blood pressure 116/70, pulse 87, respirations 22, pulse ox 96% on room air. REVIEW OF SYSTEMS: Well-nourished female currently in no acute distress. She is not experiencing any shortness of breath or difficulty breathing. No chest pain, palpitations, diaphoresis. No nausea, vomiting, no diarrhea or constipation. No fever, chills, no recent inadvertent weight loss. All other review of systems negative. PHYSICAL EXAMINATION: CHEST: Few scattered rales and rhonchi bilaterally. HEART: Regular, no murmurs. EXTREMITIES: There is redness and erythema along the posterior flap of the previous pjqdf-tqv-qodn amputation. There is a sinus opening, which was probed and approximately 4 cm in depth. There was no fluctuance. HEENT: No scleral icterus. NECK: No cervical lymphadenopathy. ABDOMEN: Soft, nontender, nondistended. SKIN: Warm, dry. LABORATORY DATA: WBC 19.6, hemoglobin 11.0, hematocrit 35. BUN 19, creatinine 0.77. ASSESSMENT AND PLAN: A 51-year-old female with cellulitis of the right dwvfo-szl-nbuj amputation stump. The patient did have an abscess; however, this spontaneously drained. We will recommend conservative management for now with IV antibiotics as well as wound care who has seen the patient and has proceeded with a Nu Gauze packing into the sinus tract. We feel that she will need to have IV antibiotics for at least the next 48 hours as well. We; however, will monitor her clinically. Job ID: [id number] DocumentID: [id number] Dictated Date: 03/31/2021 18:11:36 Junior Bookkeeper Date: 03/31/2021 22:24:44 Dictated By: [address] MD [facility]
[2021-03-31 23:36] VITALS: BP 120/59
[2021-03-31] MEDS: VANCOMYCIN 1 GM/NS 250 ML IVPB IV SCH ×2 (23:36)
[2021-04-01] VITALS (7 sets, daily range): BP systolic 117–142; BP diastolic 58–91
[2021-04-01] MEDS: NS IV 1000 ML 1,000 ML IV SCH ×4 (04:45→23:48)
[2021-04-01] MEDS: inSUlin ASPART (NovoLOG) 1 UNIT/0.01 ML (CHARGE PER UNIT) SC SCH ×7 (06:25→20:59)
[2021-04-01 07:17] LABS: HEMATOCRIT 30 % (35-52); HEMOGLOBIN 9.3 g/dL (11.5-16.0); MEAN CORPUSCULAR HEMOGLOBIN 26 pg (25-34); MEAN CORPUSCULAR HGB CONC 31 g/dL (32-36); MEAN CORPUSCULAR VOLUME 84 fL (80-99); MEAN PLATELET VOLUME 9.2 fL (9.0-12.2); PLATELET COUNT 383 10^3/uL (130-400); WHITE BLOOD COUNT 8.4 10^3/uL (4.3-11.0)
[2021-04-01 07:39] LABS: ALBUMIN 2.8 GM/DL (3.2-4.5)
[2021-04-01 07:40] LABS: CHLORIDE 108 MMOL/L (98-107); POTASSIUM 3.9 MMOL/L (3.6-5.0); SODIUM 139 MMOL/L (135-145)
[2021-04-01 07:41] LABS: CALCIUM 8.6 MG/DL (8.5-10.1)
[2021-04-01 07:42] LABS: GLUCOSE 235 MG/DL (70-105); TOTAL PROTEIN 6.6 GM/DL (6.4-8.2)
[2021-04-01 07:43] LABS: CARBON DIOXIDE 21 MMOL/L (21-32)
[2021-04-01 07:44] LABS: BILIRUBIN,TOTAL < 0.1 MG/DL (0.1-1.0)
[2021-04-01 07:45] LABS: ALKALINE PHOSPHATASE 162 U/L (40-136)
[2021-04-01 07:46] LABS: CREATININE SERUM 0.67 MG/DL (0.60-1.30); GFR ESTIMATED 93
[2021-04-01 07:47] LABS: BUN/CREATININE RATIO 22
[2021-04-01 07:49] LABS: ALANINE AMINOTRANSFERASE 16 U/L (0-55)
--- NOTE | 2021-04-01 07:49 | Progress Note - Surgery ---
JAEL AHUMADAEN 04/01/21 0749: Subjective Date Seen by a Provider: Apr 01, 2021 Time Seen by a Provider: 07:30 Subjective/Events-last exam Pt sitting up comfortably in bed and reports no pain. Continued on IV Vancomycin. Denies fever, chills, nausea, vomiting, diarrhea, or chest pain. Denies any urinary/bowel complaints. Expects to be discharged tomorrow after rechecking WBC count. Focused Exam Lactate Level 03/31/21 07:55: Lactic Acid Level 1.34 Objective Exam Vital Signs Date Time Temp Pulse Resp B/P (MAP) Pulse Ox O2 Delivery O2 Flow Rate FiO2 04/01/21 03:55 36.6 74 20 117/58 (77) 97 Room Air 03/31/21 23:36 36.0 84 20 120/59 (79) 98 Room Air 03/31/21 20:05 96 Room Air 03/31/21 20:00 36.2 88 20 106/68 (81) 99 Room Air 03/31/21 20:00 98 Room Air 03/31/21 16:00 36.6 87 22 116/70 (85) 96 Room Air 03/31/21 13:26 99 Room Air 03/31/21 13:03 36.2 98 99 21 03/31/21 12:00 36.9 71 20 136/70 (92) 100 Nasal Cannula 2.00 03/31/21 11:46 Room Air 03/31/21 11:03 97 18 144/97 99 I & O 04/01/21 07:00 Intake Total 2750 ml Balance 2750 ml Capillary Refill : Less Than 3 Seconds General Appearance: No Apparent Distress HEENT: PERRL/EOMI Neck: Normal Inspection, Non Tender, Supple Respiratory: Chest Non Tender, Lungs Clear, Normal Breath Sounds Cardiovascular: Regular Rate, Rhythm Gastrointestinal: non tender, soft Extremity: Other (R leg BKA well dressed) Neurologic/Psychiatric: Alert, Oriented x3, Normal Mood/Affect Skin: Normal Color, Warm/Dry Results Lab Laboratory Tests 03/31/21 07:55: White Blood Count 19.6H, Red Blood Count 4.19, Hemoglobin 11.0L, Hematocrit 35, Mean Corpuscular Volume 83, Mean Corpuscular Hemoglobin 26, Mean Corpuscular Hemoglobin Concent 32, Red Cell Distribution Width 14.4, Platelet Count 468H, Mean Platelet Volume 9.1, Immature Granulocyte % (Auto) 1, Neutrophils (%) (Auto) 76H, Lymphocytes (%) (Auto) 16, Monocytes (%) (Auto) 6, Eosinophils (%) (Auto) 1, Basophils (%) (Auto) 0, Neutrophils # (Auto) 14.9H, Lymphocytes # (Au to) 3.1, Monocytes # (Auto) 1.2H, Eosinophils # (Auto) 0.3, Basophils # (Auto) 0.1, Immature Granulocyte # (Auto) 0.1, Neutrophils % (Manual) 75, Lymphocytes % (Manual) 15, Monocytes % (Manual) 4, Eosinophils % (Manual) 0, Basophils % (Manual) 1, Metamyelocytes % , Myelocytes % , Band Neutrophils 5, Blood Morphology Comment NORMAL, Prothrombin Time 14.3, INR Comment 1.1, Activated Partial Thromboplast Time 28, Sodium Level 130L, Potassium Level 4.1, Chloride Level 98, Carbon Dioxide Level 21, Anion Gap 11, Blood Urea Nitrogen 19H, Creatinine 0.77, Estimat Glomerular Filtration Rate 79, BUN/Creatinine Ratio 25, Glucose Level 246H, Lactic Acid Level 1.34, Calcium Level 9.8, Corrected Calcium 10.2H, Total Bilirubin 0.3, Aspartate Amino Transf (AST/SGOT) 15, Alanine Aminotransferase (ALT/SGPT) 21, Alkaline Phosphatase 222H, Total Protein 8.6H, Albumin 3.5 03/31/21 19:44: Glucometer 380H 04/01/21 06:21: Glucometer 212H 04/01/21 06:55: White Blood Count 8.4, Red Blood Count 3.58L, Hemoglobin 9.3L, Hematocrit 30L, Mean Corpuscular Volume 84, Mean Corpuscular Hemoglobin 26, Mean Corpuscular Hemoglobin Concent 31L, Red Cell Distribution Width 14.2, Platelet Count 383, Mean Platelet Volume 9.2, Sodium Level 139, Potassium Level 3.9, Chloride Level 108H, Carbon Dioxide Level 21, Anion Gap 10, Glucose Level 235H, Calcium Level 8.6, Corrected Calcium 9.6, Total Protein 6.6, Albumin 2.8L Assessment/Plan Assessment/Plan Assessment/Plan R LE abcess, resolved Cellulitis of R LE T2DM Continue Vancomycin IV CBC for WBC Smoking cessation Social Work consult for home health issues ELOY RODRIGUES DO 04/01/21 1441: Subjective Subjective/Events-last exam Patient states she is feeling better. She is not heavily having a lot of pain to the right stump. Patient still with drainage from right stump. Patient denies any nausea vomiting fever sweats chills shortness of breath or chest pain Objective Exam General Appearance: No Apparent Distress HEENT: PERRL/EOMI Neck: Normal Inspection, Non Tender, Supple Respiratory: Chest Non Tender, No Accessory Muscle Use, No Respiratory Distress Cardiovascular: Regular Rate, Rhythm, No JVD Gastrointestinal: non tender, soft Extremity: Other (R leg BKA approximately 1 cm opening along the incision with purulent drainage, no significant erythema surrounding the skin.) Neurologic/Psychiatric: Alert, Oriented x3, Normal Mood/Affect Skin: Normal Color, Warm/Dry Lymphatic: No Adenopathy Assessment/Plan Assessment/Plan Assessment/Plan R LE abcess, resolved Cellulitis of R LE T2DM Continue abx Smoking cessation Wound care, dressing changed Supervisory-Addendum Brief Verification & Attestation Participated in pt care: history, MDM, physical Personally performed: exam, history, MDM, supervision of care Care discussed with: Medical Student Procedures: n/a Results interpretation: Verified all documentation Verification and Attestation of Medical Student E/M Service A medical student performed and documented this service in my presence. I rev iewed and verified all information documented by the medical student and made modifications to such information, when appropriate. I personally performed the physical exam and medical decision making. Eloy Rodrigues, Apr 01, 2021,14:41 RHONDA AHUMAAD Apr 01, 2021 07:49 ELOY RODRIGUES DO Apr 01, 2021 14:41
[2021-04-01] MEDS: HYDROcodone/APAP 5 MG/325 MG (LORTAB) TAB PO PRN ×2 (08:40→20:20)
--- NOTE | 2021-04-01 11:08 | Progress Note - Hospitalist ---
Subjective HPI/CC On Admission Date Seen by Provider: Apr 01, 2021 Time Seen by Provider: 10:30 Subjective/Events-last exam Patient reports she is feeling better and anxious for discharge. Stump pain much improved. Denies night sweats chills or fever. Focused Exam Lactate Level 03/31/21 07:55: Lactic Acid Level 1.34 Objective Exam Vital Signs Vital Signs Date Time Temp Pulse Resp B/P (MAP) Pulse Ox O2 Delivery O2 Flow Rate FiO2 04/01/21 08:00 100 Room Air 04/01/21 08:00 37.4 82 28 142/80 (100) 03/31/21 13:03 21 03/31/21 12:00 2.00 Capillary Refill : Less Than 3 Seconds General Appearance: No Apparent Distress, Anxious Respiratory: Chest Non Tender, Lungs Clear, Normal Breath Sounds, No Accessory Muscle Use, No Respiratory Distress Cardiovascular: Regular Rate, Rhythm, No Edema, No Gallop, No JVD, No Murmur, Normal Peripheral Pulses Extremity: Other (Right BKA wrapped no erythema around the knee or thigh.) Results/Procedures Lab Laboratory Tests 04/01/21 06:55 Patient resulted labs reviewed. Assessment/Plan Assessment and Plan Assess & Plan/Chief Complaint (1) Cellulitis of right lower extremity Status: Acute Assessment & Plan: Vancomycin started. 04/01 discussed the importance of continued antibiotics and that would be up to Dr. Rodrigues in regards to discharge. Discussed concerns that she has not been on IV antibiotics long enough and she runs the risk of osteomyelitis which would likely necessitate revision to an AKA amputation making future ambulation much more difficult. (2) Abscess of right lower leg Status: Acute Assessment & Plan: Wound care and Surgery consult. (3) T2DM (type 2 diabetes mellitus) Status: Chronic Assessment & Plan: Diabetic diet, insulin Qualifiers: Qualified Codes: E11.42 - Type 2 diabetes mellitus with diabetic polyneuropathy; Z79.4 - MCC (current) use of insulin (4) S/P BKA (below knee amputation) Status: Acute Qualifiers: Qualified Codes: Z89.511 - Acquired absence of right leg below knee (5) Chronic kidney disease, stage III (moderate) JOE GOFF MD Apr 01, 2021 11:08
[2021-04-01] MEDS: VANCOMYCIN 1 GM/NS 250 ML IVPB IV SCH ×4 (11:47→23:49)
[2021-04-01] MEDS ORDERED: TROUGH ORDER-PHARMACY XX NR (23:00)
[2021-04-02] MEDS: inSUlin ASPART (NovoLOG) 1 UNIT/0.01 ML (CHARGE PER UNIT) SC SCH ×7 (05:57→21:29)
[2021-04-02 07:40] VITALS: BP 124/71
[2021-04-02] MEDS: HYDROcodone/APAP 5 MG/325 MG (LORTAB) TAB PO PRN ×2 (07:57→19:51)
[2021-04-02] MEDS: NS IV 1000 ML 1,000 ML IV SCH ×3 (09:02→22:42)
--- NOTE | 2021-04-02 12:15 | Progress Note - Hospitalist ---
Subjective HPI/CC On Admission Date Seen by Provider: Apr 02, 2021 Time Seen by Provider: 11:30 Subjective/Events-last exam Patient reports decreased leg pain still having some drainage from the stump but no chills fever. Focused Exam Lactate Level 03/31/21 07:55: Lactic Acid Level 1.34 Objective Exam Vital Signs Vital Signs Date Time Temp Pulse Resp B/P (MAP) Pulse Ox O2 Delivery O2 Flow Rate FiO2 04/02/21 08:00 98 Room Air 04/02/21 07:40 36.4 60 18 124/71 (88) 03/31/21 13:03 21 03/31/21 12:00 2.00 Capillary Refill : Less Than 3 Seconds General Appearance: No Apparent Distress Respiratory: Chest Non Tender, Lungs Clear, Normal Breath Sounds, No Accessory Muscle Use, No Respiratory Distress Cardiovascular: Regular Rate, Rhythm, No Edema, No Gallop, No JVD, No Murmur, Normal Peripheral Pulses Extremity: Other (Decreased swelling about right BKA no erythema or swelling in the knee or thigh.) Results/Procedures Lab Patient resulted labs reviewed. Assessment/Plan Assessment and Plan Assess & Plan/Chief Complaint (1) Cellulitis of right lower extremity Status: Acute Assessment & Plan: Vancomycin started. 04/01 discussed the importance of continued antibiotics and that would be up to Dr. Rodrigues in regards to discharge. Discussed concerns that she has not been on IV antibiotics long enough and she runs the risk of osteomyelitis which would likely necessitate revision to an AKA amputation making future ambulation much more difficult. 04/02: Cellulitis with abscess secondary to staph preliminary report is not MRSA but the patient has a history of MRSA continue vancomycin dosed therapeutic drawn earlier today. Discharge for Dr. Rodrigues. (2) Abscess of right lower leg Status: Acute Assessment & Plan: Wound care and Surgery consult. (3) T2DM (type 2 diabetes mellitus) Status: Chronic Assessment & Plan: Diabetic diet, insulin Qualifiers: Qualified Codes: E11.42 - Type 2 diabetes mellitus with diabetic polyneuropathy; Z79.4 - intermediate (current) use of insulin (4) S/P BKA (below knee amputation) Status: Acute Qualifiers: Qualified Codes: Z89.511 - Acquired absence of right leg below knee (5) Chronic kidney disease, stage III (moderate) JOE GOFF MD Apr 02, 2021 12:15
--- NOTE | 2021-04-02 12:29 | Progress Note - Surgery ---
RHONDA AHUMADA 04/02/21 1229: Subjective Date Seen by a Provider: Apr 02, 2021 Time Seen by a Provider: 09:30 Subjective/Events-last exam Pt reports fatigue, heartburn symptoms, and feeling itchy. White count at 8.4. R BKA site is still having discharge. Focused Exam Lactate Level 03/31/21 07:55: Lactic Acid Level 1.34 Objective Exam Vital Signs Date Time Temp Pulse Resp B/P (MAP) Pulse Ox O2 Delivery O2 Flow Rate FiO2 04/02/21 08:00 98 Room Air 04/02/21 07:40 36.4 60 18 124/71 (88) 98 Room Air 04/01/21 23:59 36.2 80 16 128/70 (89) 100 Room Air 04/01/21 20:30 36.6 76 20 129/80 (96) 98 Room Air 04/01/21 20:00 100 Room Air 04/01/21 16:26 36.7 78 20 130/86 (101) 99 Room Air I & O 04/02/21 07:00 Intake Total 2620 ml Balance 2620 ml Capillary Refill : Less Than 3 Seconds General Appearance: No Apparent Distress HEENT: PERRL/EOMI Neck: Normal Inspection, Non Tender, Supple Extremity: Other (Decreased swelling about right BKA no erythema or swelling in the knee or thigh.) Neurologic/Psychiatric: Alert, Oriented x3, Normal Mood/Affect Results Lab Laboratory Tests 04/01/21 16:30: Glucometer 121H 04/01/21 20:40: Glucometer 142H 04/01/21 22:55: Vancomycin Level Trough 13.2 04/02/21 05:24: Glucometer 212H 04/02/21 11:49: Glucometer 169H Microbiology 03/31/21 Blood Culture - Preliminary, Resulted No growth 03/31/21 Gram Stain - Final, Resulted 03/31/21 Wound Culture - Preliminary, Resulted Staphylococcus aureus Assessment/Plan Assessment/Plan Assessment/Plan R LE abcess, resolved Cellulitis of R LE T2DM Continue abx Wound care, dressing changed ELOY RODRIGUES DO 04/02/21 2000: Subjective Subjective/Events-last exam Patient feeling better than yesterday. Patient is feels tired. Having some reflux. Still with drainage from stump. Denies n/v fever sweats chills shortness of breath or chest pain. Objective Exam General Appearance: No Apparent Distress, WD/WN HEENT: PERRL/EOMI, Normal ENT Inspection Neck: Normal Inspection, Non Tender, Supple Respiratory: Chest Non Tender, No Accessory Muscle Use, No Respiratory Distress Cardiovascular: Regular Rate, Rhythm, No JVD Gastrointestinal: non tender, soft Extremity: Other (Decreased swelling about right BKA no erythema or swelling in the knee or thigh, purulent drainage from opening at incision line) Neurologic/Psychiatric: Alert, Oriented x3, Normal Mood/Affect Skin: Normal Color, Warm/Dry Lymphatic: No Adenopathy Assessment/Plan Assessment/Plan Assessment/Plan R LE abcess still with drainage Cellulitis of R LE T2DM Continue abx Wound care, dressing changed Supervisory-Addendum Brief Verification & Attestation Participated in pt care: history, MDM, physical Personally performed: exam, history, MDM, supervision of care Care discussed with: Medical Student Procedures: n/a Results interpretation: Verified all documentation Verification and Attestation of Medical Student E/M Service A medical student performed and documented this service in my presence. I reviewed and verified all information documented by the medical student and made modifications to such information, when appropriate. I personally performed the physical exam and medical decision making. Eloy Rodrigues, Apr 02, 2021,20:00 RHONDA AHUMADA Apr 02, 2021 12:29 ELOY RODRIGUES DO Apr 02, 2021 20:00
[2021-04-02] MEDS: VANCOMYCIN 1 GM/NS 250 ML IVPB IV SCH ×2 (12:51)
[2021-04-02 16:59] VITALS: BP 142/80
[2021-04-03] VITALS: BP 143/82
[2021-04-03] MEDS: VANCOMYCIN 1 GM/NS 250 ML IVPB IV SCH ×2 (00:10)
[2021-04-03 05:50] LABS: HEMATOCRIT 32 % (35-52); HEMOGLOBIN 9.5 g/dL (11.5-16.0); MEAN CORPUSCULAR HEMOGLOBIN 25 pg (25-34); MEAN CORPUSCULAR HGB CONC 30 g/dL (32-36); MEAN CORPUSCULAR VOLUME 85 fL (80-99); PLATELET COUNT 414 10^3/uL (130-400); WHITE BLOOD COUNT 8.2 10^3/uL (4.3-11.0)
[2021-04-03 06:05] LABS: POTASSIUM 4.1 MMOL/L (3.6-5.0)
[2021-04-03 06:10] LABS: CREATININE SERUM 0.81 MG/DL (0.60-1.30)
[2021-04-03] MEDS: inSUlin ASPART (NovoLOG) 1 UNIT/0.01 ML (CHARGE PER UNIT) SC SCH ×4 (06:30→12:50)
[2021-04-03 08:00] VITALS: BP 127/65
[2021-04-03] MEDS: NS IV 1000 ML 1,000 ML IV SCH (09:46)
[2021-04-03] MEDS ORDERED: ceFAZolin INJECTION 1,000 MG in WATER (STERILE) FOR INJECTION 10 ML IV SCH (10:00)
[2021-04-03] MEDS ORDERED: ACHD5005 PO (11:00)
[2021-04-03] MEDS ORDERED: LINE600T12 PO (11:00)
--- NOTE | 2021-04-03 11:02 | Discharge Summary ---
Discharge Summary Hospital Course Was the Problem List Reviewed?: Yes Problems/Dx: (1) Abscess of right lower leg Status: Acute (2) Cellulitis of right lower extremity Status: Acute (3) T2DM (type 2 diabetes mellitus) Status: Chronic Qualifiers: Qualified Codes: E11.42 - Type 2 diabetes mellitus with diabetic polyneuropathy; Z79.4 - FCI (current) use of insulin (4) Chronic kidney disease, stage III (moderate) (5) Diabetes Status: Acute Qualifiers: Qualified Codes: E11.628 - Type 2 diabetes mellitus with other skin co mplications (6) S/P BKA (below knee amputation) Status: Acute Qualifiers: Qualified Codes: Z89.511 - Acquired absence of right leg below knee (7) Smoker Hospital Course Date of Admission: Mar 31, 2021 at 09:53 Admission Diagnosis : [facility] Date of Discharge: 04/03/21 Discharge Diagnosis: Stump abscess status post I&D Hospital Course: Hospital course: Pt had an uneventful hospital course, she was admitted for abscess in the right stump, that was drained, Pt was placed on IV antibiotics, she was ready for discharge, still holding BP medication since it was not required, Pain medication and Zyvox was sent into [facility]. Labs and Pending Lab Test: Laboratory Tests 04/02/21 11:49: Glucometer 169H 04/02/21 16:54: Glucometer 318H 04/02/21 20:29: Glucometer 242H 04/03/21 05:08: Glucometer 208H 04/03/21 05:20: White Blood Count 8.2, Red Blood Count 3.78L, Hemoglobin 9.5L, Hematocrit 32L, Mean Corpuscular Volume 85, Mean Corpuscular Hemoglobin 25, Mean Corpuscular Hemoglobin Concent 30L, Red Cell Distribution Width 14.3, Platelet Count 414H, Mean Platelet Volume 9.0, Sodium Level 141, Potassium Level 4.1, Chloride Level 108H, Carbon Dioxide Level 22, Anion Gap 11, Blood Urea Nitrogen 17, Creatinine 0.81, Estimat Glomerular Filtration Rate 75, BUN/Creatinine Ratio 21, Glucose Level 205H, Calcium Level 9.0 Microbiology 03/31/21 Blood Culture - Preliminary, Resulted No growth 03/31/21 Gram Stain - Final, Complete 03/31/21 Wound Culture - Final, Complete Staphylococcus aureus Home Meds Active Zyvox (Linezolid) 600 Mg Tablet 600 Mg PO BID Reported Ibuprofen 200 Mg Capsule 400-600 Mg PO Q8H PRN Tylenol Extra Strength (Acetaminophen) 500 Mg Tablet 1,000 Mg PO Q8H PRN Multivitamin 1 Each Tablet 1 Each PO DAILY Amlodipine Besylate 5 Mg Tablet 5 Mg PO HS Novolog Flexpen (Insulin Aspart) 300 Units/3 Ml Solution 6 Units SQ AC Levemir Flextouch (Insulin Detemir) 100 Unit/1 Ml Insuln.pen 20 Unit SQ BID Assessment/Pt Instructions [facility] in 1 week Wound care to be set up Dr. [address] in 1 week Discharge Planning: <30 minutes discharge planning Discharge Instructions Discharge Diet: ADA Diet Discharge Physical Examination Vital Signs Vital Signs Date Time Temp Pulse Resp B/P (MAP) Pulse Ox O2 Delivery O2 Flow Rate FiO2 04/03/21 08:00 35.6 77 18 127/65 (85) 98 Room Air 03/31/21 13:03 21 03/31/21 12:00 2.00 General Appearance: No Apparent Distress, WD/WN, Chronically ill Respiratory: Lungs Clear Cardiovascular: Regular Rate, Rhythm Allergies: Coded Allergies: meperidine (Verified Allergy, Unknown, 02/02/21) varenicline (Verified Allergy, Unknown, 02/02/21) Discharge Summary Date of Admission Mar 31, 2021 at 09:53 Date of Discharge Discharge Date: Apr 03, 2021 FATIMAH SOLORZANO DO Apr 03, 2021 11:02
--- NOTE | 2021-04-03 12:44 | Progress Note ---
IQRA C[employer] MED STUDENT 04/03/21 1244: Progress Note Dipti Mack is a 51 y.o. F with history of uncontrolled DM2 and right leg BKA on 02/07/21 who was hospitalized on 03/31/21 for RLE cellulitis and abscess. The patient missed her appointment to have leann removed with Dr. Reid, her surgeon, and fell onto one of the leann, contorting it with subsequent formation of a cellulitic abscess. She was hospitalized and placed on antibiotics for this. The patient has been on Vancomycin after cultures grew MRSA. She has improved over the past 3 days and is stable for discharge home on Linezolid. The patient understands she needs to follow up with Dr. Reid in a week. BENITA SOLORZANO DO 04/04/21 0534: Supervisory-Addendum Brief Verification & Attestation Participated in pt care: history, MDM, physical Personally performed: exam, history, MDM, supervision of care Care discussed with: Medical Student Procedures: n/a Results interpretation: Verified all documentation Verification and Attestation of Medical Student E/M Service A medical student performed and documented this service in my presence. I reviewed and verified all information documented by the medical student and made modifications to such information, when appropriate. I personally performed the physical exam and medical decision making. Benita Solorzano, Apr 04, 2021,05:34 IQRA CANTU MED STUDENT Apr 03, 2021 12:44 BENITA SOLORZANO DO Apr 04, 2021 05:34
[2021-04-03] MEDS: HYDROcodone/APAP 5 MG/325 MG (LORTAB) TAB PO PRN (12:50)
[2021-04-03 13:20] VITALS: BP 127/65
== END 2021-04-03 13:15 | disposition home or self-care (01) | DRG 565 ==
LOC: EDUNIT# 07:38 → ER 07:39 → OBSVTOIN 09:53 → 4TH 09:53 → INTOOBSV 09:53 → UNDOADMOB 09:53 → 4TH 09:53 → UNDODISIN 04-03 13:15
PROVIDERS: ADMIT Family Medicine; ATTEND Internal Medicine
DX: T87.43 Infection of amputation stump, right lower extremity (principal); L02.415 Cutaneous abscess of right lower limb; L03.115 Cellulitis of right lower limb; E11.40 Type 2 diabetes mellitus with diabetic neuropathy, unspecified; E11.22 Type 2 diabetes mellitus with diabetic chronic kidney disease; N18.30 Chronic kidney disease, stage 3 unspecified; Z79.4 Long term (current) use of insulin; I12.9 Hypertensive chronic kidney disease with stage 1 through stage 4 chronic kidney disease, or unspecified chronic kidney disease; E13.22 Other specified diabetes mellitus with diabetic chronic kidney disease; Z66 Do not resuscitate; F17.210 Nicotine dependence, cigarettes, uncomplicated; F32.9 Major depressive disorder, single episode, unspecified; Z91.19 Patient's noncompliance with other medical treatment and regimen; F41.9 Anxiety disorder, unspecified; J44.9 Chronic obstructive pulmonary disease, unspecified; Z88.6 Allergy status to analgesic agent; Z88.8 Allergy status to other drugs, medicaments and biological substances; Z73.0 Burn-out
CPT/HCPCS: 36415; 71045; 73562; 80048; 80053; 80202; 82947; 83605; 85007; 85027; 85610; 85730; 87040; 87070; 87077; 87186; 87205; 96374

== ENCOUNTER → 2021-05-09 | Outpatient (CLI) | payer MEDICAID ==
[~2021-05-09] MED LIST changes: +ACET-2267 PO; +IBUP-2185 PO; +LINE600T12 PO; +MULT-1136 PO
[2021-05-09 14:57] LABS: ALBUMIN 3.7 GM/DL (3.2-4.5); BILIRUBIN,TOTAL 0.2 MG/DL (0.1-1.0); CALCIUM 9.3 MG/DL (8.5-10.1); CREATININE SERUM 0.75 MG/DL (0.60-1.30); POTASSIUM 4.5 MMOL/L (3.6-5.0); TOTAL PROTEIN 8.1 GM/DL (6.4-8.2)
== END ==
LOC: LAB 13:51
PROVIDERS: ATTEND Family Medicine
DX: E11.622 Type 2 diabetes mellitus with other skin ulcer (principal); L97.216 Non-pressure chronic ulcer of right calf with bone involvement without evidence of necrosis; L02.415 Cutaneous abscess of right lower limb; T87.9 Unspecified complications of amputation stump; T65.292A Toxic effect of other tobacco and nicotine, intentional self-harm, initial encounter; E11.65 Type 2 diabetes mellitus with hyperglycemia
CPT/HCPCS: 36415; 80053; 84134

== ENCOUNTER → 2021-05-09 | Outpatient (CLI) | payer MEDICAID | LOC: WOUNDCARE 12:05 | PROVIDERS: ATTEND Family Medicine | DX: E11.622 Type 2 diabetes mellitus with other skin ulcer (principal); E11.65 Type 2 diabetes mellitus with hyperglycemia; L97.216 Non-pressure chronic ulcer of right calf with bone involvement without evidence of necrosis; L02.415 Cutaneous abscess of right lower limb; T87.9 Unspecified complications of amputation stump; T65.292A Toxic effect of other tobacco and nicotine, intentional self-harm, initial encounter | CPT/HCPCS: 87070; 87077; 87205; 99213 ==

== ENCOUNTER → 2021-05-15 | Outpatient (CLI) | payer MEDICAID | LOC: WOUNDCARE 13:41 | PROVIDERS: ATTEND Family Medicine | DX: E11.622 Type 2 diabetes mellitus with other skin ulcer (principal); L97.216 Non-pressure chronic ulcer of right calf with bone involvement without evidence of necrosis; L02.415 Cutaneous abscess of right lower limb; T87.9 Unspecified complications of amputation stump; T65.292A Toxic effect of other tobacco and nicotine, intentional self-harm, initial encounter; E11.65 Type 2 diabetes mellitus with hyperglycemia; E11.52 Type 2 diabetes mellitus with diabetic peripheral angiopathy with gangrene | CPT/HCPCS: 99212 ==

== ENCOUNTER → 2021-05-19 | Outpatient (CLI) | payer MEDICAID ==
--- NOTE | 2021-05-19 14:58 | Diagnostic Imaging Report ---
PROCEDURE: MRI right lower extremity without contrast. TECHNIQUE: Multiplanar, multisequence non contrast-enhanced MRI of the right lower extremity was accomplished. Contrast was declined by the patient. INDICATION: Below the knee amputation January 2021. Ulcer at the stump. COMPARISON: Radiographs from 03/31/2021 FINDINGS: There is motion artifact on multiple sequences resulting in suboptimal evaluation. There is mild bone marrow edema and fluid signal along the tibial stump. There is subtle cortical irregularity and T1 hypointensity in this location as well. Just distal to this in the soft tissues of the stump, there is a fluid collection which measures 2.9 cm transverse, up to 4.1 cm anteroposterior, and up to 4.1 cm craniocaudal. This collection includes tracts extending anteriorly and posteriorly toward the tibial stump. The larger pocket is distal, and contains multiple person-hypointense structures, with the largest measuring up to 1.7 cm in length. Elsewhere in the soft tissues, there is moderate edema. Contrast was declined, and enhancement is not evaluated. There is a small right knee joint effusion. On this [id number], internal structures of the knee are suboptimally evaluated, but no definite meniscal tear is seen. No full-thickness cartilage defects are identified. The cruciate and collateral ligaments appear intact. The extensor mechanism appears intact. IMPRESSION: 1. Marked bone marrow edema at the right tibial stump, with findings concerning for early osteomyelitis. 2. Fluid collection in the distal soft tissues with tracts extending near the tibia. This collection contains multiple hypointense structures, which may represent calcifications or foreign bodies. Dictated by: Dictated on workstation # [id number]
== END ==
LOC: RAD 13:15
PROVIDERS: ATTEND Family Medicine
DX: L97.216 Non-pressure chronic ulcer of right calf with bone involvement without evidence of necrosis (principal)

== ENCOUNTER → 2021-05-22 | Outpatient (CLI) | payer MEDICAID ==
[~2021-05-22] MED LIST changes: +SULF1TAB38 PO
== END ==
LOC: WOUNDCARE 12:57
PROVIDERS: ATTEND Family Medicine
DX: E11.622 Type 2 diabetes mellitus with other skin ulcer (principal); L97.216 Non-pressure chronic ulcer of right calf with bone involvement without evidence of necrosis; L02.415 Cutaneous abscess of right lower limb; T87.9 Unspecified complications of amputation stump; T65.292A Toxic effect of other tobacco and nicotine, intentional self-harm, initial encounter; E11.65 Type 2 diabetes mellitus with hyperglycemia; E11.621 Type 2 diabetes mellitus with foot ulcer; M86.061 Acute hematogenous osteomyelitis, right tibia and fibula; E11.52 Type 2 diabetes mellitus with diabetic peripheral angiopathy with gangrene
CPT/HCPCS: 99213

== ENCOUNTER 2021-05-23 15:49 | Inpatient (IN) | payer MEDICAID ==
[~2021-05-23] VITALS: Ht 172.7 cm; Wt 71.0 kg
[~2021-05-23 15:49] MED LIST changes: -SULF1TAB38 PO
--- NOTE | 2021-05-23 16:17 | ED Integumentary General ---
General Chief Complaint: Skin/Wound Problems Stated Complaint: POSSIBLE LEG INFECTION Source: patient Exam Limitations: no limitations History of Present Illness Date Seen by Provider: May 23, 2021 Time Seen by Provider: 16:05 Initial Comments Patient is a 51-year-old female who presents to the emergency department today at the direction of the wound care physician, Dr. Atkins for admission for osteomyelitis. Patient is a diabetic and had a right below the knee amputation earlier in the year. I saw her in March she had developed a large abscess over the stump. It grew out methicillin sensitive staph. Patient had antibiotic therapy went home on linezolid. Patient states she finished the course of therapy. She has had repeated wound care follow-up and it sounds like as Dr. Atkins was checking the wound last week and apparently the Q-tip went into the incision site and it was "deep" according to the patient. A culture was obtained at that time and the patient was scheduled for an MRI which she subsequently had last Saturday. Patient denies any current drainage from the incision site. She has not had any fevers, chills, cough or congestion. No shortness of breath, nausea or vomiting. No GI or problems. She is still smoking. All other review of systems reviewed and negative except as stated Timing/Duration: other (chronic) Location: extremities (right BKA stump) Associated Symptoms: denies symptoms Allergies and Home Medications Allergies Coded Allergies: meperidine (Verified Allergy, Unknown, 02/02/21) varenicline (Verified Allergy, Unknown, 02/02/21) Patient Home Medication List Home Medication List Reviewed: Yes Acetaminophen (Tylenol Extra Strength) 500 Mg Tablet, 1,000 MG PO Q8H PRN for PAIN-MILD (1-4), (Reported) Entered as Reported by: JOEY ANGELA on 03/31/21 1525 Hydrocodone Bit/Acetaminophen (HYDROcodone/APAP 5 MG/325 MG TAB) 1 Tab Tab, 1 EA PO Q4H PRN for PAIN-MODERATE (5-7) Prescribed by: FATIMAH SOLORZANO on 04/03/21 1101 Ibuprofen (Ibuprofen) 200 Mg Capsule, 400-600 MG PO Q8H PRN for PAIN-MILD (1-4), (Reported) Entered as Reported by: JOEY ANGELA on 03/31/21 1525 Insulin Aspart (Novolog Flexpen) 300 Units/3 Ml Solution, 6 UNITS SQ AC, (Reported) Entered as Reported by: JOEY ANGELA on 03/31/21 152 Insulin Detemir (Levemir Flextouch) 100 Unit/1 Ml Insuln.pen, 20 UNIT SQ BID, (Reported) Entered as Reported by: JOEY ANGELA on 03/31/21 152 Linezolid (Zyvox) 600 Mg Tablet, 600 MG PO BID Prescribed by: FATIMAH SOLORZANO on 04/03/21 1100 Multivitamin (Multivitamin) 1 Each Tablet, 1 EACH PO DAILY, (Reported) Entered as Reported by: JOEY ANGELA on 03/31/21 1525 Review of Systems Review of Systems Constitutional: see HPI EENTM: no symptoms reported Respiratory: no symptoms reported Cardiovascular: no symptoms reported Gastrointestinal: no symptoms reported Genitourinary: no symptoms reported Musculoskeletal: no symptoms reported Skin: no symptoms reported All Other Systems Reviewed Negative Unless Noted: Yes Past Swfsgnd-Sjzshy-Zlhsxe Hx Immunizations Up To Date First/Initial COVID19 Vaccinat: NO COVID VACCINATIONS, PATIENT REQUEST VACCINE AT DISCHARGE Past Medical History Surgery/Hospitalization HX: SX: DNC, R ABOVE THE KNEE AMP. Surgeries: No (None reported) Orthopedic Respiratory: No Currently Using CPAP: No Currently Using BIPAP: No Cardiac: Yes Hypertension Reproductive Disorders: No Genitourinary: No Gastrointestinal: No Musculoskeletal: No Endocrine: Yes Diabetes, Non-Insulin dep HEENT: No Cancer: No Psychosocial: Yes Depression Integumentary: Yes (diabetic foot ulcers) Physical Exam Vital Signs Vital Signs - First Documented 05/23/21 15:55 Temp 36.5 Pulse 105 Resp 16 B/P (MAP) 82/ Pulse Ox 98 O2 Delivery Room Air Capillary Refill : General Appearance: WD/WN, no apparent distress HEENT: other (appears adequately hydrated) Neck: normal inspection Cardiovascular: regular rate, rhythm Respiratory: lungs clear, normal breath sounds, no respiratory distress, no accessory muscle use Extremities: normal range of motion, other (right BKA stump appears good, no active drainage; no erythema, not significantly tender. The "hole" in the incision that was previsouly draining appears closed.) Neurologic/Psychiatric: no motor/sensory deficits, alert, normal mood/affect, oriented x 3 Skin: normal color, warm/dry Progress/Results/Core Measures Results/Orders Lab Results Laboratory Tests Test 05/23/21 16:25 Range/Units White Blood Count 10.9 4.3-11.0 10^3/uL Red Blood Count 5.60 H 3.80-5.11 10^6/uL Hemoglobin 14.4 11.5-16.0 g/dL Hematocrit 46 35-52 % Mean Corpuscular Volume 82 80-99 fL Mean Corpuscular Hemoglobin 26 25-34 pg Mean Corpuscular Hemoglobin Concent 31 L 32-36 g/dL Red Cell Distribution Width 15.7 H 10.0-14.5 % Platelet Count 353 130-400 10^3/uL Mean Platelet Volume 9.3 9.0-12.2 fL Immature Granulocyte % (Auto) 1 % Neutrophils (%) (Auto) 63 42-75 % Lymphocytes (%) (Auto) 25 12-44 % Monocytes (%) (Auto) 7 0-12 % Eosinophils (%) (Auto) 3 0-10 % Basophils (%) (Auto) 0 0-10 % Neutrophils # (Auto) 6.9 1.8-7.8 10^3/uL Lymphocytes # (Auto) 2.7 1.0-4.0 10^3/uL Monocytes # (Auto) 0.8 0.0-1.0 10^3/uL Eosinophils # (Auto) 0.3 0.0-0.3 10^3/uL Basophils # (Auto) 0.0 0.0-0.1 10^3/uL Immature Granulocyte # (Auto) 0.1 0.0-0.1 10^3/uL Erythrocyte Sedimentation Rate 18 0-30 MM/HR Sodium Level 137 135-145 MMOL/L Potassium Level 4.1 3.6-5.0 MMOL/L Chloride Level 100 98-107 MMOL/L Carbon Dioxide Level 22 21-32 MMOL/L Anion Gap 15 H 5-14 MMOL/L Blood Urea Nitrogen 19 H 7-18 MG/DL Creatinine 0.79 0.60-1.30 MG/DL Estimat Glomerular Filtration Rate 77 BUN/Creatinine Ratio 24 Glucose Level 203 H 70-105 MG/DL Calcium Level 9.5 8.5-10.1 MG/DL Corrected Calcium 9.6 8.5-10.1 MG/DL Total Bilirubin 0.2 0.1-1.0 MG/DL Aspartate Amino Transf (AST/SGOT) 19 5-34 U/L Alanine Aminotransferase (ALT/SGPT) 21 0-55 U/L Alkaline Phosphatase 104 40-136 U/L C-Reactive Protein High Sensitivity 0.15 0.00-0.50 MG/DL Total Protein 8.4 H 6.4-8.2 GM/DL Albumin 3.9 3.2-4.5 GM/DL My Orders Orders - JP PIERRE MD Ed Iv/Invasive Line Start (05/23/21 16:10) Cbc With Automated Diff (05/23/21 16:10) Comprehensive Metabolic Panel (05/23/21 16:10) Blood Culture (05/23/21 16:10) Erythrocyte Sedimentation Rate (05/23/21 16:10) Hs C Reactive Protein (05/23/21 16:10) Vital Signs/I&O 05/23/21 15:55 Temp 36.5 Pulse 105 Resp 16 B/P (MAP) 82/ Pulse Ox 98 O2 Delivery Room Air Admisison Planning May Need Admission (Planning): 16:22 Progress Progress Note : Time: 18:08 Progress Note Patient became increasingly agitated over the course of the last hour, threatening to leave AGAINST MEDICAL ADVICE if she was not allowed to go out and smoke a cigarette. Patient was insisting that she be allowed to go walk around the hospital and smoke. Both myself and her nurse talked to her about not only the legality of this but also the danger in this. I advised her if she left the hospital property she would lose her bed and have to check back in and start over. She was very upset. Patient is very agitated, cursing, throwing things in the room. I attempted to talk to her and reason with her to no avail. I advised her if she leaves the hospital and does not have treatment for her bone infection she could develop sepsis and . She states she understands this. She was repreatedly saying "what the fuck, I may as well go home and . I just want a fucking ciggarette". Finally her significant other was able to get her to calm down. I offered a nicotine patch as well as Ativan. Patient ultimately agreed to stay according to her significant other. SHe is given some ativan prior to going to her floor bed. Diagnostic Imaging Diagonstic Imaging: MRI Plain Films/CT/US/NM/MRI: knee Comments [facility] 05/19 :: [facility] [employer] [place], [place] NAME: [facility] REC#: [id number] PT STATUS: REG CLI : 1970 PHYSICIAN: IGNACIO ATKINS MD ADMIT DATE: 05/19/21/RAD Signed Date of Exam:05/19/21 MRI RT LOWER EXT W/O CON PROCEDURE: MRI right lower extremity without contrast. TECHNIQUE: Multiplanar, multisequence non contrast-enhanced MRI of the right lower extremity was accomplished. Contrast was declined by the patient. INDICATION: Below the knee amputation January 2021. Ulcer at the stump. COMPARISON: Radiographs from 03/31/2021 FINDINGS: There is motion artifact on multiple sequences resulting in suboptimal evaluation. There is mild bone marrow edema and fluid signal along the tibial stump. There is subtle cortical irregularity and T1 hypointensity in this location as well. Just distal to this in the soft tissues of the stump, there is a fluid collection which measures 2.9 cm transverse, up to 4.1 cm anteroposterior, and up to 4.1 cm craniocaudal. This collection includes tracts extending anteriorly and posteriorly toward the tibial stump. The larger pocket is distal, and contains multiple person-hypointense structures, with the largest measuring up to 1.7 cm in length. Elsewhere in the soft tissues, there is moderate edema. Contrast was declined, and enhancement is not evaluated. There is a small right knee joint effusion. On this [id number], internal structures of the knee are suboptimally evaluated, but no definite meniscal tear is seen. No full-thickness cartilage defects are identified. The cruciate and collateral ligaments appear intact. The extensor mechanism appears intact. IMPRESSION: 1. Marked bone marrow edema at the right tibial stump, with findings concerning for early osteomyelitis. 2. Fluid collection in the distal soft tissues with tracts extending near the tibia. This collection contains multiple hypointense structures, which may represent calcifications or foreign bodies. 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 [facility]: [facility] [place] Primary Care Physician JP PIERRE MD May 23, 2021 16:17
[2021-05-23 16:31] LABS: BASOPHILS % (AUTO) 0 % (0-10); EOSINOPHILS # (AUTO) 0.3 10^3/uL (0.0-0.3); EOSINOPHILS % (AUTO) 3 % (0-10); HEMATOCRIT 46 % (35-52); HEMOGLOBIN 14.4 g/dL (11.5-16.0); LYMPHOCYTES # (AUTO) 2.7 10^3/uL (1.0-4.0); LYMPHOCYTES % (AUTO) 25 % (12-44); MEAN CORPUSCULAR HEMOGLOBIN 26 pg (25-34); MEAN CORPUSCULAR HGB CONC 31 g/dL (32-36); MEAN CORPUSCULAR VOLUME 82 fL (80-99); MEAN PLATELET VOLUME 9.3 fL (9.0-12.2); MONOCYTES # (AUTO) 0.8 10^3/uL (0.0-1.0); MONOCYTES % (AUTO) 7 % (0-12); NEUTROPHILS # (AUTO) 6.9 10^3/uL (1.8-7.8); NEUTROPHILS % (AUTO) 63 % (42-75); PLATELET COUNT 353 10^3/uL (130-400); WHITE BLOOD COUNT 10.9 10^3/uL (4.3-11.0)
[2021-05-23 16:40] LABS: ALBUMIN 3.9 GM/DL (3.2-4.5); POTASSIUM 4.1 MMOL/L (3.6-5.0)
[2021-05-23 16:41] LABS: CALCIUM 9.5 MG/DL (8.5-10.1)
[2021-05-23 16:43] LABS: TOTAL PROTEIN 8.4 GM/DL (6.4-8.2)
[2021-05-23 16:44] LABS: BILIRUBIN,TOTAL 0.2 MG/DL (0.1-1.0)
[2021-05-23] MEDS ORDERED: VANCOMYCIN INJECTION 1,000 MG in NS (IVPB) 250 ML IV SCH (16:45)
[2021-05-23 16:46] LABS: CREATININE SERUM 0.79 MG/DL (0.60-1.30)
[2021-05-23 17:03] LABS: ERYTHROCYTE SEDIMENTATION RATE 18 MM/HR (0-30)
[2021-05-23] MEDS ORDERED: VANCOMYCIN 1250 MG/NS 250 ML IVPB IV NR ×2 (17:15)
--- NOTE | 2021-05-23 17:17 | CONSULTATION REPORT ---
DATE OF SERVICE: ATTENDING PRIMARY SOCIAL WORK MANAGER: [facility]. ADMITTING PHYSICIAN: Dr. Munoz. HISTORY OF PRESENT ILLNESS: The patient is a 51-year-old female known to us. We were initially consulted on 02/03/2021 for a severe infection along the right foot and a longstanding history of diabetic ulcerations as well as noncompliance with history of hypertension, diabetes and did not take any medications for years. She states that she had significant depression after witnessing her committing suicide in 2019 and had lost hope. Upon examination, she was found to have a necrotic wound overlying the first metacarpophalangeal joint and x-rays were consistent with osteomyelitis of the metacarpophalangeal joint and she was also a cigarette smoker as well as a methamphetamine user. On 02/07/2021, she underwent a right below-knee amputation. She was readmitted on 03/31/2021 after states that she fell during the transfer and hit her stump and that started erythema, redness as well as drainage. She was found to have an abscess and the CT scan confirmed this. This did spontaneously drain and she was treated conservatively with IV antibiotics. She presented today with redness and swelling in the direction of the wound care, which she has been seeing regularly. There appears to be multiple sinus tracts and openings along the stump and a recent MRI did show signs consistent with osteomyelitis of the tibia bone. She does continue to smoke. PAST MEDICAL HISTORY: Hypertension, diabetes, depression, and history of illicit drug abuse. PAST SURGICAL HISTORY: Right below-knee amputation on 02/07/2021. ALLERGIES: MEPERIDINE and VOLTAREN CREAM. MEDICATIONS: Amlodipine 5 mg daily, doxycycline 100 mg b.i.d., fluconazole 150 mg daily, hydrocodone p.r.n., aspartate insulin 6 units before every meal, Levemir insulin 20 units at each day at bedtime, lactulose 10 grams b.i.d., and Colace b.i.d. SOCIAL HISTORY: Positive cigarette smoking. She states that she has not restarted methamphetamine use. She does not report drinking alcohol. FAMILY HISTORY: Buerger's disease. REVIEW OF SYSTEMS: A well-nourished female, currently in no acute distress. She is not experiencing any shortness of breath or difficulty breathing. No chest pain, palpitations or diaphoresis. No nausea, vomiting, no diarrhea or constipation. She does not report any fever, no chills as well as no recent inadvertent weight loss. She does have discomfort of the left lower extremity stump as well as drainage. PHYSICAL EXAMINATION: VITAL SIGNS: Temperature 36.5, pulse 105, respirations 16, pulse ox 98% on room air. CHEST: Scattered wheezes and rhonchi bilaterally. HEART: Regular and no murmurs. EXTREMITIES: At the left stump, there are open sinus tracts as well as surrounding redness and erythema. HEENT: No scleral icterus. NECK: No cervical lymphadenopathy. ABDOMEN: Soft, nontender, and nondistended. SKIN: Warm and dry. LABORATORY DATA: WBC 10.9, hemoglobin 14.4, hematocrit 46, and platelets 353. BUN 19 and creatinine 0.79. ASSESSMENT AND PLAN: A 51-year-old female with an osteomyelitis of the left tibial stump, status post left [id number]-[id number] amputation 02/07/2021 with history of medical noncompliance and continuation of smoking despite Buerger's disease. At this time, we will give her the option of continuing with medical management with opening up the wound and continue with a wound VAC; however, with the osteomyelitis, it will be very difficult to completely resolve the infection and she would always have recurrence. The proper treatment would be to proceed with an idpbh-dzh-unxg amputation. However, due to her history of noncompliance, she can continue to have complications of the stump as well and also continue to develop complications of peripheral arterial disease of the contralateral lower extremity as well. Job ID: [id number] DocumentID: [id number] Dictated Date: 05/23/2021 16:54:20 Optical Lab Technician Date: 05/23/2021 17:17:06 Dictated By: [address]SERR[address] STRE[address] MD
[2021-05-23] MEDS ORDERED: LORazepam INJ 2 MG/ML (ATIVAN) VIAL IVP ONE (18:15)
[2021-05-23] MEDS ORDERED: CATHETER FLUSH 10 ML SYR IV PRN (18:45)
[2021-05-23 18:50] VITALS: BP 117/74
[2021-05-23] MEDS: NICOTINE 21 MG (NICODERM) PATCH TD SCH (19:31)
[2021-05-23 19:33] VITALS: BP 114/76
[2021-05-23 19:49] VITALS: BP 149/89
[2021-05-23] MEDS ORDERED: RT-ALBUTEROL SULF 2.5 MG/3 ML PRE-MIX VIAL INH PRN (20:00)
[2021-05-23] MEDS: inSUlin ASPART (NovoLOG) 1 UNIT/0.01 ML (CHARGE PER UNIT) SC SCH (20:59)
[2021-05-23] MEDS: CATHETER FLUSH 10 ML SYR IV SCH (20:59)
[2021-05-23] MEDS ORDERED: inSUlin ASPART (NovoLOG) 1 UNIT/0.01 ML (CHARGE PER UNIT) SC SCH (21:00)
[2021-05-24 00:06] VITALS: BP 126/64
[2021-05-24] MEDS ORDERED: LORazepam INJ 2 MG/ML (ATIVAN) VIAL IVP PRN (00:45)
[2021-05-24 04:41] VITALS: BP 128/66
[2021-05-24] MEDS: CATHETER FLUSH 10 ML SYR IV SCH ×2 (06:10→14:00)
[2021-05-24] MEDS: VANCOMYCIN 1 GM/NS 250 ML IVPB IV SCH ×4 (06:10→16:59)
[2021-05-24] MEDS: inSUlin ASPART (NovoLOG) 1 UNIT/0.01 ML (CHARGE PER UNIT) SC SCH ×3 (06:48→16:59)
[2021-05-24 08:00] VITALS: BP 162/91
[2021-05-24] MEDS ORDERED: NICOTINE PATCH REMOVAL TP SCH (08:59)
[2021-05-24] MEDS: NICOTINE 21 MG (NICODERM) PATCH TD SCH (09:42)
[2021-05-24 11:25] VITALS: BP 122/74
[2021-05-24] MEDS ORDERED: SULF1TAB38 PO (14:47)
--- NOTE | 2021-05-24 15:36 | Short Stay Summary ---
HPI History of Present Illness: 51 yo F with h/o Right BKA with h/o abscess and cellulitis. Patient was sent to the ER due from wound clinic due to concerns after MRI was consistent with osteomyelitis with residual abscess. Patient has a long h/o non compliance. She continues to smoke and states that she has used meth in the last few weeks. Denies any fever or chills. States that her pain is well controlled. There is minimal drainage from wound but does have multiple tracts. Source: patient Date seen by provider: May 24, 2021 Time Seen by Provider: 10:45 Attending Physician Choco Munoz MD PCP [facility] Consult Date of Admission May 23, 2021 at 16:25 Home Medications Home Medications Reviewed patient Home Medication Reconciliation performed by pharmacy medication reconciliations speech therapist technician and/or nursing. Patients Allergies have been reviewed. Allergies Coded Allergies: meperidine (Verified Allergy, Unknown, 05/23/21) varenicline (Verified Allergy, Unknown, 05/23/21) GIY-Wftwbs-Ahwyar Hx Patient Social History Smoking Status: Current Everyday Smoker Alcohol Use?: No Tobacco type used: Cigarettes Have you traveled recently?: No Past Medical History PMHx: DMII Anxiety COPD Neuropathy Depression Substance use CKD Martinez's disease Tobacco Abuse SurgHx: D&C Right BKA Review of Systems ([facility]) Constitutional: no symptoms reported; No chills, No fever EENTM: no symptoms reported; No vision loss, No nose congestion, No nose pain Respiratory: no symptoms reported; No cough, No dyspnea on exertion, No short of breath Cardiovascular: no symptoms reported; No chest pain, No edema, No palpitations Gastrointestinal: no symptoms reported; No abdominal pain, No constipation, No diarrhea, No nausea, No vomiting Genitourinary: no symptoms reported; No dysuria, No frequency, No hematuria : No Musculoskeletal: joint pain Skin: rash Psychiatric/Neurological: No Symptoms Reported Reviewed Test Results Reviewed Test Results Lab Laboratory Tests Test 05/24/21 06:21 05/24/21 10:48 05/24/21 16:06 Range/Units Glucometer 186 H 188 H 270 H 70-110 MG/DL Physical Exam-([facility]) Physical Exam Vital Signs VS - Last 72 Hours, by Label 05/23/21 05/23/21 05/23/21 05/23/21 15:55 18:21 18:50 19:33 Temp 36.5 37.1 37.4 Pulse 105 78 106 97 Resp 16 16 18 18 B/P (MAP) 82/ 145/89 117/74 (88) 114/76 (89) Pulse Ox 98 97 100 100 O2 Delivery Room Air Room Air Room Air Room Air 05/23/21 05/23/21 05/24/21 05/24/21 19:37 19:49 00:06 04:41 Temp 36.5 36.4 36.0 Pulse 105 98 84 Resp 18 18 B/P (MAP) 126/64 (84) 128/66 (86) Pulse Ox 98 99 98 O2 Delivery Room Air Room Air Room Air FiO2 21 05/24/21 05/24/21 08:00 11:25 Temp 35.8 36.4 Pulse 80 72 Resp 20 16 B/P (MAP) 162/91 (114) 122/74 (90) Pulse Ox 98 99 O2 Delivery Room Air Room Air Capillary Refill : Less Than 3 Seconds General Appearance: WD/WN, no apparent distress, thin HEENT: PERRL/EOMI, normal ENT inspection Neck: non-tender, full range of motion, supple, normal inspection Respiratory: chest non-tender, lungs clear, normal breath sounds, no respiratory distress, no accessory muscle use Cardiovascular: normal peripheral pulses, regular rate, rhythm, no murmur Gastrointestinal: normal bowel sounds, non tender, soft, no organomegaly Back: no CVA tenderness, no vertebral tenderness Extremities: other (Right BKA, moderate drainage, non tender to palpation) Neurologic/Psychiatric: transportation engineer II-XII nml as tested, alert, oriented x 3 Lymphatic: no adenopathy Short Stay Diagnosis Discharge Diagnosis-Short Stay Admission Diagnosis 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 DMII tobacco abuse Final Discharge Diagnosis See above Conclusion Plan See problem list Assessment/Plan Assessment/Plan Admission Status: Observation (1) Osteomyelitis Status: Acute Assessment & Plan: - IV antibiotics, Dr Reid evaluated patient and going to set up outpatient surgery and keep her on the PO antibiotics that she has been on (2) Right BKA infection Status: Acute (3) Martinez disease Status: Chronic (4) T2DM (type 2 diabetes mellitus) Status: Chronic Assessment & Plan: - Keep log of blood sugars (5) Tobacco abuse Status: Chronic Assessment & Plan: - Discussed the importance of cessation CHOCO MUNOZ MD May 24, 2021 15:36
--- NOTE | 2021-05-24 15:37 | Progress Note ---
Standard Progress Note Progress Notes/Assess & Plan Date Seen by a Provider: May 24, 2021 Time Seen by a Provider: 15:30 Progress/Assessment & Plan wound looks good at this point. no redness/erythema, no fluctuance. no systemic sx of fever/chills. patient does admit to relapsing with methamphetamine and continues to smoke cigarettes daily. osteomyelitis identified on right tibial stump on recent MRI. again had long in depth discussion on patients pathophysiology and prognosis. patient will need a right ccbac-bma-zdvg amputation soon but if she continues to smoke and use ilicit drugs her wound healing potential wound be extremely poor and she would likely develop ischemic necrosis of the contralateral lower extremity and upper extremities as well due to buergers dz. plan is to send home and cont current PO abx regimen and schedule her for OP right AKA on (06/01/21). will talk to PMD about these plans. Final Diagnosis right BKA osteomyelits. MONSERRAT STREET MD May 24, 2021 15:37
--- NOTE | 2021-05-24 15:43 | Discharge Inst-Surgical ---
D/C Lap Instructions-JAD Patient scheduled for OP right stump pvokf-awn-wrmq amputation on (05/15 8) continue previous home meds. Activity as tolerated No driving for 24 hours No driving while on pain medications Incentive Spirometry use every 2 hours while awake Regular Diet Symptoms to Report: Fever over 101 degree F, Nausea/Vomiting Infection Signs and Symptoms to report: Increased redness, Foul odor of wound, Increased drainage Bathing instructions: May shower Operative Area Clean/Dry; Keep incision clean/dry If any problems/questions: Contact your physician or go to Emergency Room MONSERRAT STRE[address] MD May 24, 2021 15:43
[2021-05-24 16:00] VITALS: BP 119/73
[2021-05-25] MEDS ORDERED: TROUGH ORDER-PHARMACY XX NR (05:00)
== END 2021-05-24 19:20 | disposition home or self-care (01) | DRG 565 ==
LOC: EDUNIT# 15:49 → ER 15:52 → 4TH 16:25
PROVIDERS: ADMIT Family Medicine; ATTEND Family Medicine
DX: T87.43 Infection of amputation stump, right lower extremity (principal); M86.9 Osteomyelitis, unspecified; E11.69 Type 2 diabetes mellitus with other specified complication; B95.61 Methicillin susceptible Staphylococcus aureus infection as the cause of diseases classified elsewhere; Z79.4 Long term (current) use of insulin; F32.A Depression, unspecified; F17.210 Nicotine dependence, cigarettes, uncomplicated; F15.90 Other stimulant use, unspecified, uncomplicated; I73.1 Thromboangiitis obliterans [Buerger's disease]; Z91.19 Patient's noncompliance with other medical treatment and regimen; F41.9 Anxiety disorder, unspecified; J44.9 Chronic obstructive pulmonary disease, unspecified; E11.40 Type 2 diabetes mellitus with diabetic neuropathy, unspecified; I12.9 Hypertensive chronic kidney disease with stage 1 through stage 4 chronic kidney disease, or unspecified chronic kidney disease; E11.22 Type 2 diabetes mellitus with diabetic chronic kidney disease; N18.9 Chronic kidney disease, unspecified
CPT/HCPCS: 36415; 80053; 82947; 85025; 85652; 86141; 87040

== ENCOUNTER 2021-05-30 05:28 | Outpatient (RCR) | payer MEDICAID ==
[~2021-05-30] VITALS: Ht 170.2 cm; Wt 71.0 kg
[~2021-05-30 05:28] MED LIST changes: +FLU QUADRIvalent (3YOA+) 60 mcg/0.5 ml 2021-22(AFLURIA) IM ONE; +SULF1TAB38 PO
== END 2021-05-31 09:44 | disposition home or self-care (01) ==
LOC: PREOP 05:28
PROVIDERS: ATTEND Surgery
DX: Z01.812 Encounter for preprocedural laboratory examination (principal); Z20.822 Contact with and (suspected) exposure to COVID-19
CPT/HCPCS: 87635

== ENCOUNTER 2021-06-30 05:26 | Outpatient (RCR) | payer MEDICAID ==
[~2021-06-30] VITALS: Ht 172.7 cm; Wt 72.7 kg
[~2021-06-30 05:26] MED LIST changes: -FLU QUADRIvalent (3YOA+) 60 mcg/0.5 ml 2021-22(AFLURIA) IM ONE; +LIRA0.6P SQ
== END 2021-06-30 11:50 | disposition home or self-care (01) ==
LOC: PREOP 05:26
PROVIDERS: ATTEND Surgery
DX: Z01.812 Encounter for preprocedural laboratory examination (principal); M86.161 Other acute osteomyelitis, right tibia and fibula; Z20.822 Contact with and (suspected) exposure to COVID-19
CPT/HCPCS: 87635

== ENCOUNTER → 2021-07-04 | Outpatient (CLI) | payer MEDICAID ==
--- NOTE | 2021-06-22 19:08 | HISTORY AND PHYSICAL ---
DATE OF SERVICE: ATTENDING PRIMARY CARE PHYSICIAN: [facility]. DATE OF ADMISSION: 07/04/2021. HISTORY OF PRESENT ILLNESS: The patient is a 51-year-old female known to us. We were initially consulted on 02/03/2021 for severe infection along the right foot as well as a longstanding history of diabetic ulcerations and medical noncompliance including a history of hypertension, diabetes and had not taken any medications for years. She also has a significant history of depression after witnessing her commit suicide in 2019 and had lost hope. Upon examination, on that admission, she was found to have osteomyelitis along the metacarpophalangeal joint. She was a current cigarette smoker as well as a methamphetamine user. On 02/07/2021, she underwent a right hunfi-hnn-wulz amputation. She was readmitted on 03/31/2021 after she states that she fell during a transfer onto her stump, which started redness, erythema as well as drainage; however, when confronted, she states that she continues to smoke and use methamphetamine. An MRI was performed, which did show osteomyelitis of the tibial trunk and it was recommended that she proceed with an zotjx-mfh-mcnf amputation and she was scheduled; however, canceled the day of surgery. As of now, she reports that she is willing to proceed with the right jjsoo-hif-rgbe amputation. However, again, it was explained to her multiple times that if she continues to smoke and use methamphetamine, she will continue to have continued soft tissue necrosis as well as osteomyelitis requiring further amputations of her currently affected lower extremity; however, this will also extend into her contralateral leg as well as possible upper extremities. PAST MEDICAL HISTORY: Hypertension, diabetes, depression, and history of methamphetamine use. PAST SURGICAL HISTORY: Right atwci-egg-ybvu amputation on 02/07/2021. ALLERGIES: MEPERIDINE and VOLTAREN CREAM. MEDICATIONS: 1. Amlodipine 5 mg daily. 2. Doxycycline 100 mg b.i.d. 3. Fluconazole 150 mg daily. 4. Hydrocodone p.r.n. 5. Aspartate insulin 6 units before every meal. 6. Levemir insulin 20 units every day at bedtime. 7. Lactulose 10 mg b.i.d. 8. Colace b.i.d. SOCIAL HISTORY: Positive for cigarette smoke and positive for methamphetamine use. She reports that she does not drink alcohol. FAMILY HISTORY: Buerger's disease. REVIEW OF SYSTEMS: This is a well-nourished female currently in no acute distress. She is not experiencing any shortness of breath or difficulty in breathing. No chest pain, palpitations, diaphoresis. No nausea, vomiting, diarrhea or constipation. No fever, chills, no recent inadvertent weight loss. She does have discomfort as well as drainage along the right lower extremity stump. PHYSICAL EXAMINATION: VITAL SIGNS: Temperature 36.5, pulse 105, respirations 16, pulse ox 98% on room air. CHEST: Scattered wheezes and rhonchi bilaterally. HEART: Regular, no murmurs. EXTREMITIES: There is an open sinus tract as well as redness and erythema at the base of the BKA stump. HEENT: No scleral icterus. NECK: No cervical lymphadenopathy. ABDOMEN: Soft, nontender, and nondistended. SKIN: Warm, dry. ASSESSMENT AND PLAN: A 51-year-old female with an osteomyelitis of the left tibial stump, status post sowns-vpf-xcvf amputation on 02/07/2021 with history of medical noncompliance and continuation of smoking and methamphetamine use despite having Buerger's disease. We had given her the option to proceed with an essiy-kil-pzvl amputation, which was scheduled; however, she canceled the day of the surgery. She now is willing to proceed with the ymluv-jua-guae amputation, which will be scheduled on 07/04/2021. Job ID: [id number] DocumentID: [id number] Dictated Date: 06/22/2021 18:17:27 New Car Sales Manager Date: 06/22/2021 18:59:39 Dictated By: MONSERRAT STREET MD
[~2021-07-04] MED LIST changes: +LACTATED RINGERS 1,000 ML IV PRN; +LIDOCAINE/EPI 1%-1:200,000 (XYLOCAINE) 30 ML VIAL ONE
[2021-07-04 12:25] VITALS: BP 125/80
[2021-07-04 12:54] LABS: AMPHETAMINE SCREEN, URINE POSITIVE (NEGATIVE); BARBITURATE SCREEN URINE NEGATIVE (NEGATIVE); BENZODIAZEPINES SCREEN URINE NEGATIVE (NEGATIVE); CANNABINOID SCREEN, URINE NEGATIVE (NEGATIVE); COCAINE SCREEN URINE NEGATIVE (NEGATIVE); METHADONE STAT NEGATIVE (NEGATIVE); METHAMPHETAMINE SCREEN URINE S POSITIVE (NEGATIVE); OPIATE SCREEN URINE NEGATIVE (NEGATIVE); OXYCODONE STAT NEGATIVE (NEGATIVE); PROPOXYPHENE STAT NEGATIVE (NEGATIVE); TRICYCLIC ANTIDEPRESSANTS SCRE NEGATIVE (NEGATIVE)
--- NOTE | 2021-07-05 09:11 | Anesthesia-General Post-Op ---
General Patient Condition Mental Status/LOC: Same as Preop Cardiovascular: Satisfactory Nausea/Vomiting: Absent Respiratory: Satisfactory Pain: Controlled Complications: Absent Post Op Complications Complications None Follow Up Care/Instructions Patient Instructions None needed. Anesthesia/Patient Condition Patient Condition Patient is doing well, no complaints, stable vital signs, no apparent adverse anesthesia problems. No complications reported per nursing. ROSIBEL DREW CRNA Jul 05, 2021 09:11
== END ==
LOC: EDSTATUS 12:00 → UNDOADMIN 12:17 → 4TH 12:17 → SURG 12:18 → LAB 13:05 → UNDODISIN 13:25
PROVIDERS: ATTEND Surgery
DX: M86.161 Other acute osteomyelitis, right tibia and fibula (principal); Z89.611 Acquired absence of right leg above knee
CPT/HCPCS: 80306; 82947; 84703

== ENCOUNTER → 2022-04-04 | Outpatient (CLI) | payer MEDICARE, MEDICAID ==
[~2022-04-04] MED LIST changes: +CATHETER FLUSH 10 ML SYR IVP PRN; -LACTATED RINGERS 1,000 ML IV PRN; -LIDOCAINE/EPI 1%-1:200,000 (XYLOCAINE) 30 ML VIAL ONE; +REGADENOSON 0.4 MG/5 ML SYR (LEXISCAN) IV ONE
[2022-04-04 09:34] VITALS: BP 124/84
--- NOTE | 2022-04-04 11:03 | Cardiology Stress Test Report ---
Stress Test Report Date of Procedure/Referring: Date of Procedure: Apr 04, 2022 [facility], [facility] Admitting Physician Admitting Physician: Attending Physician: Sal Augustin MD Indications: CAD Baseline Heart Rate: 84 Baseline Blood Pressure: Blood Pressure Systolic: 124 Blood Pressure Diastolic: 84 Baseline Vitals Vital Signs Date Time Temp Pulse Resp B/P (MAP) Pulse Ox O2 Delivery O2 Flow Rate FiO2 04/04/22 09:34 85 124/84 (97) 96 Room Air Baseline EKG: Baseline EKG: NSR Summary After explaining the procedure to the patient, she signed a consent and then brought to the stress nuclear laboratory. Patient received 0.4 mg Lexiscan for stress test, ECG, heart rate and blood pressure were monitored continuously. Resting and stress dose of radio tracer were injected, imaging was acquired and reviewed in short axis, horizontal long axis and vertical long axis views. TID: 1.25 SSS: 16 SDS: 3 EF: 34 1. Patient tolerated Lexiscan well 2. Fixed defect involving the whole inferior wall, reversible ischemia involving the inferoapical segment and inferior lateral wall 3. Transient ischemic dilatation 1.25 4. Prominent left ventricle with diffuse hypokinesia more pronounced at the inferior wall, ejection fraction 34% Copy Copies To 1: [facility]/ SAL AUGUSTIN MD Apr 04, 2022 11:03
== END ==
LOC: CARD 08:45
PROVIDERS: ATTEND Internal Medicine Cardiovascular Disease
DX: I25.10 Atherosclerotic heart disease of native coronary artery without angina pectoris (principal); I10 Essential (primary) hypertension
CPT/HCPCS: 78452; 93017; A9502

== ENCOUNTER → 2022-04-09 | Outpatient (CLI) | payer MEDICARE, MEDICAID ==
[~2022-04-09] MED LIST changes: +AMOX1TAB12 PO; +ARIP400S3 IM; -CATHETER FLUSH 10 ML SYR IVP PRN; +DULO30CA49 PO; -REGADENOSON 0.4 MG/5 ML SYR (LEXISCAN) IV ONE; +RT-ALBUINH INH; +TOPI100T11 PO
== END ==
LOC: CARD 13:30
PROVIDERS: ATTEND Internal Medicine Cardiovascular Disease
DX: I08.0 Rheumatic disorders of both mitral and aortic valves (principal); I11.9 Hypertensive heart disease without heart failure; I25.10 Atherosclerotic heart disease of native coronary artery without angina pectoris
CPT/HCPCS: 93306

== ENCOUNTER 2022-04-11 07:03 | Day surgery (SDC) | payer MEDICARE, MEDICAID ==
[~2022-04-11] VITALS: Ht 172.7 cm; Wt 80.0 kg
[2022-04-11] VITALS (11 sets, daily range): BP systolic 96–129; BP diastolic 62–87
[~2022-04-11 07:03] MED LIST changes: -AMOX1TAB12 PO; -ARIP400S3 IM; -DULO30CA49 PO; -RT-ALBUINH INH; -TOPI100T11 PO
[2022-04-11] MEDS ORDERED: LIDOCAINE 1% INJ 30 ML (XYLOCAINE) VIAL ONE (07:11)
[2022-04-11] MEDS ORDERED: HEParin (CATH LAB) 2,000 ML IV ONE (07:11)
[2022-04-11] MEDS ORDERED: NS IV 1000 ML 1,000 ML ONE (07:11)
[2022-04-11] MEDS ORDERED: NS IV 1000 ML 1,000 ML IV SCH ×2 (07:15→10:00)
[2022-04-11 07:30] LABS: HEMATOCRIT 47 % (35-52); HEMOGLOBIN 15.1 g/dL (11.5-16.0); MEAN CORPUSCULAR HEMOGLOBIN 29 pg (25-34); MEAN CORPUSCULAR HGB CONC 32 g/dL (32-36); MEAN CORPUSCULAR VOLUME 91 fL (80-99); MEAN PLATELET VOLUME 9.8 fL (9.0-12.2); PLATELET COUNT 318 10^3/uL (130-400)
[2022-04-11 07:39] LABS: POTASSIUM 3.4 MMOL/L (3.6-5.0)
[2022-04-11 07:40] LABS: ALBUMIN 3.9 GM/DL (3.2-4.5)
[2022-04-11 07:41] LABS: CALCIUM 9.5 MG/DL (8.5-10.1)
[2022-04-11 07:42] LABS: TOTAL PROTEIN 7.7 GM/DL (6.4-8.2)
[2022-04-11 07:44] LABS: BILIRUBIN,TOTAL 0.2 MG/DL (0.1-1.0)
[2022-04-11 07:46] LABS: CREATININE SERUM 0.82 MG/DL (0.60-1.30)
[2022-04-11 07:57] LABS: PROTHROMBIN TIME PATIENT 13.9 SEC (12.2-14.7)
[2022-04-11] MEDS ORDERED: RT-ALBUINH INH (07:58)
[2022-04-11] MEDS ORDERED: DULO30CA49 PO ×2 (07:58)
[2022-04-11] MEDS ORDERED: TOPI100T11 PO (07:58)
[2022-04-11] MEDS ORDERED: AMOX1TAB12 PO (08:07)
[2022-04-11] MEDS ORDERED: ARIP400S3 IM (08:08)
--- NOTE | 2022-04-11 08:10 | Diagnostic Imaging Report ---
Indication: Cardiac disease. Its compared with study 03/31/2021. FINDINGS: Heart size and configuration stable and normal. No failure, effusion or pneumothorax. IMPRESSION: Normal frontal chest. Dictated by: Dictated on workstation # [id number]
[2022-04-11] MEDS ORDERED: fentaNYL INJ 100 MCG/2 ML AMP ONE (08:39)
[2022-04-11] MEDS ORDERED: MIDAZOLAM 2 MG/2 ML (VERSED) VIAL ONE (08:39)
--- NOTE | 2022-04-11 08:54 | Cardiac Procedure Note-CS/ASA ---
Pre-Procedure Note Pre-Op Procedure Note Date of Available H&P: Apr 02, 2022 Date H&P Reviewed: Apr 11, 2022 Time H&P Reviewed: 08:54 History & Physical: H&P Reviewed, Patient Examed, No changes noted Pre-Operative Diagnosis: right tibial stump osteomyelitis, CAD Conscious Sedation Pre-Proced Time 08:54 ASA Score 3 For ASA 3 and 4: Consider anesthesia and medical clearance. Also, for patients with a history of failed moderate sedation consider anesthesia. Airway Lungs Heart ASA score ASA 1: a normal healthy patient ASA 2: a patient with a mild systemic disease (mid diabetes, controlled hypertension, obesity x ASA 3: a patient with a severe systemic disease that limits activity (angina, COPD, prior Myocardial infarction) ASA 4: a patient with an incapacitating disease that is a constant threat to life (CHF, renal failure) ASA 5: a moribund patient not expected to survive 24 hrs. (ruptured aneurysm) ASA 6: a declared brain- patient whose organs are being harvested. For emergent operations, add the letter E after the classification Mallampati Classification Grade 3 Sedation Plan Analgesia, Amnesia, Plan communicated to team members, Discussed options with patient/fam, Discussed risks with patient/fam The patient is an appropriate candidate to undergo the planned procedure, sedation, and anesthesia. The patient immediately re-assessed prior to indication. SAL VALVERDE MD Apr 11, 2022 08:54
[2022-04-11] MEDS ORDERED: PATIENT MAY USE OWN MEDS, ALL PO SCH (10:00)
--- NOTE | 2022-04-11 10:05 | Cardiac Cath Report ---
Cardiac Cath Report Physician (s)/University Internship (s) Physician SAL VALVERDE MD Pre-Procedure Diagnosis Pre-Procedure Diagnosis: right tibial stump osteomyelitis, CAD Post-Procedure Note Procedure Start Date: Apr 11, 2022 Name of Procedure: Coronary angiogram Bilateral lower extremities runoff Third order Additional imaging Findings/Procedure Note PROCEDURE NOTE: 52-year-old lady with right BKA, nonhealing wound, had an abnormal ultrasound, scheduled for peripheral angiogram and had an abnormal stress test, scheduled for cardiac catheterization during the angiogram. After explaining the procedure to the patient, all pros and cons were explained, all questions were answered. The patient signed the consent and then she was placed on the cardiac catheterization laboratory. Groin was prepped SL fashion local anesthesia was used. Sheath placed in the left femoral artery, Bill left catheter was advanced to the left coronary system and angiogram was done th en Bill right was advanced and engaged the right coronary artery and angiogram was done. I pulled down the Bill right catheter to the bifurcation and then advanced it over a long Storq wire and the right common iliac artery and did runoff to the right lower extremity then I advanced the Storq wire again and advanced the straight catheter and placed it at the proximal right SFA then did angiogram then placed a Storq wire again and advanced the catheter down to the popliteal artery and did angiogram with DSA to the popliteal artery trying to evaluate any residual trifurcation then I flushed the catheter and measured the pressure and did slow pullback and measured the pressure at the proximal SFA then at the right common femoral artery, there was a step up and I did DSA angiogram to the common femoral and proximal SFA then I pulled the catheter out and did runoff to the left leg through the sheath. At the end of the procedure the sheath was removed. Manual pressure applied FINDINGS: Hemodynamics LV was not measured, did not cross the aortic valve Aorta 103/64 mean of 80 Common femoral artery 93/56/75 Proximal SFA 89/57/70 Distal SFA/popliteal artery 68/48/56 ANATOMY: Left Main is free of obstructive disease Left Anterior Descending tortuous artery with 70 to 80% stenosis at the mid LAD Left Circumflex is moderate in size, totally occluded proximally reconstructed by collateral filling the proper circumflex artery and the first obtuse marginal branch Right Coronary Artery is dominant artery totally occluded proximally, reconstructed by collaterals from the left system LV Gram was not done, did not cross the aortic valve, known ejection fraction during SPECT images of 37% and with echo 50% Right lower extremity: Common femoral and common iliac artery has mild to moderate disease SFA has 60% stenosis proximally and distally otherwise tubular stenosis. Down by the popliteal artery there is a right BKA with multiple small collaterals around that area. Left lower extremity: Common femoral artery has mild disease SFA has 70 to 80% stenosis at the midportion, moderate disease distally Tibioperoneal trunk has 70% stenosis at the origin of the anterior tibial artery with 80% stenosis in the proximal anterior tibial artery Mild disease in the posterior tibial artery and peroneal artery CONCLUSION: 1. Severe multivessel coronary artery disease with total occlusion of the right coronary artery receiving collaterals from the left system total occlusion of the circumflex artery receiving collaterals from the LAD and from the circumflex itself and 70 to 80% stenosis in the mid LAD 2. Ischemic cardiomyopathy, known ejection fraction ranging between 37 and 50% during stress test and echo. 3. Right BKA with moderate stenosis in the SFA, nonobstructive disease 4. Severe stenosis in the mid left SFA and left tibioperoneal trunk and anterior tibial artery DISCUSSION AND RECOMMENDATION HOSPITAL COURSE: Patient was admitted to stepdown unit, I discussed the management plan with Dr. Hassan at [facility] who accepted the patient to be transferred for evaluation for bypass surgery. FINAL DIAGNOSIS: 1. Coronary artery disease 2. Congestive heart failure, chronic compensated left ventricular systolic dysfunction, ischemic cardiomyopathy 3. Peripheral arterial disease 4. Nonhealing wound 5. Hyperlipidemia Anesthesia Type: Conscious Sedation Estimated blood loss (mL): 20 ML Contrast Amount: 68 ML Total Radiation Dose: 635 mGy Post-Procedure Diagnosis Post-operative diagnosis: Coronary artery disease Peripheral arterial disease Nonhealing leg wound Hyperlipidemia SAL VALVERDE MD Apr 11, 2022 10:05
== END 2022-04-11 14:30 ==
LOC: CATH 07:03 → CSD 10:24 → CATH 14:30
PROVIDERS: ATTEND Internal Medicine Cardiovascular Disease
DX: I25.10 Atherosclerotic heart disease of native coronary artery without angina pectoris (principal); I50.22 Chronic systolic (congestive) heart failure; I25.5 Ischemic cardiomyopathy; E78.5 Hyperlipidemia, unspecified; I70.202 Unspecified atherosclerosis of native arteries of extremities, left leg; F17.210 Nicotine dependence, cigarettes, uncomplicated; E11.9 Type 2 diabetes mellitus without complications
CPT/HCPCS: 36247; 36248; 71045; 75716; 80053; 80061; 85027; 85610; 85730; 87081; 93005; 93454; C1769; C1887; C1894; 36415